=== PATIENT | female | born 1955 | race Two or more races ===

== ENCOUNTER 2019-10-26 12:29 | Inpatient (IN) | payer MEDICAID ==
[2019-10-26] VITALS (33 sets, daily range): BP systolic 71–156; BP diastolic 37–90
[~2019-10-26] VITALS: Ht 154.9 cm; Wt 62.8 kg
--- NOTE | 2019-10-26 12:29 | NUR ---
ED Nurse Note: PT BROUGHT IN BY RA 29 FROM HOME FOR DIZZINESS WITH NAUSEA AND VOMITTING X 4 DAYS. PT CURRENT BP IS 72/34 . PT IS ALERT X4. PT STATES SHE HAS HX OF HTN AND STOMACHE CA AND IS CURRENTLY TAKING LISINOPRIL, UNKNOWN DOSE. 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 BLOOD SAMPLE SENT DOWN TO LAB
[2019-10-26 13:15] LABS: INR 1.3 (0.9-1.1)
[2019-10-26] MEDS ORDERED: Piperacillin/Tazobactam 3.375 GM in NS 110 ML IVPB ONE (13:15)
--- NOTE | 2019-10-26 13:17 | Emergency Room Report ---
History of Present Illness General Chief Complaint: Dizziness Source: Patient Present Illness HPI 64-year-old female history of hypertension, history of chemotherapy for stomach cancer takes chemotherapy in the morning presents with fever x1 day, chills generalized weakness and hypotension measured less than systolic blood pressure of 90, no known aggravating relieving factor severity is moderate, constant patient presents for evaluation Allergies: Coded Allergies: No Known Allergies (Unverified , 10/26/19) Patient History Past Medical History: see triage record Last Menstrual Period: NA Reviewed Nursing Documentation: PMH: Agreed; PSxH: Agreed Nursing Documentation-PMH Past Medical History: No History, Except For Hx Hypertension: Yes Review of Systems All Other Systems: negative except mentioned in HPI Physical Exam Vital Signs Date Time Temp Pulse Resp B/P (MAP) Pulse Ox O2 Delivery O2 Flow Rate FiO2 10/26/19 12:22 98.8 86 18 72/35 (47) 98 Room Air Sp02 EP Interpretation: reviewed, normal General Appearance: well appearing, no apparent distress, alert Head: normocephalic, atraumatic Eyes: bilateral eye PERRL, bilateral eye EOMI ENT: uvula midline, dry mucus membranes Neck: supple, thyroid normal, supple/symm/no masses Respiratory: lungs clear, no respiratory distress, no retraction, no accessory muscle use Cardiovascular #1: normal peripheral pulses, regular rate, rhythm, no edema, no gallop, no murmur Gastrointestinal: non tender, soft, no guarding, no rebound Musculoskeletal: normal inspection Neurologic: alert, oriented x3 Psychiatric: mood/affect normal Skin: no rash, warm/dry Procedures Critical Care Time Critical Care Time Given the critical condition in which the patient arrived, the patient was immediately assessed by myself and the nurse, and cardiac monitoring initiated due to the potential for rapid decompensation of the patient's clinical condition. During the course of the patient's stay, I spent a considerable amount of time at the bedside performing serial re-evaluations of the patient's hemodynamic and clinical status because of the recognized potential threat to life or limb in this condition. I then had a chance to review not only all of the available current laboratory and radiographic studies obtained today, but I also reviewed old records available to me at the time. 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 Sequential vital signs were obtained. Critical Care time of 60 minutes was performed exclusive of billable procedures. Central Line Central Line : Consent: Written Central Line Lumen: triple Maximal Sterile Barrier Tech: yes cap, yes mask, yes sterile gown, yes sterile gloves, yes large sterile sheet, yes hand hygiene, yes chlorhexidine prep Central Line Postion: femoral (R) Anesthesia: Lidocaine cc's of anesthesia: 10 Complications: none Central Line Post Position: sutured, good blood return Attempts: One Patient Tolerated: Well Complications: None Medical Decision Making Diagnostic Impression: Primary Impression: Hypotension Qualified Codes: I95.9 - Hypotension, unspecified Additional Impressions: Sepsis Qualified Codes: A41.9 - Sepsis, unspecified organism; R65.21 - Severe sepsis with septic shock; N17.9 - Acute kidney failure, unspecified Symptomatic anemia ER Course 64-year-old female history of chemotherapy presents with hypotension, tachycardia concern for sepsis, anemia, Patient found to be anemic, will transfuse blood, consent was signed Additionally patient was resuscitated with 3 L of NS however she remained hypotensive and refractory A central line was emergently placed with her consent right femoral Norepinephrine titrated with map goal of 65 Patient was upgraded to the ICU given her hypotension patient admitted to Dr. Melendez Laboratory Tests Test 10/26/19 12:25 10/26/19 15:00 10/26/19 15:20 White Blood Count 7.7 K/UL (4.8-10.8) Red Blood Count 1.66 M/UL (4.20-5.40) L Hemoglobin 5.7 G/DL (12.0-16.0) *L Hematocrit 15.5 % (37.0-47.0) L Mean Corpuscular Volume 93 FL (80-99) Mean Corpuscular Hemoglobin 34.6 PG (27.0-31.0) H Mean Corpuscular Hemoglobin Concent 37.2 G/DL (32.0-36.0) H Red Cell Distribution Width 15.7 % (11.6-14.8) H Platelet Count 101 K/UL (150-450) L Mean Platelet Volume 6.0 FL (6.5-10.1) L Neutrophils (%) (Auto) % (45.0-75.0) Lymphocytes (%) (Auto) % (20.0-45.0) Monocytes (%) (Auto) % (1.0-10.0) Eosinophils (%) (Auto) % (0.0-3.0) Basophils (%) (Auto) % (0.0-2.0) Differential Total Cells Counted 100 Neutrophils % (Manual) 91 % (45-75) H Lymphocytes % (Manual) 5 % (20-45) L Monocytes % (Manual) 4 % (1-10) Eosinophils % (Manual) 0 % (0-3) Basophils % (Manual) 0 % (0-2) Band Neutrophils 0 % (0-8) Platelet Estimate Decreased L Platelet Morphology Normal Hypochromasia 4+ Anisocytosis 1+ Spherocytes 3+ Prothrombin Time 13.9 SEC (9.30-11.50) H Prothrombin Time INR 1.3 (0.9-1.1) H Activated Partial Thromboplast Time 44 SEC (23-33) H Sodium Level 131 MMOL/L (136-145) L Potassium Level 3.7 MMOL/L (3.5-5.1) Chloride Level 99 MMOL/L (98-107) Carbon Dioxide Level 22 MMOL/L (21-32) Anion Gap 11 mmol/L (5-15) Blood Urea Nitrogen 31 mg/dL (7-18) H Creatinine 2.5 MG/DL (0.55-1.30) H Estimate Glomerular Filtration Rate 19.3 mL/min (>60) Glucose Level 177 MG/DL (74-106) H Lactic Acid Level 2.80 mmol/L (0.4-2.0) H 2.20 mmol/L (0.66-2.22) Calcium Level 7.5 MG/DL (8.5-10.1) L Phosphorus Level 2.9 MG/DL (2.5-4.9) Magnesium Level 1.8 MG/DL (1.8-2.4) Total Bilirubin 0.6 MG/DL (0.2-1.0) Aspartate Amino Transferase (AST) 25 U/L (15-37) Alanine Aminotransferase (ALT) 21 U/L (12-78) Alkaline Phosphatase 76 U/L (46-116) Total Creatine Kinase 253 U/L (26-308) Troponin I 0.000 ng/mL (0.000-0.056) Pro-B-Type Natriuretic Peptide 2449 pg/mL (0-125) H Total Protein 6.4 G/DL (6.4-8.2) Albumin 2.5 G/DL (3.4-5.0) L Globulin 3.9 g/dL Lipase 164 U/L (73-393) Urine Color Pale yellow Urine Appearance Slightly cloudy Urine pH 7 (4.5-8.0) Urine Specific [place] 1.005 (1.005-1.035) Urine Protein 2+ (NEGATIVE) H Urine Glucose (UA) Negative (NEGATIVE) Urine Ketones Negative (NEGATIVE) Urine Blood 5+ (NEGATIVE) H Urine Nitrite Negative (NEGATIVE) Urine Bilirubin Negative (NEGATIVE) Urine Urobilinogen Normal MG/DL (0.0-1.0) Urine Leukocyte Esterase 3+ (NEGATIVE) H Urine RBC 2-4 /HPF (0 - 2) H Urine WBC Tntc /HPF (0 - 2) H Urine Squamous Epithelial Cells Few /LPF (NONE/OCC) Urine Bacteria Many /HPF (NONE) H EKG Diagnostic Results EKG Time: 11:16 EP Interpretation: NSR, rate 66, QTc 436, no acute ST elevations, normal axis Rhythm Strip Diag. Results Rhythm Strip Time: 13:17 EP Interpretation: yes Rate: 82 Rhythm: NSR, no PVC's, no ectopy Chest X-Ray Diagnostic Results Chest X-Ray Diagnostic Results : Chest X-Ray Ordered: Yes # of Views/Limited/Complete: 1 View Indication: Other - cough EP Interpretation: Yes Interpretation: no consolidation, no effusion, no pneumothorax, no acute cardiopulmonary disease Impression: No acute disease Electronically Signed by: Spike Yin MD Last Vital Signs Date Time Temp Pulse Resp B/P (MAP) Pulse Ox O2 Delivery O2 Flow Rate FiO2 10/26/19 12:48 81 18 Room Air 10/26/19 12:29 98.8 78/40 98 Disposition: ADMITTED INPATIENT Condition: Critical Evaluation Current Stage of Sepsis: Septic Shock Possible Source: Unknown Focused Exam Allergies: Coded Allergies: No Known Allergies (Unverified , 10/26/19) Date Exam Occurred: Oct 26, 2019 Time Exam Occurred: 15:13 Laboratory Studies Laboratory Tests Test 10/26/19 12:25 10/26/19 15:00 10/26/19 15:20 White Blood Count 7.7 K/UL (4.8-10.8) Red Blood Count 1.66 M/UL (4.20-5.40) L Hemoglobin 5.7 G/DL (12.0-16.0) *L Hematocrit 15.5 % (37.0-47.0) L Mean Corpuscular Volume 93 FL (80-99) Mean Corpuscular Hemoglobin 34.6 PG (27.0-31.0) H Mean Corpuscular Hemoglobin Concent 37.2 G/DL (32.0-36.0) H Red Cell Distribution Width 15.7 % (11.6-14.8) H Platelet Count 101 K/UL (150-450) L Mean Platelet Volume 6.0 FL (6.5-10.1) L Neutrophils (%) (Auto) % (45.0-75.0) Lymphocytes (%) (Auto) % (20.0-45.0) Monocytes (%) (Auto) % (1.0-10.0) Eosinophils (%) (Auto) % (0.0-3.0) Basophils (%) (Auto) % (0.0-2.0) Differential Total Cells Counted 100 Neutrophils % (Manual) 91 % (45-75) H Lymphocytes % (Manual) 5 % (20-45) L Monocytes % (Manual) 4 % (1-10) Eosinophils % (Manual) 0 % (0-3) Basophils % (Manual) 0 % (0-2) Band Neutrophils 0 % (0-8) Platelet Estimate Decreased L Platelet Morphology Normal Hypochromasia 4+ Anisocytosis 1+ Spherocytes 3+ Prothrombin Time 13.9 SEC (9.30-11.50) H Prothromb Time International Ratio 1.3 (0.9-1.1) H Activated Partial Thromboplast Time 44 SEC (23-33) H Sodium Level 131 MMOL/L (136-145) L Potassium Level 3.7 MMOL/L (3.5-5.1) Chloride Level 99 MMOL/L (98-107) Carbon Dioxide Level 22 MMOL/L (21-32) Anion Gap 11 mmol/L (5-15) Blood Urea Nitrogen 31 mg/dL (7-18) H Creatinine 2.5 MG/DL (0.55-1.30) H Estimat Glomerular Filtration Rate 19.3 mL/min (>60) Glucose Level 177 MG/DL (74-106) H Lactic Acid Level 2.80 mmol/L (0.4-2.0) H 2.20 mmol/L (0.66-2.22) Calcium Level 7.5 MG/DL (8.5-10.1) L Phosphorus Level 2.9 MG/DL (2.5-4.9) Magnesium Level 1.8 MG/DL (1.8-2.4) Total Bilirubin 0.6 MG/DL (0.2-1.0) Aspartate Amino Transf (AST/SGOT) 25 U/L (15-37) Alanine Aminotransferase (ALT/SGPT) 21 U/L (12-78) Alkaline Phosphatase 76 U/L (46-116) Total Creatine Kinase 253 U/L (26-308) Troponin I 0.000 ng/mL (0.000-0.056) Pro-B-Type Natriuretic Peptide 2449 pg/mL (0-125) H Total Protein 6.4 G/DL (6.4-8.2) Albumin 2.5 G/DL (3.4-5.0) L Globulin 3.9 g/dL Lipase 164 U/L (73-393) Urine Color Pale yellow Urine Appearance Slightly cloudy Urine pH 7 (4.5-8.0) Urine Specific [place] 1.005 (1.005-1.035) Urine Protein 2+ (NEGATIVE) H Urine Glucose (UA) Negative (NEGATIVE) Urine Ketones Negative (NEGATIVE) Urine Blood 5+ (NEGATIVE) H Urine Nitrite Negative (NEGATIVE) Urine Bilirubin Negative (NEGATIVE) Urine Urobilinogen Normal MG/DL (0.0-1.0) Urine Leukocyte Esterase 3+ (NEGATIVE) H Urine RBC 2-4 /HPF (0 - 2) H Urine WBC Tntc /HPF (0 - 2) H Urine Squamous Epithelial Cells Few /LPF (NONE/OCC) Urine Bacteria Many /HPF (NONE) H Vital Signs Last 24 Hour Vital Signs Date Time Temp Pulse Resp B/P (MAP) Pulse Ox O2 Delivery O2 Flow Rate FiO2 10/26/19 15:37 129/50 10/26/19 15:37 98.5 96 19 129/50 100 Room Air 10/26/19 15:32 83/42 10/26/19 15:27 98.5 97 22 85/74 99 Room Air 10/26/19 15:27 85/74 10/26/19 15:22 98.8 92 20 79/43 97 Room Air 10/26/19 15:22 79/43 10/26/19 13:23 98.8 86 18 71/41 97 Room Air 10/26/19 12:48 81 18 Room Air 10/26/19 12:29 98.8 81 18 78/40 98 Room Air 10/26/19 12:22 98.8 86 18 72/35 (47) 98 Room Air Respiratory Exam: Clear Cardiovascular Exam: S1, S2, Tachycardia Capillary Refill: Greater Than 2 Seconds Peripheral Pulse: Strong Pulse Location: Femoral Skin Exam: Pallor Spike Yin MD Oct 26, 2019 13:17
--- NOTE | 2019-10-26 13:22 | NUR ---
ED Nurse Note: BP 71/41 AFTER 1ST BAG OF NS. DR MALDONADO WAS NOTIFIED.
[2019-10-26 13:23] LABS: HEMATOCRIT 15.5 % (37.0-47.0); MEAN CORPUSCULAR VOLUME 93 FL (80-99); PLATELET COUNT 101 K/UL (150-450); RED BLOOD COUNT 1.66 M/UL (4.20-5.40); RED CELL DISTRIBUTION WIDTH 15.7 % (11.6-14.8); WHITE BLOOD COUNT 7.7 K/UL (4.8-10.8)
[2019-10-26 13:25] LABS: HEMOGLOBIN 5.7 G/DL (12.0-16.0)
[2019-10-26 13:27] LABS: ANION GAP 11 mmol/L (5-15); BLOOD UREA NITROGEN 31 mg/dL (7-18); CALCIUM 7.5 MG/DL (8.5-10.1); CARBON DIOXIDE 22 MMOL/L (21-32); CHLORIDE 99 MMOL/L (98-107); CREATININE 2.5 MG/DL (0.55-1.30); POTASSIUM 3.7 MMOL/L (3.5-5.1); SODIUM 131 MMOL/L (136-145)
[2019-10-26 13:31] LABS: ALANINE AMINOTRANSFERASE 21 U/L (12-78); ALKALINE PHOSPHATASE 76 U/L (46-116); ASPARTATE AMINO TRANSFERASE 25 U/L (15-37); BILIRUBIN,TOTAL 0.6 MG/DL (0.2-1.0); CREATINE KINASE 253 U/L (26-308); PHOSPHORUS 2.9 MG/DL (2.5-4.9)
[2019-10-26 13:53] LABS: ALBUMIN 2.5 G/DL (3.4-5.0)
[2019-10-26] MEDS ORDERED: Lidocaine 1% Plain 30 ml INJ ONE ×2 (14:20→14:30)
--- NOTE | 2019-10-26 14:50 | NUR ---
ED Nurse Note: DR MALDONADO AT THE BEDSIDE FOR CENTRAL LINE PLACEMENT ON RIGHT FEMORAL. CONSENT SIGNED BY PT AND SECURED.
--- NOTE | 2019-10-26 15:06 | Diagnostic Imaging Report ---
Indication: Chest pain Technique: One view of the chest Comparison: none Findings: Lungs and pleural spaces are clear. The heart size is upper limits of normal. Impression: Negative
--- NOTE | 2019-10-26 15:22 | NUR ---
ED Nurse Note: Started levophed drip at 2mcg/min on right femoral central line.
[2019-10-26 15:30] LABS: APPEARANCE,URINE SLIGHTLY CLOUDY; BILIRUBIN, URINE NEGATIVE (NEGATIVE); COLOR,URINE PALE YELLOW; GLUCOSE, URINE (UA) NEGATIVE (NEGATIVE); KETONES,URINE NEGATIVE (NEGATIVE); LEUKOCYTE ESTERASE ,URINE 3+ (NEGATIVE); NITRITE,URINE NEGATIVE (NEGATIVE); PH,URINE 7 (4.5-8.0); PROTEIN,URINE 2+ (NEGATIVE); UROBILINOGEN,URINE NORMAL MG/DL (0.0-1.0)
[2019-10-26] MEDS ORDERED: Vancomycin 1 GM in NS 275 ML IVPB ONE (15:45)
--- NOTE | 2019-10-26 16:08 | NUR ---
ED Nurse Note: PT WENT TO CT WITH RN AND MYRANDA. ON PORTABLE CEMENT [place] [address]. BP AT 129/50.
--- NOTE | 2019-10-26 16:27 | Pulmonolgy Critical Care Note ---
Critical Care - Asmt/Plan Assessment/Plan: Pulmonary Critical Care Consultation HPI Patient is a 64-year-old female with past medical history of Stomach cancer, hypertension, history of recent chemotherapy ,admitted with with fever/chills for one day, weakness, noted to have severe anemia, hypotension, evidence of urinary tract infection, clear CXR, normal O2 sats on RA, no acute changes on EKG CT Abdomen pending Allergies: No Known Allergies Past Medical History: Stomach cancer, hypertension All Other Systems: negative except mentioned in HPI Physical Exam Vital Signs Noted Date Time Temp Pulse Resp B/P (MAP) Pulse Ox O2 Delivery O2 Flow Rate FiO2 10/26/19 12:22 98.8 86 18 72/35 (47) 98 Room Air General Appearance: well appearing, no apparent distress, alert, pale Head: normocephalic, atraumatic Eyes: bilateral eye PERRL, bilateral eye EOMI ENT: uvula midline, dry mucus membranes Neck: supple, thyroid normal, supple/symm/no masses Respiratory: lungs clear, no respiratory distress, no retraction, no accessory muscle use Cardiovascular: normal peripheral pulses, regular rate, rhythm, HS1, HS2 normal , no gallop, no murmur Gastrointestinal: non tender, soft, no guarding, no rebound Musculoskeletal: normal inspection Neurologic: alert, oriented x3, no focal signs, no seizures Psychiatric: mood/affect normal Skin: no rash, warm/dry, no edema EKG: NSR, rate 66, QTc 436, no acute ST elevations, normal axis CXR: No acute changes UA: S/o infection CBC: Severe anemia Impression: Stomach Cancer s/p recent Chemotherapy Urosepsis Severe Anemia Thrombocytopenia H/o Hypertension Dehydration Hyponatremia Azotemia Elevated BNP Hyperglycemia Plan: - IV Antibiotics - IVF - Pressors PRN - Transfuse PRN - IV Protonix - R/o DVT, SCD's - Monitor labs - Cortisol level - 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 Medications - O2 PRN - Echocardiogram - ISS Critical Care - Objective Last 24 Hour Vital Signs Date Time Temp Pulse Resp B/P (MAP) Pulse Ox O2 Delivery O2 Flow Rate FiO2 10/26/19 15:37 129/50 10/26/19 15:37 98.5 96 19 129/50 100 Room Air 10/26/19 15:32 83/42 10/26/19 15:27 98.5 97 22 85/74 99 Room Air 10/26/19 15:27 85/74 10/26/19 15:22 98.8 92 20 79/43 97 Room Air 10/26/19 15:22 79/43 10/26/19 13:23 98.8 86 18 71/41 97 Room Air 10/26/19 12:48 81 18 Room Air 10/26/19 12:29 98.8 81 18 78/40 98 Room Air 10/26/19 12:22 98.8 86 18 72/35 (47) 98 Room Air Critical Care - Subjective ROS Limited/Unobtainable: No Condition: critical EKG Rhythm: Sinus Rhythm Ajit Land MD Oct 26, 2019 16:26
--- NOTE | 2019-10-26 16:28 | NUR ---
ED Nurse Note: DR MALDONADO IS OKAY TO START THE 1ST BAG OF BLOOD TRANSFUSION IN ICU. BP AT 104/51.
--- NOTE | 2019-10-26 16:45 | Consultation ---
Consult Note Consult Note asked to eval at the request of Dr Batres Seen in ER Room 4 discussed with RN 64-year-old female history of hypertension, history of chemotherapy for stomach cancer takes chemotherapy in the morning presents with fever x1 day, chills generalized weakness and hypotension measured less than systolic blood pressure of 90, no known aggravating relieving factor severity is moderate, constant patient presents for evaluation No Known Allergies (Unverified , 10/26/19) Past Medical History: No History, Except For Hx Hypertension: Yes Assessment/Plan Renal failure Hypotension Sepsis Symptomatic anemia hydrate Anemia whalen antibiotics avoid nephrotoxics urine studies JOSEPH kidney 2D echo Alverto Bird MD Oct 26, 2019 16:45
--- NOTE | 2019-10-26 17:05 | Diagnostic Imaging Report ---
Indication: Abdominal pain, fever, chills, generalized weakness and hypotension Technique: Spiral acquisitions obtained through the abdomen and pelvis. No oral contrast utilized, per emergency room physician request No IV contrast utilized, per referring physician request.. Multiplanar reconstructions were generated. Total dose length product 1091 mGycm. CTDIvol(s) 20 mGy. Dose reduction achieved using automated exposure control Comparison: None Findings: Lack of enteric contrast limits assessment of the GI tract. There is colonic diverticulosis. No evidence of diverticulitis. The appendix is not definitely demonstrated, but no findings to suggest acute appendicitis are evident. No small bowel distention. No free or loculated intraperitoneal gas or fluid is evident. There is a small sliding-type hiatal hernia. The stomach and duodenum are otherwise unremarkable. There is evidence of prior midline abdominal surgery. The lack of IV contrast limits assessment of the solid organs. The gallbladder contains probable tiny layering gallstones. The liver is grossly unremarkable. No biliary ductal dilatation. The pancreas, spleen, adrenals, kidneys, ureters, bladder are all unremarkable. No renal or ureteral calculi, hydronephrosis, or hydroureter. No pelvic mass or adenopathy. The uterus is absent. There is a right groin central venous catheter, tip projected at the level of the common iliac vein. There is some infiltration of the fat in the right groin region, likely related to the recent placement. Included lung bases demonstrate trace pleural fluid on the right. There are posterior dependent pulmonary atelectatic changes. There is generalized mild interstitial septal thickening bilaterally as well as bronchial wall thickening. There is some atelectasis and possibly patchy consolidation at the left lung base. The bones demonstrate very mild degenerative spondylosis changes. Impression: Limited exam, due to lack of IV and enteric contrast No definite acute abdominal or pelvic abnormality Colonic diverticulosis. No evidence of diverticulitis Probable cholelithiasis Right groin central venous catheter in place. Trace right pleural effusion Posterior dependent pulmonary atelectatic changes. Mild interstitial septal thickening bilaterally is nonspecific, could be chronic or could represent acute interstitial edema. Left basilar pulmonary patchy consolidation Other findings as noted, including degenerative spondylosis, prior hysterectomy, midline surgical scar The CT scanner at [facility] is accredited by the [employer] and the scans are performed using protocols designed to limit radiation exposure to as low as reasonably achievable to attain images of sufficient resolution adequate for diagnostic evaluation.
--- NOTE | 2019-10-26 17:36 | NUR ---
ED Nurse Note: RECTAL TEMP OF 103.[address] MONTEZ WAS NOTIFIED.
[2019-10-26 17:45] LABS: FERRITIN 1012 NG/ML (8-388)
--- NOTE | 2019-10-26 17:45 | NUR ---
ED Nurse Note: REPORT GIVEN TO GRICELDA BEASLEY OF ICU.
--- NOTE | 2019-10-26 17:55 | NUR ---
ED Nurse Note: PT TRANSFERRED TO ICU WITH ALL HER BELONGINGS. STABLE ADN LEVOPHED DRIP ONGOING AT 6MCG/MIN,AND VANCOMYCIN. ENDORSED TO GRICELDA BEASLEY.
[2019-10-26 17:59] LABS: % IRON SATURATION 34 % (15-50); IRON 45 ug/dL (50-175); TOTAL IRON BINDING CAPACITY 132 ug/dL (250-450)
[2019-10-26] MEDS ORDERED: HYDROcodone/Acetamin 5/325 tab ORAL PRN (18:00)
[2019-10-26] MEDS ORDERED: Hydromorphone 0.5mg/0.5ml inj IVP PRN (18:00)
[2019-10-26] MEDS ORDERED: DiphenhydrAMINE 50mg/ml Inj IVP PRN (18:00)
--- NOTE | 2019-10-26 18:00 | NUR ---
NURSE NOTES: Late entry: PT and report received from Anabella Townsend ED RN; PT A/O x 4; belgian speaker, responsive to question; no respiratory distress noted, received on RA; saturating at 95%; ST on potline monitor of 130s; PT brought from ED with R-fem TLC all lumens patent flushes well; received infusing Levophed at 4mcg/min; R-AC 20g intact flushes well; no wounds noted during transfer of PT; NPO status except meds, will continue to monitor PT.
--- NOTE | 2019-10-26 18:01 | NUR ---
NURSE NOTES: Late entry: MD Shanda called with orders for PT; read back all orders to confirmed if all orders given over the phone are correct, confirmed read back, will place orders on behalf of .
[2019-10-26] MEDS ORDERED: D5 1/2NS 1,000 ML IV SCH (18:30)
--- NOTE | 2019-10-26 18:45 | NUR ---
NURSE NOTES: Late entry: Blood was verified at bedside with Krissy Ma, when bedside temperature was taken orally PT temperature was 103.1 orally; reported by ED RN that tylenol 650mg was given once. Informed WILLIS Fuentes, placed all tubings and blood into bag, WILLIS Fuentes took it back to [facility]. Blood bag was only punctured, never started/infused to PT.
--- NOTE | 2019-10-26 19:34 | NUR ---
HAND-OFF: Late entry: PT and report given to RAMOS Donahue.
--- NOTE | 2019-10-26 19:35 | NUR ---
NURSE NOTES: Received patient from RAMOS Barakat. Will continue plan of care.
--- NOTE | 2019-10-26 20:00 | NUR ---
NURSE NOTES: Patient is awake, alert and oriented x4; Haitian speaking. Temperature 100.7F orally at the moment. Tylenol already given and cooling measures in place. Will transfuse blood when temperature decreases. Received order from Dr. Shanda GARCIA to insert santana. Safety measures in place; bed low, locked and alarm is on.
--- NOTE | 2019-10-26 20:20 | NUR ---
NURSE NOTES: With translation from Maltese speaking RN; patient states that she received pneumococcal vaccine in 2019. She also states that she is free of stomach cancer following 2 stomach surgeries early 2019. Other than hypertension, she states no other history.
--- NOTE | 2019-10-26 20:30 | NUR ---
NURSE NOTES: Avendaño inserted and draining well. Dr. Land came and assessed patient and new orders are given. Linen change provided. Temperature down to 99.3F orally. Will keep monitoring.
--- NOTE | 2019-10-26 20:46 | NUR ---
NURSE NOTES: Confirmed with Dr. Land the orders are as followed: Bolus 500ml NS one time then continue fluids of NS @ 75ml/hr and D5NS @ 50ml/hr and to stop fluids when transfusing blood. Orders are updated.
[2019-10-26] MEDS ORDERED: D5NS 1,000 ML IV SCH (21:00)
[2019-10-26] MEDS: NovoLOG Insulin Flexpen SUBQ SCH (21:27)
[2019-10-26] MEDS: Pantoprazole Inj IVP SCH (21:27)
--- NOTE | 2019-10-26 22:00 | NUR ---
NURSE NOTES: Vital signs stable; BP:115-56, HR:83, O2:96%, RESP:13 TEMP:98.7F orally and no current reaction to blood transfusing. Patient is sleeping comfortably. Will continue to monitor.
--- NOTE | 2019-10-26 23:15 | Consultation ---
DATE OF CONSULTATION: 10/26/2019 GASTROENTEROLOGY CONSULTATION CONSULTING PHYSICIAN: Kristine Alexander M.D. CHIEF COMPLAINT: I was asked to see this patient by Dr. Alea Melendez for evaluation of anemia. HISTORY OF PRESENT ILLNESS: The patient is a pleasant 64-year-old woman who was admitted to the hospital due to urinary tract infection and sepsis. The patient states that for the past week or so, she has had bouts of dysuria. Here in the emergency room, she received some IV fluids and subsequently was found to have some rigors. She was also found to have severe anemia and she is being transfused. Of note, she was found to have a gastric cancer about a year ago and has undergone 2 surgeries at [facility] in January and March of last year. She was told that the cancer is in remission and could not be seen on an endoscopy, which was only done 15 days ago at [facility]. She had some nausea and vomiting this morning, which was yellow, but otherwise she had no nausea or vomiting. Her stools are generally black, but she has been on long-term iron supplementation. She was hypotensive this morning at home, but now her blood pressure is being improved with IV fluids. She is on p.o. chemotherapy. PAST MEDICAL HISTORY: History of hypertension, history of gastric cancer. The patient's last colonoscopy was about 6 months ago and last endoscopy was about 15 days ago. FAMILY HISTORY: Noncontributory. SOCIAL HISTORY: The patient does not smoke or drink alcohol. REVIEW OF SYSTEMS: Otherwise negative. PHYSICAL EXAMINATION: GENERAL: A pleasant woman seen in the emergency room with shaking and chills. HEENT: Normocephalic and atraumatic. NECK: Supple. CHEST: Clear to auscultation. CARDIOVASCULAR: Revealed a tachycardic heart rate. ABDOMEN: Soft, nontender. EXTREMITIES: Revealed no edema. LABORATORY DATA: The patient's urine showed cfg-insvlxek-lm-count white cells. Her chem-panel showed a creatinine of 2.5. Her white count was 7.7, but hemoglobin was 5.7 and platelet count of 101. Her coags showed INR 1.3. ASSESSMENT: This patient has gastric malignancy, which has been treated with surgery and chemotherapy at an outside facility. The patient reportedly has a clinical remission, but the cause of her anemia is unknown. I will check the patient's stool to rule out gastrointestinal bleeding. However, endoscopy was done only 15 days ago, which should be obtained if possible for review. Blood transfusion is clearly indicated at this time. I would also place the patient on a proton pump inhibitor twice daily. If necessary, another endoscopy can be done to evaluate the patient's upper GI tract. RECOMMENDATIONS: Per above discussion and per orders written in the chart. Thank you for asking me to participate in the care of this patient. Kristine Alexander M.D. DR: JACKSON JOB#: [id number] CC:
[2019-10-27] VITALS (62 sets, daily range): BP systolic 59–157; BP diastolic 38–80
--- NOTE | 2019-10-27 | NUR ---
NURSE NOTES: Patient FLACC score of 6, motioned that she is in pain to her back. BP:157/73 [place] given. Will continue to monitor.
--- NOTE | 2019-10-27 00:20 | NUR ---
NURSE NOTES: Patient is resting comfortably. FLACC score 0. Current BP:132/70
--- NOTE | 2019-10-27 01:16 | History and Physical Report ---
DATE OF ADMISSION: 10/26/2019 HISTORY OF PRESENT ILLNESS: I saw the patient in the emergency room. The patient is being admitted to the ICU. The patient is having chills and rigors. The patient has stomach cancer/uterine and ovarian cancer. Her last chemotherapy was two years ago. The patient is also taking pills for chemoprophylaxis. The patient states they removed the ovary and uterus and part of her stomach because of her cancer years ago. The patient was admitted for hypotension, septic shock, severe anemia, sepsis, acute renal failure, and malnutrition. The patient feels very weak and complains of dysuria as well. She does have some cough as nonproductive for the past couple of days. Denies rectal bleeding. PAST MEDICAL HISTORY: History of GI cancer, history of anemia, and history of ovarian and uterine cancer, both metastasized apparently. PAST SURGICAL HISTORY: Removal of ovary and uterus and hysterectomy as well as part of the GI tract and possibly stomach because of the metastatic cancer. ALLERGIES: No known allergies. MEDICATIONS: Cannot tell me the name of the medications. FAMILY HISTORY: Noncontributory. SOCIAL HISTORY: The patient denies history of smoking, alcohol, or illicit drugs. REVIEW OF SYSTEMS: HEENT: Denies headaches. RESPIRATORY: She does have cough, nonproductive for the past couple of days. CARDIOVASCULAR: Denies chest pain or palpitations. GASTROINTESTINAL: Denies nausea, vomiting, or diarrhea. EXTREMITIES: Denies pain. CENTRAL NERVOUS SYSTEM: Denies change in speech pattern. Does have severe rigors. No headaches. PHYSICAL EXAMINATION: VITAL SIGNS: Temperature 98.8, pulse is 92, and blood pressure 79/43. HEENT: PERRLA. NECK: Supple. No lymphadenopathy. CHEST: Clear to auscultation. CARDIOVASCULAR: Regular rate and rhythm. No murmurs or extra sounds. GASTROINTESTINAL: Soft, nontender, and nondistended. No organomegaly. EXTREMITIES: No edema. Moves all four extremities. Sensory intact to light touch. Reflexes equal on both sides. LABORATORY DATA: Blood cultures were drawn. WBC of 7.7, hemoglobin 5.7, and platelets 101. Sodium 131, potassium 3.7, BUN of 31, creatinine 2.5, and glucose of 177. ASSESSMENT AND PLAN: Severe anemia, UTI, and septic shock. The patient is on pressors. Need IV fluids and transfusion. She also has a history of GI cancer as well. I have consulted Dr. Land, Dr. Bird, Dr. Evelio Hill, Dr. Alexander, Dr. David Venegas, and Dr. Nunez for the above-mentioned diagnoses, abnormalities, and symptoms. The patient is very ill and is going to ICU. Alea Melendez M.D. DR: LORA JOB#: [id number] CC:
--- NOTE | 2019-10-27 02:00 | NUR ---
NURSE NOTES: 2 units PRBC transfused and patient tolerated well. Remains afebrile. Patient is resting comfortably. Will continue to monitor.
[2019-10-27] MEDS: Piperacillin/Tazobactam 3.375 GM in NS 110 ML IVPB SCH ×2 (02:50→14:54)
--- NOTE | 2019-10-27 04:00 | NUR ---
NURSE NOTES: Patient is sleeping comfortably, does not want to be bothered. Levophed continues to run, currently at 10mcg/kg/hr. BP:108/59, HR:60, O2:97%, RESP:14, shows no signs of pain or distress. Will continue to monitor.
[2019-10-27 05:57] LABS: HEMATOCRIT 25.5 % (37.0-47.0); HEMOGLOBIN 9.4 G/DL (12.0-16.0); MEAN CORPUSCULAR VOLUME 90 FL (80-99); PLATELET COUNT 89 K/UL (150-450); RED BLOOD COUNT 2.84 M/UL (4.20-5.40); WHITE BLOOD COUNT 8.9 K/UL (4.8-10.8)
--- NOTE | 2019-10-27 06:00 | NUR ---
NURSE NOTES: Patient is comfortable. Vital signs are stable. Current BP:117/58 HR:65. Levophed now running at 8mcg/kg/hr. Will continue to monitor.
[2019-10-27] MEDS: NovoLOG Insulin Flexpen SUBQ SCH ×4 (06:35→20:33)
[2019-10-27 06:40] LABS: ALANINE AMINOTRANSFERASE 17 U/L (12-78); ALBUMIN 2.3 G/DL (3.4-5.0); ALBUMIN/GLOBULIN RATIO 0.6 (1.0-2.7); ALKALINE PHOSPHATASE 84 U/L (46-116); ANION GAP 14 mmol/L (5-15); ASPARTATE AMINO TRANSFERASE 29 U/L (15-37); BILIRUBIN,TOTAL 0.6 MG/DL (0.2-1.0); BLOOD UREA NITROGEN 24 mg/dL (7-18); CALCIUM 7.8 MG/DL (8.5-10.1); CARBON DIOXIDE 18 MMOL/L (21-32); CHLORIDE 107 MMOL/L (98-107); CREATININE 1.7 MG/DL (0.55-1.30); POTASSIUM 3.1 MMOL/L (3.5-5.1); SODIUM 139 MMOL/L (136-145)
[2019-10-27 07:00] LABS: CREATINE KINASE 221 U/L (26-308); GAMMA GLUTAMYL TRANSPEPTIDASE 33 U/L (5-85); PHOSPHORUS 3.3 MG/DL (2.5-4.9)
--- NOTE | 2019-10-27 07:15 | NUR ---
HAND-OFF: Report given to RAMOS Barakat.
--- NOTE | 2019-10-27 07:16 | NUR ---
NURSE NOTES: PT and report received from RAMOS Donahue; PT A/O x 4; remains cooperative; listens to commands; gambian speaking; remains on RA saturating at 97%; monitoring specialist shows SR 70, during morning rounds PT observed going SB to mid 50; remains on levophed infusing 6mcg/min; NS @ 75cc/hr; D5NS @ 50cc/hr all infusing via R-fem TLC all ports flushes, patent, intact. PT also has R-AC 18g flushes well, patent intact. PT has santana, intact draining at lowest position. Oral temp 98.1. Will continue to monitor PT, follow through with plan of care for PT.
--- NOTE | 2019-10-27 08:10 | NUR ---
NURSE NOTES: Late entry: MD Theo made rounds, updates given, MD order CBC for 1600; will place orders on behalf of MD.
[2019-10-27] MEDS: Pantoprazole Inj IVP SCH ×2 (09:25→20:33)
--- NOTE | 2019-10-27 09:35 | Diagnostic Imaging Report ---
Indication: Acute renal failure, increased renal function tests Technique: Grayscale and duplex images of the kidneys, retroperitoneum, and bladder were obtained. Comparison: none. Reference made to CT scan of the abdomen and pelvis 10/26/2019 Findings: Right kidney measures 11 cm in length. Left kidney measures 10.4 cm in length. Both kidneys demonstrate normal echogenicity. No hydronephrosis. No focal abnormality. Normal inferior vena cava. Bladder is distended, volume 439 mL. Technologist reports patient had no urge to void at the time of the exam. Impression: . Negative for hydronephrosis Somewhat distended bladder.
--- NOTE | 2019-10-27 09:50 | NUR ---
NURSE NOTES: Late entry: MD Catherine made rounds, updates given, ordered clear liquid diet for PT. Will place order on behalf of .
--- NOTE | 2019-10-27 10:41 | NUR ---
COMPLIANCE CLERK CONSULT Pt was admitted to ICU on 10/26/2019. SW met w/ pt and completed psychosocial assessment. [place] [facility] #[id number] assisted w/ interpretation. Pt presents as A&O 4x. Pt resides w/ roommates at [address] [place] [address]. Pt is , has 3 adult children living in [facility], unemployed and receives no income/social welfare. Pt has one nephew living in but pt was unable to recall the contact information. There is no AD/POLST in the chart. Pt declined to receive AD information. Emergency contact provided: Marely Dietzvala (friend) [phone]. SW reviewed SUB/TOB use hx w/ pt. Pt denies tobacco/ETOH/substance abuse. PT also denies hx of mental illness and SI/HI. Pt did not share any concern/needs at this time. BARB will F/U as needed. Signed: 10/27/19 at 1047 by СВЕТЛАНА DAY <Co-Signature Required>
--- NOTE | 2019-10-27 11:07 | NUR ---
NURSE NOTES: PT BP 128/63; decreased levo from 6mcg/min to 5mcg/min. WILLIS Fuentes made aware. Will continue to monitor PT.
--- NOTE | 2019-10-27 11:15 | NUR ---
NURSE NOTES: V-duplex negative; MD Shanda ordered previous night, SCD will be placed on PT and ordered also.
--- NOTE | 2019-10-27 11:35 | NUR ---
LUMBER DRIVER NOTE ADD: Per pt, she was ambulatory w/o DME prior to admission. Pt is independent w/ ADLs including cooking, bathing, etc. Pt does not receive IHSS. Signed: 10/27/19 at 1136 by СВЕТЛАНА DAY <Co-Signature Required>
--- NOTE | 2019-10-27 11:38 | Nephrology Progress Note ---
Assessment/Plan Problem List: (1) Renal failure (ARF), acute on chronic (2) Hypotension (3) Sepsis (4) Symptomatic anemia Assessment Renal failure resolving Hypotension resolving Sepsis ? UTI Symptomatic anemia Plan hydrate Anemia whalen- Transfused antibiotics avoid nephrotoxics urine studies JOSEPH kidney No [place] 2D echo Noted Subjective ROS Limited/Unobtainable: No Constitutional: Reports: malaise Objective Objective Last 24 Hour Vital Signs Date Time Temp Pulse Resp B/P (MAP) Pulse Ox O2 Delivery O2 Flow Rate FiO2 10/27/19 11:00 79 20 128/63 (84) 98 10/27/19 11:00 121/66 10/27/19 10:30 76 18 124/64 (84) 98 10/27/19 10:00 65 18 103/58 (73) 96 10/27/19 10:00 103/58 10/27/19 09:30 74 20 87/47 (60) 98 10/27/19 09:00 77 21 112/57 (75) 99 10/27/19 09:00 101/56 10/27/19 08:32 96/55 10/27/19 08:30 72 19 96/55 (69) 97 10/27/19 08:00 98.1 68 20 109/60 (76) 96 10/27/19 08:00 96/55 10/27/19 08:00 Room Air 10/27/19 08:00 67 10/27/19 07:21 60 19 147/60 (89) 96 10/27/19 07:15 79 20 86/51 (63) 98 10/27/19 07:00 69 17 125/56 (79) 95 10/27/19 06:45 69 18 129/63 (85) 97 10/27/19 06:30 68 13 118/63 (81) 97 10/27/19 06:15 65 15 117/58 (77) 97 10/27/19 06:00 117/58 10/27/19 06:00 60 13 124/62 (82) 96 10/27/19 05:45 59 14 109/61 (77) 96 10/27/19 05:30 59 13 106/58 (74) 97 10/27/19 05:15 59 14 95/80 (85) 97 10/27/19 05:00 114/59 10/27/19 05:00 57 14 114/59 (77) 97 10/27/19 04:45 58 14 108/59 (75) 97 10/27/19 04:30 63 15 133/65 (87) 97 10/27/19 04:15 63 15 136/65 (88) 98 10/27/19 04:00 Room Air 10/27/19 04:00 97.0 62 14 136/65 (88) 96 10/27/19 03:50 62 10/27/19 03:45 62 19 132/66 (88) 98 10/27/19 03:30 62 18 129/66 (87) 98 10/27/19 03:15 58 18 126/65 (85) 98 10/27/19 03:00 61 16 126/65 (85) 98 10/27/19 03:00 126/65 10/27/19 02:45 65 16 128/64 (85) 97 10/27/19 02:30 60 17 116/61 (79) 98 10/27/19 02:15 71 17 112/62 (79) 98 10/27/19 02:05 65 14 97/62 (74) 96 10/27/19 02:05 118/66 10/27/19 02:00 70 13 59/38 (45) 97 10/27/19 01:45 64 13 118/66 (83) 97 10/27/19 01:30 65 13 121/63 (82) 97 10/27/19 01:15 66 13 111/63 (79) 97 10/27/19 01:00 144/63 10/27/19 01:00 69 13 144/70 (94) 97 10/27/19 00:45 69 13 137/67 (90) 97 10/27/19 00:30 70 18 132/73 (92) 98 10/27/19 00:15 71 18 132/70 (90) 98 10/27/19 00:00 Room Air 10/27/19 00:00 157/73 10/27/19 00:00 97.5 73 15 157/73 (101) 98 10/26/19 23:45 77 19 103/59 (74) 98 10/26/19 23:44 78 10/26/19 23:30 74 17 150/74 (99) 98 10/26/19 23:15 80 17 137/72 (93) 98 10/26/19 23:00 76 17 136/67 (90) 97 10/26/19 22:45 76 12 129/62 (84) 96 10/26/19 22:30 79 14 126/61 (82) 96 10/26/19 22:15 79 15 120/60 (80) 96 10/26/19 22:00 84 14 115/56 (75) 96 10/26/19 21:45 91 17 103/57 (72) 95 10/26/19 21:31 112/57 10/26/19 21:30 98.7 95 17 112/55 (74) 94 10/26/19 21:15 98 19 114/55 (74) 94 10/26/19 21:00 104 26 108/50 (69) 97 10/26/19 20:45 98 24 113/56 (75) 96 10/26/19 20:30 100 24 108/55 (72) 97 10/26/19 20:30 Room Air 10/26/19 20:15 103 25 118/57 (77) 95 10/26/19 20:00 99.3 102 27 116/52 (73) 96 10/26/19 20:00 Room Air 10/26/19 19:43 98 10/26/19 19:40 98 25 108/51 (70) 94 10/26/19 19:35 100 25 106/51 (69) 95 10/26/19 19:30 78/43 10/26/19 19:30 100.7 97 24 92/52 (65) 95 10/26/19 19:25 104 23 77/37 (50) 94 10/26/19 19:20 107 23 85/43 (57) 95 10/26/19 19:15 107 25 82/41 (55) 93 10/26/19 19:10 115 23 92/47 (62) 95 10/26/19 19:07 116 21 87/46 (60) 94 10/26/19 19:04 110 24 78/43 (55) 93 10/26/19 19:00 114 26 94/45 (61) 93 10/26/19 19:00 136 10/26/19 19:00 Room Air 10/26/19 18:30 88/43 10/26/19 17:55 103.2 135 21 156/90 99 Room Air 10/26/19 17:36 103.2 135 21 156/90 99 Room Air 10/26/19 16:29 98.5 108 21 104/51 100 Room Air 10/26/19 15:42 106/55 10/26/19 15:37 129/50 10/26/19 15:37 98.5 96 19 129/50 100 Room Air 10/26/19 15:32 83/42 10/26/19 15:27 98.5 97 22 85/74 99 Room Air 10/26/19 15:27 85/74 10/26/19 15:22 98.8 92 20 79/43 97 Room Air 10/26/19 15:22 79/43 10/26/19 13:23 98.8 86 18 71/41 97 Room Air 10/26/19 12:48 81 18 Room Air 10/26/19 12:29 98.8 81 18 78/40 98 Room Air 10/26/19 12:22 98.8 86 18 72/35 (47) 98 Room Air Intake and Output 10/26/19 10/27/19 19:00 07:00 Intake Total 3110 ml 1444.795 ml Output Total 2000 ml Balance 3110 ml -555.205 ml IV Total 3110 ml 1444.795 ml Output Urine Total 2000 ml # Voids 1 Laboratory Tests 10/26/19 12:25: White Blood Count 7.7, Red Blood Count 1.66L, Hemoglobin 5.7*L, Hematocrit 15.5L , Mean Corpuscular Volume 93, Mean Corpuscular Hemoglobin 34.6H, Mean Corpuscular Hemoglobin Concent 37.2H, Red Cell Distribution Width 15.7H, Platelet Count 101L, Mean Platelet Volume 6.0L, Neutrophils (%) (Auto) , Lymphocytes (%) (Auto) , Monocytes (%) (Auto) , Eosinophils (%) (Auto) , Basophils (%) (Auto) , Differential Total Cells Counted 100, Neutrophils % ( Manual) 91H, Lymphocytes % (Manual) 5L, Monocytes % (Manual) 4, Eosinophils % ( Manual) 0, Basophils % (Manual) 0, Band Neutrophils 0, Platelet Estimate DecreasedL, Platelet Morphology Normal, Hypochromasia 4+, Anisocytosis 1+, Spherocytes 3+, Prothrombin Time 13.9H, Prothromb Time International Ratio 1.3H , Activated Partial Thromboplast Time 44H, Sodium Level 131L, Potassium Level 3.7, Chloride Level 99, Carbon Dioxide Level 22, Anion Gap 11, Blood Urea Nitrogen 31H, Creatinine 2.5H, Estimat Glomerular Filtration Rate 19.3, Glucose Level 177H, Lactic Acid Level 2.80H, Calcium Level 7.5L, Phosphorus Level 2.9, Magnesium Level 1.8, Iron Level 45L, Total Iron Binding Capacity 132L, Percent Iron Saturation 34, Unsaturated Iron Binding 87L, Ferritin 1012H, Total Bilirubin 0.6, Aspartate Amino Transf (AST/SGOT) 25, Alanine Aminotransferase ( ALT/SGPT) 21, Alkaline Phosphatase 76, Total Creatine Kinase 253, Troponin I 0.000, Pro-B-Type Natriuretic Peptide 2449H, Total Protein 6.4, Albumin 2.5L, Globulin 3.9, Lipase 164, Vitamin B12 Level 1096H, Folate 17.1 10/26/19 15:00: Lactic Acid Level 2.20 10/26/19 15:20: Urine Color Pale yellow, Urine Appearance Slightly cloudy, Urine pH 7, Urine Specific [place] 1.005, Urine Protein 2+H, Urine Glucose (UA) Negative, Urine Ketones Negative, Urine Blood 5+H, Urine Nitrite Negative, Urine Bilirubin Negative, Urine Urobilinogen Normal, Urine Leukocyte Esterase 3+H, Urine RBC 2- 4H, Urine WBC TntcH, Urine Squamous Epithelial Cells Few, Urine Bacteria ManyH, Urine Random Sodium < 20L, Urine Opiates Screen Negative, Urine Barbiturates Screen Negative, Phencyclidine (PCP) Screen Negative, Urine Amphetamines Screen Negative, Urine Benzodiazepines Screen Negative, Urine Cocaine Screen Negative, Urine Marijuana (THC) Screen Negative 10/27/19 00:15: Lactic Acid Level 1.60 10/27/19 03:20: White Blood Count 8.9, Red Blood Count 2.84L, Hemoglobin 9.4#L, Hematocrit 25.5# L, Mean Corpuscular Volume 90, Mean Corpuscular Hemoglobin 33.0H, Mean Corpuscular Hemoglobin Concent 36.7H, Red Cell Distribution Width 15.0H, Platelet Count 89L, Mean Platelet Volume 6.5, Neutrophils (%) (Auto) , Lymphocytes (%) (Auto) , Monocytes (%) (Auto) , Eosinophils (%) (Auto) , Basophils (%) (Auto) , Differential Total Cells Counted 100, Neutrophils % ( Manual) 81H, Lymphocytes % (Manual) 9L, Monocytes % (Manual) 2, Eosinophils % ( Manual) 0, Basophils % (Manual) 0, Band Neutrophils 8, Platelet Estimate DecreasedL, Platelet Morphology Normal, Anisocytosis 1+, Sodium Level 139, Potassium Level 3.1L, Chloride Level 107, Carbon Dioxide Level 18L, Anion Gap 14 , Blood Urea Nitrogen 24H, Creatinine 1.7H, Estimat Glomerular Filtration Rate 30.2, Glucose Level 205H, Hemoglobin A1c 6.2H, Osmolality 292L, Calcium Level 7.8L, Phosphorus Level 3.3, Magnesium Level 1.8, Total Bilirubin 0.6, Gamma Glutamyl Transpeptidase 33, Aspartate Amino Transf (AST/SGOT) 29, Alanine Aminotransferase (ALT/SGPT) 17, Alkaline Phosphatase 84, Total Creatine Kinase 221, C-Reactive Protein, Quantitative 28.0H, Pro-B-Type Natriuretic Peptide 5179H, Total Protein 6.2L, Albumin 2.3L, Globulin 3.9, Albumin/Globulin Ratio 0.6L, Thyroid Stimulating Hormone (TSH) 1.696, Cortisol AM Sample [Pending], Random Vancomycin Level 9.1 Height (Feet): 5 Height (Inches): 1.00 Weight (Pounds): 132 General Appearance: no apparent distress Respiratory/Chest: lungs clear Abdomen: soft Objective no change Alverto Bird MD Oct 27, 2019 11:38
--- NOTE | 2019-10-27 12:01 | Diagnostic Imaging Report ---
Indication: Leg pain and edema Technique: Grayscale and duplex images of the bilateral lower extremity veins Comparison: none Findings: Bilaterally, grayscale and duplex images demonstrate no evidence of intraluminal thrombus. Normal phasic Doppler waveforms, demonstrating normal augmentation response and no evidence of valvular insufficiency. Patent tibial and greater saphenous veins. Normal compressibility Impression: Negative for evidence of lower extremity deep venous thrombosis bilaterally
[2019-10-27] MEDS ORDERED: Vancomycin 1.5gm/NS Premix q24h IVPB SCH (13:00)
--- NOTE | 2019-10-27 13:05 | NUR ---
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
--- NOTE | 2019-10-27 13:23 | NUR ---
NURSE NOTES: PT VS stable, titrated Levophed from 3mcg/min to 1mcg/min. Will continue to monitor PT.
[2019-10-27 16:32] LABS: HEMATOCRIT 23.2 % (37.0-47.0); HEMOGLOBIN 8.5 G/DL (12.0-16.0); MEAN CORPUSCULAR VOLUME 89 FL (80-99); PLATELET COUNT 68 K/UL (150-450); RED BLOOD COUNT 2.59 M/UL (4.20-5.40); RED CELL DISTRIBUTION WIDTH 15.2 % (11.6-14.8); WHITE BLOOD COUNT 5.9 K/UL (4.8-10.8)
--- NOTE | 2019-10-27 16:39 | Consultation ---
History of Present Illness General Chief Complaint: Dizziness Present Illness Allergies: Coded Allergies: No Known Allergies (Unverified , 10/26/19) Patient History Healthcare decision maker N Resuscitation status Full Code Advanced Directive on File Physical Exam Last 24 Hour Vital Signs Date Time Temp Pulse Resp B/P (MAP) Pulse Ox O2 Delivery O2 Flow Rate FiO2 10/27/19 15:00 105/53 10/27/19 15:00 90 25 105/53 (70) 96 10/27/19 14:30 85 21 108/56 (73) 95 10/27/19 14:00 92 26 109/61 (77) 96 10/27/19 14:00 109/61 10/27/19 13:30 98 24 128/71 (90) 97 10/27/19 13:00 124/69 10/27/19 13:00 98 22 124/69 (87) 96 10/27/19 12:30 68 21 114/70 (85) 99 10/27/19 12:00 105 10/27/19 12:00 118/76 10/27/19 12:00 99.1 82 20 118/76 (90) 99 10/27/19 12:00 Room Air 10/27/19 11:30 80 20 118/66 (83) 98 10/27/19 11:00 79 20 128/63 (84) 98 10/27/19 11:00 121/66 10/27/19 10:30 76 18 124/64 (84) 98 10/27/19 10:00 65 18 103/58 (73) 96 10/27/19 10:00 103/58 10/27/19 09:30 74 20 87/47 (60) 98 10/27/19 09:00 77 21 112/57 (75) 99 10/27/19 09:00 101/56 10/27/19 08:32 96/55 10/27/19 08:30 72 19 96/55 (69) 97 10/27/19 08:00 98.1 68 20 109/60 (76) 96 10/27/19 08:00 96/55 10/27/19 08:00 Room Air 10/27/19 08:00 67 10/27/19 07:21 60 19 147/60 (89) 96 10/27/19 07:15 79 20 86/51 (63) 98 10/27/19 07:00 69 17 125/56 (79) 95 10/27/19 06:45 69 18 129/63 (85) 97 10/27/19 06:30 68 13 118/63 (81) 97 10/27/19 06:15 65 15 117/58 (77) 97 10/27/19 06:00 117/58 10/27/19 06:00 60 13 124/62 (82) 96 10/27/19 05:45 59 14 109/61 (77) 96 10/27/19 05:30 59 13 106/58 (74) 97 10/27/19 05:15 59 14 95/80 (85) 97 10/27/19 05:00 114/59 10/27/19 05:00 57 14 114/59 (77) 97 10/27/19 04:45 58 14 108/59 (75) 97 10/27/19 04:30 63 15 133/65 (87) 97 10/27/19 04:15 63 15 136/65 (88) 98 10/27/19 04:00 Room Air 10/27/19 04:00 97.0 62 14 136/65 (88) 96 10/27/19 03:50 62 10/27/19 03:45 62 19 132/66 (88) 98 10/27/19 03:30 62 18 129/66 (87) 98 10/27/19 03:15 58 18 126/65 (85) 98 10/27/19 03:00 61 16 126/65 (85) 98 10/27/19 03:00 126/65 10/27/19 02:45 65 16 128/64 (85) 97 10/27/19 02:30 60 17 116/61 (79) 98 10/27/19 02:15 71 17 112/62 (79) 98 10/27/19 02:05 65 14 97/62 (74) 96 10/27/19 02:05 118/66 10/27/19 02:00 70 13 59/38 (45) 97 10/27/19 01:45 64 13 118/66 (83) 97 10/27/19 01:30 65 13 121/63 (82) 97 10/27/19 01:15 66 13 111/63 (79) 97 10/27/19 01:00 144/63 10/27/19 01:00 69 13 144/70 (94) 97 10/27/19 00:45 69 13 137/67 (90) 97 10/27/19 00:30 70 18 132/73 (92) 98 10/27/19 00:15 71 18 132/70 (90) 98 10/27/19 00:00 Room Air 10/27/19 00:00 157/73 10/27/19 00:00 97.5 73 15 157/73 (101) 98 10/26/19 23:45 77 19 103/59 (74) 98 10/26/19 23:44 78 10/26/19 23:30 74 17 150/74 (99) 98 10/26/19 23:15 80 17 137/72 (93) 98 10/26/19 23:00 76 17 136/67 (90) 97 10/26/19 22:45 76 12 129/62 (84) 96 10/26/19 22:30 79 14 126/61 (82) 96 10/26/19 22:15 79 15 120/60 (80) 96 10/26/19 22:00 84 14 115/56 (75) 96 10/26/19 21:45 91 17 103/57 (72) 95 10/26/19 21:31 112/57 10/26/19 21:30 98.7 95 17 112/55 (74) 94 10/26/19 21:15 98 19 114/55 (74) 94 10/26/19 21:00 104 26 108/50 (69) 97 10/26/19 20:45 98 24 113/56 (75) 96 10/26/19 20:30 100 24 108/55 (72) 97 10/26/19 20:30 Room Air 10/26/19 20:15 103 25 118/57 (77) 95 10/26/19 20:00 99.3 102 27 116/52 (73) 96 10/26/19 20:00 Room Air 10/26/19 19:43 98 10/26/19 19:40 98 25 108/51 (70) 94 10/26/19 19:35 100 25 106/51 (69) 95 10/26/19 19:30 78/43 10/26/19 19:30 100.7 97 24 92/52 (65) 95 10/26/19 19:25 104 23 77/37 (50) 94 10/26/19 19:20 107 23 85/43 (57) 95 10/26/19 19:15 107 25 82/41 (55) 93 10/26/19 19:10 115 23 92/47 (62) 95 10/26/19 19:07 116 21 87/46 (60) 94 10/26/19 19:04 110 24 78/43 (55) 93 10/26/19 19:00 114 26 94/45 (61) 93 10/26/19 19:00 136 10/26/19 19:00 Room Air 10/26/19 18:30 88/43 10/26/19 17:55 103.2 135 21 156/90 99 Room Air 10/26/19 17:36 103.2 135 21 156/90 99 Room Air Intake and Output 10/26/19 10/27/19 19:00 07:00 Intake Total 3110 ml 1444.795 ml Output Total 2000 ml Balance 3110 ml -555.205 ml IV Total 3110 ml 1444.795 ml Output Urine Total 2000 ml # Voids 1 Laboratory Tests Test 10/27/19 00:15 10/27/19 03:20 10/27/19 15:40 Lactic Acid Level 1.60 mmol/L (0.4-2.0) White Blood Count 8.9 K/UL (4.8-10.8) Pending Red Blood Count 2.84 M/UL (4.20-5.40) L Pending Hemoglobin 9.4 G/DL (12.0-16.0) #L Pending Hematocrit 25.5 % (37.0-47.0) #L Pending Mean Corpuscular Volume 90 FL (80-99) Pending Mean Corpuscular Hemoglobin 33.0 PG (27.0-31.0) H Pending Mean Corpuscular Hemoglobin Concent 36.7 G/DL (32.0-36.0) H Pending Red Cell Distribution Width 15.0 % (11.6-14.8) H Pending Platelet Count 89 K/UL (150-450) L Pending Mean Platelet Volume 6.5 FL (6.5-10.1) Pending Neutrophils (%) (Auto) % (45.0-75.0) Pending Lymphocytes (%) (Auto) % (20.0-45.0) Pending Monocytes (%) (Auto) % (1.0-10.0) Pending Eosinophils (%) (Auto) % (0.0-3.0) Pending Basophils (%) (Auto) % (0.0-2.0) Pending Differential Total Cells Counted 100 Neutrophils % (Manual) 81 % (45-75) H Lymphocytes % (Manual) 9 % (20-45) L Monocytes % (Manual) 2 % (1-10) Eosinophils % (Manual) 0 % (0-3) Basophils % (Manual) 0 % (0-2) Band Neutrophils 8 % (0-8) Platelet Estimate Decreased L Platelet Morphology Normal Anisocytosis 1+ Sodium Level 139 MMOL/L (136-145) Potassium Level 3.1 MMOL/L (3.5-5.1) L Chloride Level 107 MMOL/L (98-107) Carbon Dioxide Level 18 MMOL/L (21-32) L Anion Gap 14 mmol/L (5-15) Blood Urea Nitrogen 24 mg/dL (7-18) H Creatinine 1.7 MG/DL (0.55-1.30) H Estimat Glomerular Filtration Rate 30.2 mL/min (>60) Glucose Level 205 MG/DL (74-106) H Hemoglobin A1c 6.2 % (4.3-6.0) H Osmolality 292 mOsm/kg (297-317) L Calcium Level 7.8 MG/DL (8.5-10.1) L Phosphorus Level 3.3 MG/DL (2.5-4.9) Magnesium Level 1.8 MG/DL (1.8-2.4) Total Bilirubin 0.6 MG/DL (0.2-1.0) Gamma Glutamyl Transpeptidase 33 U/L (5-85) Aspartate Amino Transf (AST/SGOT) 29 U/L (15-37) Alanine Aminotransferase (ALT/SGPT) 17 U/L (12-78) Alkaline Phosphatase 84 U/L (46-116) Total Creatine Kinase 221 U/L (26-308) C-Reactive Protein, Quantitative 28.0 mg/dL (0.00-0.90) H Pro-B-Type Natriuretic Peptide 5179 pg/mL (0-125) H Total Protein 6.2 G/DL (6.4-8.2) L Albumin 2.3 G/DL (3.4-5.0) L Globulin 3.9 g/dL Albumin/Globulin Ratio 0.6 (1.0-2.7) L Thyroid Stimulating Hormone (TSH) 1.696 uiU/mL (0.358-3.740) Cortisol AM Sample 13.3 UG/DL Random Vancomycin Level 9.1 ug/mL Height (Feet): 5 Height (Inches): 1.00 Weight (Pounds): 132 Medications Current Medications Medications (Trade) Dose Ordered Sig/Poonam Route PRN Reason Start Time Stop Time Status Last Admin Dose Admin Acetaminophen (Tylenol) 650 mg Q6H PRN ORAL Mild Pain/Temp > 100.5 10/26/19 19:15 11/25/19 19:14 Acetaminophen/ Hydrocodone Bitart ([place] 5/325) 1 tab Q6H PRN ORAL Moderate Pain (Pain Scale 4-6) 10/26/19 18:00 11/02/19 17:59 10/26/19 23:54 Chlorhexidine Gluconate (Carrol-Hex 2%) 1 applic DAILY@2000 TOPIC 10/27/19 20:00 11/26/19 19:59 Dextrose (Dextrose 50%) 25 ml Q30M PRN IV Hypoglycemia 10/26/19 18:00 11/25/19 17:59 Dextrose (Dextrose 50%) 50 ml Q30M PRN IV Hypoglycemia 10/26/19 18:00 11/25/19 17:59 Diphenhydramine HCl (Benadryl) 25 mg Q6H PRN IVP Itching 10/26/19 18:00 11/25/19 17:59 Hydromorphone HCl (Dilaudid) 0.5 mg Q3H PRN IVP Severe Pain (Pain Scale 7-10) 10/26/19 18:00 11/02/19 17:59 Insulin Aspart (NovoLOG) BEFORE MEALS AND HS SUBQ 10/26/19 21:00 11/25/19 20:59 10/27/19 06:35 Norepinephrine Bitartrate 4 mg/ Dextrose 250 ml @ 0 mls/hr Q24H IV 10/26/19 18:30 11/25/19 18:29 10/27/19 08:32 Ondansetron HCl (Zofran) 4 mg Q6H PRN IVP Nausea & Vomiting 10/26/19 18:00 11/25/19 17:59 Pantoprazole (Protonix) 40 mg EVERY 12 HOURS IVP 10/26/19 21:00 11/25/19 20:59 10/27/19 09:25 Piperacillin Sod/ Tazobactam Sod 3.375 gm/Sodium Chloride 110 ml @ 27.5 mls/hr Q12HR@0300,1500 IVPB 10/27/19 03:00 11/03/19 02:59 10/27/19 14:54 Sodium Chloride 1,000 ml @ 75 mls/hr [id number] IV 10/26/19 17:00 11/25/19 16:59 10/26/19 19:21 Assessment/Plan Assessment/Plan: Hematology Consultation REQ MD: Alea Batres RFC: Stomach Ca and Anemia acute DOS: 10/27/2019 HPI 64-year-old female history of hypertension, history of chemotherapy for stomach cancer takes chemotherapy (lymparza) in the morning presents with fever x1 day, chills generalized weakness and hypotension measured less than systolic blood pressure of 90, no known aggravating relieving factor severity is moderate, constant patient presents for evaluation Is in the ICU, on pressors and abx, have held chemo, seen by renal, is usually treated at [facility] [place] by Dr. Alicea for her cancer. Allergies: Coded Allergies: No Known Allergies (Unverified , 10/26/19) Patient History Past Medical History: see triage record Last Menstrual Period: NA Reviewed Nursing Documentation: PMH: Agreed; PSxH: Agreed Nursing Documentation-PMH Past Medical History: No History, Except For Hx Hypertension: Yes Review of Systems All Other Systems: negative except mentioned in HPI Physical Exam: Vitals: reviewed General Appearance: NAD HEENT: normocephalic, atraumatic Neck: non-tender, normal alignment Respiratory/Chest: normal breath sounds bilaterally Cardiovascular/Chest: normal peripheral pulses, normal rate Abdomen: normal bowel sounds, soft, nontender Extremities: normal range of motion Labs: noted Imaging: reviewed Assessment and Recs: # Stomach cancer with a history of ovarian resection in 2019 recently --> sees [facility] --> hold off lynparza at this time that is fda approved for BRCA-mutated tumors --> may be a cause of anemia as well --> recover from anemia 1st # Anemia due to myelosuppression from chemo --> Anemia workup has been ordered, rule out gi bleed --> No evidence of hemolysis is noted, peripheral smear has been reviewed. --> Hgb goal >7. Transfuse prn. --> Epogen or iron at this time is not particularly indicated --> Medications have been reviewed --> low threshold for gi evaluation in case has occult + --> hgb trend 5.7-->9.4 # Thrombocytopenia - potential causes multifactorial, in this case due to sepsis , s/p ABX and PRESSORS --> Hep panel and HIV ordered --> US abd to evaluate for cirrhosis and hsm ordered --> Peripheral smear ordered to evaluate for blasts /schistocytes --> abx and other meds have been reviewed --> ok for ppx if plt >50k w/ either heparin or lovenox --> Transfuse if Plt < 20k and fever, or if Plt < 10k without fever --> plt trend 101-->84 # Septic shock with Hypotension --> pressors and abx --> as per id # Critically ill in the icu Appreciate consultation and dw David Barrios MD Oct 27, 2019 16:39
--- NOTE | 2019-10-27 17:26 | NUR ---
NURSE NOTES: PT provided dinner clear liquid diet, no S/S of respiratory distress difficulty swallowing. PT placed on cooling measures with ice packs; will continue to monitor PT.
--- NOTE | 2019-10-27 19:04 | General Progress Note ---
Assessment/Plan Assessment/Plan: Assessment - gastric CA, s/p resection - Anemia Recommendations - po diet - monitor labs - check OB - Heme/Onc f/u Subjective Allergies: Coded Allergies: No Known Allergies (Unverified , 10/26/19) Subjective Feels better no vomiting hungry Objective Last 24 Hour Vital Signs Date Time Temp Pulse Resp B/P (MAP) Pulse Ox O2 Delivery O2 Flow Rate FiO2 10/27/19 18:35 99.1 10/27/19 18:00 121/69 10/27/19 18:00 90 24 121/69 (86) 97 10/27/19 17:00 117/62 10/27/19 17:00 88 23 91/53 (66) 96 10/27/19 16:30 86 22 102/55 (71) 96 10/27/19 16:00 90 10/27/19 16:00 100.0 91 23 100/55 (70) 97 10/27/19 16:00 97/53 10/27/19 16:00 Room Air 10/27/19 15:30 83 21 92/57 (69) 95 10/27/19 15:00 105/53 10/27/19 15:00 90 25 105/53 (70) 96 10/27/19 14:30 85 21 108/56 (73) 95 10/27/19 14:00 92 26 109/61 (77) 96 10/27/19 14:00 109/61 10/27/19 13:30 98 24 128/71 (90) 97 10/27/19 13:00 124/69 10/27/19 13:00 98 22 124/69 (87) 96 10/27/19 12:30 68 21 114/70 (85) 99 10/27/19 12:00 105 10/27/19 12:00 118/76 10/27/19 12:00 99.1 82 20 118/76 (90) 99 10/27/19 12:00 Room Air 10/27/19 11:30 80 20 118/66 (83) 98 10/27/19 11:00 79 20 128/63 (84) 98 10/27/19 11:00 121/66 10/27/19 10:30 76 18 124/64 (84) 98 10/27/19 10:00 65 18 103/58 (73) 96 10/27/19 10:00 103/58 10/27/19 09:30 74 20 87/47 (60) 98 10/27/19 09:00 77 21 112/57 (75) 99 10/27/19 09:00 101/56 10/27/19 08:32 96/55 10/27/19 08:30 72 19 96/55 (69) 97 10/27/19 08:00 98.1 68 20 109/60 (76) 96 10/27/19 08:00 96/55 10/27/19 08:00 Room Air 10/27/19 08:00 67 10/27/19 07:21 60 19 147/60 (89) 96 10/27/19 07:15 79 20 86/51 (63) 98 10/27/19 07:00 69 17 125/56 (79) 95 10/27/19 06:45 69 18 129/63 (85) 97 10/27/19 06:30 68 13 118/63 (81) 97 10/27/19 06:15 65 15 117/58 (77) 97 10/27/19 06:00 117/58 10/27/19 06:00 60 13 124/62 (82) 96 10/27/19 05:45 59 14 109/61 (77) 96 10/27/19 05:30 59 13 106/58 (74) 97 10/27/19 05:15 59 14 95/80 (85) 97 10/27/19 05:00 114/59 10/27/19 05:00 57 14 114/59 (77) 97 10/27/19 04:45 58 14 108/59 (75) 97 10/27/19 04:30 63 15 133/65 (87) 97 10/27/19 04:15 63 15 136/65 (88) 98 10/27/19 04:00 Room Air 10/27/19 04:00 97.0 62 14 136/65 (88) 96 10/27/19 03:50 62 10/27/19 03:45 62 19 132/66 (88) 98 10/27/19 03:30 62 18 129/66 (87) 98 10/27/19 03:15 58 18 126/65 (85) 98 10/27/19 03:00 61 16 126/65 (85) 98 10/27/19 03:00 126/65 10/27/19 02:45 65 16 128/64 (85) 97 10/27/19 02:30 60 17 116/61 (79) 98 10/27/19 02:15 71 17 112/62 (79) 98 10/27/19 02:05 65 14 97/62 (74) 96 10/27/19 02:05 118/66 10/27/19 02:00 70 13 59/38 (45) 97 10/27/19 01:45 64 13 118/66 (83) 97 10/27/19 01:30 65 13 121/63 (82) 97 10/27/19 01:15 66 13 111/63 (79) 97 10/27/19 01:00 144/63 10/27/19 01:00 69 13 144/70 (94) 97 10/27/19 00:45 69 13 137/67 (90) 97 10/27/19 00:30 70 18 132/73 (92) 98 10/27/19 00:15 71 18 132/70 (90) 98 10/27/19 00:00 Room Air 10/27/19 00:00 157/73 10/27/19 00:00 97.5 73 15 157/73 (101) 98 10/26/19 23:45 77 19 103/59 (74) 98 10/26/19 23:44 78 10/26/19 23:30 74 17 150/74 (99) 98 10/26/19 23:15 80 17 137/72 (93) 98 10/26/19 23:00 76 17 136/67 (90) 97 10/26/19 22:45 76 12 129/62 (84) 96 10/26/19 22:30 79 14 126/61 (82) 96 10/26/19 22:15 79 15 120/60 (80) 96 10/26/19 22:00 84 14 115/56 (75) 96 10/26/19 21:45 91 17 103/57 (72) 95 10/26/19 21:31 112/57 10/26/19 21:30 98.7 95 17 112/55 (74) 94 10/26/19 21:15 98 19 114/55 (74) 94 10/26/19 21:00 104 26 108/50 (69) 97 10/26/19 20:45 98 24 113/56 (75) 96 10/26/19 20:30 100 24 108/55 (72) 97 10/26/19 20:30 Room Air 10/26/19 20:15 103 25 118/57 (77) 95 10/26/19 20:00 99.3 102 27 116/52 (73) 96 10/26/19 20:00 Room Air 10/26/19 19:43 98 10/26/19 19:40 98 25 108/51 (70) 94 10/26/19 19:35 100 25 106/51 (69) 95 10/26/19 19:30 78/43 10/26/19 19:30 100.7 97 24 92/52 (65) 95 10/26/19 19:25 104 23 77/37 (50) 94 10/26/19 19:20 107 23 85/43 (57) 95 10/26/19 19:15 107 25 82/41 (55) 93 10/26/19 19:10 115 23 92/47 (62) 95 10/26/19 19:07 116 21 87/46 (60) 94 10/26/19 19:04 110 24 78/43 (55) 93 Intake and Output 10/26/19 10/27/19 19:00 07:00 Intake Total 3110 ml 1444.795 ml Output Total 2000 ml Balance 3110 ml -555.205 ml IV Total 3110 ml 1444.795 ml Output Urine Total 2000 ml # Voids 1 Laboratory Tests 10/27/19 00:15: Lactic Acid Level 1.60 10/27/19 03:20: White Blood Count 8.9, Red Blood Count 2.84L, Hemoglobin 9.4#L, Hematocrit 25.5# L, Mean Corpuscular Volume 90, Mean Corpuscular Hemoglobin 33.0H, Mean Corpuscular Hemoglobin Concent 36.7H, Red Cell Distribution Width 15.0H, Platelet Count 89L, Mean Platelet Volume 6.5, Neutrophils (%) (Auto) , Lymphocytes (%) (Auto) , Monocytes (%) (Auto) , Eosinophils (%) (Auto) , Basophils (%) (Auto) , Differential Total Cells Counted 100, Neutrophils % ( Manual) 81H, Lymphocytes % (Manual) 9L, Monocytes % (Manual) 2, Eosinophils % ( Manual) 0, Basophils % (Manual) 0, Band Neutrophils 8, Platelet Estimate DecreasedL, Platelet Morphology Normal, Anisocytosis 1+, Sodium Level 139, Potassium Level 3.1L, Chloride Level 107, Carbon Dioxide Level 18L, Anion Gap 14 , Blood Urea Nitrogen 24H, Creatinine 1.7H, Estimat Glomerular Filtration Rate 30.2, Glucose Level 205H, Hemoglobin A1c 6.2H, Osmolality 292L, Calcium Level 7.8L, Phosphorus Level 3.3, Magnesium Level 1.8, Total Bilirubin 0.6, Gamma Glutamyl Transpeptidase 33, Aspartate Amino Transf (AST/SGOT) 29, Alanine Aminotransferase (ALT/SGPT) 17, Alkaline Phosphatase 84, Total Creatine Kinase 221, C-Reactive Protein, Quantitative 28.0H, Pro-B-Type Natriuretic Peptide 5179H, Total Protein 6.2L, Albumin 2.3L, Globulin 3.9, Albumin/Globulin Ratio 0.6L, Thyroid Stimulating Hormone (TSH) 1.696, Cortisol AM Sample 13.3, Random Vancomycin Level 9.1, HIV (1&2) Antibody Rapid Negative 10/27/19 15:40: White Blood Count 5.9, Red Blood Count 2.59L, Hemoglobin 8.5L, Hematocrit 23.2L , Mean Corpuscular Volume 89, Mean Corpuscular Hemoglobin 32.9H, Mean Corpuscular Hemoglobin Concent 36.8H, Red Cell Distribution Width 15.2H, Platelet Count 68L, Mean Platelet Volume 6.0L, Neutrophils (%) (Auto) , Lymphocytes (%) (Auto) , Monocytes (%) (Auto) , Eosinophils (%) (Auto) , Basophils (%) (Auto) , Neutrophils % (Manual) [Pending], Lymphocytes % (Manual) [Pending], Platelet Estimate [Pending], Platelet Morphology [Pending] 10/27/19 18:30: Prothrombin Time [Pending], Prothromb Time International Ratio [Pending], Hepatitis A IgM Antibody [Pending], Hepatitis B Surface Antigen [Pending], Hepatitis B Core IgM Antibody [Pending], Hepatitis C Antibody [Pending] Height (Feet): 5 Height (Inches): 1.00 Weight (Pounds): 132 Objective WDWN NCAT supple CTA RR abd soft nt ND no edema Khorrami,Payman MD Oct 27, 2019 19:04
--- NOTE | 2019-10-27 19:18 | NUR ---
HAND-OFF: Report and PT given to RAMOS Donahue.
--- NOTE | 2019-10-27 19:19 | NUR ---
NURSE NOTES: Received patient from RAMOS Barakat. Will continue plan of care.
--- NOTE | 2019-10-27 20:00 | NUR ---
NURSE NOTES: Patient is awake, alert and oriented x4 watching TV; Romansh speaking. On room air O2 saturating at 98%. Cooling measures (fan, ice packs) in place for elevated temp earlier. Currently 99.3F orally. Continues to run Levophed; now at 1mcg/kg/hr with BP:99/81. NS also running @ 75ml/hr- both via right femoral TLC. Avendaño intact and draining well. Safety measures in place; bed low, locked and alarm is on. Will continue to monitor.
[2019-10-27] MEDS: Dyna-Hex 2% Top Sol 2oz TOPIC SCH (20:33)
--- NOTE | 2019-10-27 21:03 | Pulmonolgy Critical Care Note ---
Critical Care - Asmt/Plan Assessment/Plan: Pulmonary Critical Care Progress Note HPI Patient is a 64-year-old female with past medical history of Stomach cancer, Ovarian Cancer, Hypertension, history of recent chemotherapy ,admitted with with fever/chills for one day, weakness, noted to have severe anemia, hypotension, evidence of urinary tract infection, clear CXR, normal O2 sats on RA, no acute changes on EKG LE Dupplex negative for DVT CT Abdomen no hydronephrosis Allergies: No Known Allergies Past Medical History: Stomach cancer, hypertension All Other Systems: negative except mentioned in HPI Physical Exam Vital Signs Noted General Appearance: well appearing, no apparent distress, alert, pale Head: normocephalic, atraumatic Eyes: bilateral eye PERRL, bilateral eye EOMI ENT: uvula midline, dry mucus membranes Neck: supple, thyroid normal, supple/symm/no masses Respiratory: lungs clear, no respiratory distress, no retraction, no accessory muscle use Cardiovascular: normal peripheral pulses, regular rate, rhythm, HS1, HS2 normal , no gallop, no murmur Gastrointestinal: non tender, soft, no guarding, no rebound Musculoskeletal: normal inspection Neurologic: alert, oriented x3, no focal signs, no seizures Psychiatric: mood/affect normal Skin: no rash, warm/dry, no edema EKG: NSR, rate 66, QTc 436, no acute ST elevations, normal axis CXR: No acute changes LE Dupplex negative UA: S/o infection CBC: Severe anemia Impression: Stomach Cancer/Ovarian Cancer s/p recent Chemotherapy Urosepsis Severe Anemia s/p Transfusion Thrombocytopenia Hypokalemia H/o Hypertension Dehydration Hyponatremia Azotemia Elevated BNP Hyperglycemia Plan: - IV Antibiotics per ID - IVF - Pressors PRN - Transfuse PRN - IV Protonix - R/o DVT, SCD's - Monitor labs - Cortisol level - [facility] Medications - O2 PRN - Echocardiogram - ISS Critical Care - Objective Last 24 Hour Vital Signs Date Time Temp Pulse Resp B/P (MAP) Pulse Ox O2 Delivery O2 Flow Rate FiO2 10/27/19 20:00 Room Air 10/27/19 19:00 103/57 10/27/19 18:35 99.1 10/27/19 18:00 121/69 10/27/19 18:00 90 24 121/69 (86) 97 10/27/19 17:00 117/62 10/27/19 17:00 88 23 91/53 (66) 96 10/27/19 16:30 86 22 102/55 (71) 96 10/27/19 16:00 90 10/27/19 16:00 100.0 91 23 100/55 (70) 97 10/27/19 16:00 97/53 10/27/19 16:00 Room Air 10/27/19 15:30 83 21 92/57 (69) 95 10/27/19 15:00 105/53 10/27/19 15:00 90 25 105/53 (70) 96 10/27/19 14:30 85 21 108/56 (73) 95 10/27/19 14:00 92 26 109/61 (77) 96 10/27/19 14:00 109/61 10/27/19 13:30 98 24 128/71 (90) 97 10/27/19 13:00 124/69 10/27/19 13:00 98 22 124/69 (87) 96 10/27/19 12:30 68 21 114/70 (85) 99 10/27/19 12:00 105 10/27/19 12:00 118/76 10/27/19 12:00 99.1 82 20 118/76 (90) 99 10/27/19 12:00 Room Air 10/27/19 11:30 80 20 118/66 (83) 98 10/27/19 11:00 79 20 128/63 (84) 98 10/27/19 11:00 121/66 10/27/19 10:30 76 18 124/64 (84) 98 10/27/19 10:00 65 18 103/58 (73) 96 10/27/19 10:00 103/58 10/27/19 09:30 74 20 87/47 (60) 98 10/27/19 09:00 77 21 112/57 (75) 99 10/27/19 09:00 101/56 10/27/19 08:32 96/55 10/27/19 08:30 72 19 96/55 (69) 97 10/27/19 08:00 98.1 68 20 109/60 (76) 96 10/27/19 08:00 96/55 10/27/19 08:00 Room Air 10/27/19 08:00 67 10/27/19 07:21 60 19 147/60 (89) 96 10/27/19 07:15 79 20 86/51 (63) 98 10/27/19 07:00 69 17 125/56 (79) 95 10/27/19 06:45 69 18 129/63 (85) 97 10/27/19 06:30 68 13 118/63 (81) 97 10/27/19 06:15 65 15 117/58 (77) 97 10/27/19 06:00 117/58 10/27/19 06:00 60 13 124/62 (82) 96 10/27/19 05:45 59 14 109/61 (77) 96 10/27/19 05:30 59 13 106/58 (74) 97 10/27/19 05:15 59 14 95/80 (85) 97 10/27/19 05:00 114/59 10/27/19 05:00 57 14 114/59 (77) 97 10/27/19 04:45 58 14 108/59 (75) 97 10/27/19 04:30 63 15 133/65 (87) 97 10/27/19 04:15 63 15 136/65 (88) 98 10/27/19 04:00 Room Air 10/27/19 04:00 97.0 62 14 136/65 (88) 96 10/27/19 03:50 62 10/27/19 03:45 62 19 132/66 (88) 98 10/27/19 03:30 62 18 129/66 (87) 98 10/27/19 03:15 58 18 126/65 (85) 98 10/27/19 03:00 61 16 126/65 (85) 98 10/27/19 03:00 126/65 10/27/19 02:45 65 16 128/64 (85) 97 10/27/19 02:30 60 17 116/61 (79) 98 10/27/19 02:15 71 17 112/62 (79) 98 10/27/19 02:05 65 14 97/62 (74) 96 10/27/19 02:05 118/66 10/27/19 02:00 70 13 59/38 (45) 97 10/27/19 01:45 64 13 118/66 (83) 97 10/27/19 01:30 65 13 121/63 (82) 97 10/27/19 01:15 66 13 111/63 (79) 97 10/27/19 01:00 144/63 10/27/19 01:00 69 13 144/70 (94) 97 10/27/19 00:45 69 13 137/67 (90) 97 10/27/19 00:30 70 18 132/73 (92) 98 10/27/19 00:15 71 18 132/70 (90) 98 10/27/19 00:00 Room Air 10/27/19 00:00 157/73 10/27/19 00:00 97.5 73 15 157/73 (101) 98 10/26/19 23:45 77 19 103/59 (74) 98 10/26/19 23:44 78 10/26/19 23:30 74 17 150/74 (99) 98 10/26/19 23:15 80 17 137/72 (93) 98 10/26/19 23:00 76 17 136/67 (90) 97 10/26/19 22:45 76 12 129/62 (84) 96 10/26/19 22:30 79 14 126/61 (82) 96 10/26/19 22:15 79 15 120/60 (80) 96 10/26/19 22:00 84 14 115/56 (75) 96 10/26/19 21:45 91 17 103/57 (72) 95 10/26/19 21:31 112/57 10/26/19 21:30 98.7 95 17 112/55 (74) 94 10/26/19 21:15 98 19 114/55 (74) 94 Micro: Microbiology Date/Time Source Procedure Growth Status 10/26/19 12:25 Blood Blood Culture - Preliminary Resulted 10/26/19 12:25 Blood Blood Culture - Preliminary Resulted 10/26/19 15:20 Urine,Clean Catch Urine Culture - Preliminary Gram Negative Bacillus 1 Resulted 10/26/19 16:02 Rectum Received Accucheck: 94 Critical Care - Subjective ROS Limited/Unobtainable: No I&O: Intake and Output 10/26/19 10/27/19 19:00 07:00 Intake Total 3110 ml 1444.795 ml Output Total 2000 ml Balance 3110 ml -555.205 ml IV Total 3110 ml 1444.795 ml Output Urine Total 2000 ml # Voids 1 Ajit Land MD Oct 27, 2019 21:03
--- NOTE | 2019-10-27 21:24 | General Progress Note ---
Assessment/Plan Problem List: (1) Symptomatic anemia ICD Codes: D64.9 - Anemia, unspecified SNOMED: 806338960 (2) Sepsis ICD Codes: A41.9 - Sepsis, unspecified organism SNOMED: 89728450 Qualifiers: Qualified Codes: A41.9 - Sepsis, unspecified organism; R65.21 - Severe sepsis with septic shock; N17.9 - Acute kidney failure, unspecified (3) Hypotension ICD Codes: I95.9 - Hypotension, unspecified SNOMED: 12667204 Qualifiers: Qualified Codes: I95.9 - Hypotension, unspecified (4) Renal failure (ARF), acute on chronic ICD Codes: N17.9 - Acute kidney failure, unspecified; N18.9 - Chronic kidney disease, unspecified SNOMED: 345555010 Status: progressing Status Narrative no chills decrease on pressor sepsis r/o uti anemia improved Subjective ROS Limited/Unobtainable: Yes Allergies: Coded Allergies: No Known Allergies (Unverified , 10/26/19) Objective Last 24 Hour Vital Signs Date Time Temp Pulse Resp B/P (MAP) Pulse Ox O2 Delivery O2 Flow Rate FiO2 10/27/19 21:00 74 24 102/55 (71) 97 10/27/19 20:30 75 20 92/48 (63) 97 10/27/19 20:00 80 22 92/50 (64) 98 10/27/19 20:00 Room Air 10/27/19 19:30 85 27 94/53 (67) 96 10/27/19 19:00 103/57 10/27/19 19:00 87 26 103/57 (72) 98 10/27/19 18:35 99.1 10/27/19 18:00 121/69 10/27/19 18:00 90 24 121/69 (86) 97 10/27/19 17:00 117/62 10/27/19 17:00 88 23 91/53 (66) 96 10/27/19 16:30 86 22 102/55 (71) 96 10/27/19 16:00 90 10/27/19 16:00 100.0 91 23 100/55 (70) 97 10/27/19 16:00 97/53 10/27/19 16:00 Room Air 10/27/19 15:30 83 21 92/57 (69) 95 10/27/19 15:00 105/53 10/27/19 15:00 90 25 105/53 (70) 96 10/27/19 14:30 85 21 108/56 (73) 95 10/27/19 14:00 92 26 109/61 (77) 96 10/27/19 14:00 109/61 10/27/19 13:30 98 24 128/71 (90) 97 10/27/19 13:00 124/69 10/27/19 13:00 98 22 124/69 (87) 96 10/27/19 12:30 68 21 114/70 (85) 99 10/27/19 12:00 105 10/27/19 12:00 118/76 10/27/19 12:00 99.1 82 20 118/76 (90) 99 10/27/19 12:00 Room Air 10/27/19 11:30 80 20 118/66 (83) 98 10/27/19 11:00 79 20 128/63 (84) 98 10/27/19 11:00 121/66 10/27/19 10:30 76 18 124/64 (84) 98 10/27/19 10:00 65 18 103/58 (73) 96 10/27/19 10:00 103/58 10/27/19 09:30 74 20 87/47 (60) 98 10/27/19 09:00 77 21 112/57 (75) 99 10/27/19 09:00 101/56 10/27/19 08:32 96/55 10/27/19 08:30 72 19 96/55 (69) 97 10/27/19 08:00 98.1 68 20 109/60 (76) 96 10/27/19 08:00 96/55 10/27/19 08:00 Room Air 10/27/19 08:00 67 10/27/19 07:21 60 19 147/60 (89) 96 10/27/19 07:15 79 20 86/51 (63) 98 10/27/19 07:00 69 17 125/56 (79) 95 10/27/19 06:45 69 18 129/63 (85) 97 10/27/19 06:30 68 13 118/63 (81) 97 10/27/19 06:15 65 15 117/58 (77) 97 10/27/19 06:00 117/58 10/27/19 06:00 60 13 124/62 (82) 96 10/27/19 05:45 59 14 109/61 (77) 96 10/27/19 05:30 59 13 106/58 (74) 97 10/27/19 05:15 59 14 95/80 (85) 97 10/27/19 05:00 114/59 10/27/19 05:00 57 14 114/59 (77) 97 10/27/19 04:45 58 14 108/59 (75) 97 10/27/19 04:30 63 15 133/65 (87) 97 10/27/19 04:15 63 15 136/65 (88) 98 10/27/19 04:00 Room Air 10/27/19 04:00 97.0 62 14 136/65 (88) 96 10/27/19 03:50 62 10/27/19 03:45 62 19 132/66 (88) 98 10/27/19 03:30 62 18 129/66 (87) 98 10/27/19 03:15 58 18 126/65 (85) 98 10/27/19 03:00 61 16 126/65 (85) 98 10/27/19 03:00 126/65 10/27/19 02:45 65 16 128/64 (85) 97 10/27/19 02:30 60 17 116/61 (79) 98 10/27/19 02:15 71 17 112/62 (79) 98 10/27/19 02:05 65 14 97/62 (74) 96 10/27/19 02:05 118/66 10/27/19 02:00 70 13 59/38 (45) 97 10/27/19 01:45 64 13 118/66 (83) 97 10/27/19 01:30 65 13 121/63 (82) 97 10/27/19 01:15 66 13 111/63 (79) 97 10/27/19 01:00 144/63 10/27/19 01:00 69 13 144/70 (94) 97 10/27/19 00:45 69 13 137/67 (90) 97 10/27/19 00:30 70 18 132/73 (92) 98 10/27/19 00:15 71 18 132/70 (90) 98 10/27/19 00:00 Room Air 10/27/19 00:00 157/73 10/27/19 00:00 97.5 73 15 157/73 (101) 98 10/26/19 23:45 77 19 103/59 (74) 98 10/26/19 23:44 78 10/26/19 23:30 74 17 150/74 (99) 98 10/26/19 23:15 80 17 137/72 (93) 98 10/26/19 23:00 76 17 136/67 (90) 97 10/26/19 22:45 76 12 129/62 (84) 96 10/26/19 22:30 79 14 126/61 (82) 96 10/26/19 22:15 79 15 120/60 (80) 96 10/26/19 22:00 84 14 115/56 (75) 96 10/26/19 21:45 91 17 103/57 (72) 95 10/26/19 21:31 112/57 10/26/19 21:30 98.7 95 17 112/55 (74) 94 Intake and Output 10/26/19 10/27/19 19:00 07:00 Intake Total 3110 ml 1444.795 ml Output Total 2000 ml Balance 3110 ml -555.205 ml IV Total 3110 ml 1444.795 ml Output Urine Total 2000 ml # Voids 1 Laboratory Tests 10/27/19 00:15: Lactic Acid Level 1.60 10/27/19 03:20: White Blood Count 8.9, Red Blood Count 2.84L, Hemoglobin 9.4#L, Hematocrit 25.5# L, Mean Corpuscular Volume 90, Mean Corpuscular Hemoglobin 33.0H, Mean Corpuscular Hemoglobin Concent 36.7H, Red Cell Distribution Width 15.0H, Platelet Count 89L, Mean Platelet Volume 6.5, Neutrophils (%) (Auto) , Lymphocytes (%) (Auto) , Monocytes (%) (Auto) , Eosinophils (%) (Auto) , Basophils (%) (Auto) , Differential Total Cells Counted 100, Neutrophils % ( Manual) 81H, Lymphocytes % (Manual) 9L, Monocytes % (Manual) 2, Eosinophils % ( Manual) 0, Basophils % (Manual) 0, Band Neutrophils 8, Platelet Estimate DecreasedL, Platelet Morphology Normal, Anisocytosis 1+, Sodium Level 139, Potassium Level 3.1L, Chloride Level 107, Carbon Dioxide Level 18L, Anion Gap 14 , Blood Urea Nitrogen 24H, Creatinine 1.7H, Estimat Glomerular Filtration Rate 30.2, Glucose Level 205H, Hemoglobin A1c 6.2H, Osmolality 292L, Calcium Level 7.8L, Phosphorus Level 3.3, Magnesium Level 1.8, Total Bilirubin 0.6, Gamma Glutamyl Transpeptidase 33, Aspartate Amino Transf (AST/SGOT) 29, Alanine Aminotransferase (ALT/SGPT) 17, Alkaline Phosphatase 84, Total Creatine Kinase 221, C-Reactive Protein, Quantitative 28.0H, Pro-B-Type Natriuretic Peptide 5179H, Total Protein 6.2L, Albumin 2.3L, Globulin 3.9, Albumin/Globulin Ratio 0.6L, Thyroid Stimulating Hormone (TSH) 1.696, Cortisol AM Sample 13.3, Random Vancomycin Level 9.1, HIV (1&2) Antibody Rapid Negative 10/27/19 15:40: White Blood Count 5.9, Red Blood Count 2.59L, Hemoglobin 8.5L, Hematocrit 23.2L , Mean Corpuscular Volume 89, Mean Corpuscular Hemoglobin 32.9H, Mean Corpuscular Hemoglobin Concent 36.8H, Red Cell Distribution Width 15.2H, Platelet Count 68L, Mean Platelet Volume 6.0L, Neutrophils (%) (Auto) , Lymphocytes (%) (Auto) , Monocytes (%) (Auto) , Eosinophils (%) (Auto) 0.0, Basophils (%) (Auto) 0.0, Differential Total Cells Counted 100, Neutrophils % ( Manual) 82H, Lymphocytes % (Manual) 8L, Monocytes % (Manual) 3, Eosinophils % ( Manual) 0, Basophils % (Manual) 0, Band Neutrophils 7, Platelet Estimate DecreasedL, Platelet Morphology Normal 10/27/19 18:30: Prothrombin Time 10.9, Prothromb Time International Ratio 1.0, Hepatitis A IgM Antibody [Pending], Hepatitis B Surface Antigen [Pending], Hepatitis B Core IgM Antibody [Pending], Hepatitis C Antibody [Pending] Height (Feet): 5 Height (Inches): 1.00 Weight (Pounds): 132 Neck: supple Cardiovascular: normal rate Respiratory/Chest: lungs clear Alea Melendez MD Oct 27, 2019 21:24
--- NOTE | 2019-10-27 22:00 | NUR ---
NURSE NOTES: Patient is awake and watching TV. Dr. Land came to see and assess patient. No new orders at the moment. Patient shows no signs of pain or distress. Levophed continues to run at 1mcg/kg/hr. Current BP:103/54 MAP:65.
[2019-10-28] VITALS (40 sets, daily range): BP systolic 102–136; BP diastolic 46–67
--- NOTE | 2019-10-28 | NUR ---
NURSE NOTES: Patient is awake and watching TV. She motioned that she is okay and comfortable. Current BP:112/61 on levophed at 1mcg/kg/hr. All needs are met. Good urine output through santana; about 180ml/hr. Will continue to monitor.
--- NOTE | 2019-10-28 02:00 | NUR ---
NURSE NOTES: Patient just wanted to sleep for the rest of the night, was able to change right femoral TLC dressing before she sleeps. All needs are met. Levophed still running at 1mcg/kg/hr. Current BP:125/58. Will continue to monitor.
[2019-10-28] MEDS: Piperacillin/Tazobactam 3.375 GM in NS 110 ML IVPB SCH ×2 (02:42→15:56)
--- NOTE | 2019-10-28 04:00 | NUR ---
NURSE NOTES: Patient is sleeping comfortably. All needs are met. Vital signs stable. Will continue to monitor.
[2019-10-28 05:44] LABS: HEMATOCRIT 21.8 % (37.0-47.0); HEMOGLOBIN 8.2 G/DL (12.0-16.0); MEAN CORPUSCULAR VOLUME 89 FL (80-99); PLATELET COUNT 62 K/UL (150-450); RED BLOOD COUNT 2.44 M/UL (4.20-5.40); RED CELL DISTRIBUTION WIDTH 15.2 % (11.6-14.8); WHITE BLOOD COUNT 4.4 K/UL (4.8-10.8)
--- NOTE | 2019-10-28 06:00 | NUR ---
NURSE NOTES: Dr. Venegas came and assessed the patient. No new orders at the moment. Patient is sleeping comfortably. All needs are met. Safety measures in place. Will continue to monitor.
[2019-10-28 06:01] LABS: ALANINE AMINOTRANSFERASE 18 U/L (12-78); ALBUMIN 1.8 G/DL (3.4-5.0); ALBUMIN/GLOBULIN RATIO 0.5 (1.0-2.7); ALKALINE PHOSPHATASE 86 U/L (46-116); ANION GAP 13 mmol/L (5-15); ASPARTATE AMINO TRANSFERASE 23 U/L (15-37); BILIRUBIN,TOTAL 0.6 MG/DL (0.2-1.0); BLOOD UREA NITROGEN 12 mg/dL (7-18); CALCIUM 7.6 MG/DL (8.5-10.1); CARBON DIOXIDE 18 MMOL/L (21-32); CHLORIDE 109 MMOL/L (98-107); PHOSPHORUS 2.1 MG/DL (2.5-4.9); POTASSIUM 3.3 MMOL/L (3.5-5.1); SODIUM 140 MMOL/L (136-145)
[2019-10-28] MEDS ORDERED: Tubing IV Secondary IV ONE (06:22)
[2019-10-28] MEDS ORDERED: Tubing IV Blood Pump IV ONE ×2 (06:22)
[2019-10-28] MEDS ORDERED: NS 275ml ONE ×2 (06:22)
[2019-10-28] MEDS ORDERED: D5NS 1000ml IV ONE (06:22)
[2019-10-28] MEDS ORDERED: NS 500ML ONE (06:22)
[2019-10-28] MEDS ORDERED: D5 1/2NS 1000ml IV ONE (06:22)
[2019-10-28] MEDS: NovoLOG Insulin Flexpen SUBQ SCH ×4 (06:30→21:00)
--- NOTE | 2019-10-28 07:15 | NUR ---
HAND-OFF: Report given to Radha Myles RN.
--- NOTE | 2019-10-28 07:16 | NUR ---
NURSE NOTES: Report received from RAMOS Donahue. Pt is awake and oriented x4. Mainly Romanian speaking. Sinus rhythm on cardiac nurse practitioner. On RA. Avendaño in place draining to gravity. Old surgical scar noted on abdomen. Right femoral TLC and right AC G18 patent and asymptomatic. Pt is on Levo at 1 mcg/min and NS at 75cc/hr. Bed in lowest position. Side rails up x3. Call light within reach. Will resume plan of care.
[2019-10-28] MEDS: Pantoprazole Inj IVP SCH (08:22)
--- NOTE | 2019-10-28 08:30 | Consultation ---
DATE OF CONSULTATION: 10/27/2019 INFECTIOUS DISEASE CONSULTATION CONSULTING PHYSICIAN: Evelio Hill M.D. PRIMARY ATTENDING PHYSICIAN: Alea Melendez M.D. REASON FOR CONSULTATION: Gram-negative sepsis, UTI. HISTORY OF PRESENT ILLNESS: This is a 64-year-old female, admitted yesterday from home complaining of fever, chills, and weakness. The patient has a history of stomach cancer and history of chemotherapy in the past. In the hospital, she had fever up to 103.2, had decrease in blood pressure, systolic blood pressure less. She was found to have acute renal failure, transferred to ICU, started on antibiotics. PAST MEDICAL HISTORY: Stomach cancer, has history of abdominal surgeries in January and March of 2019, history of chemotherapy according to the notes. The last endoscopy 15 days ago was negative. She has history of anemia in the past. ALLERGIES: No known drug allergies. MEDICATIONS: Getting vancomycin one dose, Zosyn, insulin, and norepinephrine. SOCIAL HISTORY: Lives at home. Single, originally from [facility]. Denies alcohol, drug abuse, or smoking. REVIEW OF SYSTEMS: Fever and chills, had nausea, vomiting. No coughing. No significant problem passing urine. PHYSICAL EXAMINATION: VITAL SIGNS: Temperature 99.1, pulse 82, and blood pressure 118/76. GENERAL APPEARANCE: Well developed, awake, and alert, in no distress. HEAD AND NECK: [place] conjunctivae. HEART: Normal rate. LUNGS: Clear. ABDOMEN: Soft, nontender. EXTREMITIES: No edema. LINES: Right femoral line. LABORATORY AND DIAGNOSTIC DATA: The patient had hemoglobin of 5.7 at the time of admission, but after blood transfusion increased to 9.4. WBC 8.9, hematocrit 25.5, and platelets 89,000. Sodium 139, potassium 3.1, chloride 107, bicarb 18, BUN 24, and creatinine 1.7. Lactic acid is normal at 1.6. Urine toxicology was negative. UA also showed wbc's too numerous to count, bacteria many, leukocyte esterase 2+. Blood culture, gram-negative rods. Urine culture, gram-negative rods. Chest x-ray showed negative. CT scan of the abdomen and pelvis showed probable cholelithiasis, diverticulosis without diverticulitis. Renal ultrasound shows no hydronephrosis. Venous duplex showed no DVT. IMPRESSION: Gram-negative sepsis, likely secondary to UTI. She has severe anemia, has history of stomach cancer. According to patient is in remission. Acute renal failure. She has cholelithiasis and diverticulosis without diverticulitis. RECOMMENDATION: Continue with Zosyn. We will give a dose of Levaquin. We will follow up the cultures. At the end of my exam, I thank Dr. Melendez for involving me in the care of this patient. Evelio Hill M.D. DR: CIERRA JOB#: [id number] CC: LUISANA
--- NOTE | 2019-10-28 08:34 | Infectious Diseases Prog Note ---
Assessment/Plan Assessment/Plan A; Gram negative sepsis E. coli UTI severe anemia Stomach cancer Acute renal failure, improving P; Continue Zosyn Will f/u cultures Subjective ROS Limited/Unobtainable: No Constitutional: Reports: no symptoms, other - doing better Respiratory: Reports: no symptoms Cardiovascular: Reports: no symptoms, other - on Levophed 1 microgram /Kg/ min Gastrointestinal/Abdominal: Reports: no symptoms Genitourinary: Reports: no symptoms Allergies: Coded Allergies: No Known Allergies (Unverified , 10/26/19) Objective Vital Signs Last 24 Hour Vital Signs Date Time Temp Pulse Resp B/P (MAP) Pulse Ox O2 Delivery O2 Flow Rate FiO2 10/28/19 08:00 98.8 76 13 119/62 (81) 97 10/28/19 07:00 79 23 122/57 (78) 98 10/28/19 06:00 80 14 108/48 (68) 97 10/28/19 05:30 66 18 120/58 (78) 97 10/28/19 05:00 76 24 115/61 (79) 98 10/28/19 04:30 78 22 114/54 (74) 97 10/28/19 04:00 99.1 75 26 104/58 (73) 97 10/28/19 04:00 Room Air 10/28/19 03:30 80 10/28/19 03:30 83 25 122/56 (78) 97 10/28/19 03:00 73 18 124/57 (79) 97 10/28/19 02:30 79 23 122/52 (75) 97 10/28/19 02:00 78 20 125/58 (80) 97 10/28/19 01:30 75 20 119/60 (79) 97 10/28/19 01:00 74 19 115/60 (78) 98 10/28/19 01:00 115/60 10/28/19 00:30 69 20 116/55 (75) 99 10/28/19 00:00 Room Air 10/28/19 00:00 98.5 67 21 115/60 (78) 99 10/27/19 23:41 69 10/27/19 23:30 79 20 91/64 (73) 99 10/27/19 23:00 67 21 94/69 (77) 98 10/27/19 23:00 67 21 94/69 (77) 98 10/27/19 22:30 72 19 105/58 (74) 99 10/27/19 22:00 68 20 103/54 (70) 97 10/27/19 21:30 70 24 92/53 (66) 97 10/27/19 21:00 100/53 10/27/19 21:00 74 24 102/55 (71) 97 10/27/19 20:30 75 20 92/48 (63) 97 10/27/19 20:00 99.3 80 22 92/50 (64) 98 10/27/19 20:00 Room Air 10/27/19 19:36 84 10/27/19 19:30 85 27 94/53 (67) 96 10/27/19 19:00 103/57 10/27/19 19:00 87 26 103/57 (72) 98 10/27/19 18:35 99.1 10/27/19 18:00 121/69 10/27/19 18:00 90 24 121/69 (86) 97 10/27/19 17:00 117/62 10/27/19 17:00 88 23 91/53 (66) 96 10/27/19 16:30 86 22 102/55 (71) 96 10/27/19 16:00 90 10/27/19 16:00 100.0 91 23 100/55 (70) 97 10/27/19 16:00 97/53 10/27/19 16:00 Room Air 10/27/19 15:30 83 21 92/57 (69) 95 10/27/19 15:00 105/53 10/27/19 15:00 90 25 105/53 (70) 96 10/27/19 14:30 85 21 108/56 (73) 95 10/27/19 14:00 92 26 109/61 (77) 96 10/27/19 14:00 109/61 10/27/19 13:30 98 24 128/71 (90) 97 10/27/19 13:00 124/69 10/27/19 13:00 98 22 124/69 (87) 96 10/27/19 12:30 68 21 114/70 (85) 99 10/27/19 12:00 105 10/27/19 12:00 118/76 1/29/20 12:00 99.1 82 20 118/76 (90) 99 10/27/19 12:00 Room Air 10/27/19 11:30 80 20 118/66 (83) 98 10/27/19 11:00 79 20 128/63 (84) 98 10/27/19 11:00 121/66 10/27/19 10:30 76 18 124/64 (84) 98 10/27/19 10:00 65 18 103/58 (73) 96 10/27/19 10:00 103/58 10/27/19 09:30 74 20 87/47 (60) 98 10/27/19 09:00 77 21 112/57 (75) 99 10/27/19 09:00 101/56 10/27/19 08:32 96/55 Height (Feet): 5 Height (Inches): 1.00 Weight (Pounds): 132 General Appearance: no acute distress HEENT: mucous membranes moist Respiratory/Chest: lungs clear Cardiovascular: normal rate, other - R femoral line Abdomen: soft, non tender Extremities: no edema Neurologic/Psychiatric: alert, oriented x 3, responsive Microbiology Date/Time Source Procedure Growth Status 10/26/19 12:25 Blood Blood Culture - Preliminary Gram Negative Brody Resulted 10/26/19 12:25 Blood Blood Culture - Preliminary Gram Negative Brody Resulted 10/26/19 16:02 Nasal Nares MRSA Culture - Final NO METHICILLIN RESISTANT STAPH AUREUS... Complete 10/26/19 15:20 Urine,Clean Catch Urine Culture - Final Escherichia Coli Complete 10/26/19 16:02 Rectum - Final NO CARBAPENEM-RESISTANT ENTEROBACTERI... Complete 10/26/19 16:02 Rectum VRE Culture - Final NO VANCOMYCIN RESISTANT ENTEROCOCCUS ... Complete Laboratory Tests Test 10/27/19 15:40 10/27/19 18:30 10/28/19 03:15 White Blood Count 5.9 K/UL (4.8-10.8) 4.4 K/UL (4.8-10.8) L Red Blood Count 2.59 M/UL (4.20-5.40) L 2.44 M/UL (4.20-5.40) L Hemoglobin 8.5 G/DL (12.0-16.0) L 8.2 G/DL (12.0-16.0) L Hematocrit 23.2 % (37.0-47.0) L 21.8 % (37.0-47.0) L Mean Corpuscular Volume 89 FL (80-99) 89 FL (80-99) Mean Corpuscular Hemoglobin 32.9 PG (27.0-31.0) H 33.4 PG (27.0-31.0) H Mean Corpuscular Hemoglobin Concent 36.8 G/DL (32.0-36.0) H 37.4 G/DL (32.0-36.0) H Red Cell Distribution Width 15.2 % (11.6-14.8) H 15.2 % (11.6-14.8) H Platelet Count 68 K/UL (150-450) L 62 K/UL (150-450) L Mean Platelet Volume 6.0 FL (6.5-10.1) L 6.6 FL (6.5-10.1) Neutrophils (%) (Auto) % (45.0-75.0) % (45.0-75.0) Lymphocytes (%) (Auto) % (20.0-45.0) % (20.0-45.0) Monocytes (%) (Auto) % (1.0-10.0) % (1.0-10.0) Eosinophils (%) (Auto) 0.0 % (0.0-3.0) % (0.0-3.0) Basophils (%) (Auto) 0.0 % (0.0-2.0) % (0.0-2.0) Differential Total Cells Counted 100 100 Neutrophils % (Manual) 82 % (45-75) H 86 % (45-75) H Lymphocytes % (Manual) 8 % (20-45) L 12 % (20-45) L Monocytes % (Manual) 3 % (1-10) 2 % (1-10) Eosinophils % (Manual) 0 % (0-3) 0 % (0-3) Basophils % (Manual) 0 % (0-2) 0 % (0-2) Band Neutrophils 7 % (0-8) 0 % (0-8) Platelet Estimate Decreased L Decreased L Platelet Morphology Normal Normal Prothrombin Time 10.9 SEC (9.30-11.50) Prothromb Time International Ratio 1.0 (0.9-1.1) Hepatitis A IgM Antibody Pending Hepatitis B Surface Antigen Pending Hepatitis B Core IgM Antibody Pending Hepatitis C Antibody Pending Hypochromasia 2+ Anisocytosis 1+ Spherocytes 2+ Sodium Level 140 MMOL/L (136-145) Potassium Level 3.3 MMOL/L (3.5-5.1) L Chloride Level 109 MMOL/L (98-107) H Carbon Dioxide Level 18 MMOL/L (21-32) L Anion Gap 13 mmol/L (5-15) Blood Urea Nitrogen 12 mg/dL (7-18) Creatinine 1.0 MG/DL (0.55-1.30) Estimat Glomerular Filtration Rate 55.7 mL/min (>60) Glucose Level 89 MG/DL (74-106) # Calcium Level 7.6 MG/DL (8.5-10.1) L Phosphorus Level 2.1 MG/DL (2.5-4.9) L Magnesium Level 1.5 MG/DL (1.8-2.4) L Total Bilirubin 0.6 MG/DL (0.2-1.0) Aspartate Amino Transf (AST/SGOT) 23 U/L (15-37) Alanine Aminotransferase (ALT/SGPT) 18 U/L (12-78) Alkaline Phosphatase 86 U/L (46-116) C-Reactive Protein, Quantitative Pending Pro-B-Type Natriuretic Peptide 4274 pg/mL (0-125) H Total Protein 5.5 G/DL (6.4-8.2) L Albumin 1.8 G/DL (3.4-5.0) L Globulin 3.7 g/dL Albumin/Globulin Ratio 0.5 (1.0-2.7) L Current Medications Medications (Trade) Dose Ordered Sig/Poonam Route PRN Reason Start Time Stop Time Status Last Admin Dose Admin Acetaminophen (Tylenol) 650 mg Q6H PRN ORAL Mild Pain/Temp > 100.5 10/26/19 19:15 11/25/19 19:14 10/27/19 18:01 Acetaminophen/ Hydrocodone Bitart (Lamont 5/325) 1 tab Q6H PRN ORAL Moderate Pain (Pain Scale 4-6) 10/26/19 18:00 11/02/19 17:59 10/26/19 23:54 Chlorhexidine Gluconate (Carrol-Hex 2%) 1 applic DAILY@2000 TOPIC 10/27/19 20:00 11/26/19 19:59 10/27/19 20:33 Dextrose (Dextrose 50%) 25 ml Q30M PRN IV Hypoglycemia 10/26/19 18:00 11/25/19 17:59 Dextrose (Dextrose 50%) 50 ml Q30M PRN IV Hypoglycemia 10/26/19 18:00 11/25/19 17:59 Diphenhydramine HCl (Benadryl) 25 mg Q6H PRN IVP Itching 10/26/19 18:00 11/25/19 17:59 Hydromorphone HCl (Dilaudid) 0.5 mg Q3H PRN IVP Severe Pain (Pain Scale 7-10) 10/26/19 18:00 11/02/19 17:59 Insulin Aspart (NovoLOG) BEFORE MEALS AND HS SUBQ 10/26/19 21:00 11/25/19 20:59 10/27/19 06:35 Magnesium Sulfate 100 ml @ 100 mls/hr Q1H IVPB 10/28/19 08:15 10/28/19 12:14 10/28/19 08:22 Norepinephrine Bitartrate 4 mg/ Dextrose 250 ml @ 0 mls/hr Q24H IV 10/26/19 18:30 11/25/19 18:29 10/27/19 08:32 Ondansetron HCl (Zofran) 4 mg Q6H PRN IVP Nausea & Vomiting 10/26/19 18:00 11/25/19 17:59 Pantoprazole (Protonix) 40 mg EVERY 12 HOURS IVP 10/26/19 21:00 11/25/19 20:59 10/28/19 08:22 Piperacillin Sod/ Tazobactam Sod 3.375 gm/Sodium Chloride 110 ml @ 27.5 mls/hr Q12HR@0300,1500 IVPB 10/27/19 03:00 11/03/19 02:59 10/28/19 02:42 Potassium Phosphate 20 mm/ Sodium Chloride 281.6667 ml @ 46.944 m... ONCE IV 10/28/19 09:00 10/28/19 15:00 Sodium Chloride 1,000 ml @ 75 mls/hr [id number] IV 10/26/19 17:00 11/25/19 16:59 10/28/19 05:50 Evelio Hill MD Oct 28, 2019 08:34
[2019-10-28] MEDS ORDERED: Potassium Phosphate 20 MM in NS 275 ML IV SCH (09:00)
--- NOTE | 2019-10-28 09:14 | Nephrology Progress Note ---
Assessment/Plan Problem List: (1) Renal failure (ARF), acute on chronic Assessment: resolved (2) Hypotension (3) Sepsis (4) Symptomatic anemia Assessment Renal failure resolving Hypotension resolving Sepsis ? UTI Symptomatic anemia Plan Anemia whalen- Transfused antibiotics avoid nephrotoxics urine studies JOSEPH kidney No Lamont 2D echo Noted Subjective ROS Limited/Unobtainable: No Constitutional: Reports: malaise Objective Objective Last 24 Hour Vital Signs Date Time Temp Pulse Resp B/P (MAP) Pulse Ox O2 Delivery O2 Flow Rate FiO2 10/28/19 08:00 98.8 76 13 119/62 (81) 97 10/28/19 07:00 79 23 122/57 (78) 98 10/28/19 06:00 80 14 108/48 (68) 97 10/28/19 05:30 66 18 120/58 (78) 97 10/28/19 05:00 76 24 115/61 (79) 98 10/28/19 04:30 78 22 114/54 (74) 97 10/28/19 04:00 99.1 75 26 104/58 (73) 97 10/28/19 04:00 Room Air 10/28/19 03:30 80 10/28/19 03:30 83 25 122/56 (78) 97 10/28/19 03:00 73 18 124/57 (79) 97 10/28/19 02:30 79 23 122/52 (75) 97 10/28/19 02:00 78 20 125/58 (80) 97 10/28/19 01:30 75 20 119/60 (79) 97 10/28/19 01:00 74 19 115/60 (78) 98 10/28/19 01:00 115/60 10/28/19 00:30 69 20 116/55 (75) 99 10/28/19 00:00 Room Air 10/28/19 00:00 98.5 67 21 115/60 (78) 99 10/27/19 23:41 69 10/27/19 23:30 79 20 91/64 (73) 99 10/27/19 23:00 67 21 94/69 (77) 98 10/27/19 23:00 67 21 94/69 (77) 98 10/27/19 22:30 72 19 105/58 (74) 99 10/27/19 22:00 68 20 103/54 (70) 97 10/27/19 21:30 70 24 92/53 (66) 97 10/27/19 21:00 100/53 10/27/19 21:00 74 24 102/55 (71) 97 10/27/19 20:30 75 20 92/48 (63) 97 10/27/19 20:00 99.3 80 22 92/50 (64) 98 10/27/19 20:00 Room Air 10/27/19 19:36 84 10/27/19 19:30 85 27 94/53 (67) 96 10/27/19 19:00 103/57 10/27/19 19:00 87 26 103/57 (72) 98 10/27/19 18:35 99.1 10/27/19 18:00 121/69 10/27/19 18:00 90 24 121/69 (86) 97 10/27/19 17:00 117/62 10/27/19 17:00 88 23 91/53 (66) 96 10/27/19 16:30 86 22 102/55 (71) 96 10/27/19 16:00 90 10/27/19 16:00 100.0 91 23 100/55 (70) 97 10/27/19 16:00 97/53 10/27/19 16:00 Room Air 10/27/19 15:30 83 21 92/57 (69) 95 10/27/19 15:00 105/53 10/27/19 15:00 90 25 105/53 (70) 96 10/27/19 14:30 85 21 108/56 (73) 95 10/27/19 14:00 92 26 109/61 (77) 96 10/27/19 14:00 109/61 10/27/19 13:30 98 24 128/71 (90) 97 10/27/19 13:00 124/69 10/27/19 13:00 98 22 124/69 (87) 96 10/27/19 12:30 68 21 114/70 (85) 99 10/27/19 12:00 105 10/27/19 12:00 118/76 10/27/19 12:00 99.1 82 20 118/76 (90) 99 10/27/19 12:00 Room Air 10/27/19 11:30 80 20 118/66 (83) 98 10/27/19 11:00 79 20 128/63 (84) 98 10/27/19 11:00 121/66 10/27/19 10:30 76 18 124/64 (84) 98 10/27/19 10:00 65 18 103/58 (73) 96 10/27/19 10:00 103/58 10/27/19 09:30 74 20 87/47 (60) 98 Intake and Output 10/27/19 10/28/19 19:00 07:00 Intake Total 1390.416 ml 1030.00 ml Output Total 1480 ml 1810 ml Balance -89.584 ml -780.00 ml Intake Oral 200 ml 150 ml IV Total 1190.416 ml 880.00 ml Output Urine Total 1480 ml 1810 ml Laboratory Tests 10/27/19 15:40: White Blood Count 5.9, Red Blood Count 2.59L, Hemoglobin 8.5L, Hematocrit 23.2L , Mean Corpuscular Volume 89, Mean Corpuscular Hemoglobin 32.9H, Mean Corpuscular Hemoglobin Concent 36.8H, Red Cell Distribution Width 15.2H, Platelet Count 68L, Mean Platelet Volume 6.0L, Neutrophils (%) (Auto) , Lymphocytes (%) (Auto) , Monocytes (%) (Auto) , Eosinophils (%) (Auto) 0.0, Basophils (%) (Auto) 0.0, Differential Total Cells Counted 100, Neutrophils % ( Manual) 82H, Lymphocytes % (Manual) 8L, Monocytes % (Manual) 3, Eosinophils % ( Manual) 0, Basophils % (Manual) 0, Band Neutrophils 7, Platelet Estimate DecreasedL, Platelet Morphology Normal 10/27/19 18:30: Prothrombin Time 10.9, Prothromb Time International Ratio 1.0, Hepatitis A IgM Antibody [Pending], Hepatitis B Surface Antigen [Pending], Hepatitis B Core IgM Antibody [Pending], Hepatitis C Antibody [Pending] 10/28/19 03:15: White Blood Count 4.4L, Red Blood Count 2.44L, Hemoglobin 8.2L, Hematocrit 21.8L , Mean Corpuscular Volume 89, Mean Corpuscular Hemoglobin 33.4H, Mean Corpuscular Hemoglobin Concent 37.4H, Red Cell Distribution Width 15.2H, Platelet Count 62L, Mean Platelet Volume 6.6, Neutrophils (%) (Auto) , Lymphocytes (%) (Auto) , Monocytes (%) (Auto) , Eosinophils (%) (Auto) , Basophils (%) (Auto) , Differential Total Cells Counted 100, Neutrophils % ( Manual) 86H, Lymphocytes % (Manual) 12L, Monocytes % (Manual) 2, Eosinophils % ( Manual) 0, Basophils % (Manual) 0, Band Neutrophils 0, Platelet Estimate DecreasedL, Platelet Morphology Normal, Hypochromasia 2+, Anisocytosis 1+, Spherocytes 2+, Sodium Level 140, Potassium Level 3.3L, Chloride Level 109H, Carbon Dioxide Level 18L, Anion Gap 13, Blood Urea Nitrogen 12, Creatinine 1.0, Estimat Glomerular Filtration Rate 55.7, Glucose Level 89#, Calcium Level 7.6L, Phosphorus Level 2.1L, Magnesium Level 1.5L, Total Bilirubin 0.6, Aspartate Amino Transf (AST/SGOT) 23, Alanine Aminotransferase (ALT/SGPT) 18, Alkaline Phosphatase 86, C-Reactive Protein, Quantitative 27.8H, Pro-B-Type Natriuretic Peptide 4274H, Total Protein 5.5L, Albumin 1.8L, Globulin 3.7, Albumin/Globulin Ratio 0.5L Height (Feet): 5 Height (Inches): 1.00 Weight (Pounds): 132 Cardiovascular: normal rate Respiratory/Chest: decreased breath sounds Abdomen: soft Objective no change Alverto Bird MD Oct 28, 2019 09:14
--- NOTE | 2019-10-28 09:28 | Pulmonolgy Critical Care Note ---
Critical Care - Asmt/Plan Assessment/Plan: Pulmonary Critical Care Progress Note HPI Patient is a 64-year-old female with past medical history of Stomach cancer, Ovarian Cancer, Hypertension, history of recent chemotherapy ,admitted with with fever/chills for one day, weakness, noted to have severe anemia, hypotension, evidence of urinary tract infection, clear CXR, normal O2 sats on RA, no acute changes on EKG GNR on BC match Urine Ecoli URINE CULTURE Final Organism 1 ESCHERICHIA COLI COLONY COUNT: >100,000 CFU/ML ESC COLI M.I.C. RX --------- --- AMPICILLIN >=32 R CEFAZOLIN <=4 S CEFTRIAXONE <=1 S CIPROFLOXACIN <=0.25 S ERTAPENEM <=0.5 S GENTAMICIN 8 I LEVOFLOXACIN 1 S IMIPENEM <=0.25 S NITROFURANTOIN <=16 S TRIMETHOPRIM/SULFA >=320 R AMIKACIN <=2 S PIPERACILLIN/TAZOBACTAM 8 S LE Dupplex negative for DVT CT Abdomen no hydronephrosis Allergies: No Known Allergies Past Medical History: Stomach cancer, hypertension All Other Systems: negative except mentioned in HPI Physical Exam Vital Signs Noted General Appearance: well appearing, no apparent distress, alert, pale Head: normocephalic, atraumatic Eyes: bilateral eye PERRL, bilateral eye EOMI ENT: uvula midline, dry mucus membranes Neck: supple, thyroid normal, supple/symm/no masses Respiratory: lungs clear, no respiratory distress, no retraction, no accessory muscle use Cardiovascular: normal peripheral pulses, regular rate, rhythm, HS1, HS2 normal , no gallop, no murmur Gastrointestinal: non tender, soft, no guarding, no rebound Musculoskeletal: normal inspection Neurologic: alert, oriented x3, no focal signs, no seizures Psychiatric: mood/affect normal Skin: no rash, warm/dry, no edema EKG: NSR, rate 66, QTc 436, no acute ST elevations, normal axis CXR: No acute changes LE Dupplex negative UA: S/o infection CBC: Severe anemia Impression: Stomach Cancer/Ovarian Cancer s/p recent Chemotherapy Urosepsis, Ecoli on BC Severe Anemia s/p Transfusion Thrombocytopenia Hypokalemia H/o Hypertension Dehydration Hyponatremia Azotemia Elevated BNP Hyperglycemia Plan: - IV Antibiotics per ID - IVF - Pressors PRN - Transfuse PRN - Cortisol only 13 - if cannot wean Pressors may need stress steroids - IV Protonix - R/o DVT, SCD's - Monitor labs - Cortisol level - 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 RX --------- --- AMPICILLIN >=32 R CEFAZOLIN <=4 S CEFTRIAXONE <=1 S CIPROFLOXACIN <=0.25 S ERTAPENEM <=0.5 S GENTAMICIN 8 I LEVOFLOXACIN 1 S IMIPENEM <=0.25 S NITROFURANTOIN <=16 S TRIMETHOPRIM/SULFA >=320 R AMIKACIN <=2 S PIPERACILLIN/TAZOBACTAM 8 S Critical Care - Objective Last 24 Hour Vital Signs Date Time Temp Pulse Resp B/P (MAP) Pulse Ox O2 Delivery O2 Flow Rate FiO2 10/28/19 09:00 75 18 123/65 (84) 97 10/28/19 08:30 77 17 117/60 (79) 98 10/28/19 08:00 98.8 76 13 119/62 (81) 97 10/28/19 07:30 71 20 119/60 (79) 98 10/28/19 07:00 79 23 122/57 (78) 98 10/28/19 06:00 80 14 108/48 (68) 97 10/28/19 05:30 66 18 120/58 (78) 97 10/28/19 05:00 76 24 115/61 (79) 98 10/28/19 04:30 78 22 114/54 (74) 97 10/28/19 04:00 99.1 75 26 104/58 (73) 97 10/28/19 04:00 Room Air 10/28/19 03:30 80 10/28/19 03:30 83 25 122/56 (78) 97 10/28/19 03:00 73 18 124/57 (79) 97 10/28/19 02:30 79 23 122/52 (75) 97 10/28/19 02:00 78 20 125/58 (80) 97 10/28/19 01:30 75 20 119/60 (79) 97 10/28/19 01:00 74 19 115/60 (78) 98 10/28/19 01:00 115/60 10/28/19 00:30 69 20 116/55 (75) 99 10/28/19 00:00 Room Air 10/28/19 00:00 98.5 67 21 115/60 (78) 99 10/27/19 23:41 69 10/27/19 23:30 79 20 91/64 (73) 99 10/27/19 23:00 67 21 94/69 (77) 98 10/27/19 23:00 67 21 94/69 (77) 98 10/27/19 22:30 72 19 105/58 (74) 99 10/27/19 22:00 68 20 103/54 (70) 97 10/27/19 21:30 70 24 92/53 (66) 97 10/27/19 21:00 100/53 10/27/19 21:00 74 24 102/55 (71) 97 10/27/19 20:30 75 20 92/48 (63) 97 10/27/19 20:00 99.3 80 22 92/50 (64) 98 10/27/19 20:00 Room Air 10/27/19 19:36 84 10/27/19 19:30 85 27 94/53 (67) 96 10/27/19 19:00 103/57 10/27/19 19:00 87 26 103/57 (72) 98 10/27/19 18:35 99.1 10/27/19 18:00 121/69 10/27/19 18:00 90 24 121/69 (86) 97 10/27/19 17:00 117/62 10/27/19 17:00 88 23 91/53 (66) 96 10/27/19 16:30 86 22 102/55 (71) 96 10/27/19 16:00 90 10/27/19 16:00 100.0 91 23 100/55 (70) 97 10/27/19 16:00 97/53 10/27/19 16:00 Room Air 10/27/19 15:30 83 21 92/57 (69) 95 10/27/19 15:00 105/53 10/27/19 15:00 90 25 105/53 (70) 96 10/27/19 14:30 85 21 108/56 (73) 95 10/27/19 14:00 92 26 109/61 (77) 96 10/27/19 14:00 109/61 10/27/19 13:30 98 24 128/71 (90) 97 10/27/19 13:00 124/69 10/27/19 13:00 98 22 124/69 (87) 96 10/27/19 12:30 68 21 114/70 (85) 99 10/27/19 12:00 105 10/27/19 12:00 118/76 10/27/19 12:00 99.1 82 20 118/76 (90) 99 10/27/19 12:00 Room Air 10/27/19 11:30 80 20 118/66 (83) 98 10/27/19 11:00 79 20 128/63 (84) 98 10/27/19 11:00 121/66 10/27/19 10:30 76 18 124/64 (84) 98 10/27/19 10:00 65 18 103/58 (73) 96 10/27/19 10:00 103/58 10/27/19 09:30 74 20 87/47 (60) 98 Micro: Microbiology Date/Time Source Procedure Growth Status 10/26/19 12:25 Blood Blood Culture - Preliminary Gram Negative Brody Resulted 10/26/19 12:25 Blood Blood Culture - Preliminary Gram Negative Brody Resulted 10/26/19 16:02 Nasal Nares MRSA Culture - Final NO METHICILLIN RESISTANT STAPH AUREUS... Complete 10/26/19 15:20 Urine,Clean Catch Urine Culture - Final Escherichia Coli Complete 10/26/19 16:02 Rectum - Final NO CARBAPENEM-RESISTANT ENTEROBACTERI... Complete 10/26/19 16:02 Rectum VRE Culture - Final NO VANCOMYCIN RESISTANT ENTEROCOCCUS ... Complete Accucheck: 80 Critical Care - Subjective ROS Limited/Unobtainable: No Condition: improving I&O: Intake and Output 10/27/19 10/28/19 18:59 06:59 Intake Total 1541.666 ml 955.00 ml Output Total 1400 ml 1860 ml Balance 141.666 ml -905.00 ml Intake Oral 200 ml 150 ml IV Total 1341.666 ml 805.00 ml Output Urine Total 1400 ml 1860 ml Ajit Land MD Oct 28, 2019 09:28
--- NOTE | 2019-10-28 10:00 | NUR ---
NURSE NOTES: Levophed held since BP is 110/58. Pt denies any discomfort or distress. Will closely monitor.
--- NOTE | 2019-10-28 10:47 | NUR ---
[employer] SI: HYPOTENSION,WEAKNESS T. 98.8 HR 76 RR 13 B/P 119/62 RA 98% K 3.3 WBC 4.4 BNP 4274 VENOUS DOPPLER NEGATIVE FOR DVT IS: IVF NS @ 100ML/HR MAGNESIUM IV LEVOPHED GTT ZOSYN IV K-PHOS IV PROTONIX IV ICU STATUS
--- NOTE | 2019-10-28 13:00 | NUR ---
NURSE NOTES: Dr Land here to see the patient. Updated him with pt's current condition. No new orders. Pt is having lunch in bed.
--- NOTE | 2019-10-28 15:00 | NUR ---
NURSE NOTES: Afebrile. Pt is watching cell phone in bed. No acute distress noted. Pt turns herself.
--- NOTE | 2019-10-28 15:38 | Hematology/Onc Progress Note ---
Assessment/Plan Assessment/Plan Assessment and Recs: # Stomach cancer with a history of ovarian resection in 2019 recently --> sees Dr. 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 --> Hgb goal >7. Transfuse prn. --> Epogen or iron at this time is not particularly indicated --> Medications have been reviewed --> low threshold for gi evaluation in case has occult + --> hgb trend 5.7-->9.4-->8.2 # Thrombocytopenia - potential causes multifactorial, in this case due to sepsis , s/p ABX and PRESSORS --> Hep panel pending and HIV negative --> US abd to evaluate for cirrhosis and hsm ordered --> Peripheral smear ordered to evaluate for blasts /schistocytes --> abx and other meds have been reviewed --> ok for ppx if plt >50k w/ either heparin or lovenox --> Transfuse if Plt < 20k and fever, or if Plt < 10k without fever --> plt trend 101-->84-->62 # Septic shock with Hypotension --> pressors and abx --> as per id # Critically ill in the icu Appreciate consultation and kevin Rn Subjective Allergies: Coded Allergies: No Known Allergies (Unverified , 10/26/19) Subjective 10/28: icu, awake, no acute events, levo drip, h/h stable Objective Objective Current Medications Medications (Trade) Dose Ordered Sig/Poonam Route PRN Reason Start Time Stop Time Status Last Admin Dose Admin Acetaminophen (Tylenol) 650 mg Q6H PRN ORAL Mild Pain/Temp > 100.5 10/26/19 19:15 11/25/19 19:14 10/27/19 18:01 Acetaminophen/ Hydrocodone Bitart ([place] 5/325) 1 tab Q6H PRN ORAL Moderate Pain (Pain Scale 4-6) 10/26/19 18:00 11/02/19 17:59 10/26/19 23:54 Chlorhexidine Gluconate (Carrol-Hex 2%) 1 applic DAILY@2000 TOPIC 10/27/19 20:00 11/26/19 19:59 10/27/19 20:33 Dextrose (Dextrose 50%) 25 ml Q30M PRN IV Hypoglycemia 10/26/19 18:00 11/25/19 17:59 Dextrose (Dextrose 50%) 50 ml Q30M PRN IV Hypoglycemia 10/26/19 18:00 11/25/19 17:59 Diphenhydramine HCl (Benadryl) 25 mg Q6H PRN IVP Itching 10/26/19 18:00 11/25/19 17:59 Hydromorphone HCl (Dilaudid) 0.5 mg Q3H PRN IVP Severe Pain (Pain Scale 7-10) 10/26/19 18:00 11/02/19 17:59 Insulin Aspart (NovoLOG) BEFORE MEALS AND HS SUBQ 10/26/19 21:00 11/25/19 20:59 10/28/19 11:32 Norepinephrine Bitartrate 4 mg/ Dextrose 250 ml @ 0 mls/hr Q24H IV 10/26/19 18:30 11/25/19 18:29 10/27/19 08:32 Ondansetron HCl (Zofran) 4 mg Q6H PRN IVP Nausea & Vomiting 10/26/19 18:00 11/25/19 17:59 Pantoprazole (Protonix) 40 mg EVERY 12 HOURS ORAL 10/28/19 21:00 11/27/19 20:59 Piperacillin Sod/ Tazobactam Sod 3.375 gm/Sodium Chloride 110 ml @ 27.5 mls/hr Q12HR@0300,1500 IVPB 10/27/19 03:00 11/03/19 02:59 10/28/19 02:42 Sodium Chloride 1,000 ml @ 50 mls/hr Q20H IV 10/28/19 09:06 11/27/19 09:05 10/28/19 09:19 Last 24 Hour Vital Signs Date Time Temp Pulse Resp B/P (MAP) Pulse Ox O2 Delivery O2 Flow Rate FiO2 10/28/19 14:00 89 21 116/62 (80) 99 10/28/19 13:00 95 23 136/67 (90) 97 10/28/19 12:00 70 10/28/19 12:00 98.8 71 18 112/65 (81) 97 10/28/19 12:00 Room Air 10/28/19 11:00 70 17 102/60 (74) 97 10/28/19 11:00 79 20 108/60 (76) 98 10/28/19 10:45 73 18 114/58 (76) 97 10/28/19 10:30 77 25 114/58 (76) 97 10/28/19 10:15 82 26 111/59 (76) 97 10/28/19 10:00 83 20 110/58 (75) 97 10/28/19 09:45 82 24 115/57 (76) 97 10/28/19 09:30 82 18 127/65 (85) 98 10/28/19 09:15 75 25 120/64 (82) 98 10/28/19 09:00 75 18 123/65 (84) 97 10/28/19 08:30 77 17 117/60 (79) 98 10/28/19 08:00 98.8 76 13 119/62 (81) 97 10/28/19 08:00 78 10/28/19 08:00 Room Air 10/28/19 07:30 71 20 119/60 (79) 98 10/28/19 07:00 79 23 122/57 (78) 98 10/28/19 06:00 80 14 108/48 (68) 97 10/28/19 05:30 66 18 120/58 (78) 97 10/28/19 05:00 76 24 115/61 (79) 98 10/28/19 04:30 78 22 114/54 (74) 97 10/28/19 04:00 99.1 75 26 104/58 (73) 97 10/28/19 04:00 Room Air 10/28/19 03:30 80 10/28/19 03:30 83 25 122/56 (78) 97 10/28/19 03:00 73 18 124/57 (79) 97 10/28/19 02:30 79 23 122/52 (75) 97 10/28/19 02:00 78 20 125/58 (80) 97 10/28/19 01:30 75 20 119/60 (79) 97 10/28/19 01:00 74 19 115/60 (78) 98 10/28/19 01:00 115/60 10/28/19 00:30 69 20 116/55 (75) 99 10/28/19 00:00 Room Air 10/28/19 00:00 98.5 67 21 115/60 (78) 99 10/27/19 23:41 69 10/27/19 23:30 79 20 91/64 (73) 99 10/27/19 23:00 67 21 94/69 (77) 98 10/27/19 23:00 67 21 94/69 (77) 98 10/27/19 22:30 72 19 105/58 (74) 99 10/27/19 22:00 68 20 103/54 (70) 97 10/27/19 21:30 70 24 92/53 (66) 97 10/27/19 21:00 100/53 10/27/19 21:00 74 24 102/55 (71) 97 10/27/19 20:30 75 20 92/48 (63) 97 10/27/19 20:00 99.3 80 22 92/50 (64) 98 10/27/19 20:00 Room Air 10/27/19 19:36 84 10/27/19 19:30 85 27 94/53 (67) 96 10/27/19 19:00 103/57 10/27/19 19:00 87 26 103/57 (72) 98 10/27/19 18:35 99.1 10/27/19 18:00 121/69 10/27/19 18:00 90 24 121/69 (86) 97 10/27/19 17:00 117/62 10/27/19 17:00 88 23 91/53 (66) 96 10/27/19 16:30 86 22 102/55 (71) 96 10/27/19 16:00 90 10/27/19 16:00 100.0 91 23 100/55 (70) 97 10/27/19 16:00 97/53 10/27/19 16:00 Room Air 10/27/19 15:30 83 21 92/57 (69) 95 10/27/19 15:00 105/53 10/27/19 15:00 90 25 105/53 (70) 96 10/27/19 14:30 85 21 108/56 (73) 95 10/27/19 14:00 92 26 109/61 (77) 96 10/27/19 14:00 109/61 10/27/19 13:30 98 24 128/71 (90) 97 10/27/19 13:00 124/69 10/27/19 13:00 98 22 124/69 (87) 96 10/27/19 12:30 68 21 114/70 (85) 99 10/27/19 12:00 105 10/27/19 12:00 118/76 10/27/19 12:00 99.1 82 20 118/76 (90) 99 10/27/19 12:00 Room Air 10/27/19 11:30 80 20 118/66 (83) 98 10/27/19 11:00 79 20 128/63 (84) 98 10/27/19 11:00 121/66 10/27/19 10:30 76 18 124/64 (84) 98 10/27/19 10:00 65 18 103/58 (73) 96 10/27/19 10:00 103/58 10/27/19 09:30 74 20 87/47 (60) 98 10/27/19 09:00 77 21 112/57 (75) 99 10/27/19 09:00 101/56 10/27/19 08:32 96/55 10/27/19 08:30 72 19 96/55 (69) 97 10/27/19 08:00 98.1 68 20 109/60 (76) 96 10/27/19 08:00 96/55 10/27/19 08:00 Room Air 10/27/19 08:00 67 10/27/19 07:21 60 19 147/60 (89) 96 10/27/19 07:15 79 20 86/51 (63) 98 10/27/19 07:00 69 17 125/56 (79) 95 10/27/19 06:45 69 18 129/63 (85) 97 10/27/19 06:30 68 13 118/63 (81) 97 10/27/19 06:15 65 15 117/58 (77) 97 10/27/19 06:00 117/58 10/27/19 06:00 60 13 124/62 (82) 96 10/27/19 05:45 59 14 109/61 (77) 96 10/27/19 05:30 59 13 106/58 (74) 97 10/27/19 05:15 59 14 95/80 (85) 97 10/27/19 05:00 114/59 10/27/19 05:00 57 14 114/59 (77) 97 10/27/19 04:45 58 14 108/59 (75) 97 10/27/19 04:30 63 15 133/65 (87) 97 10/27/19 04:15 63 15 136/65 (88) 98 10/27/19 04:00 Room Air 10/27/19 04:00 97.0 62 14 136/65 (88) 96 10/27/19 03:50 62 10/27/19 03:45 62 19 132/66 (88) 98 10/27/19 03:30 62 18 129/66 (87) 98 10/27/19 03:15 58 18 126/65 (85) 98 10/27/19 03:00 61 16 126/65 (85) 98 10/27/19 03:00 126/65 10/27/19 02:45 65 16 128/64 (85) 97 10/27/19 02:30 60 17 116/61 (79) 98 10/27/19 02:15 71 17 112/62 (79) 98 10/27/19 02:05 65 14 97/62 (74) 96 10/27/19 02:05 118/66 10/27/19 02:00 70 13 59/38 (45) 97 10/27/19 01:45 64 13 118/66 (83) 97 10/27/19 01:30 65 13 121/63 (82) 97 10/27/19 01:15 66 13 111/63 (79) 97 10/27/19 01:00 144/63 10/27/19 01:00 69 13 144/70 (94) 97 10/27/19 00:45 69 13 137/67 (90) 97 10/27/19 00:30 70 18 132/73 (92) 98 10/27/19 00:15 71 18 132/70 (90) 98 10/27/19 00:00 Room Air 10/27/19 00:00 157/73 10/27/19 00:00 97.5 73 15 157/73 (101) 98 10/26/19 23:45 77 19 103/59 (74) 98 10/26/19 23:44 78 10/26/19 23:30 74 17 150/74 (99) 98 10/26/19 23:15 80 17 137/72 (93) 98 10/26/19 23:00 76 17 136/67 (90) 97 10/26/19 22:45 76 12 129/62 (84) 96 10/26/19 22:30 79 14 126/61 (82) 96 10/26/19 22:15 79 15 120/60 (80) 96 10/26/19 22:00 84 14 115/56 (75) 96 10/26/19 21:45 91 17 103/57 (72) 95 10/26/19 21:31 112/57 10/26/19 21:30 98.7 95 17 112/55 (74) 94 10/26/19 21:15 98 19 114/55 (74) 94 10/26/19 21:00 104 26 108/50 (69) 97 10/26/19 20:45 98 24 113/56 (75) 96 10/26/19 20:30 100 24 108/55 (72) 97 10/26/19 20:30 Room Air 10/26/19 20:15 103 25 118/57 (77) 95 10/26/19 20:00 99.3 102 27 116/52 (73) 96 10/26/19 20:00 Room Air 10/26/19 19:43 98 10/26/19 19:40 98 25 108/51 (70) 94 10/26/19 19:35 100 25 106/51 (69) 95 10/26/19 19:30 78/43 10/26/19 19:30 100.7 97 24 92/52 (65) 95 10/26/19 19:25 104 23 77/37 (50) 94 10/26/19 19:20 107 23 85/43 (57) 95 10/26/19 19:15 107 25 82/41 (55) 93 10/26/19 19:10 115 23 92/47 (62) 95 10/26/19 19:07 116 21 87/46 (60) 94 10/26/19 19:04 110 24 78/43 (55) 93 10/26/19 19:00 114 26 94/45 (61) 93 10/26/19 19:00 136 10/26/19 19:00 Room Air 10/26/19 18:30 88/43 10/26/19 17:55 103.2 135 21 156/90 99 Room Air 10/26/19 17:36 103.2 135 21 156/90 99 Room Air 10/26/19 16:29 98.5 108 21 104/51 100 Room Air 10/26/19 15:42 106/55 10/26/19 15:37 129/50 10/26/19 15:37 98.5 96 19 129/50 100 Room Air Intake and Output 10/27/19 10/28/19 19:00 07:00 Intake Total 1390.416 ml 1030.00 ml Output Total 1480 ml 1810 ml Balance -89.584 ml -780.00 ml Intake Oral 200 ml 150 ml IV Total 1190.416 ml 880.00 ml Output Urine Total 1480 ml 1810 ml Labs Test 10/26/19 12:25 10/26/19 15:00 10/26/19 15:20 10/27/19 00:15 White Blood Count 7.7 K/UL (4.8-10.8) Red Blood Count 1.66 M/UL (4.20-5.40) Hemoglobin 5.7 G/DL (12.0-16.0) Hematocrit 15.5 % (37.0-47.0) Mean Corpuscular Volume 93 FL (80-99) Mean Corpuscular Hemoglobin 34.6 PG (27.0-31.0) Mean Corpuscular Hemoglobin Concent 37.2 G/DL (32.0-36.0) Red Cell Distribution Width 15.7 % (11.6-14.8) Platelet Count 101 K/UL (150-450) Mean Platelet Volume 6.0 FL (6.5-10.1) Neutrophils (%) (Auto) % (45.0-75.0) Lymphocytes (%) (Auto) % (20.0-45.0) Monocytes (%) (Auto) % (1.0-10.0) Eosinophils (%) (Auto) % (0.0-3.0) Basophils (%) (Auto) % (0.0-2.0) Differential Total Cells Counted 100 Neutrophils % (Manual) 91 % (45-75) Lymphocytes % (Manual) 5 % (20-45) Monocytes % (Manual) 4 % (1-10) Eosinophils % (Manual) 0 % (0-3) Basophils % (Manual) 0 % (0-2) Band Neutrophils 0 % (0-8) Platelet Estimate Decreased Platelet Morphology Normal Hypochromasia 4+ Anisocytosis 1+ Spherocytes 3+ Prothrombin Time 13.9 SEC (9.30-11.50) Prothromb Time International Ratio 1.3 (0.9-1.1) Activated Partial Thromboplast Time 44 SEC (23-33) Sodium Level 131 MMOL/L (136-145) Potassium Level 3.7 MMOL/L (3.5-5.1) Chloride Level 99 MMOL/L (98-107) Carbon Dioxide Level 22 MMOL/L (21-32) Anion Gap 11 mmol/L (5-15) Blood Urea Nitrogen 31 mg/dL (7-18) Creatinine 2.5 MG/DL (0.55-1.30) Estimat Glomerular Filtration Rate 19.3 mL/min (>60) Glucose Level 177 MG/DL (74-106) Lactic Acid Level 2.80 mmol/L (0.4-2.0) 2.20 mmol/L (0.66-2.22) 1.60 mmol/L (0.4-2.0) Calcium Level 7.5 MG/DL (8.5-10.1) Phosphorus Level 2.9 MG/DL (2.5-4.9) Magnesium Level 1.8 MG/DL (1.8-2.4) Iron Level 45 ug/dL (50-175) Total Iron Binding Capacity 132 ug/dL (250-450) Percent Iron Saturation 34 % (15-50) Unsaturated Iron Binding 87 ug/dL (112-346) Ferritin 1012 NG/ML (8-388) Total Bilirubin 0.6 MG/DL (0.2-1.0) Aspartate Amino Transf (AST/SGOT) 25 U/L (15-37) Alanine Aminotransferase (ALT/SGPT) 21 U/L (12-78) Alkaline Phosphatase 76 U/L (46-116) Total Creatine Kinase 253 U/L (26-308) Troponin I 0.000 ng/mL (0.000-0.056) Pro-B-Type Natriuretic Peptide 2449 pg/mL (0-125) Total Protein 6.4 G/DL (6.4-8.2) Albumin 2.5 G/DL (3.4-5.0) Globulin 3.9 g/dL Lipase 164 U/L (73-393) Vitamin B12 Level 1096 PG/ML (193-986) Folate 17.1 NG/ML (8.6-58.9) Urine Color Pale yellow Urine Appearance Slightly cloudy Urine pH 7 (4.5-8.0) Urine Specific [place] 1.005 (1.005-1.035) Urine Protein 2+ (NEGATIVE) Urine Glucose (UA) Negative (NEGATIVE) Urine Ketones Negative (NEGATIVE) Urine Blood 5+ (NEGATIVE) Urine Nitrite Negative (NEGATIVE) Urine Bilirubin Negative (NEGATIVE) Urine Urobilinogen Normal MG/DL (0.0-1.0) Urine Leukocyte Esterase 3+ (NEGATIVE) Urine RBC 2-4 /HPF (0 - 2) Urine WBC Tntc /HPF (0 - 2) Urine Squamous Epithelial Cells Few /LPF (NONE/OCC) Urine Bacteria Many /HPF (NONE) Urine Random Sodium < 20 mmol/L (20-110) Urine Opiates Screen Negative (NEGATIVE) Urine Barbiturates Screen Negative (NEGATIVE) Phencyclidine (PCP) Screen Negative (NEGATIVE) Urine Amphetamines Screen Negative (NEGATIVE) Urine Benzodiazepines Screen Negative (NEGATIVE) Urine Cocaine Screen Negative (NEGATIVE) Urine Marijuana (THC) Screen Negative (NEGATIVE) Test 10/27/19 03:20 10/27/19 15:40 10/27/19 18:30 10/28/19 03:15 White Blood Count 8.9 K/UL (4.8-10.8) 5.9 K/UL (4.8-10.8) 4.4 K/UL (4.8-10.8) Red Blood Count 2.84 M/UL (4.20-5.40) 2.59 M/UL (4.20-5.40) 2.44 M/UL (4.20-5.40) Hemoglobin 9.4 G/DL (12.0-16.0) 8.5 G/DL (12.0-16.0) 8.2 G/DL (12.0-16.0) Hematocrit 25.5 % (37.0-47.0) 23.2 % (37.0-47.0) 21.8 % (37.0-47.0) Mean Corpuscular Volume 90 FL (80-99) 89 FL (80-99) 89 FL (80-99) Mean Corpuscular Hemoglobin 33.0 PG (27.0-31.0) 32.9 PG (27.0-31.0) 33.4 PG (27.0-31.0) Mean Corpuscular Hemoglobin Concent 36.7 G/DL (32.0-36.0) 36.8 G/DL (32.0-36.0) 37.4 G/DL (32.0-36.0) Red Cell Distribution Width 15.0 % (11.6-14.8) 15.2 % (11.6-14.8) 15.2 % (11.6-14.8) Platelet Count 89 K/UL (150-450) 68 K/UL (150-450) 62 K/UL (150-450) Mean Platelet Volume 6.5 FL (6.5-10.1) 6.0 FL (6.5-10.1) 6.6 FL (6.5-10.1) Neutrophils (%) (Auto) % (45.0-75.0) % (45.0-75.0) % (45.0-75.0) Lymphocytes (%) (Auto) % (20.0-45.0) % (20.0-45.0) % (20.0-45.0) Monocytes (%) (Auto) % (1.0-10.0) % (1.0-10.0) % (1.0-10.0) Eosinophils (%) (Auto) % (0.0-3.0) 0.0 % (0.0-3.0) % (0.0-3.0) Basophils (%) (Auto) % (0.0-2.0) 0.0 % (0.0-2.0) % (0.0-2.0) Differential Total Cells Counted 100 100 100 Neutrophils % (Manual) 81 % (45-75) 82 % (45-75) 86 % (45-75) Lymphocytes % (Manual) 9 % (20-45) 8 % (20-45) 12 % (20-45) Monocytes % (Manual) 2 % (1-10) 3 % (1-10) 2 % (1-10) Eosinophils % (Manual) 0 % (0-3) 0 % (0-3) 0 % (0-3) Basophils % (Manual) 0 % (0-2) 0 % (0-2) 0 % (0-2) Band Neutrophils 8 % (0-8) 7 % (0-8) 0 % (0-8) Platelet Estimate Decreased Decreased Decreased Platelet Morphology Normal Normal Normal Anisocytosis 1+ 1+ Sodium Level 139 MMOL/L (136-145) 140 MMOL/L (136-145) Potassium Level 3.1 MMOL/L (3.5-5.1) 3.3 MMOL/L (3.5-5.1) Chloride Level 107 MMOL/L (98-107) 109 MMOL/L (98-107) Carbon Dioxide Level 18 MMOL/L (21-32) 18 MMOL/L (21-32) Anion Gap 14 mmol/L (5-15) 13 mmol/L (5-15) Blood Urea Nitrogen 24 mg/dL (7-18) 12 mg/dL (7-18) Creatinine 1.7 MG/DL (0.55-1.30) 1.0 MG/DL (0.55-1.30) Estimat Glomerular Filtration Rate 30.2 mL/min (>60) 55.7 mL/min (>60) Glucose Level 205 MG/DL (74-106) 89 MG/DL (74-106) Hemoglobin A1c 6.2 % (4.3-6.0) Osmolality 292 mOsm/kg (297-317) Calcium Level 7.8 MG/DL (8.5-10.1) 7.6 MG/DL (8.5-10.1) Phosphorus Level 3.3 MG/DL (2.5-4.9) 2.1 MG/DL (2.5-4.9) Magnesium Level 1.8 MG/DL (1.8-2.4) 1.5 MG/DL (1.8-2.4) Total Bilirubin 0.6 MG/DL (0.2-1.0) 0.6 MG/DL (0.2-1.0) Gamma Glutamyl Transpeptidase 33 U/L (5-85) Aspartate Amino Transf (AST/SGOT) 29 U/L (15-37) 23 U/L (15-37) Alanine Aminotransferase (ALT/SGPT) 17 U/L (12-78) 18 U/L (12-78) Alkaline Phosphatase 84 U/L (46-116) 86 U/L (46-116) Total Creatine Kinase 221 U/L (26-308) C-Reactive Protein, Quantitative 28.0 mg/dL (0.00-0.90) 27.8 mg/dL (0.00-0.90) Pro-B-Type Natriuretic Peptide 5179 pg/mL (0-125) 4274 pg/mL (0-125) Total Protein 6.2 G/DL (6.4-8.2) 5.5 G/DL (6.4-8.2) Albumin 2.3 G/DL (3.4-5.0) 1.8 G/DL (3.4-5.0) Globulin 3.9 g/dL 3.7 g/dL Albumin/Globulin Ratio 0.6 (1.0-2.7) 0.5 (1.0-2.7) Thyroid Stimulating Hormone (TSH) 1.696 uiU/mL (0.358-3.740) Cortisol AM Sample 13.3 UG/DL Random Vancomycin Level 9.1 ug/mL HIV (1&2) Antibody Rapid Negative (NEGATIVE) Prothrombin Time 10.9 SEC (9.30-11.50) Prothromb Time International Ratio 1.0 (0.9-1.1) Hypochromasia 2+ Spherocytes 2+ Test 10/28/19 05:00 Urine Eosinophils None seen (NONE SEEN) Height (Feet): 5 Height (Inches): 1.00 Weight (Pounds): 132 Objective Physical Exam: Vitals: reviewed General Appearance: NAD HEENT: normocephalic, atraumatic Neck: non-tender, normal alignment Respiratory/Chest: normal breath sounds bilaterally Cardiovascular/Chest: normal peripheral pulses, normal rate Abdomen: normal bowel sounds, soft, nontender Extremities: normal range of motion David Venegas MD Oct 28, 2019 15:38
--- NOTE | 2019-10-28 16:54 | Cardiac Electrophysiology PN ---
Subjective Subjective [id number] Objective Last 24 Hour Vital Signs Date Time Temp Pulse Resp B/P (MAP) Pulse Ox O2 Delivery O2 Flow Rate FiO2 10/28/19 16:00 Room Air 10/28/19 16:00 98.8 88 20 102/50 (67) 97 10/28/19 15:00 89 25 102/46 (64) 97 10/28/19 14:00 89 21 116/62 (80) 99 10/28/19 13:00 95 23 136/67 (90) 97 10/28/19 12:00 70 10/28/19 12:00 98.8 71 18 112/65 (81) 97 10/28/19 12:00 Room Air 10/28/19 11:00 70 17 102/60 (74) 97 10/28/19 11:00 79 20 108/60 (76) 98 10/28/19 10:45 73 18 114/58 (76) 97 10/28/19 10:30 77 25 114/58 (76) 97 10/28/19 10:15 82 26 111/59 (76) 97 10/28/19 10:00 83 20 110/58 (75) 97 10/28/19 09:45 82 24 115/57 (76) 97 10/28/19 09:30 82 18 127/65 (85) 98 10/28/19 09:15 75 25 120/64 (82) 98 10/28/19 09:00 75 18 123/65 (84) 97 10/28/19 08:30 77 17 117/60 (79) 98 10/28/19 08:00 98.8 76 13 119/62 (81) 97 10/28/19 08:00 78 10/28/19 08:00 Room Air 10/28/19 07:30 71 20 119/60 (79) 98 10/28/19 07:00 79 23 122/57 (78) 98 10/28/19 06:00 80 14 108/48 (68) 97 10/28/19 05:30 66 18 120/58 (78) 97 10/28/19 05:00 76 24 115/61 (79) 98 10/28/19 04:30 78 22 114/54 (74) 97 10/28/19 04:00 99.1 75 26 104/58 (73) 97 10/28/19 04:00 Room Air 10/28/19 03:30 80 10/28/19 03:30 83 25 122/56 (78) 97 10/28/19 03:00 73 18 124/57 (79) 97 10/28/19 02:30 79 23 122/52 (75) 97 10/28/19 02:00 78 20 125/58 (80) 97 10/28/19 01:30 75 20 119/60 (79) 97 10/28/19 01:00 74 19 115/60 (78) 98 10/28/19 01:00 115/60 10/28/19 00:30 69 20 116/55 (75) 99 10/28/19 00:00 Room Air 10/28/19 00:00 98.5 67 21 115/60 (78) 99 10/27/19 23:41 69 10/27/19 23:30 79 20 91/64 (73) 99 10/27/19 23:00 67 21 94/69 (77) 98 10/27/19 23:00 67 21 94/69 (77) 98 10/27/19 22:30 72 19 105/58 (74) 99 10/27/19 22:00 68 20 103/54 (70) 97 10/27/19 21:30 70 24 92/53 (66) 97 10/27/19 21:00 100/53 10/27/19 21:00 74 24 102/55 (71) 97 10/27/19 20:30 75 20 92/48 (63) 97 10/27/19 20:00 99.3 80 22 92/50 (64) 98 10/27/19 20:00 Room Air 10/27/19 19:36 84 10/27/19 19:30 85 27 94/53 (67) 96 10/27/19 19:00 103/57 10/27/19 19:00 87 26 103/57 (72) 98 10/27/19 18:35 99.1 10/27/19 18:00 121/69 10/27/19 18:00 90 24 121/69 (86) 97 10/27/19 17:00 117/62 10/27/19 17:00 88 23 91/53 (66) 96 Intake and Output 10/27/19 10/28/19 19:00 07:00 Intake Total 1390.416 ml 1030.00 ml Output Total 1480 ml 1810 ml Balance -89.584 ml -780.00 ml Intake Oral 200 ml 150 ml IV Total 1190.416 ml 880.00 ml Output Urine Total 1480 ml 1810 ml Laboratory Tests Test 10/27/19 18:30 10/28/19 03:15 10/28/19 05:00 Prothrombin Time 10.9 SEC (9.30-11.50) Prothromb Time International Ratio 1.0 (0.9-1.1) Hepatitis A IgM Antibody Pending Hepatitis B Surface Antigen Pending Hepatitis B Core IgM Antibody Pending Hepatitis C Antibody Pending White Blood Count 4.4 K/UL (4.8-10.8) L Red Blood Count 2.44 M/UL (4.20-5.40) L Hemoglobin 8.2 G/DL (12.0-16.0) L Hematocrit 21.8 % (37.0-47.0) L Mean Corpuscular Volume 89 FL (80-99) Mean Corpuscular Hemoglobin 33.4 PG (27.0-31.0) H Mean Corpuscular Hemoglobin Concent 37.4 G/DL (32.0-36.0) H Red Cell Distribution Width 15.2 % (11.6-14.8) H Platelet Count 62 K/UL (150-450) L Mean Platelet Volume 6.6 FL (6.5-10.1) Neutrophils (%) (Auto) % (45.0-75.0) Lymphocytes (%) (Auto) % (20.0-45.0) Monocytes (%) (Auto) % (1.0-10.0) Eosinophils (%) (Auto) % (0.0-3.0) Basophils (%) (Auto) % (0.0-2.0) Differential Total Cells Counted 100 Neutrophils % (Manual) 86 % (45-75) H Lymphocytes % (Manual) 12 % (20-45) L Monocytes % (Manual) 2 % (1-10) Eosinophils % (Manual) 0 % (0-3) Basophils % (Manual) 0 % (0-2) Band Neutrophils 0 % (0-8) Platelet Estimate Decreased L Platelet Morphology Normal Hypochromasia 2+ Anisocytosis 1+ Spherocytes 2+ Sodium Level 140 MMOL/L (136-145) Potassium Level 3.3 MMOL/L (3.5-5.1) L Chloride Level 109 MMOL/L (98-107) H Carbon Dioxide Level 18 MMOL/L (21-32) L Anion Gap 13 mmol/L (5-15) Blood Urea Nitrogen 12 mg/dL (7-18) Creatinine 1.0 MG/DL (0.55-1.30) Estimat Glomerular Filtration Rate 55.7 mL/min (>60) Glucose Level 89 MG/DL (74-106) # Calcium Level 7.6 MG/DL (8.5-10.1) L Phosphorus Level 2.1 MG/DL (2.5-4.9) L Magnesium Level 1.5 MG/DL (1.8-2.4) L Total Bilirubin 0.6 MG/DL (0.2-1.0) Aspartate Amino Transf (AST/SGOT) 23 U/L (15-37) Alanine Aminotransferase (ALT/SGPT) 18 U/L (12-78) Alkaline Phosphatase 86 U/L (46-116) C-Reactive Protein, Quantitative 27.8 mg/dL (0.00-0.90) H Pro-B-Type Natriuretic Peptide 4274 pg/mL (0-125) H Total Protein 5.5 G/DL (6.4-8.2) L Albumin 1.8 G/DL (3.4-5.0) L Globulin 3.7 g/dL Albumin/Globulin Ratio 0.5 (1.0-2.7) L Urine Eosinophils None seen (NONE SEEN) Microbiology Date/Time Source Procedure Growth Status 10/26/19 12:25 Blood Blood Culture - Preliminary Gram Negative Brody Resulted 10/26/19 12:25 Blood Blood Culture - Preliminary Gram Negative Brody Resulted 10/26/19 16:02 Nasal Nares MRSA Culture - Final NO METHICILLIN RESISTANT STAPH AUREUS... Complete 10/26/19 15:20 Urine,Clean Catch Urine Culture - Final Escherichia Coli Complete 10/26/19 16:02 Rectum - Final NO CARBAPENEM-RESISTANT ENTEROBACTERI... Complete 10/26/19 16:02 Rectum VRE Culture - Final NO VANCOMYCIN RESISTANT ENTEROCOCCUS ... Complete Benigno Rivera MD Oct 28, 2019 16:54
--- NOTE | 2019-10-28 17:00 | NUR ---
NURSE NOTES: Dr Rivera here to see the patient. Updated him with pt's current condition. No new orders.
[2019-10-28] MEDS ORDERED: Isovue-300 100ml vial INJ PRN (18:30)
--- NOTE | 2019-10-28 19:19 | General Progress Note ---
Assessment/Plan Status: progressing Assessment/Plan: Assessment - gastric CA, s/p resection - Anemia Recommendations - po diet - monitor labs - check OB - Heme/Onc f/u Subjective Allergies: Coded Allergies: No Known Allergies (Unverified , 10/26/19) Subjective Feels better no vomiting hungry Objective Last 24 Hour Vital Signs Date Time Temp Pulse Resp B/P (MAP) Pulse Ox O2 Delivery O2 Flow Rate FiO2 10/28/19 18:00 86 27 116/62 (80) 96 10/28/19 17:00 93 18 109/51 (70) 98 10/28/19 16:00 Room Air 10/28/19 16:00 90 10/28/19 16:00 98.8 88 20 102/50 (67) 97 10/28/19 15:00 89 25 102/46 (64) 97 10/28/19 14:00 89 21 116/62 (80) 99 10/28/19 13:00 95 23 136/67 (90) 97 10/28/19 12:00 70 10/28/19 12:00 98.8 71 18 112/65 (81) 97 10/28/19 12:00 Room Air 10/28/19 11:00 70 17 102/60 (74) 97 10/28/19 11:00 79 20 108/60 (76) 98 10/28/19 10:45 73 18 114/58 (76) 97 10/28/19 10:30 77 25 114/58 (76) 97 10/28/19 10:15 82 26 111/59 (76) 97 10/28/19 10:00 111/59 10/28/19 10:00 83 20 110/58 (75) 97 10/28/19 09:45 82 24 115/57 (76) 97 10/28/19 09:30 82 18 127/65 (85) 98 10/28/19 09:15 75 25 120/64 (82) 98 10/28/19 09:00 120/64 10/28/19 09:00 75 18 123/65 (84) 97 10/28/19 08:30 77 17 117/60 (79) 98 10/28/19 08:00 98.8 76 13 119/62 (81) 97 10/28/19 08:00 78 10/28/19 08:00 117/57 10/28/19 08:00 Room Air 10/28/19 07:30 71 20 119/60 (79) 98 10/28/19 07:00 79 23 122/57 (78) 98 10/28/19 06:00 80 14 108/48 (68) 97 10/28/19 05:30 66 18 120/58 (78) 97 10/28/19 05:00 76 24 115/61 (79) 98 10/28/19 04:30 78 22 114/54 (74) 97 10/28/19 04:00 99.1 75 26 104/58 (73) 97 10/28/19 04:00 Room Air 10/28/19 03:30 80 10/28/19 03:30 83 25 122/56 (78) 97 10/28/19 03:00 73 18 124/57 (79) 97 10/28/19 02:30 79 23 122/52 (75) 97 10/28/19 02:00 78 20 125/58 (80) 97 10/28/19 01:30 75 20 119/60 (79) 97 10/28/19 01:00 74 19 115/60 (78) 98 10/28/19 01:00 115/60 10/28/19 00:30 69 20 116/55 (75) 99 10/28/19 00:00 Room Air 10/28/19 00:00 98.5 67 21 115/60 (78) 99 10/27/19 23:41 69 10/27/19 23:30 79 20 91/64 (73) 99 10/27/19 23:00 67 21 94/69 (77) 98 10/27/19 23:00 67 21 94/69 (77) 98 10/27/19 22:30 72 19 105/58 (74) 99 10/27/19 22:00 68 20 103/54 (70) 97 10/27/19 21:30 70 24 92/53 (66) 97 10/27/19 21:00 100/53 10/27/19 21:00 74 24 102/55 (71) 97 10/27/19 20:30 75 20 92/48 (63) 97 10/27/19 20:00 99.3 80 22 92/50 (64) 98 10/27/19 20:00 Room Air 10/27/19 19:36 84 10/27/19 19:30 85 27 94/53 (67) 96 Intake and Output 10/27/19 10/28/19 19:00 07:00 Intake Total 1390.416 ml 1030.00 ml Output Total 1480 ml 1810 ml Balance -89.584 ml -780.00 ml Intake Oral 200 ml 150 ml IV Total 1190.416 ml 880.00 ml Output Urine Total 1480 ml 1810 ml Laboratory Tests 10/28/19 03:15: White Blood Count 4.4L, Red Blood Count 2.44L, Hemoglobin 8.2L, Hematocrit 21.8L , Mean Corpuscular Volume 89, Mean Corpuscular Hemoglobin 33.4H, Mean Corpuscular Hemoglobin Concent 37.4H, Red Cell Distribution Width 15.2H, Platelet Count 62L, Mean Platelet Volume 6.6, Neutrophils (%) (Auto) , Lymphocytes (%) (Auto) , Monocytes (%) (Auto) , Eosinophils (%) (Auto) , Basophils (%) (Auto) , Differential Total Cells Counted 100, Neutrophils % ( Manual) 86H, Lymphocytes % (Manual) 12L, Monocytes % (Manual) 2, Eosinophils % ( Manual) 0, Basophils % (Manual) 0, Band Neutrophils 0, Platelet Estimate DecreasedL, Platelet Morphology Normal, Hypochromasia 2+, Anisocytosis 1+, Spherocytes 2+, Sodium Level 140, Potassium Level 3.3L, Chloride Level 109H, Carbon Dioxide Level 18L, Anion Gap 13, Blood Urea Nitrogen 12, Creatinine 1.0, Estimat Glomerular Filtration Rate 55.7, Glucose Level 89#, Calcium Level 7.6L, Phosphorus Level 2.1L, Magnesium Level 1.5L, Total Bilirubin 0.6, Aspartate Amino Transf (AST/SGOT) 23, Alanine Aminotransferase (ALT/SGPT) 18, Alkaline Phosphatase 86, C-Reactive Protein, Quantitative 27.8H, Pro-B-Type Natriuretic Peptide 4274H, Total Protein 5.5L, Albumin 1.8L, Globulin 3.7, Albumin/Globulin Ratio 0.5L 10/28/19 05:00: Urine Eosinophils None seen Height (Feet): 5 Height (Inches): 1.00 Weight (Pounds): 132 Objective WDWN NCAT supple CTA RR abd soft nt ND no edema Khorrami,Payman MD Oct 28, 2019 19:19
--- NOTE | 2019-10-28 19:30 | NUR ---
NURSE NOTES: received pt awake and alert AOx4 speaks [place] most of the time. SR on the monitor, Bp Stable. afebrile. NS at 50ml/hr infusing per Rt femoral site. site with drsg dry and intact. santana to gravity with yellowish urine lg in amt. Will continue to monitor.
--- NOTE | 2019-10-28 19:30 | NUR ---
HAND-OFF: Report given to RAMOS Velez.
[2019-10-28] MEDS: Dyna-Hex 2% Top Sol 2oz TOPIC SCH (20:11)
--- NOTE | 2019-10-28 20:23 | NUR ---
NURSE NOTES: Called Dr gallardo with pts History of fall at home , has sydnie(able pain at the back of her head scale of 4 (interpreted by RN Oh pepe) VSS. No neuro deficit- awaiting Dr Gallardo call back.
--- NOTE | 2019-10-28 21:43 | General Progress Note ---
Assessment/Plan Problem List: (1) Symptomatic anemia ICD Codes: D64.9 - Anemia, unspecified SNOMED: 280508234 (2) Sepsis ICD Codes: A41.9 - Sepsis, unspecified organism SNOMED: 54616334 Qualifiers: Qualified Codes: A41.9 - Sepsis, unspecified organism; R65.21 - Severe sepsis with septic shock; N17.9 - Acute kidney failure, unspecified (3) Hypotension ICD Codes: I95.9 - Hypotension, unspecified SNOMED: 72627373 Qualifiers: Qualified Codes: I95.9 - Hypotension, unspecified (4) Renal failure (ARF), acute on chronic ICD Codes: N17.9 - Acute kidney failure, unspecified; N18.9 - Chronic kidney disease, unspecified SNOMED: 770646848 Status: progressing Assessment/Plan: sepsis is imrpovng fluids bp improving anemia no bleeding bp improving Subjective ROS Limited/Unobtainable: Yes Allergies: Coded Allergies: No Known Allergies (Unverified , 10/26/19) Objective Last 24 Hour Vital Signs Date Time Temp Pulse Resp B/P (MAP) Pulse Ox O2 Delivery O2 Flow Rate FiO2 10/28/19 20:00 Room Air 10/28/19 20:00 98.9 89 21 116/58 (77) 97 10/28/19 19:00 89 26 119/49 (72) 97 10/28/19 18:00 86 27 116/62 (80) 96 10/28/19 17:00 93 18 109/51 (70) 98 10/28/19 16:00 Room Air 10/28/19 16:00 90 10/28/19 16:00 98.8 88 20 102/50 (67) 97 10/28/19 15:00 89 25 102/46 (64) 97 10/28/19 14:00 89 21 116/62 (80) 99 10/28/19 13:00 95 23 136/67 (90) 97 10/28/19 12:00 70 10/28/19 12:00 98.8 71 18 112/65 (81) 97 10/28/19 12:00 Room Air 10/28/19 11:00 70 17 102/60 (74) 97 10/28/19 11:00 79 20 108/60 (76) 98 10/28/19 10:45 73 18 114/58 (76) 97 10/28/19 10:30 77 25 114/58 (76) 97 10/28/19 10:15 82 26 111/59 (76) 97 10/28/19 10:00 111/59 10/28/19 10:00 83 20 110/58 (75) 97 10/28/19 09:45 82 24 115/57 (76) 97 10/28/19 09:30 82 18 127/65 (85) 98 10/28/19 09:15 75 25 120/64 (82) 98 10/28/19 09:00 120/64 10/28/19 09:00 75 18 123/65 (84) 97 10/28/19 08:30 77 17 117/60 (79) 98 10/28/19 08:00 98.8 76 13 119/62 (81) 97 10/28/19 08:00 78 10/28/19 08:00 117/57 10/28/19 08:00 Room Air 10/28/19 07:30 71 20 119/60 (79) 98 10/28/19 07:00 79 23 122/57 (78) 98 10/28/19 06:00 80 14 108/48 (68) 97 10/28/19 05:30 66 18 120/58 (78) 97 10/28/19 05:00 76 24 115/61 (79) 98 10/28/19 04:30 78 22 114/54 (74) 97 10/28/19 04:00 99.1 75 26 104/58 (73) 97 10/28/19 04:00 Room Air 10/28/19 03:30 80 10/28/19 03:30 83 25 122/56 (78) 97 10/28/19 03:00 73 18 124/57 (79) 97 10/28/19 02:30 79 23 122/52 (75) 97 10/28/19 02:00 78 20 125/58 (80) 97 10/28/19 01:30 75 20 119/60 (79) 97 10/28/19 01:00 74 19 115/60 (78) 98 10/28/19 01:00 115/60 10/28/19 00:30 69 20 116/55 (75) 99 10/28/19 00:00 Room Air 10/28/19 00:00 98.5 67 21 115/60 (78) 99 10/27/19 23:41 69 10/27/19 23:30 79 20 91/64 (73) 99 10/27/19 23:00 67 21 94/69 (77) 98 10/27/19 23:00 67 21 94/69 (77) 98 10/27/19 22:30 72 19 105/58 (74) 99 10/27/19 22:00 68 20 103/54 (70) 97 Intake and Output 10/27/19 10/28/19 19:00 07:00 Intake Total 1390.416 ml 1030.00 ml Output Total 1480 ml 1810 ml Balance -89.584 ml -780.00 ml Intake Oral 200 ml 150 ml IV Total 1190.416 ml 880.00 ml Output Urine Total 1480 ml 1810 ml Laboratory Tests 10/28/19 03:15: White Blood Count 4.4L, Red Blood Count 2.44L, Hemoglobin 8.2L, Hematocrit 21.8L , Mean Corpuscular Volume 89, Mean Corpuscular Hemoglobin 33.4H, Mean Corpuscular Hemoglobin Concent 37.4H, Red Cell Distribution Width 15.2H, Platelet Count 62L, Mean Platelet Volume 6.6, Neutrophils (%) (Auto) , Lymphocytes (%) (Auto) , Monocytes (%) (Auto) , Eosinophils (%) (Auto) , Basophils (%) (Auto) , Differential Total Cells Counted 100, Neutrophils % ( Manual) 86H, Lymphocytes % (Manual) 12L, Monocytes % (Manual) 2, Eosinophils % ( Manual) 0, Basophils % (Manual) 0, Band Neutrophils 0, Platelet Estimate DecreasedL, Platelet Morphology Normal, Hypochromasia 2+, Anisocytosis 1+, Spherocytes 2+, Sodium Level 140, Potassium Level 3.3L, Chloride Level 109H, Carbon Dioxide Level 18L, Anion Gap 13, Blood Urea Nitrogen 12, Creatinine 1.0, Estimat Glomerular Filtration Rate 55.7, Glucose Level 89#, Calcium Level 7.6L, Phosphorus Level 2.1L, Magnesium Level 1.5L, Total Bilirubin 0.6, Aspartate Amino Transf (AST/SGOT) 23, Alanine Aminotransferase (ALT/SGPT) 18, Alkaline Phosphatase 86, C-Reactive Protein, Quantitative 27.8H, Pro-B-Type Natriuretic Peptide 4274H, Total Protein 5.5L, Albumin 1.8L, Globulin 3.7, Albumin/Globulin Ratio 0.5L 10/28/19 05:00: Urine Eosinophils None seen Height (Feet): 5 Height (Inches): 1.00 Weight (Pounds): 132 Cardiovascular: normal rate Respiratory/Chest: lungs clear Abdomen: soft Alea Melendez MD Oct 28, 2019 21:43
--- NOTE | 2019-10-28 23:00 | NUR ---
NURSE NOTES: Sleeping well at this time, No c/o pain. Bp stab;e. Will continue to monitor.
[2019-10-29] VITALS (24 sets, daily range): BP systolic 113–156; BP diastolic 56–75
--- NOTE | 2019-10-29 00:45 | Consultation ---
DATE OF CONSULTATION: 10/28/2019 CARDIOLOGY CONSULTATION CONSULTING PHYSICIAN: Benigno Rivera M.D. REFERRING PHYSICIAN: Alea Melendez M.D. REASON FOR CONSULTATION: Hypotension. HISTORY OF PRESENT ILLNESS: The patient is a 64-year-old lady with history of hypertension as well as history of ovarian and uterine cancer, status post hysterectomy . The patient was admitted to the ICU for her fever and chills. The patient was hypotensive and started on Levophed drip. REVIEW OF SYSTEMS: Review of systems was negative other than what is mentioned in the history of present illness. PAST MEDICAL HISTORY: As mentioned above. FAMILY HISTORY: Noncontributory. SOCIAL HISTORY: He lives at home. Does smoke or drink alcohol. PHYSICAL EXAMINATION: VITAL SIGNS: Show blood pressure of 102/50, pulse is 80, respirations 20, and he is afebrile. HEAD AND NECK: Showed no JVD. LUNGS: Clear. CARDIOVASCULAR: Shows regular S1 and S2 with no gallop or murmur. ABDOMEN: Soft. EXTREMITIES: No pitting edema. LABORATORY AND DIAGNOSTIC STUDIES: Labs show white count of 4.5 and hemoglobin of 8.2. Initial hemoglobin was 5.7, hematocrit 21.8, and platelet count was 62,000. Sodium 140, potassium 3.3, BUN of 12, creatinine 1.1, and glucose of 89. BNP is 4274. Urine toxicology was negative. ASSESSMENT AND PLAN: 1. Hypotension due to septic shock. The patient is already on Levophed as well as broad-spectrum IV antibiotic. Her echocardiogram showed ejection fraction of 60% to 65%. No evidence of pericardial effusion. 2. Stomach cancer and history of ovarian resection in 2019. He is usually followed up at [facility]. 3. Pancytopenia. 4. Renal failure. Further evaluation by Dr. Bird. Thank you very much for allowing me to participate in the care of this patient. Please do not hesitate to contact me for any questions regarding my evaluation. Sincerely, Benigno Rivera M.D. DR: MORENITA JOB#: [id number] CC:
--- NOTE | 2019-10-29 01:00 | NUR ---
NURSE NOTES: Neuro unchanged , AO x4. SR on the monitor.
--- NOTE | 2019-10-29 03:00 | NUR ---
NURSE NOTES: Complete bed bath with bed changed done,
[2019-10-29] MEDS: Piperacillin/Tazobactam 3.375 GM in NS 110 ML IVPB SCH (03:09)
--- NOTE | 2019-10-29 05:00 | NUR ---
NURSE NOTES: sent to lab urine for eosinophil.
[2019-10-29] MEDS: NovoLOG Insulin Flexpen SUBQ SCH ×4 (06:28→21:00)
--- NOTE | 2019-10-29 06:29 | Hematology/Onc Progress Note ---
Assessment/Plan Assessment/Plan Assessment and Recs: # Stomach cancer with a history of ovarian resection in 2019 recently --> sees Dr. 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 --> Hgb goal >7. Transfuse prn. --> Epogen or iron at this time is not particularly indicated --> Medications have been reviewed --> low threshold for gi evaluation in case has occult + --> hgb trend 5.7-->9.4-->8.2 # Thrombocytopenia - potential causes multifactorial, in this case due to sepsis , s/p ABX and PRESSORS --> Hep panel pending and HIV negative --> US abd to evaluate for cirrhosis and hsm ordered --> Peripheral smear ordered to evaluate for blasts /schistocytes --> abx and other meds have been reviewed --> ok for ppx if plt >50k w/ either heparin or lovenox --> Transfuse if Plt < 20k and fever, or if Plt < 10k without fever --> plt trend 101-->84-->62 # Septic shock with Hypotension --> pressors and abx --> as per id # Critically ill in the icu Appreciate consultation and kevin Rn Subjective Constitutional: Denies: no symptoms, chills, fever, malaise, weakness, other HEENT: Denies: no symptoms, eye pain, blurred vision, tearing, double vision, ear pain, ear discharge, nose pain, nose congestion, throat pain, throat swelling, mouth pain, mouth swelling, other Cardiovascular: Denies: no symptoms, chest pain, edema, irregular heart rate, lightheadedness, palpitations, syncope, other Respiratory: Denies: no symptoms, cough, shortness of breath, SOB with excertion, SOB at rest, sputum, wheezing, other Gastrointestinal/Abdominal: Denies: no symptoms, abdomen distended, abdominal pain, black stools, tarry stools, blood in stool, constipated, diarrhea, difficulty swallowing, nausea, poor appetite, poor fluid intake, rectal bleeding , vomiting, other Genitourinary: Denies: no symptoms, burning, discharge, frequency, flank pain, hematuria, incontinence, pain, urgency, other Neurologic/Psychiatric: Denies: no symptoms, anxiety, depressed, emotional problems, headache, numbness, paresthesia, pre-existing deficit, seizure, tingling, tremors, weakness, other Endocrine: Denies: no symptoms, excessive sweating, flushing, intolerance to cold, intolerance to heat, increased hunger, increased thirst, increased urine, unexplained weight gain, unexplained weight loss, other Allergies: Coded Allergies: No Known Allergies (Unverified , 10/26/19) Subjective 10/28: icu, awake, no acute events, levo drip, h/h stable 10/29: no major changes, dw rn, labs noted, no bleeding Objective Objective Current Medications Medications (Trade) Dose Ordered Sig/Poonam Route PRN Reason Start Time Stop Time Status Last Admin Dose Admin Acetaminophen (Tylenol) 650 mg Q6H PRN ORAL Mild Pain/Temp > 100.5 10/26/19 19:15 11/25/19 19:14 10/27/19 18:01 Acetaminophen/ Hydrocodone Bitart ([facility] 5/325) 1 tab Q6H PRN ORAL Moderate Pain (Pain Scale 4-6) 10/26/19 18:00 11/02/19 17:59 10/26/19 23:54 Chlorhexidine Gluconate (Carrol-Hex 2%) 1 applic DAILY@2000 TOPIC 10/27/19 20:00 11/26/19 19:59 10/28/19 20:11 Dextrose (Dextrose 50%) 25 ml Q30M PRN IV Hypoglycemia 10/26/19 18:00 11/25/19 17:59 Dextrose (Dextrose 50%) 50 ml Q30M PRN IV Hypoglycemia 10/26/19 18:00 11/25/19 17:59 Diphenhydramine HCl (Benadryl) 25 mg Q6H PRN IVP Itching 10/26/19 18:00 11/25/19 17:59 Hydromorphone HCl (Dilaudid) 0.5 mg Q3H PRN IVP Severe Pain (Pain Scale 7-10) 10/26/19 18:00 11/02/19 17:59 Insulin Aspart (NovoLOG) BEFORE MEALS AND HS SUBQ 10/26/19 21:00 11/25/19 20:59 10/28/19 11:32 Iopamidol (Isovue-300 100ml) 100 ml NOW PRN INJ Radiology Procedure 10/28/19 18:30 10/30/19 18:29 Norepinephrine Bitartrate 4 mg/ Dextrose 250 ml @ 0 mls/hr Q24H IV 10/26/19 18:30 11/25/19 18:29 10/27/19 08:32 Ondansetron HCl (Zofran) 4 mg Q6H PRN IVP Nausea & Vomiting 10/26/19 18:00 11/25/19 17:59 Pantoprazole (Protonix) 40 mg EVERY 12 HOURS ORAL 10/28/19 21:00 11/27/19 20:59 10/28/19 21:00 Piperacillin Sod/ Tazobactam Sod 3.375 gm/Sodium Chloride 110 ml @ 27.5 mls/hr Q12HR@0300,1500 IVPB 10/27/19 03:00 11/03/19 02:59 10/29/19 03:09 Sodium Chloride 1,000 ml @ 50 mls/hr Q20H IV 10/28/19 09:06 11/27/19 09:05 10/28/19 23:25 Last 24 Hour Vital Signs Date Time Temp Pulse Resp B/P (MAP) Pulse Ox O2 Delivery O2 Flow Rate FiO2 10/29/19 06:00 75 23 118/61 (80) 96 10/29/19 05:00 77 20 125/60 (81) 97 10/29/19 04:00 Room Air 10/29/19 04:00 98.0 86 17 120/60 (80) 96 10/29/19 04:00 81 10/29/19 03:00 70 18 123/64 (83) 97 10/29/19 02:00 70 19 119/59 (79) 98 10/29/19 01:00 74 19 113/59 (77) 96 10/29/19 00:00 88 10/29/19 00:00 98.2 73 19 124/62 (82) 97 10/29/19 00:00 Room Air 10/28/19 23:00 84 23 111/63 (79) 98 10/28/19 22:00 83 25 112/62 (79) 97 10/28/19 21:30 86 26 114/62 (79) 97 10/28/19 21:15 92 20 121/61 (81) 97 10/28/19 21:00 89 21 116/58 (77) 97 10/28/19 21:00 86 10 114/61 (78) 97 10/28/19 20:00 Room Air 10/28/19 20:00 98.9 89 21 116/58 (77) 97 10/28/19 20:00 92 10/28/19 19:00 89 26 119/49 (72) 97 10/28/19 18:00 86 27 116/62 (80) 96 10/28/19 17:00 93 18 109/51 (70) 98 10/28/19 16:00 Room Air 10/28/19 16:00 90 10/28/19 16:00 98.8 88 20 102/50 (67) 97 10/28/19 15:00 89 25 102/46 (64) 97 10/28/19 14:00 89 21 116/62 (80) 99 10/28/19 13:00 95 23 136/67 (90) 97 10/28/19 12:00 70 10/28/19 12:00 98.8 71 18 112/65 (81) 97 10/28/19 12:00 Room Air 10/28/19 11:00 70 17 102/60 (74) 97 10/28/19 11:00 79 20 108/60 (76) 98 10/28/19 10:45 73 18 114/58 (76) 97 10/28/19 10:30 77 25 114/58 (76) 97 10/28/19 10:15 82 26 111/59 (76) 97 10/28/19 10:00 111/59 10/28/19 10:00 83 20 110/58 (75) 97 10/28/19 09:45 82 24 115/57 (76) 97 10/28/19 09:30 82 18 127/65 (85) 98 10/28/19 09:15 75 25 120/64 (82) 98 10/28/19 09:00 120/64 10/28/19 09:00 75 18 123/65 (84) 97 10/28/19 08:30 77 17 117/60 (79) 98 10/28/19 08:00 98.8 76 13 119/62 (81) 97 10/28/19 08:00 78 10/28/19 08:00 117/57 10/28/19 08:00 Room Air 10/28/19 07:30 71 20 119/60 (79) 98 10/28/19 07:00 79 23 122/57 (78) 98 10/28/19 06:00 80 14 108/48 (68) 97 10/28/19 05:30 66 18 120/58 (78) 97 10/28/19 05:00 76 24 115/61 (79) 98 10/28/19 04:30 78 22 114/54 (74) 97 10/28/19 04:00 99.1 75 26 104/58 (73) 97 10/28/19 04:00 Room Air 10/28/19 03:30 80 10/28/19 03:30 83 25 122/56 (78) 97 10/28/19 03:00 73 18 124/57 (79) 97 10/28/19 02:30 79 23 122/52 (75) 97 10/28/19 02:00 78 20 125/58 (80) 97 10/28/19 01:30 75 20 119/60 (79) 97 10/28/19 01:00 74 19 115/60 (78) 98 10/28/19 01:00 115/60 10/28/19 00:30 69 20 116/55 (75) 99 10/28/19 00:00 Room Air 10/28/19 00:00 98.5 67 21 115/60 (78) 99 10/27/19 23:41 69 10/27/19 23:30 79 20 91/64 (73) 99 10/27/19 23:00 67 21 94/69 (77) 98 10/27/19 23:00 67 21 94/69 (77) 98 10/27/19 22:30 72 19 105/58 (74) 99 10/27/19 22:00 68 20 103/54 (70) 97 10/27/19 21:30 70 24 92/53 (66) 97 10/27/19 21:00 100/53 10/27/19 21:00 74 24 102/55 (71) 97 10/27/19 20:30 75 20 92/48 (63) 97 10/27/19 20:00 99.3 80 22 92/50 (64) 98 10/27/19 20:00 Room Air 10/27/19 19:36 84 10/27/19 19:30 85 27 94/53 (67) 96 10/27/19 19:00 103/57 10/27/19 19:00 87 26 103/57 (72) 98 10/27/19 18:35 99.1 10/27/19 18:00 121/69 10/27/19 18:00 90 24 121/69 (86) 97 10/27/19 17:00 117/62 10/27/19 17:00 88 23 91/53 (66) 96 10/27/19 16:30 86 22 102/55 (71) 96 10/27/19 16:00 90 10/27/19 16:00 100.0 91 23 100/55 (70) 97 10/27/19 16:00 97/53 10/27/19 16:00 Room Air 10/27/19 15:30 83 21 92/57 (69) 95 10/27/19 15:00 105/53 10/27/19 15:00 90 25 105/53 (70) 96 10/27/19 14:30 85 21 108/56 (73) 95 10/27/19 14:00 92 26 109/61 (77) 96 10/27/19 14:00 109/61 10/27/19 13:30 98 24 128/71 (90) 97 10/27/19 13:00 124/69 10/27/19 13:00 98 22 124/69 (87) 96 10/27/19 12:30 68 21 114/70 (85) 99 10/27/19 12:00 105 10/27/19 12:00 118/76 10/27/19 12:00 99.1 82 20 118/76 (90) 99 10/27/19 12:00 Room Air 10/27/19 11:30 80 20 118/66 (83) 98 10/27/19 11:00 79 20 128/63 (84) 98 10/27/19 11:00 121/66 10/27/19 10:30 76 18 124/64 (84) 98 10/27/19 10:00 65 18 103/58 (73) 96 10/27/19 10:00 103/58 10/27/19 09:30 74 20 87/47 (60) 98 10/27/19 09:00 77 21 112/57 (75) 99 10/27/19 09:00 101/56 10/27/19 08:32 96/55 10/27/19 08:30 72 19 96/55 (69) 97 10/27/19 08:00 98.1 68 20 109/60 (76) 96 10/27/19 08:00 96/55 10/27/19 08:00 Room Air 10/27/19 08:00 67 10/27/19 07:21 60 19 147/60 (89) 96 10/27/19 07:15 79 20 86/51 (63) 98 10/27/19 07:00 69 17 125/56 (79) 95 10/27/19 06:45 69 18 129/63 (85) 97 10/27/19 06:30 68 13 118/63 (81) 97 Intake and Output 10/28/19 10/29/19 19:00 07:00 Intake Total 1408.794 ml 580 ml Output Total 1367 ml 630 ml Balance 41.794 ml -50 ml Intake Oral 30 ml IV Total 1408.794 ml 550 ml Output Urine Total 1367 ml 630 ml Labs Test 10/26/19 12:25 10/26/19 15:00 10/26/19 15:20 10/27/19 00:15 White Blood Count 7.7 K/UL (4.8-10.8) Red Blood Count 1.66 M/UL (4.20-5.40) Hemoglobin 5.7 G/DL (12.0-16.0) Hematocrit 15.5 % (37.0-47.0) Mean Corpuscular Volume 93 FL (80-99) Mean Corpuscular Hemoglobin 34.6 PG (27.0-31.0) Mean Corpuscular Hemoglobin Concent 37.2 G/DL (32.0-36.0) Red Cell Distribution Width 15.7 % (11.6-14.8) Platelet Count 101 K/UL (150-450) Mean Platelet Volume 6.0 FL (6.5-10.1) Neutrophils (%) (Auto) % (45.0-75.0) Lymphocytes (%) (Auto) % (20.0-45.0) Monocytes (%) (Auto) % (1.0-10.0) Eosinophils (%) (Auto) % (0.0-3.0) Basophils (%) (Auto) % (0.0-2.0) Differential Total Cells Counted 100 Neutrophils % (Manual) 91 % (45-75) Lymphocytes % (Manual) 5 % (20-45) Monocytes % (Manual) 4 % (1-10) Eosinophils % (Manual) 0 % (0-3) Basophils % (Manual) 0 % (0-2) Band Neutrophils 0 % (0-8) Platelet Estimate Decreased Platelet Morphology Normal Hypochromasia 4+ Anisocytosis 1+ Spherocytes 3+ Prothrombin Time 13.9 SEC (9.30-11.50) Prothromb Time International Ratio 1.3 (0.9-1.1) Activated Partial Thromboplast Time 44 SEC (23-33) Sodium Level 131 MMOL/L (136-145) Potassium Level 3.7 MMOL/L (3.5-5.1) Chloride Level 99 MMOL/L (98-107) Carbon Dioxide Level 22 MMOL/L (21-32) Anion Gap 11 mmol/L (5-15) Blood Urea Nitrogen 31 mg/dL (7-18) Creatinine 2.5 MG/DL (0.55-1.30) Estimat Glomerular Filtration Rate 19.3 mL/min (>60) Glucose Level 177 MG/DL (74-106) Lactic Acid Level 2.80 mmol/L (0.4-2.0) 2.20 mmol/L (0.66-2.22) 1.60 mmol/L (0.4-2.0) Calcium Level 7.5 MG/DL (8.5-10.1) Phosphorus Level 2.9 MG/DL (2.5-4.9) Magnesium Level 1.8 MG/DL (1.8-2.4) Iron Level 45 ug/dL (50-175) Total Iron Binding Capacity 132 ug/dL (250-450) Percent Iron Saturation 34 % (15-50) Unsaturated Iron Binding 87 ug/dL (112-346) Ferritin 1012 NG/ML (8-388) Total Bilirubin 0.6 MG/DL (0.2-1.0) Aspartate Amino Transf (AST/SGOT) 25 U/L (15-37) Alanine Aminotransferase (ALT/SGPT) 21 U/L (12-78) Alkaline Phosphatase 76 U/L (46-116) Total Creatine Kinase 253 U/L (26-308) Troponin I 0.000 ng/mL (0.000-0.056) Pro-B-Type Natriuretic Peptide 2449 pg/mL (0-125) Total Protein 6.4 G/DL (6.4-8.2) Albumin 2.5 G/DL (3.4-5.0) Globulin 3.9 g/dL Lipase 164 U/L (73-393) Vitamin B12 Level 1096 PG/ML (193-986) Folate 17.1 NG/ML (8.6-58.9) Urine Color Pale yellow Urine Appearance Slightly cloudy Urine pH 7 (4.5-8.0) Urine Specific [place] 1.005 (1.005-1.035) Urine Protein 2+ (NEGATIVE) Urine Glucose (UA) Negative (NEGATIVE) Urine Ketones Negative (NEGATIVE) Urine Blood 5+ (NEGATIVE) Urine Nitrite Negative (NEGATIVE) Urine Bilirubin Negative (NEGATIVE) Urine Urobilinogen Normal MG/DL (0.0-1.0) Urine Leukocyte Esterase 3+ (NEGATIVE) Urine RBC 2-4 /HPF (0 - 2) Urine WBC Tntc /HPF (0 - 2) Urine Squamous Epithelial Cells Few /LPF (NONE/OCC) Urine Bacteria Many /HPF (NONE) Urine Random Sodium < 20 mmol/L (20-110) Urine Opiates Screen Negative (NEGATIVE) Urine Barbiturates Screen Negative (NEGATIVE) Phencyclidine (PCP) Screen Negative (NEGATIVE) Urine Amphetamines Screen Negative (NEGATIVE) Urine Benzodiazepines Screen Negative (NEGATIVE) Urine Cocaine Screen Negative (NEGATIVE) Urine Marijuana (THC) Screen Negative (NEGATIVE) Test 10/27/19 03:20 10/27/19 15:40 10/27/19 18:30 10/28/19 03:15 White Blood Count 8.9 K/UL (4.8-10.8) 5.9 K/UL (4.8-10.8) 4.4 K/UL (4.8-10.8) Red Blood Count 2.84 M/UL (4.20-5.40) 2.59 M/UL (4.20-5.40) 2.44 M/UL (4.20-5.40) Hemoglobin 9.4 G/DL (12.0-16.0) 8.5 G/DL (12.0-16.0) 8.2 G/DL (12.0-16.0) Hematocrit 25.5 % (37.0-47.0) 23.2 % (37.0-47.0) 21.8 % (37.0-47.0) Mean Corpuscular Volume 90 FL (80-99) 89 FL (80-99) 89 FL (80-99) Mean Corpuscular Hemoglobin 33.0 PG (27.0-31.0) 32.9 PG (27.0-31.0) 33.4 PG (27.0-31.0) Mean Corpuscular Hemoglobin Concent 36.7 G/DL (32.0-36.0) 36.8 G/DL (32.0-36.0) 37.4 G/DL (32.0-36.0) Red Cell Distribution Width 15.0 % (11.6-14.8) 15.2 % (11.6-14.8) 15.2 % (11.6-14.8) Platelet Count 89 K/UL (150-450) 68 K/UL (150-450) 62 K/UL (150-450) Mean Platelet Volume 6.5 FL (6.5-10.1) 6.0 FL (6.5-10.1) 6.6 FL (6.5-10.1) Neutrophils (%) (Auto) % (45.0-75.0) % (45.0-75.0) % (45.0-75.0) Lymphocytes (%) (Auto) % (20.0-45.0) % (20.0-45.0) % (20.0-45.0) Monocytes (%) (Auto) % (1.0-10.0) % (1.0-10.0) % (1.0-10.0) Eosinophils (%) (Auto) % (0.0-3.0) 0.0 % (0.0-3.0) % (0.0-3.0) Basophils (%) (Auto) % (0.0-2.0) 0.0 % (0.0-2.0) % (0.0-2.0) Differential Total Cells Counted 100 100 100 Neutrophils % (Manual) 81 % (45-75) 82 % (45-75) 86 % (45-75) Lymphocytes % (Manual) 9 % (20-45) 8 % (20-45) 12 % (20-45) Monocytes % (Manual) 2 % (1-10) 3 % (1-10) 2 % (1-10) Eosinophils % (Manual) 0 % (0-3) 0 % (0-3) 0 % (0-3) Basophils % (Manual) 0 % (0-2) 0 % (0-2) 0 % (0-2) Band Neutrophils 8 % (0-8) 7 % (0-8) 0 % (0-8) Platelet Estimate Decreased Decreased Decreased Platelet Morphology Normal Normal Normal Anisocytosis 1+ 1+ Sodium Level 139 MMOL/L (136-145) 140 MMOL/L (136-145) Potassium Level 3.1 MMOL/L (3.5-5.1) 3.3 MMOL/L (3.5-5.1) Chloride Level 107 MMOL/L (98-107) 109 MMOL/L (98-107) Carbon Dioxide Level 18 MMOL/L (21-32) 18 MMOL/L (21-32) Anion Gap 14 mmol/L (5-15) 13 mmol/L (5-15) Blood Urea Nitrogen 24 mg/dL (7-18) 12 mg/dL (7-18) Creatinine 1.7 MG/DL (0.55-1.30) 1.0 MG/DL (0.55-1.30) Estimat Glomerular Filtration Rate 30.2 mL/min (>60) 55.7 mL/min (>60) Glucose Level 205 MG/DL (74-106) 89 MG/DL (74-106) Hemoglobin A1c 6.2 % (4.3-6.0) Osmolality 292 mOsm/kg (297-317) Calcium Level 7.8 MG/DL (8.5-10.1) 7.6 MG/DL (8.5-10.1) Phosphorus Level 3.3 MG/DL (2.5-4.9) 2.1 MG/DL (2.5-4.9) Magnesium Level 1.8 MG/DL (1.8-2.4) 1.5 MG/DL (1.8-2.4) Total Bilirubin 0.6 MG/DL (0.2-1.0) 0.6 MG/DL (0.2-1.0) Gamma Glutamyl Transpeptidase 33 U/L (5-85) Aspartate Amino Transf (AST/SGOT) 29 U/L (15-37) 23 U/L (15-37) Alanine Aminotransferase (ALT/SGPT) 17 U/L (12-78) 18 U/L (12-78) Alkaline Phosphatase 84 U/L (46-116) 86 U/L (46-116) Total Creatine Kinase 221 U/L (26-308) C-Reactive Protein, Quantitative 28.0 mg/dL (0.00-0.90) 27.8 mg/dL (0.00-0.90) Pro-B-Type Natriuretic Peptide 5179 pg/mL (0-125) 4274 pg/mL (0-125) Total Protein 6.2 G/DL (6.4-8.2) 5.5 G/DL (6.4-8.2) Albumin 2.3 G/DL (3.4-5.0) 1.8 G/DL (3.4-5.0) Globulin 3.9 g/dL 3.7 g/dL Albumin/Globulin Ratio 0.6 (1.0-2.7) 0.5 (1.0-2.7) Thyroid Stimulating Hormone (TSH) 1.696 uiU/mL (0.358-3.740) Cortisol AM Sample 13.3 UG/DL Random Vancomycin Level 9.1 ug/mL HIV (1&2) Antibody Rapid Negative (NEGATIVE) Prothrombin Time 10.9 SEC (9.30-11.50) Prothromb Time International Ratio 1.0 (0.9-1.1) Hepatitis A IgM Antibody Negative (Negative) Hepatitis B Surface Antigen Negative (Negative) Hepatitis B Core IgM Antibody Negative (Negative) Hepatitis C Antibody <0.1 s/co ratio Hypochromasia 2+ Spherocytes 2+ Test 10/28/19 05:00 10/29/19 06:00 Urine Eosinophils None seen (NONE SEEN) None seen (NONE SEEN) Height (Feet): 5 Height (Inches): 1.00 Weight (Pounds): 128 Objective Physical Exam: Vitals: reviewed General Appearance: NAD HEENT: normocephalic, atraumatic Neck: non-tender, normal alignment Respiratory/Chest: normal breath sounds bilaterally Cardiovascular/Chest: normal peripheral pulses, normal rate Abdomen: normal bowel sounds, soft, nontender Extremities: normal range of motion David Venegas MD Oct 29, 2019 06:29
--- NOTE | 2019-10-29 06:35 | NUR ---
NURSE NOTES: Accucheck 94mg/dl no coverage.
--- NOTE | 2019-10-29 07:38 | NUR ---
HAND-OFF: Report given to Jamia BEASLEY.
--- NOTE | 2019-10-29 07:39 | NUR ---
NURSE NOTES: Report received from RAMOS Velez. Pt awake and alert AOx4, mostly Beninese speaking but able to make needs known. SR on gambling monitor. O2Sat 99% on Room Air. Pt has a Right Femoral TLC, dressing clean dry and intact, running NS @ 50ml/hr. Avnedaño catheter intact and patent, draining to gravity with yellow urine. Bed locked and in lowest position, with call light within reach. Will continue to monitor.
--- NOTE | 2019-10-29 09:15 | NUR ---
NURSE NOTES: Pt is able to call for the bed pillai. Pt had a large green/brown soft BM. Pt cleaned and repositioned.
--- NOTE | 2019-10-29 10:04 | Pulmonolgy Critical Care Note ---
Critical Care - Asmt/Plan Assessment/Plan: Pulmonary Critical Care Progress Note HPI Patient is a 64-year-old female with past medical history of Stomach cancer, Ovarian Cancer, Hypertension, history of recent chemotherapy ,admitted with with fever/chills for one day, weakness, noted to have severe anemia, hypotension, evidence of urinary tract infection, clear CXR, normal O2 sats on RA, no acute changes on EKG GNR on BC match Urine Ecoli Feels improved, off pressors URINE CULTURE Final Organism 1 ESCHERICHIA COLI COLONY COUNT: >100,000 CFU/ML ESC COLI M.I.C. RX --------- --- AMPICILLIN >=32 R CEFAZOLIN <=4 S CEFTRIAXONE <=1 S CIPROFLOXACIN <=0.25 S ERTAPENEM <=0.5 S GENTAMICIN 8 I LEVOFLOXACIN 1 S IMIPENEM <=0.25 S NITROFURANTOIN <=16 S TRIMETHOPRIM/SULFA >=320 R AMIKACIN <=2 S PIPERACILLIN/TAZOBACTAM 8 S LE Barbaraplex negative for DVT CT Abdomen no hydronephrosis Allergies: No Known Allergies Past Medical History: Stomach cancer, hypertension All Other Systems: negative except mentioned in HPI Physical Exam Vital Signs Noted General Appearance: well appearing, no apparent distress, alert, pale Head: normocephalic, atraumatic Eyes: bilateral eye PERRL, bilateral eye EOMI ENT: uvula midline, dry mucus membranes Neck: supple, thyroid normal, supple/symm/no masses Respiratory: lungs clear, no respiratory distress, no retraction, no accessory muscle use Cardiovascular: normal peripheral pulses, regular rate, rhythm, HS1, HS2 normal , no gallop, no murmur Gastrointestinal: non tender, soft, no guarding, no rebound Musculoskeletal: normal inspection Neurologic: alert, oriented x3, no focal signs, no seizures Psychiatric: mood/affect normal Skin: no rash, warm/dry, no edema EKG: NSR, rate 66, QTc 436, no acute ST elevations, normal axis CXR: No acute changes LE Dupplex negative UA: S/o infection CBC: Severe anemia Impression: Stomach Cancer/Ovarian Cancer s/p recent Chemotherapy Urosepsis, Ecoli on BC Severe Anemia s/p Transfusion Thrombocytopenia Hypokalemia H/o Hypertension Dehydration Hyponatremia Azotemia Elevated BNP Hyperglycemia Plan: - IV Antibiotics per ID - IVF - Pressors PRN - Transfuse PRN - IV Protonix - R/o DVT, SCD's - Monitor labs - [employer] 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 RX --------- --- AMPICILLIN >=32 R CEFAZOLIN <=4 S CEFTRIAXONE <=1 S CIPROFLOXACIN <=0.25 S ERTAPENEM <=0.5 S GENTAMICIN 8 I LEVOFLOXACIN 1 S IMIPENEM <=0.25 S NITROFURANTOIN <=16 S TRIMETHOPRIM/SULFA >=320 R AMIKACIN <=2 S PIPERACILLIN/TAZOBACTAM 8 S Critical Care - Objective Last 24 Hour Vital Signs Date Time Temp Pulse Resp B/P (MAP) Pulse Ox O2 Delivery O2 Flow Rate FiO2 10/29/19 10:00 74 21 140/63 (88) 99 10/29/19 09:00 80 19 142/70 (94) 98 10/29/19 08:00 99.0 73 24 125/62 (83) 98 10/29/19 07:00 71 22 126/64 (84) 97 10/29/19 06:00 75 23 118/61 (80) 96 10/29/19 05:00 77 20 125/60 (81) 97 10/29/19 04:00 Room Air 10/29/19 04:00 98.0 86 17 120/60 (80) 96 10/29/19 04:00 81 10/29/19 03:00 70 18 123/64 (83) 97 10/29/19 02:00 70 19 119/59 (79) 98 10/29/19 01:00 74 19 113/59 (77) 96 10/29/19 00:00 88 10/29/19 00:00 98.2 73 19 124/62 (82) 97 10/29/19 00:00 Room Air 10/28/19 23:00 84 23 111/63 (79) 98 10/28/19 22:00 83 25 112/62 (79) 97 10/28/19 21:30 86 26 114/62 (79) 97 10/28/19 21:15 92 20 121/61 (81) 97 10/28/19 21:00 89 21 116/58 (77) 97 10/28/19 21:00 86 10 114/61 (78) 97 10/28/19 20:00 Room Air 10/28/19 20:00 98.9 89 21 116/58 (77) 97 10/28/19 20:00 92 10/28/19 19:00 89 26 119/49 (72) 97 10/28/19 18:00 86 27 116/62 (80) 96 10/28/19 17:00 93 18 109/51 (70) 98 10/28/19 16:00 Room Air 10/28/19 16:00 90 10/28/19 16:00 98.8 88 20 102/50 (67) 97 10/28/19 15:00 89 25 102/46 (64) 97 10/28/19 14:00 89 21 116/62 (80) 99 10/28/19 13:00 95 23 136/67 (90) 97 10/28/19 12:00 70 10/28/19 12:00 98.8 71 18 112/65 (81) 97 10/28/19 12:00 Room Air 10/28/19 11:00 70 17 102/60 (74) 97 10/28/19 11:00 79 20 108/60 (76) 98 10/28/19 10:45 73 18 114/58 (76) 97 10/28/19 10:30 77 25 114/58 (76) 97 10/28/19 10:15 82 26 111/59 (76) 97 Micro: Microbiology Date/Time Source Procedure Growth Status 10/26/19 12:25 Blood Blood Culture - Final Escherichia Coli Complete 10/26/19 12:25 Blood Blood Culture - Final Escherichia Coli Complete 10/26/19 16:02 Nasal Nares MRSA Culture - Final NO METHICILLIN RESISTANT STAPH AUREUS... Complete 10/26/19 15:20 Urine,Clean Catch Urine Culture - Final Escherichia Coli Complete 10/26/19 16:02 Rectum - Final NO CARBAPENEM-RESISTANT ENTEROBACTERI... Complete 10/26/19 16:02 Rectum VRE Culture - Final NO VANCOMYCIN RESISTANT ENTEROCOCCUS ... Complete Accucheck: 94 Critical Care - Subjective ROS Limited/Unobtainable: No Condition: improving EKG Rhythm: Sinus Rhythm I&O: Intake and Output 10/28/19 10/29/19 19:00 07:00 Intake Total 1408.794 ml 580 ml Output Total 1367 ml 670 ml Balance 41.794 ml -90 ml Intake Oral 30 ml IV Total 1408.794 ml 550 ml Output Urine Total 1367 ml 670 ml Ajit Land MD Oct 29, 2019 10:04
--- NOTE | 2019-10-29 10:15 | Infectious Diseases Prog Note ---
Assessment/Plan Assessment/Plan A; E. coli sepsis E. coli UTI severe anemia Stomach cancer Acute renal failure, improving P; Change Zosyn to Rocephin Will f/u cultures Subjective ROS Limited/Unobtainable: No Constitutional: Reports: no symptoms Respiratory: Reports: dry cough Cardiovascular: Reports: no symptoms Gastrointestinal/Abdominal: Reports: no symptoms Genitourinary: Reports: no symptoms Allergies: Coded Allergies: No Known Allergies (Unverified , 10/26/19) Objective Vital Signs Last 24 Hour Vital Signs Date Time Temp Pulse Resp B/P (MAP) Pulse Ox O2 Delivery O2 Flow Rate FiO2 10/29/19 10:00 74 21 140/63 (88) 99 10/29/19 09:00 80 19 142/70 (94) 98 10/29/19 08:00 99.0 73 24 125/62 (83) 98 10/29/19 08:00 Room Air 10/29/19 07:00 71 22 126/64 (84) 97 10/29/19 06:00 75 23 118/61 (80) 96 10/29/19 05:00 77 20 125/60 (81) 97 10/29/19 04:00 Room Air 10/29/19 04:00 98.0 86 17 120/60 (80) 96 10/29/19 04:00 81 10/29/19 03:00 70 18 123/64 (83) 97 10/29/19 02:00 70 19 119/59 (79) 98 10/29/19 01:00 74 19 113/59 (77) 96 10/29/19 00:00 88 10/29/19 00:00 98.2 73 19 124/62 (82) 97 10/29/19 00:00 Room Air 10/28/19 23:00 84 23 111/63 (79) 98 10/28/19 22:00 83 25 112/62 (79) 97 10/28/19 21:30 86 26 114/62 (79) 97 10/28/19 21:15 92 20 121/61 (81) 97 10/28/19 21:00 89 21 116/58 (77) 97 10/28/19 21:00 86 10 114/61 (78) 97 10/28/19 20:00 Room Air 10/28/19 20:00 98.9 89 21 116/58 (77) 97 10/28/19 20:00 92 10/28/19 19:00 89 26 119/49 (72) 97 10/28/19 18:00 86 27 116/62 (80) 96 10/28/19 17:00 93 18 109/51 (70) 98 10/28/19 16:00 Room Air 10/28/19 16:00 90 10/28/19 16:00 98.8 88 20 102/50 (67) 97 10/28/19 15:00 89 25 102/46 (64) 97 10/28/19 14:00 89 21 116/62 (80) 99 10/28/19 13:00 95 23 136/67 (90) 97 10/28/19 12:00 70 10/28/19 12:00 98.8 71 18 112/65 (81) 97 10/28/19 12:00 Room Air 10/28/19 11:00 70 17 102/60 (74) 97 10/28/19 11:00 79 20 108/60 (76) 98 10/28/19 10:45 73 18 114/58 (76) 97 10/28/19 10:30 77 25 114/58 (76) 97 10/28/19 10:15 82 26 111/59 (76) 97 Height (Feet): 5 Height (Inches): 1.00 Weight (Pounds): 128 General Appearance: no acute distress HEENT: mucous membranes moist Respiratory/Chest: lungs clear Cardiovascular: normal rate Abdomen: soft, non tender Extremities: other - left hand edema Neurologic/Psychiatric: alert, oriented x 3, responsive Microbiology Date/Time Source Procedure Growth Status 10/26/19 12:25 Blood Blood Culture - Final Escherichia Coli Complete 10/26/19 12:25 Blood Blood Culture - Final Escherichia Coli Complete 10/26/19 16:02 Nasal Nares MRSA Culture - Final NO METHICILLIN RESISTANT STAPH AUREUS... Complete 10/26/19 15:20 Urine,Clean Catch Urine Culture - Final Escherichia Coli Complete 10/26/19 16:02 Rectum - Final NO CARBAPENEM-RESISTANT ENTEROBACTERI... Complete 10/26/19 16:02 Rectum VRE Culture - Final NO VANCOMYCIN RESISTANT ENTEROCOCCUS ... Complete Laboratory Tests Test 10/29/19 06:00 Urine Eosinophils None seen (NONE SEEN) Current Medications Medications (Trade) Dose Ordered Sig/Poonam Route PRN Reason Start Time Stop Time Status Last Admin Dose Admin Acetaminophen (Tylenol) 650 mg Q6H PRN ORAL Mild Pain/Temp > 100.5 10/26/19 19:15 11/25/19 19:14 10/27/19 18:01 Acetaminophen/ Hydrocodone Bitart ([place] 5/325) 1 tab Q6H PRN ORAL Moderate Pain (Pain Scale 4-6) 10/26/19 18:00 11/02/19 17:59 10/26/19 23:54 Chlorhexidine Gluconate (Carrol-Hex 2%) 1 applic DAILY@2000 TOPIC 10/27/19 20:00 11/26/19 19:59 10/28/19 20:11 Dextrose (Dextrose 50%) 25 ml Q30M PRN IV Hypoglycemia 10/26/19 18:00 11/25/19 17:59 Dextrose (Dextrose 50%) 50 ml Q30M PRN IV Hypoglycemia 10/26/19 18:00 11/25/19 17:59 Diphenhydramine HCl (Benadryl) 25 mg Q6H PRN IVP Itching 10/26/19 18:00 11/25/19 17:59 Hydromorphone HCl (Dilaudid) 0.5 mg Q3H PRN IVP Severe Pain (Pain Scale 7-10) 10/26/19 18:00 11/02/19 17:59 Insulin Aspart (NovoLOG) BEFORE MEALS AND HS SUBQ 10/26/19 21:00 11/25/19 20:59 10/28/19 11:32 Iopamidol (Isovue-300 100ml) 100 ml NOW PRN INJ Radiology Procedure 10/28/19 18:30 10/30/19 18:29 Norepinephrine Bitartrate 4 mg/ Dextrose 250 ml @ 0 mls/hr Q24H IV 10/26/19 18:30 11/25/19 18:29 10/27/19 08:32 Ondansetron HCl (Zofran) 4 mg Q6H PRN IVP Nausea & Vomiting 10/26/19 18:00 11/25/19 17:59 Pantoprazole (Protonix) 40 mg EVERY 12 HOURS ORAL 10/28/19 21:00 11/27/19 20:59 10/29/19 09:58 Piperacillin Sod/ Tazobactam Sod 3.375 gm/Sodium Chloride 110 ml @ 27.5 mls/hr Q12HR@0300,1500 IVPB 10/27/19 03:00 11/03/19 02:59 10/29/19 03:09 Sodium Chloride 1,000 ml @ 50 mls/hr Q20H IV 10/28/19 09:06 11/27/19 09:05 10/28/19 23:25 Evelio Hill MD Oct 29, 2019 10:15
--- NOTE | 2019-10-29 11:17 | Cardiac Electrophysiology PN ---
Assessment/Plan Assessment/Plan 1. S/P septic shock. Levophed DCed on broad-spectrum IV antibiotic. Her echocardiogram showed ejection fraction of 60% to 65%. No evidence of pericardial effusion. 2. Stomach cancer and history of ovarian resection in 2019. He is usually followed up at [facility]. 3. Pancytopenia. 4. Renal failure. Further evaluation by Dr. Bird. ALISON RN OK to transfer to [facility] Subjective Subjective Alert in NAD. In ICU Objective Last 24 Hour Vital Signs Date Time Temp Pulse Resp B/P (MAP) Pulse Ox O2 Delivery O2 Flow Rate FiO2 10/29/19 11:00 83 19 156/74 (101) 98 10/29/19 10:00 74 21 140/63 (88) 99 10/29/19 09:00 80 19 142/70 (94) 98 10/29/19 08:00 99.0 73 24 125/62 (83) 98 10/29/19 08:00 Room Air 10/29/19 07:58 76 10/29/19 07:00 71 22 126/64 (84) 97 10/29/19 06:00 75 23 118/61 (80) 96 10/29/19 05:00 77 20 125/60 (81) 97 10/29/19 04:00 Room Air 10/29/19 04:00 98.0 86 17 120/60 (80) 96 10/29/19 04:00 81 10/29/19 03:00 70 18 123/64 (83) 97 10/29/19 02:00 70 19 119/59 (79) 98 10/29/19 01:00 74 19 113/59 (77) 96 10/29/19 00:00 88 10/29/19 00:00 98.2 73 19 124/62 (82) 97 10/29/19 00:00 Room Air 10/28/19 23:00 84 23 111/63 (79) 98 10/28/19 22:00 83 25 112/62 (79) 97 10/28/19 21:30 86 26 114/62 (79) 97 10/28/19 21:15 92 20 121/61 (81) 97 10/28/19 21:00 89 21 116/58 (77) 97 10/28/19 21:00 86 10 114/61 (78) 97 10/28/19 20:00 Room Air 10/28/19 20:00 98.9 89 21 116/58 (77) 97 10/28/19 20:00 92 10/28/19 19:00 89 26 119/49 (72) 97 10/28/19 18:00 86 27 116/62 (80) 96 10/28/19 17:00 93 18 109/51 (70) 98 10/28/19 16:00 Room Air 10/28/19 16:00 90 10/28/19 16:00 98.8 88 20 102/50 (67) 97 10/28/19 15:00 89 25 102/46 (64) 97 10/28/19 14:00 89 21 116/62 (80) 99 10/28/19 13:00 95 23 136/67 (90) 97 10/28/19 12:00 70 10/28/19 12:00 98.8 71 18 112/65 (81) 97 10/28/19 12:00 Room Air Intake and Output 10/28/19 10/29/19 19:00 07:00 Intake Total 1408.794 ml 630 ml Output Total 1367 ml 670 ml Balance 41.794 ml -40 ml Intake Oral 30 ml IV Total 1408.794 ml 600 ml Output Urine Total 1367 ml 670 ml Laboratory Tests Test 10/29/19 06:00 Urine Eosinophils None seen (NONE SEEN) Microbiology Date/Time Source Procedure Growth Status 10/26/19 12:25 Blood Blood Culture - Final Escherichia Coli Complete 10/26/19 12:25 Blood Blood Culture - Final Escherichia Coli Complete 10/26/19 16:02 Nasal Nares MRSA Culture - Final NO METHICILLIN RESISTANT STAPH AUREUS... Complete 10/26/19 15:20 Urine,Clean Catch Urine Culture - Final Escherichia Coli Complete 10/26/19 16:02 Rectum - Final NO CARBAPENEM-RESISTANT ENTEROBACTERI... Complete 10/26/19 16:02 Rectum VRE Culture - Final NO VANCOMYCIN RESISTANT ENTEROCOCCUS ... Complete Objective HEAD AND NECK: No JVD. LUNGS: Clear. CARDIOVASCULAR: Regular S1 and S2 with no gallop or murmur. ABDOMEN: Soft. EXTREMITIES: No pitting edema. Benigno Rivera MD Oct 29, 2019 11:17
--- NOTE | 2019-10-29 11:40 | NUR ---
NURSE NOTES: Dr. Rivera at bedside assessing pt. Updated him on pt's current condition. Pt sitting up in bed, listening to music from her cell phone. F/S 84. Pt given lunch, tolerating well. No distress noted.
--- NOTE | 2019-10-29 12:42 | Nephrology Progress Note ---
Assessment/Plan Problem List: (1) Renal failure (ARF), acute on chronic Assessment: resolved (2) Hypotension (3) Sepsis (4) Symptomatic anemia Assessment Renal failure resolving Hypotension resolving Sepsis ? UTI Symptomatic anemia Plan Anemia whalen- Transfused antibiotics avoid nephrotoxics urine studies JOSEPH kidney No [place] 2D echo Noted Subjective ROS Limited/Unobtainable: No Constitutional: Reports: malaise Objective Objective Last 24 Hour Vital Signs Date Time Temp Pulse Resp B/P (MAP) Pulse Ox O2 Delivery O2 Flow Rate FiO2 10/29/19 12:00 90 10/29/19 12:00 Room Air 10/29/19 12:00 98.9 88 24 146/75 (98) 98 10/29/19 11:00 83 19 156/74 (101) 98 10/29/19 10:00 74 21 140/63 (88) 99 10/29/19 09:00 80 19 142/70 (94) 98 10/29/19 08:00 99.0 73 24 125/62 (83) 98 10/29/19 08:00 Room Air 10/29/19 07:58 76 10/29/19 07:00 71 22 126/64 (84) 97 10/29/19 06:00 75 23 118/61 (80) 96 10/29/19 05:00 77 20 125/60 (81) 97 10/29/19 04:00 Room Air 10/29/19 04:00 98.0 86 17 120/60 (80) 96 10/29/19 04:00 81 10/29/19 03:00 70 18 123/64 (83) 97 10/29/19 02:00 70 19 119/59 (79) 98 10/29/19 01:00 74 19 113/59 (77) 96 10/29/19 00:00 88 10/29/19 00:00 98.2 73 19 124/62 (82) 97 10/29/19 00:00 Room Air 10/28/19 23:00 84 23 111/63 (79) 98 10/28/19 22:00 83 25 112/62 (79) 97 10/28/19 21:30 86 26 114/62 (79) 97 10/28/19 21:15 92 20 121/61 (81) 97 10/28/19 21:00 89 21 116/58 (77) 97 10/28/19 21:00 86 10 114/61 (78) 97 10/28/19 20:00 Room Air 10/28/19 20:00 98.9 89 21 116/58 (77) 97 10/28/19 20:00 92 10/28/19 19:00 89 26 119/49 (72) 97 10/28/19 18:00 86 27 116/62 (80) 96 10/28/19 17:00 93 18 109/51 (70) 98 10/28/19 16:00 Room Air 10/28/19 16:00 90 10/28/19 16:00 98.8 88 20 102/50 (67) 97 10/28/19 15:00 89 25 102/46 (64) 97 10/28/19 14:00 89 21 116/62 (80) 99 10/28/19 13:00 95 23 136/67 (90) 97 Intake and Output 10/28/19 10/29/19 19:00 07:00 Intake Total 1408.794 ml 630 ml Output Total 1367 ml 670 ml Balance 41.794 ml -40 ml Intake Oral 30 ml IV Total 1408.794 ml 600 ml Output Urine Total 1367 ml 670 ml Current Medications Medications (Trade) Dose Ordered Sig/Poonam Route PRN Reason Start Time Stop Time Status Last Admin Dose Admin Acetaminophen (Tylenol) 650 mg Q6H PRN ORAL Mild Pain/Temp > 100.5 10/26/19 19:15 11/25/19 19:14 10/27/19 18:01 Acetaminophen/ Hydrocodone Bitart ([place] 5/325) 1 tab Q6H PRN ORAL Moderate Pain (Pain Scale 4-6) 10/26/19 18:00 11/02/19 17:59 10/26/19 23:54 Ceftriaxone Sodium 1 gm/ Dextrose 55 ml @ 110 mls/hr Q24H IVPB 10/29/19 16:00 11/05/19 15:59 Chlorhexidine Gluconate (Carrol-Hex 2%) 1 applic DAILY@2000 TOPIC 10/27/19 20:00 11/26/19 19:59 10/28/19 20:11 Dextrose (Dextrose 50%) 25 ml Q30M PRN IV Hypoglycemia 10/26/19 18:00 11/25/19 17:59 Dextrose (Dextrose 50%) 50 ml Q30M PRN IV Hypoglycemia 10/26/19 18:00 11/25/19 17:59 Diphenhydramine HCl (Benadryl) 25 mg Q6H PRN IVP Itching 10/26/19 18:00 11/25/19 17:59 Hydromorphone HCl (Dilaudid) 0.5 mg Q3H PRN IVP Severe Pain (Pain Scale 7-10) 10/26/19 18:00 11/02/19 17:59 Insulin Aspart (NovoLOG) BEFORE MEALS AND HS SUBQ 10/26/19 21:00 11/25/19 20:59 10/28/19 11:32 Iopamidol (Isovue-300 100ml) 100 ml NOW PRN INJ Radiology Procedure 10/28/19 18:30 10/30/19 18:29 Norepinephrine Bitartrate 4 mg/ Dextrose 250 ml @ 0 mls/hr Q24H IV 10/26/19 18:30 11/25/19 18:29 10/27/19 08:32 Ondansetron HCl (Zofran) 4 mg Q6H PRN IVP Nausea & Vomiting 10/26/19 18:00 11/25/19 17:59 Pantoprazole (Protonix) 40 mg EVERY 12 HOURS ORAL 10/28/19 21:00 11/27/19 20:59 10/29/19 09:58 Sodium Chloride 1,000 ml @ 50 mls/hr Q20H IV 10/28/19 09:06 11/27/19 09:05 10/28/19 23:25 Laboratory Tests 10/29/19 06:00: Urine Eosinophils None seen Height (Feet): 5 Height (Inches): 1.00 Weight (Pounds): 128 General Appearance: no apparent distress Cardiovascular: normal rate Abdomen: soft Objective no change Alverto Bird MD Oct 29, 2019 12:42
--- NOTE | 2019-10-29 14:00 | NUR ---
NURSE NOTES: Pt went off the unit and returned from CT scan of the head w/o contrast. Pt tolerated well. Will continue to monitor.
--- NOTE | 2019-10-29 14:16 | NUR ---
CASE MANAGEMENT: REVIEW 10/29/2019 SI:HYPOTENSION.WEAKNESS 98.9 AX 90 24 146/75 98% RA IS:ROCEPHIN IV Q24H SS INSULIN PROTONIX PO Q12H NS @50MLS/HR DILAUDID IV Q3H PRN NORCO Q6H PRN CT HEAD NO CONTRAST STOOL OB PLAN: TRANSFER TO [facility] ~~~~ ICU STATUS
--- NOTE | 2019-10-29 15:21 | Diagnostic Imaging Report ---
Indication: Headache Technique: Contiguous 5 mm thick transaxial imaging of the head obtained in a Siemens Sensation [address] scanner. Soft tissue and bone windows generated. Automatic Exposure Control was utilized. Total Dose length Product (DLP): [address] Dose Index Volume (CTDIvol): 60 mGy Comparison: none Findings: The size and configuration of the cortical sulci, basal cisterns, and ventricles are within normal limits for age. There is no mass effect, midline shift, or edema identified. There is no evidence of acute hemorrhage or abnormal intra-axial or extra-axial fluid collections. The bones and soft tissues are unremarkable. Mucosal thickening noted within the ethmoid sinus. Impression: No mass effect, edema or acute bleed. The CT scanner at [facility] is accredited by the [employer] and the scans are performed using dose optimization techniques as appropriate to a performed exam including Automatic Exposure control.
--- NOTE | 2019-10-29 15:44 | General Progress Note ---
Assessment/Plan Status: progressing Assessment/Plan: Assessment - gastric CA, s/p resection - Anemia Recommendations - po diet - monitor labs - check OB - Heme/Onc f/u Subjective Allergies: Coded Allergies: No Known Allergies (Unverified , 10/26/19) Subjective Feels better no vomiting tolerating PO Objective Last 24 Hour Vital Signs Date Time Temp Pulse Resp B/P (MAP) Pulse Ox O2 Delivery O2 Flow Rate FiO2 10/29/19 15:00 81 28 137/61 (86) 98 10/29/19 14:00 75 22 136/66 (89) 98 10/29/19 13:00 80 27 127/56 (79) 97 10/29/19 12:00 90 10/29/19 12:00 Room Air 10/29/19 12:00 98.9 88 24 146/75 (98) 98 10/29/19 11:00 83 19 156/74 (101) 98 10/29/19 10:00 74 21 140/63 (88) 99 10/29/19 09:00 80 19 142/70 (94) 98 10/29/19 08:00 99.0 73 24 125/62 (83) 98 10/29/19 08:00 Room Air 10/29/19 07:58 76 10/29/19 07:00 71 22 126/64 (84) 97 10/29/19 06:00 75 23 118/61 (80) 96 10/29/19 05:00 77 20 125/60 (81) 97 10/29/19 04:00 Room Air 10/29/19 04:00 98.0 86 17 120/60 (80) 96 10/29/19 04:00 81 10/29/19 03:00 70 18 123/64 (83) 97 10/29/19 02:00 70 19 119/59 (79) 98 10/29/19 01:00 74 19 113/59 (77) 96 10/29/19 00:00 88 10/29/19 00:00 98.2 73 19 124/62 (82) 97 10/29/19 00:00 Room Air 10/28/19 23:00 84 23 111/63 (79) 98 10/28/19 22:00 83 25 112/62 (79) 97 10/28/19 21:30 86 26 114/62 (79) 97 10/28/19 21:15 92 20 121/61 (81) 97 10/28/19 21:00 89 21 116/58 (77) 97 10/28/19 21:00 86 10 114/61 (78) 97 10/28/19 20:00 Room Air 10/28/19 20:00 98.9 89 21 116/58 (77) 97 10/28/19 20:00 92 10/28/19 19:00 89 26 119/49 (72) 97 10/28/19 18:00 86 27 116/62 (80) 96 10/28/19 17:00 93 18 109/51 (70) 98 10/28/19 16:00 Room Air 10/28/19 16:00 90 10/28/19 16:00 98.8 88 20 102/50 (67) 97 Intake and Output 10/28/19 10/29/19 18:59 06:59 Intake Total 1437.544 ml 630 ml Output Total 1477 ml 650 ml Balance -39.456 ml -20 ml Intake Oral 30 ml IV Total 1437.544 ml 600 ml Output Urine Total 1477 ml 650 ml Laboratory Tests 10/29/19 06:00: Urine Eosinophils None seen 10/29/19 12:00: Stool Occult Blood [Pending] Height (Feet): 5 Height (Inches): 1.00 Weight (Pounds): 128 Objective WDWN NCAT supple CTA RR abd soft nt ND no edema Kristine Alexander MD Oct 29, 2019 15:44
[2019-10-29] MEDS ORDERED: cefTRIAXone 1 GM in D5W 55 ML IVPB SCH (16:00)
--- NOTE | 2019-10-29 16:30 | NUR ---
NURSE NOTES: Pt is observed sitting in bed, watching TV, No distress noted and no concerns/complaints voiced. Pt cleaned and repositioned. Left message for Dr. Rivera to ask if Rt femoral TLC can be removed prior to transfer, as there is no indication for it; however, still awaiting call back. Will continue to monitor.
--- NOTE | 2019-10-29 19:15 | NUR ---
HAND-OFF: Right femoral TLC removed, as per Dr. Land. No bleeding noted. Pressure dressing applied. Pt tolerated it well, with no issues/concerns voiced/noted.
--- NOTE | 2019-10-29 19:27 | NUR ---
HAND-OFF: Report given to RAMOS Fair.
--- NOTE | 2019-10-29 20:00 | NUR ---
NURSE NOTES: received report from dinora no pt awake and alert x2 bolivian speaking follows command reposition no acute distress no c/o pain
--- NOTE | 2019-10-29 21:54 | General Progress Note ---
Assessment/Plan Problem List: (1) Symptomatic anemia ICD Codes: D64.9 - Anemia, unspecified SNOMED: 425343286 (2) Sepsis ICD Codes: A41.9 - Sepsis, unspecified organism SNOMED: 73295729 Qualifiers: Qualified Codes: A41.9 - Sepsis, unspecified organism; R65.21 - Severe sepsis with septic shock; N17.9 - Acute kidney failure, unspecified (3) Hypotension ICD Codes: I95.9 - Hypotension, unspecified SNOMED: 74772808 Qualifiers: Qualified Codes: I95.9 - Hypotension, unspecified (4) Renal failure (ARF), acute on chronic ICD Codes: N17.9 - Acute kidney failure, unspecified; N18.9 - Chronic kidney disease, unspecified SNOMED: 821872840 Status: progressing Assessment/Plan: sepsis is imrpovng hypotension resolved off pressor reviewed chart and labs fluids bp improving anemia no bleeding bp improving Subjective ROS Limited/Unobtainable: Yes Allergies: Coded Allergies: No Known Allergies (Unverified , 10/26/19) Objective Last 24 Hour Vital Signs Date Time Temp Pulse Resp B/P (MAP) Pulse Ox O2 Delivery O2 Flow Rate FiO2 10/29/19 19:00 90 30 138/68 (91) 97 10/29/19 18:30 146/66 10/29/19 18:00 94 22 146/66 (92) 98 10/29/19 17:00 82 24 141/62 (88) 97 10/29/19 16:00 100.0 76 26 134/62 (86) 97 10/29/19 16:00 76 10/29/19 16:00 Room Air 10/29/19 15:00 81 28 137/61 (86) 98 10/29/19 14:00 75 22 136/66 (89) 98 10/29/19 13:00 80 27 127/56 (79) 97 10/29/19 12:00 90 10/29/19 12:00 Room Air 10/29/19 12:00 98.9 88 24 146/75 (98) 98 10/29/19 11:00 83 19 156/74 (101) 98 10/29/19 10:00 74 21 140/63 (88) 99 10/29/19 09:00 80 19 142/70 (94) 98 10/29/19 08:00 99.0 73 24 125/62 (83) 98 10/29/19 08:00 Room Air 10/29/19 07:58 76 10/29/19 07:00 71 22 126/64 (84) 97 10/29/19 06:00 75 23 118/61 (80) 96 10/29/19 05:00 77 20 125/60 (81) 97 10/29/19 04:00 Room Air 10/29/19 04:00 98.0 86 17 120/60 (80) 96 10/29/19 04:00 81 10/29/19 03:00 70 18 123/64 (83) 97 10/29/19 02:00 70 19 119/59 (79) 98 10/29/19 01:00 74 19 113/59 (77) 96 10/29/19 00:00 88 10/29/19 00:00 98.2 73 19 124/62 (82) 97 10/29/19 00:00 Room Air 10/28/19 23:00 84 23 111/63 (79) 98 10/28/19 22:00 83 25 112/62 (79) 97 Intake and Output 10/28/19 10/29/19 19:00 07:00 Intake Total 1408.794 ml 630 ml Output Total 1367 ml 670 ml Balance 41.794 ml -40 ml Intake Oral 30 ml IV Total 1408.794 ml 600 ml Output Urine Total 1367 ml 670 ml Laboratory Tests 10/29/19 06:00: Urine Eosinophils None seen 10/29/19 12:00: Stool Occult Blood [Pending] Height (Feet): 5 Height (Inches): 1.00 Weight (Pounds): 128 Cardiovascular: normal rate Respiratory/Chest: lungs clear Abdomen: soft Alea Melendez MD Oct 29, 2019 21:54
--- NOTE | 2019-10-29 22:00 | NUR ---
NURSE NOTES:no acute distress note
[2019-10-30] VITALS (11 sets, daily range): BP systolic 111–142; BP diastolic 48–74
--- NOTE | 2019-10-30 | NUR ---
NURSE NOTES: asleep no acute distress noted
--- NOTE | 2019-10-30 02:00 | NUR ---
NURSE NOTES: asleep reposition no acute distress noted
--- NOTE | 2019-10-30 03:20 | NUR ---
NURSE NOTES: Received endorsement from Manjula for continuity of care. Patient asleep at this time. No signs of pain or discomfort. Sinus rhythm on the monitor. On room air. No shortness of breath. Righ AC 18, receiving NS 50ml/hr. Avendaño catheter in place. Diuresing well. Head of bed elevated. Call light within visible reach. Bed alarm on, locked and in low position
--- NOTE | 2019-10-30 03:20 | NUR ---
HAND-OFF: Report given to []mateo no using sbar.
--- NOTE | 2019-10-30 05:00 | NUR ---
NURSE NOTES: Patient asleep. Arousable per voice.
[2019-10-30 06:06] LABS: HEMATOCRIT 21.8 % (37.0-47.0); HEMOGLOBIN 7.8 G/DL (12.0-16.0); MEAN CORPUSCULAR VOLUME 90 FL (80-99); PLATELET COUNT 43 K/UL (150-450); RED BLOOD COUNT 2.42 M/UL (4.20-5.40); RED CELL DISTRIBUTION WIDTH 14.9 % (11.6-14.8); WHITE BLOOD COUNT 2.2 K/UL (4.8-10.8)
[2019-10-30 06:29] LABS: ALANINE AMINOTRANSFERASE 21 U/L (12-78); ALBUMIN 1.8 G/DL (3.4-5.0); ALBUMIN/GLOBULIN RATIO 0.5 (1.0-2.7); ALKALINE PHOSPHATASE 117 U/L (46-116); ANION GAP 7 mmol/L (5-15); ASPARTATE AMINO TRANSFERASE 25 U/L (15-37); BILIRUBIN,TOTAL 0.5 MG/DL (0.2-1.0); BLOOD UREA NITROGEN 8 mg/dL (7-18); CALCIUM 7.6 MG/DL (8.5-10.1); CARBON DIOXIDE 25 MMOL/L (21-32); CHLORIDE 110 MMOL/L (98-107); CREATININE 0.8 MG/DL (0.55-1.30); POTASSIUM 3.5 MMOL/L (3.5-5.1); SODIUM 142 MMOL/L (136-145)
[2019-10-30] MEDS: NovoLOG Insulin Flexpen SUBQ SCH ×4 (06:30→21:00)
--- NOTE | 2019-10-30 06:50 | NUR ---
TRANSFER TO FLOOR: Inventory done with charge nurse and patient. Patient transferred to 234, per hospital bed. Report given to Krissy Bradshaw RN informed patient has missed her oral chemotherapy meds (Limparza) since she's been admitted and wishes to go home. Belongings and medications given to the RN.
--- NOTE | 2019-10-30 07:00 | NUR ---
NURSE NOTES: Received patient from RAMOS Damon. Patient denies pain or acute distress at this time. Patient alert to name, time, place, and purpose. Patient showing sinus rhythm on the telemetry monitor. Patient on room air with no sign of acute distress. Patient has santana for acute urine retention. Patient expressed desire to have it removed. Will follow up with Dr. Bird to get order for removal when he rounds on the patient. Patient has right AC 18 gauge peripheral IV that is patent, leaking slightly, and running normal saline at 50mL/hr at this time. Will readjust and redress IV to keep it patent. Patient skin intact at this time. Patient bed in low position with bed alarm on and call light in reach at this time. Patient given oral care supplies at this time. Will continue to monitor.
[2019-10-30] MEDS ORDERED: HYDROcodone/Acetamin 5/325 tab ORAL PRN (07:30)
[2019-10-30] MEDS ORDERED: DiphenhydrAMINE 50mg/ml Inj IVP PRN (07:30)
[2019-10-30] MEDS ORDERED: Hydromorphone 0.5mg/0.5ml inj IVP PRN (07:30)
--- NOTE | 2019-10-30 09:54 | Pulmonolgy Critical Care Note ---
Critical Care - Asmt/Plan Assessment/Plan: Pulmonary Critical Care Progress Note HPI Patient is a 64-year-old female with past medical history of Stomach cancer, Ovarian Cancer, Hypertension, history of recent chemotherapy ,admitted with with fever/chills for one day, weakness, noted to have severe anemia, hypotension, evidence of urinary tract infection, clear CXR, normal O2 sats on RA, no acute changes on EKG GNR on BC match Urine Ecoli Feels improved, off pressors, now on floor URINE CULTURE Final Organism 1 ESCHERICHIA COLI COLONY COUNT: >100,000 CFU/ML ESC COLI M.I.C. RX --------- --- AMPICILLIN >=32 R CEFAZOLIN <=4 S CEFTRIAXONE <=1 S CIPROFLOXACIN <=0.25 S ERTAPENEM <=0.5 S GENTAMICIN 8 I LEVOFLOXACIN 1 S IMIPENEM <=0.25 S NITROFURANTOIN <=16 S TRIMETHOPRIM/SULFA >=320 R AMIKACIN <=2 S PIPERACILLIN/TAZOBACTAM 8 S LE Dupplex negative for DVT CT Abdomen no hydronephrosis Allergies: No Known Allergies Past Medical History: Stomach cancer, hypertension All Other Systems: negative except mentioned in HPI Physical Exam Vital Signs Noted General Appearance: well appearing, no apparent distress, alert, pale Head: normocephalic, atraumatic Eyes: bilateral eye PERRL, bilateral eye EOMI ENT: uvula midline, dry mucus membranes Neck: supple, thyroid normal, supple/symm/no masses Respiratory: lungs clear, no respiratory distress, no retraction, no accessory muscle use Cardiovascular: normal peripheral pulses, regular rate, rhythm, HS1, HS2 normal , no gallop, no murmur Gastrointestinal: non tender, soft, no guarding, no rebound Musculoskeletal: normal inspection Neurologic: alert, oriented x3, no focal signs, no seizures Psychiatric: mood/affect normal Skin: no rash, warm/dry, no edema EKG: NSR, rate 66, QTc 436, no acute ST elevations, normal axis CXR: No acute changes LE Dupplex negative UA: S/o infection CBC: Severe anemia Impression: Stomach Cancer/Ovarian Cancer s/p recent Chemotherapy Urosepsis, Ecoli on BC Severe Anemia s/p Transfusion Thrombocytopenia Hypokalemia H/o Hypertension Dehydration Hyponatremia Azotemia Elevated BNP Hyperglycemia Plan: - IV Antibiotics per ID - IVF - Pressors PRN - Transfuse PRN - IV Protonix - R/o DVT, SCD's - Monitor labs - 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 RX --------- --- AMPICILLIN >=32 R CEFAZOLIN <=4 S CEFTRIAXONE <=1 S CIPROFLOXACIN <=0.25 S ERTAPENEM <=0.5 S GENTAMICIN 8 I LEVOFLOXACIN 1 S IMIPENEM <=0.25 S NITROFURANTOIN <=16 S TRIMETHOPRIM/SULFA >=320 R AMIKACIN <=2 S PIPERACILLIN/TAZOBACTAM 8 S Critical Care - Objective Last 24 Hour Vital Signs Date Time Temp Pulse Resp B/P (MAP) Pulse Ox O2 Delivery O2 Flow Rate FiO2 10/30/19 08:07 Room Air 10/30/19 08:00 87 10/30/19 08:00 98.1 75 20 134/71 (92) 99 10/30/19 06:00 77 24 127/61 (83) 95 10/30/19 05:00 81 26 121/74 (90) 95 10/30/19 04:00 76 10/30/19 04:00 98.7 78 20 111/52 (71) 96 10/30/19 04:00 Room Air 10/30/19 03:00 79 20 117/50 (72) 96 10/30/19 02:00 78 19 118/48 (71) 96 10/30/19 01:00 80 23 120/48 (72) 96 10/30/19 00:00 Room Air 10/30/19 00:00 99.0 78 21 122/53 (76) 94 10/29/19 23:00 86 23 140/60 (86) 100 10/29/19 22:00 82 29 143/61 (88) 98 10/29/19 21:00 86 25 134/64 (87) 98 10/29/19 20:00 Room Air 10/29/19 20:00 84 10/29/19 20:00 99.8 92 27 142/67 (92) 98 10/29/19 19:00 90 30 138/68 (91) 97 10/29/19 18:30 146/66 10/29/19 18:00 94 22 146/66 (92) 98 10/29/19 17:00 82 24 141/62 (88) 97 10/29/19 16:00 100.0 76 26 134/62 (86) 97 10/29/19 16:00 76 10/29/19 16:00 Room Air 10/29/19 15:00 81 28 137/61 (86) 98 10/29/19 14:00 75 22 136/66 (89) 98 10/29/19 13:00 80 27 127/56 (79) 97 10/29/19 12:00 90 10/29/19 12:00 Room Air 10/29/19 12:00 98.9 88 24 146/75 (98) 98 10/29/19 11:00 83 19 156/74 (101) 98 10/29/19 10:00 74 21 140/63 (88) 99 Micro: Microbiology Date/Time Source Procedure Growth Status 10/27/19 19:00 Nasal Not Otherwise Specified - Final Complete 10/27/19 19:00 Nasal Not Otherwise Specified - Final Complete Accucheck: 84 Critical Care - Subjective ROS Limited/Unobtainable: No Condition: improving I&O: Intake and Output 10/29/19 10/30/19 19:00 07:00 Intake Total 955 ml 650 ml Output Total 1540 ml 1540 ml Balance -585 ml -890 ml Intake Oral 300 ml 100 ml IV Total 655 ml 550 ml Output Urine Total 1540 ml 1540 ml # Bowel Movements 4 Ajit Land MD Oct 30, 2019 09:54
--- NOTE | 2019-10-30 10:00 | NUR ---
NURSE NOTES: Vital signs stable. No sign of acute distress. Will continue to monitor. Patient reminded to move around in bed.
--- NOTE | 2019-10-30 12:00 | NUR ---
NURSE NOTES: Patient denies pain or distress at this time. Patient remains alert to name, time, place, and purpose. Patient showing sinus rhythm on the jeeper operator. Patient remains on room air with no sign of acute distress. Patient has santana for acute urine retention. Patient continues to request santana removal. Will ask MD. Right AC 18 gauge peripheral IV patent, dressing changed and intact, and running normal saline at 50mL/hr at this time. Patient bed in low position with bed alarm on and call light in reach at this time. Will continue to monitor.
--- NOTE | 2019-10-30 12:41 | Cardiac Electrophysiology PN ---
Assessment/Plan Assessment/Plan 1. S/P septic shock. Levophed DCed on broad-spectrum IV antibiotic. Her echocardiogram showed ejection fraction of 60% to 65%. No evidence of pericardial effusion. 2. Stomach cancer and history of ovarian resection in 2019. He is usually followed up at [facility]. 3. Pancytopenia. 4. Renal failure. Further evaluation by Dr. Bird. ALISON RN Subjective Subjective Alert in NAD. Transferred out of ICU. IN SR. Just finished her lunch Objective Last 24 Hour Vital Signs Date Time Temp Pulse Resp B/P (MAP) Pulse Ox O2 Delivery O2 Flow Rate FiO2 10/30/19 08:07 Room Air 10/30/19 08:00 87 10/30/19 08:00 98.1 75 20 134/71 (92) 99 10/30/19 06:00 77 24 127/61 (83) 95 10/30/19 05:00 81 26 121/74 (90) 95 10/30/19 04:00 76 10/30/19 04:00 98.7 78 20 111/52 (71) 96 10/30/19 04:00 Room Air 10/30/19 03:00 79 20 117/50 (72) 96 10/30/19 02:00 78 19 118/48 (71) 96 10/30/19 01:00 80 23 120/48 (72) 96 10/30/19 00:00 Room Air 10/30/19 00:00 99.0 78 21 122/53 (76) 94 10/29/19 23:00 86 23 140/60 (86) 100 10/29/19 22:00 82 29 143/61 (88) 98 10/29/19 21:00 86 25 134/64 (87) 98 10/29/19 20:00 Room Air 10/29/19 20:00 84 10/29/19 20:00 99.8 92 27 142/67 (92) 98 10/29/19 19:00 90 30 138/68 (91) 97 10/29/19 18:30 146/66 10/29/19 18:00 94 22 146/66 (92) 98 10/29/19 17:00 82 24 141/62 (88) 97 10/29/19 16:00 100.0 76 26 134/62 (86) 97 10/29/19 16:00 76 10/29/19 16:00 Room Air 10/29/19 15:00 81 28 137/61 (86) 98 10/29/19 14:00 75 22 136/66 (89) 98 10/29/19 13:00 80 27 127/56 (79) 97 Intake and Output 10/29/19 10/30/19 19:00 07:00 Intake Total 955 ml 650 ml Output Total 1540 ml 1540 ml Balance -585 ml -890 ml Intake Oral 300 ml 100 ml IV Total 655 ml 550 ml Output Urine Total 1540 ml 1540 ml # Bowel Movements 4 Laboratory Tests Test 10/30/19 04:30 White Blood Count 2.2 K/UL (4.8-10.8) L Red Blood Count 2.42 M/UL (4.20-5.40) L Hemoglobin 7.8 G/DL (12.0-16.0) L Hematocrit 21.8 % (37.0-47.0) L Mean Corpuscular Volume 90 FL (80-99) Mean Corpuscular Hemoglobin 32.3 PG (27.0-31.0) H Mean Corpuscular Hemoglobin Concent 35.9 G/DL (32.0-36.0) Red Cell Distribution Width 14.9 % (11.6-14.8) H Platelet Count 43 K/UL (150-450) L Mean Platelet Volume 6.2 FL (6.5-10.1) L Neutrophils (%) (Auto) % (45.0-75.0) Lymphocytes (%) (Auto) % (20.0-45.0) Monocytes (%) (Auto) % (1.0-10.0) Eosinophils (%) (Auto) % (0.0-3.0) Basophils (%) (Auto) % (0.0-2.0) Differential Total Cells Counted 100 Neutrophils % (Manual) 57 % (45-75) Lymphocytes % (Manual) 37 % (20-45) Monocytes % (Manual) 5 % (1-10) Eosinophils % (Manual) 1 % (0-3) Basophils % (Manual) 0 % (0-2) Band Neutrophils 0 % (0-8) Platelet Estimate Decreased L Platelet Morphology Normal Hypochromasia 3+ Anisocytosis 1+ Sodium Level 142 MMOL/L (136-145) Potassium Level 3.5 MMOL/L (3.5-5.1) Chloride Level 110 MMOL/L (98-107) H Carbon Dioxide Level 25 MMOL/L (21-32) Anion Gap 7 mmol/L (5-15) Blood Urea Nitrogen 8 mg/dL (7-18) Creatinine 0.8 MG/DL (0.55-1.30) Estimat Glomerular Filtration Rate > 60 mL/min (>60) Glucose Level 88 MG/DL (74-106) Calcium Level 7.6 MG/DL (8.5-10.1) L Phosphorus Level 3.0 MG/DL (2.5-4.9) Magnesium Level 1.4 MG/DL (1.8-2.4) L Total Bilirubin 0.5 MG/DL (0.2-1.0) Aspartate Amino Transf (AST/SGOT) 25 U/L (15-37) Alanine Aminotransferase (ALT/SGPT) 21 U/L (12-78) Alkaline Phosphatase 117 U/L (46-116) H C-Reactive Protein, Quantitative 9.9 mg/dL (0.00-0.90) H Pro-B-Type Natriuretic Peptide 5420 pg/mL (0-125) H Total Protein 5.6 G/DL (6.4-8.2) L Albumin 1.8 G/DL (3.4-5.0) L Globulin 3.8 g/dL Albumin/Globulin Ratio 0.5 (1.0-2.7) L Microbiology Date/Time Source Procedure Growth Status 10/27/19 19:00 Nasal Not Otherwise Specified - Final Complete 10/27/19 19:00 Nasal Not Otherwise Specified - Final Complete Objective HEAD AND NECK: No JVD. LUNGS: Clear. CARDIOVASCULAR: Regular S1 and S2 with no gallop or murmur. ABDOMEN: Soft. EXTREMITIES: No pitting edema. Benigno Rivera MD Oct 30, 2019 12:41
--- NOTE | 2019-10-30 12:42 | Nephrology Progress Note ---
Assessment/Plan Problem List: (1) Renal failure (ARF), acute on chronic Assessment: resolved (2) Hypotension (3) Sepsis (4) Symptomatic anemia Assessment Renal failure resolving Hypotension resolving Sepsis ? UTI Symptomatic anemia Plan IV Mag Anemia whalen- Transfused antibiotics avoid nephrotoxics urine studies JOSEPH kidney No [place] 2D echo Noted Subjective ROS Limited/Unobtainable: No Constitutional: Reports: malaise Objective Objective Last 24 Hour Vital Signs Date Time Temp Pulse Resp B/P (MAP) Pulse Ox O2 Delivery O2 Flow Rate FiO2 10/30/19 08:07 Room Air 10/30/19 08:00 87 10/30/19 08:00 98.1 75 20 134/71 (92) 99 10/30/19 06:00 77 24 127/61 (83) 95 10/30/19 05:00 81 26 121/74 (90) 95 10/30/19 04:00 76 10/30/19 04:00 98.7 78 20 111/52 (71) 96 10/30/19 04:00 Room Air 10/30/19 03:00 79 20 117/50 (72) 96 10/30/19 02:00 78 19 118/48 (71) 96 10/30/19 01:00 80 23 120/48 (72) 96 10/30/19 00:00 Room Air 10/30/19 00:00 99.0 78 21 122/53 (76) 94 10/29/19 23:00 86 23 140/60 (86) 100 10/29/19 22:00 82 29 143/61 (88) 98 10/29/19 21:00 86 25 134/64 (87) 98 10/29/19 20:00 Room Air 10/29/19 20:00 84 10/29/19 20:00 99.8 92 27 142/67 (92) 98 10/29/19 19:00 90 30 138/68 (91) 97 10/29/19 18:30 146/66 10/29/19 18:00 94 22 146/66 (92) 98 10/29/19 17:00 82 24 141/62 (88) 97 10/29/19 16:00 100.0 76 26 134/62 (86) 97 10/29/19 16:00 76 10/29/19 16:00 Room Air 1/31/20 15:00 81 28 137/61 (86) 98 10/29/19 14:00 75 22 136/66 (89) 98 10/29/19 13:00 80 27 127/56 (79) 97 Intake and Output 10/29/19 10/30/19 19:00 07:00 Intake Total 955 ml 650 ml Output Total 1540 ml 1540 ml Balance -585 ml -890 ml Intake Oral 300 ml 100 ml IV Total 655 ml 550 ml Output Urine Total 1540 ml 1540 ml # Bowel Movements 4 Laboratory Tests 10/30/19 04:30: White Blood Count 2.2L, Red Blood Count 2.42L, Hemoglobin 7.8L, Hematocrit 21.8L , Mean Corpuscular Volume 90, Mean Corpuscular Hemoglobin 32.3H, Mean Corpuscular Hemoglobin Concent 35.9, Red Cell Distribution Width 14.9H, Platelet Count 43L, Mean Platelet Volume 6.2L, Neutrophils (%) (Auto) , Lymphocytes (%) (Auto) , Monocytes (%) (Auto) , Eosinophils (%) (Auto) , Basophils (%) (Auto) , Differential Total Cells Counted 100, Neutrophils % ( Manual) 57, Lymphocytes % (Manual) 37, Monocytes % (Manual) 5, Eosinophils % ( Manual) 1, Basophils % (Manual) 0, Band Neutrophils 0, Platelet Estimate DecreasedL, Platelet Morphology Normal, Hypochromasia 3+, Anisocytosis 1+, Sodium Level 142, Potassium Level 3.5, Chloride Level 110H, Carbon Dioxide Level 25, Anion Gap 7, Blood Urea Nitrogen 8, Creatinine 0.8, Estimat Glomerular Filtration Rate > 60, Glucose Level 88, Calcium Level 7.6L, Phosphorus Level 3.0, Magnesium Level 1.4L, Total Bilirubin 0.5, Aspartate Amino Transf (AST/SGOT) 25, Alanine Aminotransferase (ALT/SGPT) 21, Alkaline Phosphatase 117H, C-Reactive Protein, Quantitative 9.9H, Pro-B-Type Natriuretic Peptide 5420H, Total Protein 5.6L, Albumin 1.8L, Globulin 3.8, Albumin/Globulin Ratio 0.5L Height (Feet): 5 Height (Inches): 1.00 Weight (Pounds): 134 General Appearance: no apparent distress Cardiovascular: normal rate Abdomen: soft Objective no change Alverto Bird MD Oct 30, 2019 12:42
[2019-10-30] MEDS ORDERED: NS 275ml ONE (14:22)
[2019-10-30] MEDS ORDERED: Tubing IV Secondary IV ONE (14:22)
[2019-10-30] MEDS ORDERED: cefTRIAXone 1 GM in D5W 55 ML IVPB SCH (16:00)
--- NOTE | 2019-10-30 16:00 | NUR ---
NURSE NOTES: Patient denies pain or distress at this time. Patient remains alert to name, time, place, and purpose. Patient showing sinus rhythm on the equipment monitor phototypesetting. Patient remains on room air with no sign of acute distress. Patient has santana for acute urine retention. Patient continues to request santana removal. Will ask MD. Right AC 18 gauge peripheral IV patent, asymptomatic, and running normal saline at 50mL/hr at this time. Patient bed in low position with bed alarm on and call light in reach at this time. Magnesium is 1.4 this morning. 4g IVPB given per MD order. Will continue to monitor.
--- NOTE | 2019-10-30 16:53 | General Progress Note ---
Assessment/Plan Status: progressing Assessment/Plan: Assessment - gastric CA, s/p resection - Anemia - OB (-) stools - pancytopenia Recommendations - po diet - monitor labs - check OB - neg - Heme/Onc f/u - transfuse PRN Subjective Allergies: Coded Allergies: No Known Allergies (Unverified , 10/26/19) Subjective Feels better no vomiting tolerating PO Objective Last 24 Hour Vital Signs Date Time Temp Pulse Resp B/P (MAP) Pulse Ox O2 Delivery O2 Flow Rate FiO2 10/30/19 16:00 Room Air 10/30/19 12:00 99.1 70 19 121/62 (81) 99 10/30/19 12:00 Room Air 10/30/19 12:00 63 10/30/19 08:07 Room Air 10/30/19 08:00 87 10/30/19 08:00 98.1 75 20 134/71 (92) 99 10/30/19 06:00 77 24 127/61 (83) 95 10/30/19 05:00 81 26 121/74 (90) 95 10/30/19 04:00 76 10/30/19 04:00 98.7 78 20 111/52 (71) 96 10/30/19 04:00 Room Air 10/30/19 03:00 79 20 117/50 (72) 96 10/30/19 02:00 78 19 118/48 (71) 96 10/30/19 01:00 80 23 120/48 (72) 96 10/30/19 00:00 Room Air 10/30/19 00:00 99.0 78 21 122/53 (76) 94 10/29/19 23:00 86 23 140/60 (86) 100 10/29/19 22:00 82 29 143/61 (88) 98 10/29/19 21:00 86 25 134/64 (87) 98 10/29/19 20:00 Room Air 10/29/19 20:00 84 10/29/19 20:00 99.8 92 27 142/67 (92) 98 10/29/19 19:00 90 30 138/68 (91) 97 10/29/19 18:30 146/66 10/29/19 18:00 94 22 146/66 (92) 98 10/29/19 17:00 82 24 141/62 (88) 97 Intake and Output 10/29/19 10/30/19 19:00 07:00 Intake Total 955 ml 650 ml Output Total 1540 ml 1540 ml Balance -585 ml -890 ml Intake Oral 300 ml 100 ml IV Total 655 ml 550 ml Output Urine Total 1540 ml 1540 ml # Bowel Movements 4 Laboratory Tests 10/30/19 04:30: White Blood Count 2.2L, Red Blood Count 2.42L, Hemoglobin 7.8L, Hematocrit 21.8L , Mean Corpuscular Volume 90, Mean Corpuscular Hemoglobin 32.3H, Mean Corpuscular Hemoglobin Concent 35.9, Red Cell Distribution Width 14.9H, Platelet Count 43L, Mean Platelet Volume 6.2L, Neutrophils (%) (Auto) , Lymphocytes (%) (Auto) , Monocytes (%) (Auto) , Eosinophils (%) (Auto) , Basophils (%) (Auto) , Differential Total Cells Counted 100, Neutrophils % ( Manual) 57, Lymphocytes % (Manual) 37, Monocytes % (Manual) 5, Eosinophils % ( Manual) 1, Basophils % (Manual) 0, Band Neutrophils 0, Platelet Estimate DecreasedL, Platelet Morphology Normal, Hypochromasia 3+, Anisocytosis 1+, Sodium Level 142, Potassium Level 3.5, Chloride Level 110H, Carbon Dioxide Level 25, Anion Gap 7, Blood Urea Nitrogen 8, Creatinine 0.8, Estimat Glomerular Filtration Rate > 60, Glucose Level 88, Calcium Level 7.6L, Phosphorus Level 3.0, Magnesium Level 1.4L, Total Bilirubin 0.5, Aspartate Amino Transf (AST/SGOT) 25, Alanine Aminotransferase (ALT/SGPT) 21, Alkaline Phosphatase 117H, C-Reactive Protein, Quantitative 9.9H, Pro-B-Type Natriuretic Peptide 5420H, Total Protein 5.6L, Albumin 1.8L, Globulin 3.8, Albumin/Globulin Ratio 0.5L Height (Feet): 5 Height (Inches): 1.00 Weight (Pounds): 134 Objective WDWN NCAT supple CTA RR abd soft nt ND no edema Kristine Alexander MD Oct 30, 2019 16:53
--- NOTE | 2019-10-30 18:34 | NUR ---
NURSE NOTES: Received telephone order from Dr Bird to discontinue santana catheter. Order read back, verified, and placed. Santnaa removed at this time. Will monitor patient for urine retention/bladder distention.
--- NOTE | 2019-10-30 19:36 | NUR ---
HAND-OFF: Report given to RAMOS Johnson. Vital signs stable. Endorsed to follow up.
--- NOTE | 2019-10-30 19:40 | NUR ---
NURSE NOTES: Received report from RAMOS HARTMAN using SBAR.Patient is awake , oriented to person, time, place and purpose.on RA with no acute distress. vs stable. Afebrile. SR on steamer operator. Denies any pain or discomfort at this time.IV to RAC 18G intact and NS running at 50cc/hr.patient bed in low position with bed alarm on and call light in reach. skin intact.will continue plan of care.
--- NOTE | 2019-10-30 22:30 | General Progress Note ---
Assessment/Plan Problem List: (1) Symptomatic anemia ICD Codes: D64.9 - Anemia, unspecified SNOMED: 704253196 (2) Sepsis ICD Codes: A41.9 - Sepsis, unspecified organism SNOMED: 55215899 Qualifiers: Qualified Codes: A41.9 - Sepsis, unspecified organism; R65.21 - Severe sepsis with septic shock; N17.9 - Acute kidney failure, unspecified (3) Hypotension ICD Codes: I95.9 - Hypotension, unspecified SNOMED: 67185094 Qualifiers: Qualified Codes: I95.9 - Hypotension, unspecified (4) Renal failure (ARF), acute on chronic ICD Codes: N17.9 - Acute kidney failure, unspecified; N18.9 - Chronic kidney disease, unspecified SNOMED: 699101894 Status: progressing Assessment/Plan: sepsis is imrpovng pna immunecompromised hypotension resolved off pressor Subjective ROS Limited/Unobtainable: Yes Allergies: Coded Allergies: No Known Allergies (Unverified , 10/26/19) Objective Last 24 Hour Vital Signs Date Time Temp Pulse Resp B/P (MAP) Pulse Ox O2 Delivery O2 Flow Rate FiO2 10/30/19 20:00 99.7 82 20 140/73 (95) 96 10/30/19 20:00 Room Air 10/30/19 17:21 81 10/30/19 16:00 99.1 81 20 142/61 (88) 99 10/30/19 16:00 Room Air 10/30/19 12:00 99.1 70 19 121/62 (81) 99 10/30/19 12:00 Room Air 10/30/19 12:00 63 10/30/19 08:07 Room Air 10/30/19 08:00 87 10/30/19 08:00 98.1 75 20 134/71 (92) 99 10/30/19 06:00 77 24 127/61 (83) 95 10/30/19 05:00 81 26 121/74 (90) 95 10/30/19 04:00 76 10/30/19 04:00 98.7 78 20 111/52 (71) 96 10/30/19 04:00 Room Air 10/30/19 03:00 79 20 117/50 (72) 96 10/30/19 02:00 78 19 118/48 (71) 96 10/30/19 01:00 80 23 120/48 (72) 96 10/30/19 00:00 Room Air 10/30/19 00:00 99.0 78 21 122/53 (76) 94 10/29/19 23:00 86 23 140/60 (86) 100 Intake and Output 10/29/19 10/30/19 19:00 07:00 Intake Total 955 ml 700 ml Output Total 1540 ml 1540 ml Balance -585 ml -840 ml Intake Oral 300 ml 100 ml IV Total 655 ml 600 ml Output Urine Total 1540 ml 1540 ml # Bowel Movements 4 Laboratory Tests 10/30/19 04:30: White Blood Count 2.2L, Red Blood Count 2.42L, Hemoglobin 7.8L, Hematocrit 21.8L , Mean Corpuscular Volume 90, Mean Corpuscular Hemoglobin 32.3H, Mean Corpuscular Hemoglobin Concent 35.9, Red Cell Distribution Width 14.9H, Platelet Count 43L, Mean Platelet Volume 6.2L, Neutrophils (%) (Auto) , Lymphocytes (%) (Auto) , Monocytes (%) (Auto) , Eosinophils (%) (Auto) , Basophils (%) (Auto) , Differential Total Cells Counted 100, Neutrophils % ( Manual) 57, Lymphocytes % (Manual) 37, Monocytes % (Manual) 5, Eosinophils % ( Manual) 1, Basophils % (Manual) 0, Band Neutrophils 0, Platelet Estimate DecreasedL, Platelet Morphology Normal, Hypochromasia 3+, Anisocytosis 1+, Sodium Level 142, Potassium Level 3.5, Chloride Level 110H, Carbon Dioxide Level 25, Anion Gap 7, Blood Urea Nitrogen 8, Creatinine 0.8, Estimat Glomerular Filtration Rate > 60, Glucose Level 88, Calcium Level 7.6L, Phosphorus Level 3.0, Magnesium Level 1.4L, Total Bilirubin 0.5, Aspartate Amino Transf (AST/SGOT) 25, Alanine Aminotransferase (ALT/SGPT) 21, Alkaline Phosphatase 117H, C-Reactive Protein, Quantitative 9.9H, Pro-B-Type Natriuretic Peptide 5420H, Total Protein 5.6L, Albumin 1.8L, Globulin 3.8, Albumin/Globulin Ratio 0.5L Height (Feet): 5 Height (Inches): 1.00 Weight (Pounds): 134 Neck: supple Cardiovascular: normal rate Respiratory/Chest: lungs clear Abdomen: soft Alea Melendez MD Oct 30, 2019 22:30
[2019-10-31] VITALS: BP 132/65
--- NOTE | 2019-10-31 | NUR ---
NURSE NOTES: Patient is sleeping with no acute distress noted. no s/s of pain at this time. vss. Afebrile. SR on the monitor. keep patient comfortable.
--- NOTE | 2019-10-31 02:00 | NUR ---
NURSE NOTES: Patient transferred from [facility], stable condition, received report from Elizabeth BEASLEY, AOx4, denies pain at this time, IV site on right AC, g 18, asymptomatic, intact, patient ambulatory , steady gait, bed low&locked, call light within reach , will continue to monitor and reassess
--- NOTE | 2019-10-31 02:00 | NUR ---
TRANSFER TO FLOOR: Patient transferred to 2E Room 220-1. Report given to RAMOS SHARMA. Checked Belongings and medications given to RAMOS SHARMA. No acute distress upon transfer. Family and or S/O informed of transfer.
[2019-10-31] MEDS ORDERED: DiphenhydrAMINE 50mg/ml Inj IVP PRN (02:30)
[2019-10-31] MEDS ORDERED: HYDROcodone/Acetamin 5/325 tab ORAL PRN (02:30)
[2019-10-31] MEDS ORDERED: Hydromorphone 0.5mg/0.5ml inj IVP PRN (02:30)
[2019-10-31 04:00] VITALS: BP 128/69
[2019-10-31] MEDS: NovoLOG Insulin Flexpen SUBQ SCH ×4 (06:30→21:00)
--- NOTE | 2019-10-31 07:46 | NUR ---
HAND-OFF: Report given to RAMOS Sterling, patient in stable condition, plan of care endorsed.
--- NOTE | 2019-10-31 07:53 | NUR ---
NURSE NOTES: Patient received from Jessika Gandara RN. Patient stable AOx4 with no complaints at this time, no s/sx of distress. RR even and unlabored on RA. Ambulated to BSC with steady gait. Bed low and locked, side rails upx2, call light within reach. Will continue to monitor.
[2019-10-31 08:00] VITALS: BP 144/78
[2019-10-31 08:46] LABS: HEMATOCRIT 22.1 % (37.0-47.0); HEMOGLOBIN 8.1 G/DL (12.0-16.0); MEAN CORPUSCULAR VOLUME 90 FL (80-99); PLATELET COUNT 38 K/UL (150-450); RED BLOOD COUNT 2.46 M/UL (4.20-5.40); RED CELL DISTRIBUTION WIDTH 14.8 % (11.6-14.8); WHITE BLOOD COUNT 2.3 K/UL (4.8-10.8)
[2019-10-31 09:05] LABS: ALANINE AMINOTRANSFERASE 37 U/L (12-78); ALBUMIN 2.1 G/DL (3.4-5.0); ALBUMIN/GLOBULIN RATIO 0.5 (1.0-2.7); ALKALINE PHOSPHATASE 136 U/L (46-116); ANION GAP 8 mmol/L (5-15); ASPARTATE AMINO TRANSFERASE 28 U/L (15-37); BILIRUBIN,TOTAL 0.3 MG/DL (0.2-1.0); BLOOD UREA NITROGEN 9 mg/dL (7-18); CALCIUM 7.8 MG/DL (8.5-10.1); CARBON DIOXIDE 27 MMOL/L (21-32); CHLORIDE 108 MMOL/L (98-107); POTASSIUM 3.1 MMOL/L (3.5-5.1); SODIUM 143 MMOL/L (136-145)
--- NOTE | 2019-10-31 10:01 | Pulmonolgy Critical Care Note ---
Critical Care - Asmt/Plan Assessment/Plan: Pulmonary Progress Note HPI Patient is a 64-year-old female with past medical history of Stomach cancer, Ovarian Cancer, Hypertension, history of recent chemotherapy ,admitted with with fever/chills for one day, weakness, noted to have severe anemia, hypotension, evidence of urinary tract infection, clear CXR, normal O2 sats on RA, no acute changes on EKG GNR on BC match Urine Ecoli Feels improved, off pressors, now on floor - Tele LE Dupplex negative for DVT CT Abdomen no hydronephrosis Allergies: No Known Allergies Past Medical History: Stomach cancer, hypertension All Other Systems: negative except mentioned in HPI Physical Exam Vital Signs Noted General Appearance: well appearing, no apparent distress, alert, pale Head: normocephalic, atraumatic Eyes: bilateral eye PERRL, bilateral eye EOMI ENT: uvula midline, dry mucus membranes Neck: supple, thyroid normal, supple/symm/no masses Respiratory: lungs clear, no respiratory distress, no retraction, no accessory muscle use Cardiovascular: normal peripheral pulses, regular rate, rhythm, HS1, HS2 normal , no gallop, no murmur Gastrointestinal: non tender, soft, no guarding, no rebound Musculoskeletal: normal inspection Neurologic: alert, oriented x3, no focal signs, no seizures Psychiatric: mood/affect normal Skin: no rash, warm/dry, no edema EKG: NSR, rate 66, QTc 436, no acute ST elevations, normal axis CXR: No acute changes LE Dupplex negative UA: S/o infection CBC: Severe anemia Impression: Stomach Cancer/Ovarian Cancer s/p recent Chemotherapy Urosepsis, Ecoli on BC Severe Anemia s/p Transfusion Thrombocytopenia Hypokalemia H/o Hypertension Dehydration Hyponatremia Azotemia Elevated BNP Hyperglycemia Plan: - IV Antibiotics per ID - IVF - Pressors PRN - Transfuse PRN - IV Protonix - R/o DVT, SCD's - Monitor labs - ORDER DISPATCHER 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 RX --------- --- AMPICILLIN >=32 R CEFAZOLIN <=4 S CEFTRIAXONE <=1 S CIPROFLOXACIN <=0.25 S ERTAPENEM <=0.5 S GENTAMICIN 8 I LEVOFLOXACIN 1 S IMIPENEM <=0.25 S NITROFURANTOIN <=16 S TRIMETHOPRIM/SULFA >=320 R AMIKACIN <=2 S PIPERACILLIN/TAZOBACTAM 8 S Critical Care - Objective Last 24 Hour Vital Signs Date Time Temp Pulse Resp B/P (MAP) Pulse Ox O2 Delivery O2 Flow Rate FiO2 10/31/19 04:00 87 10/31/19 04:00 99.1 77 20 128/69 (88) 98 10/31/19 00:00 86 10/31/19 00:00 Room Air 10/31/19 00:00 100.0 82 20 132/65 (87) 98 10/30/19 20:00 86 10/30/19 20:00 99.7 82 20 140/73 (95) 96 10/30/19 20:00 Room Air 10/30/19 17:21 81 10/30/19 16:00 99.1 81 20 142/61 (88) 99 10/30/19 16:00 Room Air 10/30/19 12:00 99.1 70 19 121/62 (81) 99 10/30/19 12:00 Room Air 10/30/19 12:00 63 Accucheck: 96 Critical Care - Subjective ROS Limited/Unobtainable: No Condition: improving EKG Rhythm: Sinus Rhythm I&O: Intake and Output 10/30/19 10/31/19 19:00 07:00 Intake Total 1005 ml 250 ml Output Total 1300 ml 700 ml Balance -295 ml -450 ml IV Total 1005 ml 250 ml Output Urine Total 1300 ml 700 ml # Voids 2 # Bowel Movements 2 Ajit Land MD Oct 31, 2019 10:01
[2019-10-31] MEDS ORDERED: NS 275ml ONE (10:03)
[2019-10-31 10:18] LABS: PHOSPHORUS 2.8 MG/DL (2.5-4.9)
--- NOTE | 2019-10-31 11:55 | Nephrology Progress Note ---
Assessment/Plan Problem List: (1) Renal failure (ARF), acute on chronic Assessment: resolved (2) Hypotension (3) Sepsis (4) Symptomatic anemia Assessment Renal failure resolving Hypotension resolving Sepsis ? UTI Symptomatic anemia Plan PO Mag and KCl Anemia whalen- Transfused antibiotics avoid nephrotoxics urine studies JOSEPH kidney No Willard 2D echo Noted Subjective ROS Limited/Unobtainable: No Constitutional: Reports: malaise Objective Objective Last 24 Hour Vital Signs Date Time Temp Pulse Resp B/P (MAP) Pulse Ox O2 Delivery O2 Flow Rate FiO2 10/31/19 09:00 Room Air 10/31/19 08:00 98.0 83 18 144/78 (100) 98 10/31/19 08:00 85 10/31/19 04:00 87 10/31/19 04:00 99.1 77 20 128/69 (88) 98 10/31/19 00:00 86 10/31/19 00:00 Room Air 10/31/19 00:00 100.0 82 20 132/65 (87) 98 10/30/19 20:00 86 10/30/19 20:00 99.7 82 20 140/73 (95) 96 10/30/19 20:00 Room Air 10/30/19 17:21 81 10/30/19 16:00 99.1 81 20 142/61 (88) 99 10/30/19 16:00 Room Air 10/30/19 12:00 99.1 70 19 121/62 (81) 99 10/30/19 12:00 Room Air 10/30/19 12:00 63 Intake and Output 10/30/19 10/31/19 19:00 07:00 Intake Total 1005 ml 250 ml Output Total 1300 ml 700 ml Balance -295 ml -450 ml IV Total 1005 ml 250 ml Output Urine Total 1300 ml 700 ml # Voids 2 # Bowel Movements 2 Current Medications Medications (Trade) Dose Ordered Sig/Poonam Route PRN Reason Start Time Stop Time Status Last Admin Dose Admin Acetaminophen (Tylenol) 650 mg Q6H PRN ORAL Mild Pain/Temp > 100.5 10/31/19 02:30 11/25/19 02:29 Acetaminophen/ Hydrocodone Bitart ([place] 5/325) 1 tab Q6H PRN ORAL Moderate Pain (Pain Scale 4-6) 10/31/19 02:30 11/02/19 02:29 Ceftriaxone Sodium 1 gm/ Dextrose 55 ml @ 110 mls/hr Q24H IVPB 10/31/19 16:00 11/05/19 15:59 Dextrose (Dextrose 50%) 25 ml Q30M PRN IV Hypoglycemia 10/31/19 02:30 11/25/19 17:59 Dextrose (Dextrose 50%) 50 ml Q30M PRN IV Hypoglycemia 10/31/19 02:30 11/25/19 17:59 Diphenhydramine HCl (Benadryl) 25 mg Q6H PRN IVP Itching 10/31/19 02:30 11/25/19 02:29 Hydromorphone HCl (Dilaudid) 0.5 mg Q3H PRN IVP Severe Pain (Pain Scale 7-10) 10/31/19 02:30 11/02/19 02:29 Insulin Aspart (NovoLOG) BEFORE MEALS AND HS SUBQ 10/31/19 06:30 11/25/19 20:59 Ondansetron HCl (Zofran) 4 mg Q6H PRN IVP Nausea & Vomiting 10/31/19 02:30 11/25/19 02:29 Pantoprazole (Protonix) 40 mg EVERY 12 HOURS ORAL 10/31/19 09:00 11/27/19 20:59 10/31/19 08:10 Potassium Chloride (K-Dur) 20 meq TWICE A DAY ORAL 10/31/19 10:00 11/01/19 09:59 10/31/19 10:12 Laboratory Tests 10/31/19 08:25: White Blood Count 2.3L, Red Blood Count 2.46L, Hemoglobin 8.1L, Hematocrit 22.1L , Mean Corpuscular Volume 90, Mean Corpuscular Hemoglobin 33.1H, Mean Corpuscular Hemoglobin Concent 36.8H, Red Cell Distribution Width 14.8, Platelet Count 38L, Mean Platelet Volume 8.6, Neutrophils (%) (Auto) , Lymphocytes (%) (Auto) , Monocytes (%) (Auto) , Eosinophils (%) (Auto) , Basophils (%) (Auto) , Differential Total Cells Counted 100, Neutrophils % ( Manual) 55, Lymphocytes % (Manual) 36, Monocytes % (Manual) 6, Eosinophils % ( Manual) 3, Basophils % (Manual) 0, Band Neutrophils 0, Platelet Estimate DecreasedL, Platelet Morphology Normal, Anisocytosis 1+, Sodium Level 143, Potassium Level 3.1L, Chloride Level 108H, Carbon Dioxide Level 27, Anion Gap 8 , Blood Urea Nitrogen 9, Creatinine 1.0, Estimat Glomerular Filtration Rate 55.7 , Glucose Level 122H, Calcium Level 7.8L, Phosphorus Level 2.8, Magnesium Level 1.6L, Total Bilirubin 0.3, Aspartate Amino Transf (AST/SGOT) 28, Alanine Aminotransferase (ALT/SGPT) 37, Alkaline Phosphatase 136H, Total Protein 6.2L, Albumin 2.1L, Globulin 4.1, Albumin/Globulin Ratio 0.5L Height (Feet): 5 Height (Inches): 1.00 Weight (Pounds): 134 General Appearance: no apparent distress Objective no change Alverto Bird MD Oct 31, 2019 11:55
[2019-10-31 12:00] VITALS: BP 133/82
[2019-10-31] MEDS: Magnesium Oxide 400mg tab ORAL SCH ×2 (13:11→17:28)
--- NOTE | 2019-10-31 14:02 | Infectious Diseases Prog Note ---
Assessment/Plan Assessment/Plan A; E. coli sepsis E. coli UTI Pancytopenia Stomach cancer Acute renal failure, resolved P; Continue Rocephin Subjective ROS Limited/Unobtainable: No Constitutional: Reports: fever, other - low grade Respiratory: Reports: dry cough Cardiovascular: Reports: no symptoms Gastrointestinal/Abdominal: Reports: no symptoms Genitourinary: Reports: no symptoms Allergies: Coded Allergies: No Known Allergies (Unverified , 10/26/19) Objective Vital Signs Last 24 Hour Vital Signs Date Time Temp Pulse Resp B/P (MAP) Pulse Ox O2 Delivery O2 Flow Rate FiO2 10/31/19 12:00 71 10/31/19 12:00 97.9 77 18 133/82 (99) 97 10/31/19 09:00 Room Air 10/31/19 08:00 98.0 83 18 144/78 (100) 98 10/31/19 08:00 85 10/31/19 04:00 87 10/31/19 04:00 99.1 77 20 128/69 (88) 98 10/31/19 00:00 86 10/31/19 00:00 Room Air 10/31/19 00:00 100.0 82 20 132/65 (87) 98 10/30/19 20:00 86 10/30/19 20:00 99.7 82 20 140/73 (95) 96 10/30/19 20:00 Room Air 10/30/19 17:21 81 10/30/19 16:00 99.1 81 20 142/61 (88) 99 10/30/19 16:00 Room Air Height (Feet): 5 Height (Inches): 1.00 Weight (Pounds): 134 General Appearance: no acute distress HEENT: mucous membranes moist Respiratory/Chest: lungs clear Cardiovascular: normal rate Abdomen: soft, non tender Extremities: no edema Neurologic/Psychiatric: alert, oriented x 3, responsive Laboratory Tests Test 10/31/19 08:25 White Blood Count 2.3 K/UL (4.8-10.8) L Red Blood Count 2.46 M/UL (4.20-5.40) L Hemoglobin 8.1 G/DL (12.0-16.0) L Hematocrit 22.1 % (37.0-47.0) L Mean Corpuscular Volume 90 FL (80-99) Mean Corpuscular Hemoglobin 33.1 PG (27.0-31.0) H Mean Corpuscular Hemoglobin Concent 36.8 G/DL (32.0-36.0) H Red Cell Distribution Width 14.8 % (11.6-14.8) Platelet Count 38 K/UL (150-450) L Mean Platelet Volume 8.6 FL (6.5-10.1) Neutrophils (%) (Auto) % (45.0-75.0) Lymphocytes (%) (Auto) % (20.0-45.0) Monocytes (%) (Auto) % (1.0-10.0) Eosinophils (%) (Auto) % (0.0-3.0) Basophils (%) (Auto) % (0.0-2.0) Differential Total Cells Counted 100 Neutrophils % (Manual) 55 % (45-75) Lymphocytes % (Manual) 36 % (20-45) Monocytes % (Manual) 6 % (1-10) Eosinophils % (Manual) 3 % (0-3) Basophils % (Manual) 0 % (0-2) Band Neutrophils 0 % (0-8) Platelet Estimate Decreased L Platelet Morphology Normal Anisocytosis 1+ Sodium Level 143 MMOL/L (136-145) Potassium Level 3.1 MMOL/L (3.5-5.1) L Chloride Level 108 MMOL/L (98-107) H Carbon Dioxide Level 27 MMOL/L (21-32) Anion Gap 8 mmol/L (5-15) Blood Urea Nitrogen 9 mg/dL (7-18) Creatinine 1.0 MG/DL (0.55-1.30) Estimat Glomerular Filtration Rate 55.7 mL/min (>60) Glucose Level 122 MG/DL (74-106) H Calcium Level 7.8 MG/DL (8.5-10.1) L Phosphorus Level 2.8 MG/DL (2.5-4.9) Magnesium Level 1.6 MG/DL (1.8-2.4) L Total Bilirubin 0.3 MG/DL (0.2-1.0) Aspartate Amino Transf (AST/SGOT) 28 U/L (15-37) Alanine Aminotransferase (ALT/SGPT) 37 U/L (12-78) Alkaline Phosphatase 136 U/L (46-116) H Total Protein 6.2 G/DL (6.4-8.2) L Albumin 2.1 G/DL (3.4-5.0) L Globulin 4.1 g/dL Albumin/Globulin Ratio 0.5 (1.0-2.7) L Current Medications Medications (Trade) Dose Ordered Sig/Poonam Route PRN Reason Start Time Stop Time Status Last Admin Dose Admin Acetaminophen (Tylenol) 650 mg Q6H PRN ORAL Mild Pain/Temp > 100.5 10/31/19 02:30 11/25/19 02:29 Acetaminophen/ Hydrocodone Bitart ([place] 5/325) 1 tab Q6H PRN ORAL Moderate Pain (Pain Scale 4-6) 10/31/19 02:30 11/02/19 02:29 Ceftriaxone Sodium 1 gm/ Dextrose 55 ml @ 110 mls/hr Q24H IVPB 10/31/19 16:00 11/05/19 15:59 Dextrose (Dextrose 50%) 25 ml Q30M PRN IV Hypoglycemia 10/31/19 02:30 11/25/19 17:59 Dextrose (Dextrose 50%) 50 ml Q30M PRN IV Hypoglycemia 10/31/19 02:30 11/25/19 17:59 Diphenhydramine HCl (Benadryl) 25 mg Q6H PRN IVP Itching 10/31/19 02:30 11/25/19 02:29 Hydromorphone HCl (Dilaudid) 0.5 mg Q3H PRN IVP Severe Pain (Pain Scale 7-10) 10/31/19 02:30 11/02/19 02:29 Insulin Aspart (NovoLOG) BEFORE MEALS AND HS SUBQ 10/31/19 06:30 11/25/19 20:59 Magnesium Oxide (Mag-Ox 400mg) 400 mg THREE TIMES A DAY ORAL 10/31/19 13:00 11/30/19 12:59 10/31/19 13:11 Ondansetron HCl (Zofran) 4 mg Q6H PRN IVP Nausea & Vomiting 10/31/19 02:30 11/25/19 02:29 Pantoprazole (Protonix) 40 mg EVERY 12 HOURS ORAL 10/31/19 09:00 11/27/19 20:59 10/31/19 08:10 Potassium Chloride (K-Dur) 40 meq TWICE A DAY ORAL 10/31/19 18:00 11/30/19 17:59 Evelio Hill MD Oct 31, 2019 14:02
--- NOTE | 2019-10-31 15:37 | General Progress Note ---
Assessment/Plan Status: progressing Assessment/Plan: Assessment - gastric CA, s/p resection - Anemia - OB (-) stools - pancytopenia Recommendations - po diet - monitor labs - check OB - neg - Heme/Onc f/u - transfuse PRN Subjective Allergies: Coded Allergies: No Known Allergies (Unverified , 10/26/19) Subjective Feels better no vomiting tolerating PO Objective Last 24 Hour Vital Signs Date Time Temp Pulse Resp B/P (MAP) Pulse Ox O2 Delivery O2 Flow Rate FiO2 10/31/19 12:00 71 10/31/19 12:00 97.9 77 18 133/82 (99) 97 10/31/19 09:00 Room Air 10/31/19 08:00 98.0 83 18 144/78 (100) 98 10/31/19 08:00 85 10/31/19 04:00 87 10/31/19 04:00 99.1 77 20 128/69 (88) 98 10/31/19 00:00 86 10/31/19 00:00 Room Air 10/31/19 00:00 100.0 82 20 132/65 (87) 98 10/30/19 20:00 86 10/30/19 20:00 99.7 82 20 140/73 (95) 96 10/30/19 20:00 Room Air 10/30/19 17:21 81 10/30/19 16:00 99.1 81 20 142/61 (88) 99 10/30/19 16:00 Room Air Intake and Output 10/30/19 10/31/19 19:00 07:00 Intake Total 1005 ml 250 ml Output Total 1300 ml 700 ml Balance -295 ml -450 ml IV Total 1005 ml 250 ml Output Urine Total 1300 ml 700 ml # Voids 2 # Bowel Movements 2 Laboratory Tests 10/31/19 08:25: White Blood Count 2.3L, Red Blood Count 2.46L, Hemoglobin 8.1L, Hematocrit 22.1L , Mean Corpuscular Volume 90, Mean Corpuscular Hemoglobin 33.1H, Mean Corpuscular Hemoglobin Concent 36.8H, Red Cell Distribution Width 14.8, Platelet Count 38L, Mean Platelet Volume 8.6, Neutrophils (%) (Auto) , Lymphocytes (%) (Auto) , Monocytes (%) (Auto) , Eosinophils (%) (Auto) , Basophils (%) (Auto) , Differential Total Cells Counted 100, Neutrophils % ( Manual) 55, Lymphocytes % (Manual) 36, Monocytes % (Manual) 6, Eosinophils % ( Manual) 3, Basophils % (Manual) 0, Band Neutrophils 0, Platelet Estimate DecreasedL, Platelet Morphology Normal, Anisocytosis 1+, Sodium Level 143, Potassium Level 3.1L, Chloride Level 108H, Carbon Dioxide Level 27, Anion Gap 8 , Blood Urea Nitrogen 9, Creatinine 1.0, Estimat Glomerular Filtration Rate 55.7 , Glucose Level 122H, Calcium Level 7.8L, Phosphorus Level 2.8, Magnesium Level 1.6L, Total Bilirubin 0.3, Aspartate Amino Transf (AST/SGOT) 28, Alanine Aminotransferase (ALT/SGPT) 37, Alkaline Phosphatase 136H, Total Protein 6.2L, Albumin 2.1L, Globulin 4.1, Albumin/Globulin Ratio 0.5L Height (Feet): 5 Height (Inches): 1.00 Weight (Pounds): 134 Objective WDWN NCAT supple CTA RR abd soft nt ND no edema Kristine Alexander MD Oct 31, 2019 15:37
[2019-10-31 16:00] VITALS: BP 136/71
[2019-10-31] MEDS: cefTRIAXone 1 GM in D5W 55 ML IVPB SCH (16:30)
--- NOTE | 2019-10-31 19:42 | NUR ---
HAND-OFF: Report given to Jessika Gandara RN. Patient stable. Endorsed plan of care.
--- NOTE | 2019-10-31 19:42 | NUR ---
NURSE NOTES: received patient from Hallie in stable condition, AOx4, denies pain at this time, IV site on right FA, g 22, asymptomatic, intact, patient ambulatory , steady gait, bed low&locked, call light within reach , will continue to monitor and reassess
[2019-10-31 20:00] VITALS: BP 135/72
--- NOTE | 2019-10-31 20:13 | Hematology/Onc Progress Note ---
Assessment/Plan Assessment/Plan Assessment and Recs: # Stomach cancer with a history of ovarian resection in 2019 recently --> sees Dr. Alicea at [facility] --> hold off lynparza at this time that is fda approved for BRCA-mutated tumors --> may be a cause of anemia as well --> recover from anemia 1st # Anemia due to myelosuppression from chemo --> Anemia workup has been ordered, rule out gi bleed --> No evidence of hemolysis is noted, peripheral smear has been reviewed. --> Hgb goal >7. Transfuse prn. --> Epogen or iron at this time is not particularly indicated --> Medications have been reviewed --> low threshold for gi evaluation in case has occult + --> hgb trend 5.7-->9.4-->8.2-->8.1 # Thrombocytopenia - potential causes multifactorial, in this case due to sepsis , s/p ABX and PRESSORS --> Hep panel and HIVboth negative --> US abd to evaluate for cirrhosis and hsm ordered --> Peripheral smear ordered to evaluate for blasts /schistocytes --> abx and other meds have been reviewed --> ok for ppx if plt >50k w/ either heparin or lovenox --> Transfuse if Plt < 20k and fever, or if Plt < 10k without fever --> plt trend 101-->84-->62-->38 # Septic shock with Hypotension --> pressors and abx --> as per id # Critically ill in the icu --> out of icu on 10/31 Appreciate consultation and kevin Fields Subjective Allergies: Coded Allergies: No Known Allergies (Unverified , 10/26/19) Subjective 10/28: icu, awake, no acute events, levo drip, h/h stable 10/29: no major changes, kevin rn, labs noted, no bleeding 10/31:awake and alert, transferred from [facility],, hep/hiv negative, ceftriaxone Objective Objective Current Medications Medications (Trade) Dose Ordered Sig/Poonam Route PRN Reason Start Time Stop Time Status Last Admin Dose Admin Acetaminophen (Tylenol) 650 mg Q6H PRN ORAL Mild Pain/Temp > 100.5 10/31/19 02:30 11/25/19 02:29 Acetaminophen/ Hydrocodone Bitart ([place] 5/325) 1 tab Q6H PRN ORAL Moderate Pain (Pain Scale 4-6) 10/31/19 02:30 11/02/19 02:29 Ceftriaxone Sodium 1 gm/ Dextrose 55 ml @ 110 mls/hr Q24H IVPB 10/31/19 16:00 11/05/19 15:59 10/31/19 16:30 Dextrose (Dextrose 50%) 25 ml Q30M PRN IV Hypoglycemia 10/31/19 02:30 11/25/19 17:59 Dextrose (Dextrose 50%) 50 ml Q30M PRN IV Hypoglycemia 10/31/19 02:30 11/25/19 17:59 Diphenhydramine HCl (Benadryl) 25 mg Q6H PRN IVP Itching 10/31/19 02:30 11/25/19 02:29 Hydromorphone HCl (Dilaudid) 0.5 mg Q3H PRN IVP Severe Pain (Pain Scale 7-10) 10/31/19 02:30 11/02/19 02:29 Insulin Aspart (NovoLOG) BEFORE MEALS AND HS SUBQ 10/31/19 06:30 11/25/19 20:59 Magnesium Oxide (Mag-Ox 400mg) 400 mg THREE TIMES A DAY ORAL 10/31/19 13:00 11/30/19 12:59 10/31/19 17:28 Ondansetron HCl (Zofran) 4 mg Q6H PRN IVP Nausea & Vomiting 10/31/19 02:30 11/25/19 02:29 Pantoprazole (Protonix) 40 mg EVERY 12 HOURS ORAL 10/31/19 09:00 11/27/19 20:59 10/31/19 08:10 Potassium Chloride (K-Dur) 40 meq TWICE A DAY ORAL 10/31/19 18:00 11/30/19 17:59 10/31/19 17:28 Last 24 Hour Vital Signs Date Time Temp Pulse Resp B/P (MAP) Pulse Ox O2 Delivery O2 Flow Rate FiO2 10/31/19 16:00 95 10/31/19 16:00 98.4 75 18 136/71 (92) 97 10/31/19 12:00 71 10/31/19 12:00 97.9 77 18 133/82 (99) 97 10/31/19 09:00 Room Air 2/2/20 08:00 98.0 83 18 144/78 (100) 98 10/31/19 08:00 85 10/31/19 04:00 87 10/31/19 04:00 99.1 77 20 128/69 (88) 98 10/31/19 00:00 86 10/31/19 00:00 Room Air 10/31/19 00:00 100.0 82 20 132/65 (87) 98 10/30/19 20:00 86 10/30/19 20:00 99.7 82 20 140/73 (95) 96 10/30/19 20:00 Room Air 10/30/19 17:21 81 10/30/19 16:00 99.1 81 20 142/61 (88) 99 10/30/19 16:00 Room Air 10/30/19 12:00 99.1 70 19 121/62 (81) 99 10/30/19 12:00 Room Air 10/30/19 12:00 63 10/30/19 08:07 Room Air 10/30/19 08:00 87 10/30/19 08:00 98.1 75 20 134/71 (92) 99 10/30/19 06:00 77 24 127/61 (83) 95 10/30/19 05:00 81 26 121/74 (90) 95 10/30/19 04:00 76 10/30/19 04:00 98.7 78 20 111/52 (71) 96 10/30/19 04:00 Room Air 10/30/19 03:00 79 20 117/50 (72) 96 10/30/19 02:00 78 19 118/48 (71) 96 10/30/19 01:00 80 23 120/48 (72) 96 10/30/19 00:00 Room Air 10/30/19 00:00 99.0 78 21 122/53 (76) 94 10/29/19 23:00 86 23 140/60 (86) 100 10/29/19 22:00 82 29 143/61 (88) 98 10/29/19 21:00 86 25 134/64 (87) 98 Intake and Output 10/30/19 10/31/19 18:59 06:59 Intake Total 1005 ml 300 ml Output Total 1430 ml 700 ml Balance -425 ml -400 ml IV Total 1005 ml 300 ml Output Urine Total 1430 ml 700 ml # Voids 2 # Bowel Movements 2 Labs Test 10/29/19 06:00 10/29/19 12:00 10/30/19 04:30 10/31/19 08:25 Urine Eosinophils None seen (NONE SEEN) Stool Occult Blood Negative (NEGATIVE) White Blood Count 2.2 K/UL (4.8-10.8) 2.3 K/UL (4.8-10.8) Red Blood Count 2.42 M/UL (4.20-5.40) 2.46 M/UL (4.20-5.40) Hemoglobin 7.8 G/DL (12.0-16.0) 8.1 G/DL (12.0-16.0) Hematocrit 21.8 % (37.0-47.0) 22.1 % (37.0-47.0) Mean Corpuscular Volume 90 FL (80-99) 90 FL (80-99) Mean Corpuscular Hemoglobin 32.3 PG (27.0-31.0) 33.1 PG (27.0-31.0) Mean Corpuscular Hemoglobin Concent 35.9 G/DL (32.0-36.0) 36.8 G/DL (32.0-36.0) Red Cell Distribution Width 14.9 % (11.6-14.8) 14.8 % (11.6-14.8) Platelet Count 43 K/UL (150-450) 38 K/UL (150-450) Mean Platelet Volume 6.2 FL (6.5-10.1) 8.6 FL (6.5-10.1) Neutrophils (%) (Auto) % (45.0-75.0) % (45.0-75.0) Lymphocytes (%) (Auto) % (20.0-45.0) % (20.0-45.0) Monocytes (%) (Auto) % (1.0-10.0) % (1.0-10.0) Eosinophils (%) (Auto) % (0.0-3.0) % (0.0-3.0) Basophils (%) (Auto) % (0.0-2.0) % (0.0-2.0) Differential Total Cells Counted 100 100 Neutrophils % (Manual) 57 % (45-75) 55 % (45-75) Lymphocytes % (Manual) 37 % (20-45) 36 % (20-45) Monocytes % (Manual) 5 % (1-10) 6 % (1-10) Eosinophils % (Manual) 1 % (0-3) 3 % (0-3) Basophils % (Manual) 0 % (0-2) 0 % (0-2) Band Neutrophils 0 % (0-8) 0 % (0-8) Platelet Estimate Decreased Decreased Platelet Morphology Normal Normal Hypochromasia 3+ Anisocytosis 1+ 1+ Sodium Level 142 MMOL/L (136-145) 143 MMOL/L (136-145) Potassium Level 3.5 MMOL/L (3.5-5.1) 3.1 MMOL/L (3.5-5.1) Chloride Level 110 MMOL/L (98-107) 108 MMOL/L (98-107) Carbon Dioxide Level 25 MMOL/L (21-32) 27 MMOL/L (21-32) Anion Gap 7 mmol/L (5-15) 8 mmol/L (5-15) Blood Urea Nitrogen 8 mg/dL (7-18) 9 mg/dL (7-18) Creatinine 0.8 MG/DL (0.55-1.30) 1.0 MG/DL (0.55-1.30) Estimat Glomerular Filtration Rate > 60 mL/min (>60) 55.7 mL/min (>60) Glucose Level 88 MG/DL (74-106) 122 MG/DL (74-106) Calcium Level 7.6 MG/DL (8.5-10.1) 7.8 MG/DL (8.5-10.1) Phosphorus Level 3.0 MG/DL (2.5-4.9) 2.8 MG/DL (2.5-4.9) Magnesium Level 1.4 MG/DL (1.8-2.4) 1.6 MG/DL (1.8-2.4) Total Bilirubin 0.5 MG/DL (0.2-1.0) 0.3 MG/DL (0.2-1.0) Aspartate Amino Transf (AST/SGOT) 25 U/L (15-37) 28 U/L (15-37) Alanine Aminotransferase (ALT/SGPT) 21 U/L (12-78) 37 U/L (12-78) Alkaline Phosphatase 117 U/L (46-116) 136 U/L (46-116) C-Reactive Protein, Quantitative 9.9 mg/dL (0.00-0.90) Pro-B-Type Natriuretic Peptide 5420 pg/mL (0-125) Total Protein 5.6 G/DL (6.4-8.2) 6.2 G/DL (6.4-8.2) Albumin 1.8 G/DL (3.4-5.0) 2.1 G/DL (3.4-5.0) Globulin 3.8 g/dL 4.1 g/dL Albumin/Globulin Ratio 0.5 (1.0-2.7) 0.5 (1.0-2.7) Height (Feet): 5 Height (Inches): 1.00 Weight (Pounds): 134 Objective Physical Exam: Vitals: reviewed General Appearance: NAD HEENT: normocephalic, atraumatic Neck: non-tender, normal alignment Respiratory/Chest: normal breath sounds bilaterally Cardiovascular/Chest: normal peripheral pulses, normal rate Abdomen: normal bowel sounds, soft, nontender Extremities: normal range of motion David Venegas MD Oct 31, 2019 20:13
--- NOTE | 2019-10-31 21:36 | General Progress Note ---
Assessment/Plan Problem List: (1) Symptomatic anemia ICD Codes: D64.9 - Anemia, unspecified SNOMED: 053774611 (2) Sepsis ICD Codes: A41.9 - Sepsis, unspecified organism SNOMED: 95244594 Qualifiers: Qualified Codes: A41.9 - Sepsis, unspecified organism; R65.21 - Severe sepsis with septic shock; N17.9 - Acute kidney failure, unspecified (3) Hypotension ICD Codes: I95.9 - Hypotension, unspecified SNOMED: 83709293 Qualifiers: Qualified Codes: I95.9 - Hypotension, unspecified (4) Renal failure (ARF), acute on chronic ICD Codes: N17.9 - Acute kidney failure, unspecified; N18.9 - Chronic kidney disease, unspecified SNOMED: 835684767 Status: progressing Assessment/Plan: sepsis is imrpovng pna immunecompromised low k.replacement per renal pancytopenia afebrile Subjective ROS Limited/Unobtainable: Yes Allergies: Coded Allergies: No Known Allergies (Unverified , 10/26/19) Objective Last 24 Hour Vital Signs Date Time Temp Pulse Resp B/P (MAP) Pulse Ox O2 Delivery O2 Flow Rate FiO2 10/31/19 16:00 95 10/31/19 16:00 98.4 75 18 136/71 (92) 97 10/31/19 12:00 71 10/31/19 12:00 97.9 77 18 133/82 (99) 97 10/31/19 09:00 Room Air 10/31/19 08:00 98.0 83 18 144/78 (100) 98 10/31/19 08:00 85 10/31/19 04:00 87 10/31/19 04:00 99.1 77 20 128/69 (88) 98 10/31/19 00:00 86 10/31/19 00:00 Room Air 10/31/19 00:00 100.0 82 20 132/65 (87) 98 Intake and Output 10/30/19 10/31/19 18:59 06:59 Intake Total 1005 ml 300 ml Output Total 1430 ml 700 ml Balance -425 ml -400 ml IV Total 1005 ml 300 ml Output Urine Total 1430 ml 700 ml # Voids 2 # Bowel Movements 2 Laboratory Tests 10/31/19 08:25: White Blood Count 2.3L, Red Blood Count 2.46L, Hemoglobin 8.1L, Hematocrit 22.1L , Mean Corpuscular Volume 90, Mean Corpuscular Hemoglobin 33.1H, Mean Corpuscular Hemoglobin Concent 36.8H, Red Cell Distribution Width 14.8, Platelet Count 38L, Mean Platelet Volume 8.6, Neutrophils (%) (Auto) , Lymphocytes (%) (Auto) , Monocytes (%) (Auto) , Eosinophils (%) (Auto) , Basophils (%) (Auto) , Differential Total Cells Counted 100, Neutrophils % ( Manual) 55, Lymphocytes % (Manual) 36, Monocytes % (Manual) 6, Eosinophils % ( Manual) 3, Basophils % (Manual) 0, Band Neutrophils 0, Platelet Estimate DecreasedL, Platelet Morphology Normal, Anisocytosis 1+, Sodium Level 143, Potassium Level 3.1L, Chloride Level 108H, Carbon Dioxide Level 27, Anion Gap 8 , Blood Urea Nitrogen 9, Creatinine 1.0, Estimat Glomerular Filtration Rate 55.7 , Glucose Level 122H, Calcium Level 7.8L, Phosphorus Level 2.8, Magnesium Level 1.6L, Total Bilirubin 0.3, Aspartate Amino Transf (AST/SGOT) 28, Alanine Aminotransferase (ALT/SGPT) 37, Alkaline Phosphatase 136H, Total Protein 6.2L, Albumin 2.1L, Globulin 4.1, Albumin/Globulin Ratio 0.5L Height (Feet): 5 Height (Inches): 1.00 Weight (Pounds): 134 Cardiovascular: normal rate Respiratory/Chest: lungs clear Abdomen: soft Alea Melendez MD Oct 31, 2019 21:36
[2019-11-01] VITALS: BP 137/69
[2019-11-01 04:00] VITALS: BP 139/61
[2019-11-01] MEDS: NovoLOG Insulin Flexpen SUBQ SCH ×4 (06:30→21:00)
--- NOTE | 2019-11-01 07:51 | NUR ---
HAND-OFF: Report given to RAMOS Stern, patient in stable condition, plan of care endorsed.
[2019-11-01 08:00] VITALS: BP 127/73
--- NOTE | 2019-11-01 08:00 | NUR ---
NURSE NOTES: Received patient from Donnie oRsen. Patient is awake and alert sitting up in bed. No complain of pain or discomfort at this time. Fall precautiosn inn place. call rojas within patients reach will follow.
--- NOTE | 2019-11-01 08:23 | Cardiac Electrophysiology PN ---
Assessment/Plan Assessment/Plan 1. S/P septic shock. Off Levophed on broad-spectrum IV antibiotic. Her echocardiogram showed ejection fraction of 60% to 65%. No evidence of pericardial effusion. 2. Stomach cancer and history of ovarian resection in 2019. He is usually followed up at [facility]. 3. Pancytopenia. 4. Renal failure. Further evaluation by Dr. Bird. ALISON RN DC planning today Subjective Subjective Alert in NAD. In SR. DC plan today Objective Last 24 Hour Vital Signs Date Time Temp Pulse Resp B/P (MAP) Pulse Ox O2 Delivery O2 Flow Rate FiO2 11/01/19 04:00 74 11/01/19 04:00 99.1 79 18 139/61 (87) 96 11/01/19 00:00 99.0 80 18 137/69 (91) 96 11/01/19 00:00 78 10/31/19 21:00 Room Air 10/31/19 20:00 86 10/31/19 20:00 99.0 82 18 135/72 (93) 96 10/31/19 16:00 95 10/31/19 16:00 98.4 75 18 136/71 (92) 97 10/31/19 12:00 71 10/31/19 12:00 97.9 77 18 133/82 (99) 97 10/31/19 09:00 Room Air Intake and Output 10/31/19 11/01/19 19:00 07:00 Intake Total 980 ml Balance 980 ml Intake Oral 980 ml # Voids 4 # Bowel Movements 1 1 Laboratory Tests Test 10/31/19 08:25 White Blood Count 2.3 K/UL (4.8-10.8) L Red Blood Count 2.46 M/UL (4.20-5.40) L Hemoglobin 8.1 G/DL (12.0-16.0) L Hematocrit 22.1 % (37.0-47.0) L Mean Corpuscular Volume 90 FL (80-99) Mean Corpuscular Hemoglobin 33.1 PG (27.0-31.0) H Mean Corpuscular Hemoglobin Concent 36.8 G/DL (32.0-36.0) H Red Cell Distribution Width 14.8 % (11.6-14.8) Platelet Count 38 K/UL (150-450) L Mean Platelet Volume 8.6 FL (6.5-10.1) Neutrophils (%) (Auto) % (45.0-75.0) Lymphocytes (%) (Auto) % (20.0-45.0) Monocytes (%) (Auto) % (1.0-10.0) Eosinophils (%) (Auto) % (0.0-3.0) Basophils (%) (Auto) % (0.0-2.0) Differential Total Cells Counted 100 Neutrophils % (Manual) 55 % (45-75) Lymphocytes % (Manual) 36 % (20-45) Monocytes % (Manual) 6 % (1-10) Eosinophils % (Manual) 3 % (0-3) Basophils % (Manual) 0 % (0-2) Band Neutrophils 0 % (0-8) Platelet Estimate Decreased L Platelet Morphology Normal Anisocytosis 1+ Sodium Level 143 MMOL/L (136-145) Potassium Level 3.1 MMOL/L (3.5-5.1) L Chloride Level 108 MMOL/L (98-107) H Carbon Dioxide Level 27 MMOL/L (21-32) Anion Gap 8 mmol/L (5-15) Blood Urea Nitrogen 9 mg/dL (7-18) Creatinine 1.0 MG/DL (0.55-1.30) Estimat Glomerular Filtration Rate 55.7 mL/min (>60) Glucose Level 122 MG/DL (74-106) H Calcium Level 7.8 MG/DL (8.5-10.1) L Phosphorus Level 2.8 MG/DL (2.5-4.9) Magnesium Level 1.6 MG/DL (1.8-2.4) L Total Bilirubin 0.3 MG/DL (0.2-1.0) Aspartate Amino Transf (AST/SGOT) 28 U/L (15-37) Alanine Aminotransferase (ALT/SGPT) 37 U/L (12-78) Alkaline Phosphatase 136 U/L (46-116) H Total Protein 6.2 G/DL (6.4-8.2) L Albumin 2.1 G/DL (3.4-5.0) L Globulin 4.1 g/dL Albumin/Globulin Ratio 0.5 (1.0-2.7) L Objective HEAD AND NECK: No JVD. LUNGS: Clear. CARDIOVASCULAR: Regular S1 and S2 with no gallop or murmur. ABDOMEN: Soft. EXTREMITIES: No pitting edema. Benigno Rivera MD Nov 01, 2019 08:23
--- NOTE | 2019-11-01 08:52 | Hematology/Onc Progress Note ---
Assessment/Plan Assessment/Plan Assessment and Recs: # Stomach cancer with a history of ovarian resection in 2019 recently --> sees Dr. Alicea at [facility] --> hold off lynparza at this time that is fda approved for BRCA-mutated tumors (has been off since Friday) --> may be a cause of anemia as well --> recover from anemia 1st before restarting chemo # Anemia due to myelosuppression from chemo --> Anemia workup has been ordered, rule out gi bleed --> No evidence of hemolysis is noted, peripheral smear has been reviewed. --> Hgb goal >7. Transfuse prn. --> Epogen or iron at this time is not particularly indicated --> Medications have been reviewed --> low threshold for gi evaluation in case has occult + --> hgb trend 5.7-->9.4-->8.2-->8.1 # Thrombocytopenia - potential causes multifactorial, in this case due to sepsis , s/p ABX and PRESSORS --> Hep panel and HIVboth negative --> US abd to evaluate for cirrhosis and hsm ordered --> Peripheral smear ordered to evaluate for blasts /schistocytes --> abx and other meds have been reviewed --> ok for ppx if plt >50k w/ either heparin or lovenox --> Transfuse if Plt < 20k and fever, or if Plt < 10k without fever --> plt trend 101-->84-->62-->38 # Septic shock with Hypotension --> pressors and abx --> as per id # Critically ill in the icu --> out of icu on 10/31 Appreciate consultation and kevin Rn Subjective Constitutional: Denies: no symptoms, chills, fever, malaise, weakness, other HEENT: Denies: no symptoms, eye pain, blurred vision, tearing, double vision, ear pain, ear discharge, nose pain, nose congestion, throat pain, throat swelling, mouth pain, mouth swelling, other Cardiovascular: Denies: no symptoms, chest pain, edema, irregular heart rate, lightheadedness, palpitations, syncope, other Respiratory: Denies: no symptoms, cough, shortness of breath, SOB with excertion, SOB at rest, sputum, wheezing, other Gastrointestinal/Abdominal: Denies: no symptoms, abdomen distended, abdominal pain, black stools, tarry stools, blood in stool, constipated, diarrhea, difficulty swallowing, nausea, poor appetite, poor fluid intake, rectal bleeding , vomiting, other Genitourinary: Denies: no symptoms, burning, discharge, frequency, flank pain, hematuria, incontinence, pain, urgency, other Neurologic/Psychiatric: Denies: no symptoms, anxiety, depressed, emotional problems, headache, numbness, paresthesia, pre-existing deficit, seizure, tingling, tremors, weakness, other Endocrine: Denies: no symptoms, excessive sweating, flushing, intolerance to cold, intolerance to heat, increased hunger, increased thirst, increased urine, unexplained weight gain, unexplained weight loss, other Allergies: Coded Allergies: No Known Allergies (Unverified , 10/26/19) Subjective 10/28: icu, awake, no acute events, levo drip, h/h stable 10/29: no major changes, dw rn, labs noted, no bleeding 10/31:awake and alert, transferred from [facility],, hep/hiv negative, ceftriaxone 11/01: no f/c, no bleeding, cytopenias still noted, has been off chemo med Objective Objective Current Medications Medications (Trade) Dose Ordered Sig/Poonam Route PRN Reason Start Time Stop Time Status Last Admin Dose Admin Acetaminophen (Tylenol) 650 mg Q6H PRN ORAL Mild Pain/Temp > 100.5 10/31/19 02:30 11/25/19 02:29 Acetaminophen/ Hydrocodone Bitart ([place] 5/325) 1 tab Q6H PRN ORAL Moderate Pain (Pain Scale 4-6) 10/31/19 02:30 11/02/19 02:29 Ceftriaxone Sodium 1 gm/ Dextrose 55 ml @ 110 mls/hr Q24H IVPB 10/31/19 16:00 11/05/19 15:59 10/31/19 16:30 Dextrose (Dextrose 50%) 25 ml Q30M PRN IV Hypoglycemia 10/31/19 02:30 11/25/19 17:59 Dextrose (Dextrose 50%) 50 ml Q30M PRN IV Hypoglycemia 10/31/19 02:30 11/25/19 17:59 Diphenhydramine HCl (Benadryl) 25 mg Q6H PRN IVP Itching 10/31/19 02:30 11/25/19 02:29 Hydromorphone HCl (Dilaudid) 0.5 mg Q3H PRN IVP Severe Pain (Pain Scale 7-10) 10/31/19 02:30 11/02/19 02:29 Insulin Aspart (NovoLOG) BEFORE MEALS AND HS SUBQ 10/31/19 06:30 11/25/19 20:59 Magnesium Oxide (Mag-Ox 400mg) 400 mg THREE TIMES A DAY ORAL 10/31/19 13:00 11/30/19 12:59 10/31/19 17:28 Ondansetron HCl (Zofran) 4 mg Q6H PRN IVP Nausea & Vomiting 10/31/19 02:30 11/25/19 02:29 Pantoprazole (Protonix) 40 mg EVERY 12 HOURS ORAL 10/31/19 09:00 11/27/19 20:59 10/31/19 22:33 Potassium Chloride (K-Dur) 40 meq TWICE A DAY ORAL 10/31/19 18:00 11/30/19 17:59 10/31/19 17:28 Last 24 Hour Vital Signs Date Time Temp Pulse Resp B/P (MAP) Pulse Ox O2 Delivery O2 Flow Rate FiO2 11/01/19 04:00 74 11/01/19 04:00 99.1 79 18 139/61 (87) 96 11/01/19 00:00 99.0 80 18 137/69 (91) 96 11/01/19 00:00 78 10/31/19 21:00 Room Air 10/31/19 20:00 86 10/31/19 20:00 99.0 82 18 135/72 (93) 96 10/31/19 16:00 95 10/31/19 16:00 98.4 75 18 136/71 (92) 97 10/31/19 12:00 71 10/31/19 12:00 97.9 77 18 133/82 (99) 97 10/31/19 09:00 Room Air 10/31/19 08:00 98.0 83 18 144/78 (100) 98 10/31/19 08:00 85 10/31/19 04:00 87 10/31/19 04:00 99.1 77 20 128/69 (88) 98 2/2/20 00:00 86 10/31/19 00:00 Room Air 10/31/19 00:00 100.0 82 20 132/65 (87) 98 10/30/19 20:00 86 10/30/19 20:00 99.7 82 20 140/73 (95) 96 10/30/19 20:00 Room Air 10/30/19 17:21 81 10/30/19 16:00 99.1 81 20 142/61 (88) 99 10/30/19 16:00 Room Air 10/30/19 12:00 99.1 70 19 121/62 (81) 99 10/30/19 12:00 Room Air 10/30/19 12:00 63 Intake and Output 10/31/19 11/01/19 19:00 07:00 Intake Total 980 ml 140 ml Balance 980 ml 140 ml Intake Oral 980 ml 140 ml # Voids 4 # Bowel Movements 1 1 Labs Test 10/29/19 12:00 10/30/19 04:30 10/31/19 08:25 Stool Occult Blood Negative (NEGATIVE) White Blood Count 2.2 K/UL (4.8-10.8) 2.3 K/UL (4.8-10.8) Red Blood Count 2.42 M/UL (4.20-5.40) 2.46 M/UL (4.20-5.40) Hemoglobin 7.8 G/DL (12.0-16.0) 8.1 G/DL (12.0-16.0) Hematocrit 21.8 % (37.0-47.0) 22.1 % (37.0-47.0) Mean Corpuscular Volume 90 FL (80-99) 90 FL (80-99) Mean Corpuscular Hemoglobin 32.3 PG (27.0-31.0) 33.1 PG (27.0-31.0) Mean Corpuscular Hemoglobin Concent 35.9 G/DL (32.0-36.0) 36.8 G/DL (32.0-36.0) Red Cell Distribution Width 14.9 % (11.6-14.8) 14.8 % (11.6-14.8) Platelet Count 43 K/UL (150-450) 38 K/UL (150-450) Mean Platelet Volume 6.2 FL (6.5-10.1) 8.6 FL (6.5-10.1) Neutrophils (%) (Auto) % (45.0-75.0) % (45.0-75.0) Lymphocytes (%) (Auto) % (20.0-45.0) % (20.0-45.0) Monocytes (%) (Auto) % (1.0-10.0) % (1.0-10.0) Eosinophils (%) (Auto) % (0.0-3.0) % (0.0-3.0) Basophils (%) (Auto) % (0.0-2.0) % (0.0-2.0) Differential Total Cells Counted 100 100 Neutrophils % (Manual) 57 % (45-75) 55 % (45-75) Lymphocytes % (Manual) 37 % (20-45) 36 % (20-45) Monocytes % (Manual) 5 % (1-10) 6 % (1-10) Eosinophils % (Manual) 1 % (0-3) 3 % (0-3) Basophils % (Manual) 0 % (0-2) 0 % (0-2) Band Neutrophils 0 % (0-8) 0 % (0-8) Platelet Estimate Decreased Decreased Platelet Morphology Normal Normal Hypochromasia 3+ Anisocytosis 1+ 1+ Sodium Level 142 MMOL/L (136-145) 143 MMOL/L (136-145) Potassium Level 3.5 MMOL/L (3.5-5.1) 3.1 MMOL/L (3.5-5.1) Chloride Level 110 MMOL/L (98-107) 108 MMOL/L (98-107) Carbon Dioxide Level 25 MMOL/L (21-32) 27 MMOL/L (21-32) Anion Gap 7 mmol/L (5-15) 8 mmol/L (5-15) Blood Urea Nitrogen 8 mg/dL (7-18) 9 mg/dL (7-18) Creatinine 0.8 MG/DL (0.55-1.30) 1.0 MG/DL (0.55-1.30) Estimat Glomerular Filtration Rate > 60 mL/min (>60) 55.7 mL/min (>60) Glucose Level 88 MG/DL (74-106) 122 MG/DL (74-106) Calcium Level 7.6 MG/DL (8.5-10.1) 7.8 MG/DL (8.5-10.1) Phosphorus Level 3.0 MG/DL (2.5-4.9) 2.8 MG/DL (2.5-4.9) Magnesium Level 1.4 MG/DL (1.8-2.4) 1.6 MG/DL (1.8-2.4) Total Bilirubin 0.5 MG/DL (0.2-1.0) 0.3 MG/DL (0.2-1.0) Aspartate Amino Transf (AST/SGOT) 25 U/L (15-37) 28 U/L (15-37) Alanine Aminotransferase (ALT/SGPT) 21 U/L (12-78) 37 U/L (12-78) Alkaline Phosphatase 117 U/L (46-116) 136 U/L (46-116) C-Reactive Protein, Quantitative 9.9 mg/dL (0.00-0.90) Pro-B-Type Natriuretic Peptide 5420 pg/mL (0-125) Total Protein 5.6 G/DL (6.4-8.2) 6.2 G/DL (6.4-8.2) Albumin 1.8 G/DL (3.4-5.0) 2.1 G/DL (3.4-5.0) Globulin 3.8 g/dL 4.1 g/dL Albumin/Globulin Ratio 0.5 (1.0-2.7) 0.5 (1.0-2.7) Height (Feet): 5 Height (Inches): 1.00 Weight (Pounds): 134 Objective Physical Exam: Vitals: reviewed General Appearance: NAD HEENT: normocephalic, atraumatic Neck: non-tender, normal alignment Respiratory/Chest: normal breath sounds bilaterally Cardiovascular/Chest: normal peripheral pulses, normal rate Abdomen: normal bowel sounds, soft, nontender Extremities: normal range of motion David Venegas MD Nov 01, 2019 08:52
[2019-11-01] MEDS: Magnesium Oxide 400mg tab ORAL SCH ×3 (09:10→17:31)
--- NOTE | 2019-11-01 10:52 | Nephrology Progress Note ---
Assessment/Plan Problem List: (1) Renal failure (ARF), acute on chronic Assessment: resolved (2) Hypotension (3) Sepsis (4) Symptomatic anemia Assessment Renal failure resolving Hypotension resolving Sepsis ? UTI Symptomatic anemia Plan PO Mag and KCl Anemia whalen- Transfused antibiotics avoid nephrotoxics urine studies JOSEPH kidney No [place] 2D echo Noted Subjective ROS Limited/Unobtainable: No Constitutional: Reports: malaise Objective Objective Last 24 Hour Vital Signs Date Time Temp Pulse Resp B/P (MAP) Pulse Ox O2 Delivery O2 Flow Rate FiO2 11/01/19 08:00 98.1 72 18 127/73 (91) 94 11/01/19 04:00 74 11/01/19 04:00 99.1 79 18 139/61 (87) 96 11/01/19 00:00 99.0 80 18 137/69 (91) 96 11/01/19 00:00 78 10/31/19 21:00 Room Air 10/31/19 20:00 86 10/31/19 20:00 99.0 82 18 135/72 (93) 96 10/31/19 16:00 95 10/31/19 16:00 98.4 75 18 136/71 (92) 97 10/31/19 12:00 71 10/31/19 12:00 97.9 77 18 133/82 (99) 97 Intake and Output 10/31/19 11/01/19 19:00 07:00 Intake Total 980 ml 140 ml Balance 980 ml 140 ml Intake Oral 980 ml 140 ml # Voids 4 # Bowel Movements 1 1 Height (Feet): 5 Height (Inches): 1.00 Weight (Pounds): 134 General Appearance: no apparent distress Objective no change Alverto Bird MD Nov 01, 2019 10:52
[2019-11-01 12:00] VITALS: BP 130/74
--- NOTE | 2019-11-01 12:18 | Infectious Diseases Prog Note ---
Assessment/Plan Assessment/Plan A; E. coli sepsis E. coli UTI Pancytopenia Stomach cancer Acute renal failure, resolved P; Continue Rocephin in hospital Subjective ROS Limited/Unobtainable: Yes Constitutional: Reports: no symptoms Respiratory: Reports: no symptoms Cardiovascular: Reports: no symptoms Gastrointestinal/Abdominal: Reports: no symptoms Genitourinary: Reports: no symptoms Allergies: Coded Allergies: No Known Allergies (Unverified , 10/26/19) Objective Vital Signs Last 24 Hour Vital Signs Date Time Temp Pulse Resp B/P (MAP) Pulse Ox O2 Delivery O2 Flow Rate FiO2 11/01/19 08:00 98.1 72 18 127/73 (91) 94 11/01/19 04:00 74 11/01/19 04:00 99.1 79 18 139/61 (87) 96 11/01/19 00:00 99.0 80 18 137/69 (91) 96 11/01/19 00:00 78 10/31/19 21:00 Room Air 10/31/19 20:00 86 10/31/19 20:00 99.0 82 18 135/72 (93) 96 10/31/19 16:00 95 10/31/19 16:00 98.4 75 18 136/71 (92) 97 Height (Feet): 5 Height (Inches): 1.00 Weight (Pounds): 134 General Appearance: no acute distress HEENT: mucous membranes moist Respiratory/Chest: lungs clear Cardiovascular: normal rate Abdomen: soft, non tender Extremities: no edema Neurologic/Psychiatric: alert, oriented x 3, responsive Current Medications Medications (Trade) Dose Ordered Sig/Poonam Route PRN Reason Start Time Stop Time Status Last Admin Dose Admin Acetaminophen (Tylenol) 650 mg Q6H PRN ORAL Mild Pain/Temp > 100.5 10/31/19 02:30 11/25/19 02:29 Acetaminophen/ Hydrocodone Bitart ([place] 5/325) 1 tab Q6H PRN ORAL Moderate Pain (Pain Scale 4-6) 10/31/19 02:30 11/02/19 02:29 Ceftriaxone Sodium 1 gm/ Dextrose 55 ml @ 110 mls/hr Q24H IVPB 10/31/19 16:00 11/05/19 15:59 10/31/19 16:30 Dextrose (Dextrose 50%) 25 ml Q30M PRN IV Hypoglycemia 10/31/19 02:30 11/25/19 17:59 Dextrose (Dextrose 50%) 50 ml Q30M PRN IV Hypoglycemia 10/31/19 02:30 11/25/19 17:59 Diphenhydramine HCl (Benadryl) 25 mg Q6H PRN IVP Itching 10/31/19 02:30 11/25/19 02:29 Hydromorphone HCl (Dilaudid) 0.5 mg Q3H PRN IVP Severe Pain (Pain Scale 7-10) 10/31/19 02:30 11/02/19 02:29 Insulin Aspart (NovoLOG) BEFORE MEALS AND HS SUBQ 10/31/19 06:30 11/25/19 20:59 Magnesium Oxide (Mag-Ox 400mg) 400 mg THREE TIMES A DAY ORAL 10/31/19 13:00 11/30/19 12:59 11/01/19 09:10 Ondansetron HCl (Zofran) 4 mg Q6H PRN IVP Nausea & Vomiting 10/31/19 02:30 11/25/19 02:29 Pantoprazole (Protonix) 40 mg EVERY 12 HOURS ORAL 10/31/19 09:00 11/27/19 20:59 11/01/19 09:10 Potassium Chloride (K-Dur) 40 meq TWICE A DAY ORAL 10/31/19 18:00 11/30/19 17:59 11/01/19 09:10 Evelio Hill MD Nov 01, 2019 12:18
--- NOTE | 2019-11-01 13:52 | NUR ---
CASE MANAGEMENT: REVIEW 10/30/2019 SI:SEPSIS E.COLI . UTI . PANCYTOPENIA . ACUTE RENAL FAILURE HX: STOMACH CA 99.7 82 20 140/73 96% ON RA WBC 2.2 H/H 7.8/21.8 PLT 43 CL-110 CA+ 7.6 MG 1.4 BNP 5420 C-REC PROT. 9.9 IS:IV ROCEPHIN Q24HR K-DUR PO BID MAG-OX PO TID PROTONIX PO BID \: TRANSFER TO TELE UNIT CASE MANAGEMENT: REVIEW 10/31/2019 SI:SEPSIS E.COLI . UTI . PANCYTOPENIA . ACUTE RENAL FAILURE HX: STOMACH CA 100.0 82 20 132/65 98% ON RA H/H 8.1/22.1 WBC 2.3 K+ 3.1 CL-108 BG 122 CA+7.8 MG 1.6 ALK-PHOS 136 IS:IV ROCEPHIN Q24HR K-DUR PO BID MAG-OX PO TID PROTONIX PO BID \: 2E TELE UNIT PLAN: CONTROL FEVER CASE MANAGEMENT: REVIEW 11/01/2019 SI:SEPSIS E.COLI . UTI . PANCYTOPENIA . ACUTE RENAL FAILURE HX: STOMACH CA 99.1 79 18 139/61 96% ON RA IS:IV ROCEPHIN Q24HR K-DUR PO BID MAG-OX PO TID PROTONIX PO BID \: 2E TELE UNIT
--- NOTE | 2019-11-01 15:09 | Pulmonolgy Critical Care Note ---
Critical Care - Asmt/Plan Assessment/Plan: Pulmonary Progress Note HPI Patient is a 64-year-old female with past medical history of Stomach cancer, Ovarian Cancer, Hypertension, history of recent chemotherapy ,admitted with with fever/chills for one day, weakness, noted to have severe anemia, hypotension, evidence of urinary tract infection, clear CXR on admission GNR on match Urine Ecoli Feels improved, off pressors, now on floor - Tele, no new complaints LE Dupplex negative for DVT CT Abdomen no hydronephrosis Allergies: No Known Allergies Past Medical History: Stomach cancer, hypertension All Other Systems: negative except mentioned in HPI Physical Exam Vital Signs Noted General Appearance: well appearing, no apparent distress, alert, pale Head: normocephalic, atraumatic Eyes: bilateral eye PERRL, bilateral eye EOMI ENT: uvula midline, dry mucus membranes Neck: supple, thyroid normal, supple/symm/no masses Respiratory: lungs clear, no respiratory distress, no retraction, no accessory muscle use Cardiovascular: normal peripheral pulses, regular rate, rhythm, HS1, HS2 normal , no gallop, no murmur Gastrointestinal: non tender, soft, no guarding, no rebound Musculoskeletal: normal inspection Neurologic: alert, oriented x3, no focal signs, no seizures Psychiatric: mood/affect normal Skin: no rash, warm/dry, no edema EKG: NSR, rate 66, QTc 436, no acute ST elevations, normal axis CXR: No acute changes LE Dupplex negative UA: S/o infection CBC: Severe anemia Impression: Stomach Cancer/Ovarian Cancer s/p recent Chemotherapy Urosepsis, Ecoli on BC Severe Anemia s/p Transfusion Thrombocytopenia Hypokalemia H/o Hypertension Dehydration Hyponatremia Azotemia Elevated BNP Hyperglycemia Plan: - IV Antibiotics per ID - Transfuse PRN - IV Protonix - R/o DVT, SCD's - Monitor labs - IS ARCHITECT 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 RX --------- --- AMPICILLIN >=32 R CEFAZOLIN <=4 S CEFTRIAXONE <=1 S CIPROFLOXACIN <=0.25 S ERTAPENEM <=0.5 S GENTAMICIN 8 I LEVOFLOXACIN 1 S IMIPENEM <=0.25 S NITROFURANTOIN <=16 S TRIMETHOPRIM/SULFA >=320 R AMIKACIN <=2 S PIPERACILLIN/TAZOBACTAM 8 S Critical Care - Objective Last 24 Hour Vital Signs Date Time Temp Pulse Resp B/P (MAP) Pulse Ox O2 Delivery O2 Flow Rate FiO2 11/01/19 12:00 96.7 80 19 130/74 (92) 97 11/01/19 12:00 77 11/01/19 09:00 Room Air 11/01/19 08:00 86 11/01/19 08:00 98.1 72 18 127/73 (91) 94 11/01/19 04:00 74 11/01/19 04:00 99.1 79 18 139/61 (87) 96 11/01/19 00:00 99.0 80 18 137/69 (91) 96 11/01/19 00:00 78 10/31/19 21:00 Room Air 10/31/19 20:00 86 10/31/19 20:00 99.0 82 18 135/72 (93) 96 10/31/19 16:00 95 10/31/19 16:00 98.4 75 18 136/71 (92) 97 Accucheck: 104 Critical Care - Subjective ROS Limited/Unobtainable: No I&O: Intake and Output 10/31/19 11/01/19 19:00 07:00 Intake Total 980 ml 140 ml Balance 980 ml 140 ml Intake Oral 980 ml 140 ml # Voids 4 # Bowel Movements 1 1 Ajit Land MD Nov 01, 2019 15:09
[2019-11-01 16:00] VITALS: BP 134/82
[2019-11-01] MEDS: cefTRIAXone 1 GM in D5W 55 ML IVPB SCH (16:44)
--- NOTE | 2019-11-01 19:30 | NUR ---
NURSE NOTES: Received pt and report from RAMOS Harris. Observed pt resting in bed with both eyes open and watching television. Pt is A/Ox4. site monitor is in place, IV site intact, asymptomatic, and patent. Bed is in the lowest position and locked. Call light and bedside table is within reach. No signs/symptoms of acute distress noted at this time. Will continue plan of care. Addendum: 11/01/19 at 2048 by Eden Sarmiento Mai, RN Received pt and report from RAMOS Latham
--- NOTE | 2019-11-01 19:41 | NUR ---
HAND-OFF: Report given to Donnie Kenney. Plan of care endorsed.
[2019-11-01 20:00] VITALS: BP 139/79
--- NOTE | 2019-11-01 21:20 | General Progress Note ---
Assessment/Plan Status: progressing Assessment/Plan: Assessment - gastric CA, s/p resection - Anemia - OB (-) stools - pancytopenia Recommendations - po diet - monitor labs - check OB - neg - Heme/Onc f/u - transfuse PRN Subjective Allergies: Coded Allergies: No Known Allergies (Unverified , 10/26/19) Subjective Feels better no vomiting tolerating PO Objective Last 24 Hour Vital Signs Date Time Temp Pulse Resp B/P (MAP) Pulse Ox O2 Delivery O2 Flow Rate FiO2 11/01/19 16:00 79 11/01/19 16:00 98.2 97 20 134/82 (99) 97 11/01/19 12:00 96.7 80 19 130/74 (92) 97 11/01/19 12:00 77 11/01/19 09:00 Room Air 11/01/19 08:00 86 11/01/19 08:00 98.1 72 18 127/73 (91) 94 11/01/19 04:00 74 11/01/19 04:00 99.1 79 18 139/61 (87) 96 11/01/19 00:00 99.0 80 18 137/69 (91) 96 11/01/19 00:00 78 Intake and Output 10/31/19 11/01/19 19:00 07:00 Intake Total 980 ml 140 ml Balance 980 ml 140 ml Intake Oral 980 ml 140 ml # Voids 4 # Bowel Movements 1 1 Height (Feet): 5 Height (Inches): 1.00 Weight (Pounds): 134 Objective WDWN NCAT supple CTA RR abd soft nt ND no edema Kristine Alexander MD Nov 01, 2019 21:20
--- NOTE | 2019-11-01 21:56 | General Progress Note ---
Assessment/Plan Problem List: (1) Symptomatic anemia ICD Codes: D64.9 - Anemia, unspecified SNOMED: 623123029 (2) Sepsis ICD Codes: A41.9 - Sepsis, unspecified organism SNOMED: 23156519 Qualifiers: Qualified Codes: A41.9 - Sepsis, unspecified organism; R65.21 - Severe sepsis with septic shock; N17.9 - Acute kidney failure, unspecified (3) Hypotension ICD Codes: I95.9 - Hypotension, unspecified SNOMED: 00945684 Qualifiers: Qualified Codes: I95.9 - Hypotension, unspecified (4) Renal failure (ARF), acute on chronic ICD Codes: N17.9 - Acute kidney failure, unspecified; N18.9 - Chronic kidney disease, unspecified SNOMED: 294548765 Status: progressing Assessment/Plan: sepsis is imrpovng pna h/o chemo afebrile immunecompromised low k improved pancytopenia afebrile Subjective ROS Limited/Unobtainable: Yes Allergies: Coded Allergies: No Known Allergies (Unverified , 10/26/19) Objective Last 24 Hour Vital Signs Date Time Temp Pulse Resp B/P (MAP) Pulse Ox O2 Delivery O2 Flow Rate FiO2 11/01/19 16:00 79 11/01/19 16:00 98.2 97 20 134/82 (99) 97 11/01/19 12:00 96.7 80 19 130/74 (92) 97 11/01/19 12:00 77 11/01/19 09:00 Room Air 11/01/19 08:00 86 11/01/19 08:00 98.1 72 18 127/73 (91) 94 11/01/19 04:00 74 11/01/19 04:00 99.1 79 18 139/61 (87) 96 11/01/19 00:00 99.0 80 18 137/69 (91) 96 11/01/19 00:00 78 Intake and Output 10/31/19 11/01/19 18:59 06:59 Intake Total 980 ml Balance 980 ml Intake Oral 980 ml # Voids 4 # Bowel Movements 1 1 Height (Feet): 5 Height (Inches): 1.00 Weight (Pounds): 134 Cardiovascular: normal rate Respiratory/Chest: lungs clear Abdomen: soft Alea Melendez MD Nov 01, 2019 21:56
[2019-11-02] VITALS: BP 132/75
--- NOTE | 2019-11-02 02:25 | NUR ---
NURSE NOTES: Observed pt asleep in bed. No signs/symptoms of acute distress noted at this time. Will continue plan of care.
[2019-11-02 04:00] VITALS: BP 132/68
[2019-11-02] MEDS: NovoLOG Insulin Flexpen SUBQ SCH ×2 (06:18→11:30)
--- NOTE | 2019-11-02 07:05 | Hematology/Onc Progress Note ---
Assessment/Plan Assessment/Plan Assessment and Recs: # Stomach cancer with a history of ovarian resection in 2019 recently --> sees Dr. Alicea at [facility] --> hold off lynparza at this time that is fda approved for BRCA-mutated tumors (has been off since Friday10/26/19) --> may be a cause of anemia as well --> recover from anemia 1st before restarting chemo --> CBC reordered # Anemia due to myelosuppression from chemo --> Anemia workup has been ordered, rule out gi bleed --> No evidence of hemolysis is noted, peripheral smear has been reviewed. --> Hgb goal >7. Transfuse prn. --> Epogen or iron at this time is not particularly indicated --> Medications have been reviewed --> low threshold for gi evaluation in case has occult + --> hgb trend 5.7-->9.4-->8.2-->8.1 # Thrombocytopenia - potential causes multifactorial, in this case due to sepsis , s/p ABX and PRESSORS --> Hep panel and HIVboth negative --> US abd to evaluate for cirrhosis and hsm ordered --> Peripheral smear ordered to evaluate for blasts /schistocytes --> abx and other meds have been reviewed --> ok for ppx if plt >50k w/ either heparin or lovenox --> Transfuse if Plt < 20k and fever, or if Plt < 10k without fever --> plt trend 101-->84-->62-->38 # Septic shock with Hypotension --> pressors and abx --> as per id # Critically ill in the icu --> out of icu on 10/31 Appreciate consultation and kevin Rn Subjective Constitutional: Denies: no symptoms, chills, fever, malaise, weakness, other HEENT: Denies: no symptoms, eye pain, blurred vision, tearing, double vision, ear pain, ear discharge, nose pain, nose congestion, throat pain, throat swelling, mouth pain, mouth swelling, other Cardiovascular: Denies: no symptoms, chest pain, edema, irregular heart rate, lightheadedness, palpitations, syncope, other Gastrointestinal/Abdominal: Denies: no symptoms, abdomen distended, abdominal pain, black stools, tarry stools, blood in stool, constipated, diarrhea, difficulty swallowing, nausea, poor appetite, poor fluid intake, rectal bleeding , vomiting, other Genitourinary: Denies: no symptoms, burning, discharge, frequency, flank pain, hematuria, incontinence, pain, urgency, other Neurologic/Psychiatric: Denies: no symptoms, anxiety, depressed, emotional problems, headache, numbness, paresthesia, pre-existing deficit, seizure, tingling, tremors, weakness, other Endocrine: Denies: no symptoms, excessive sweating, flushing, intolerance to cold, intolerance to heat, increased hunger, increased thirst, increased urine, unexplained weight gain, unexplained weight loss, other Allergies: Coded Allergies: No Known Allergies (Unverified , 10/26/19) Subjective 10/28: icu, awake, no acute events, levo drip, h/h stable 10/29: no major changes, dw rn, labs noted, no bleeding 10/31:awake and alert, transferred from [facility],, hep/hiv negative, ceftriaxone 11/01: no f/c, no bleeding, cytopenias still noted, has been off chemo med 11/02: is asleep, no fevers or labs, no bleeding reported, potential dc if labs return Objective Objective Current Medications Medications (Trade) Dose Ordered Sig/Poonam Route PRN Reason Start Time Stop Time Status Last Admin Dose Admin Acetaminophen (Tylenol) 650 mg Q6H PRN ORAL Mild Pain/Temp > 100.5 10/31/19 02:30 11/25/19 02:29 Ceftriaxone Sodium 1 gm/ Dextrose 55 ml @ 110 mls/hr Q24H IVPB 10/31/19 16:00 11/05/19 15:59 11/01/19 16:44 Dextrose (Dextrose 50%) 25 ml Q30M PRN IV Hypoglycemia 10/31/19 02:30 11/25/19 17:59 Dextrose (Dextrose 50%) 50 ml Q30M PRN IV Hypoglycemia 10/31/19 02:30 11/25/19 17:59 Diphenhydramine HCl (Benadryl) 25 mg Q6H PRN IVP Itching 10/31/19 02:30 11/25/19 02:29 Insulin Aspart (NovoLOG) BEFORE MEALS AND HS SUBQ 10/31/19 06:30 11/25/19 20:59 Magnesium Oxide (Mag-Ox 400mg) 400 mg THREE TIMES A DAY ORAL 10/31/19 13:00 11/30/19 12:59 11/01/19 17:31 Ondansetron HCl (Zofran) 4 mg Q6H PRN IVP Nausea & Vomiting 10/31/19 02:30 11/25/19 02:29 Pantoprazole (Protonix) 40 mg EVERY 12 HOURS ORAL 10/31/19 09:00 11/27/19 20:59 11/01/19 21:50 Potassium Chloride (K-Dur) 40 meq TWICE A DAY ORAL 10/31/19 18:00 11/30/19 17:59 11/01/19 17:31 Last 24 Hour Vital Signs Date Time Temp Pulse Resp B/P (MAP) Pulse Ox O2 Delivery O2 Flow Rate FiO2 11/02/19 04:00 81 11/02/19 04:00 98.2 81 20 132/68 (89) 96 11/02/19 00:00 98.4 82 19 132/75 (94) 96 11/02/19 00:00 82 11/01/19 21:00 Room Air 11/01/19 20:00 88 11/01/19 20:00 98.8 88 20 139/79 (99) 96 11/01/19 16:00 79 11/01/19 16:00 98.2 97 20 134/82 (99) 97 11/01/19 12:00 96.7 80 19 130/74 (92) 97 11/01/19 12:00 77 11/01/19 09:00 Room Air 11/01/19 08:00 86 11/01/19 08:00 98.1 72 18 127/73 (91) 94 11/01/19 04:00 74 11/01/19 04:00 99.1 79 18 139/61 (87) 96 11/01/19 00:00 99.0 80 18 137/69 (91) 96 11/01/19 00:00 78 10/31/19 21:00 Room Air 10/31/19 20:00 86 10/31/19 20:00 99.0 82 18 135/72 (93) 96 10/31/19 16:00 95 10/31/19 16:00 98.4 75 18 136/71 (92) 97 10/31/19 12:00 71 10/31/19 12:00 97.9 77 18 133/82 (99) 97 10/31/19 09:00 Room Air 10/31/19 08:00 98.0 83 18 144/78 (100) 98 10/31/19 08:00 85 Intake and Output 11/01/19 11/02/19 19:00 07:00 Intake Total 400 ml 250 ml Output Total 1400 ml Balance -1000 ml 250 ml Intake Oral 280 ml 250 ml Other 120 ml Output Urine Total 1400 ml # Voids 5 2 Labs Test 10/31/19 08:25 White Blood Count 2.3 K/UL (4.8-10.8) Red Blood Count 2.46 M/UL (4.20-5.40) Hemoglobin 8.1 G/DL (12.0-16.0) Hematocrit 22.1 % (37.0-47.0) Mean Corpuscular Volume 90 FL (80-99) Mean Corpuscular Hemoglobin 33.1 PG (27.0-31.0) Mean Corpuscular Hemoglobin Concent 36.8 G/DL (32.0-36.0) Red Cell Distribution Width 14.8 % (11.6-14.8) Platelet Count 38 K/UL (150-450) Mean Platelet Volume 8.6 FL (6.5-10.1) Neutrophils (%) (Auto) % (45.0-75.0) Lymphocytes (%) (Auto) % (20.0-45.0) Monocytes (%) (Auto) % (1.0-10.0) Eosinophils (%) (Auto) % (0.0-3.0) Basophils (%) (Auto) % (0.0-2.0) Differential Total Cells Counted 100 Neutrophils % (Manual) 55 % (45-75) Lymphocytes % (Manual) 36 % (20-45) Monocytes % (Manual) 6 % (1-10) Eosinophils % (Manual) 3 % (0-3) Basophils % (Manual) 0 % (0-2) Band Neutrophils 0 % (0-8) Platelet Estimate Decreased Platelet Morphology Normal Anisocytosis 1+ Sodium Level 143 MMOL/L (136-145) Potassium Level 3.1 MMOL/L (3.5-5.1) Chloride Level 108 MMOL/L (98-107) Carbon Dioxide Level 27 MMOL/L (21-32) Anion Gap 8 mmol/L (5-15) Blood Urea Nitrogen 9 mg/dL (7-18) Creatinine 1.0 MG/DL (0.55-1.30) Estimat Glomerular Filtration Rate 55.7 mL/min (>60) Glucose Level 122 MG/DL (74-106) Calcium Level 7.8 MG/DL (8.5-10.1) Phosphorus Level 2.8 MG/DL (2.5-4.9) Magnesium Level 1.6 MG/DL (1.8-2.4) Total Bilirubin 0.3 MG/DL (0.2-1.0) Aspartate Amino Transf (AST/SGOT) 28 U/L (15-37) Alanine Aminotransferase (ALT/SGPT) 37 U/L (12-78) Alkaline Phosphatase 136 U/L (46-116) Total Protein 6.2 G/DL (6.4-8.2) Albumin 2.1 G/DL (3.4-5.0) Globulin 4.1 g/dL Albumin/Globulin Ratio 0.5 (1.0-2.7) Height (Feet): 5 Height (Inches): 1.00 Weight (Pounds): 134 Objective Physical Exam: Vitals: reviewed General Appearance: NAD HEENT: normocephalic, atraumatic Neck: non-tender, normal alignment Respiratory/Chest: normal breath sounds bilaterally Cardiovascular/Chest: normal peripheral pulses, normal rate Abdomen: normal bowel sounds, soft, nontender Extremities: normal range of motion David Venegas MD Nov 02, 2019 07:05
--- NOTE | 2019-11-02 07:42 | NUR ---
HAND-OFF: Report given to RAMOS Latham. Plan of care endorsed.
--- NOTE | 2019-11-02 07:46 | NUR ---
NURSE NOTES: Received patient from Donnie Kenney. Patient is awake and alert lying comfortably in bed. No complain of pain or discomfort at this time. Fall precautions in place. call rojas within patients reach. will follow.
[2019-11-02 08:00] VITALS: BP 128/67
[2019-11-02 08:38] LABS: HEMATOCRIT 21.8 % (37.0-47.0); HEMOGLOBIN 8.1 G/DL (12.0-16.0); MEAN CORPUSCULAR VOLUME 89 FL (80-99); PLATELET COUNT 44 K/UL (150-450); RED BLOOD COUNT 2.45 M/UL (4.20-5.40); RED CELL DISTRIBUTION WIDTH 14.7 % (11.6-14.8)
[2019-11-02 08:39] LABS: WHITE BLOOD COUNT 2.1 K/UL (4.8-10.8)
--- NOTE | 2019-11-02 08:44 | Cardiac Electrophysiology PN ---
Assessment/Plan Assessment/Plan 1. S/P septic shock. Still on broad-spectrum IV antibiotic. Her echocardiogram showed ejection fraction of 60% to 65%. No evidence of pericardial effusion. 2. Stomach cancer and history of ovarian resection in 2019. He is usually followed up at [facility]. 3. Pancytopenia. 4. Renal failure. Further evaluation by Dr. iBrd. ALISON RN Subjective Subjective Alert in NAD. In SR. DC plan in progress Objective Last 24 Hour Vital Signs Date Time Temp Pulse Resp B/P (MAP) Pulse Ox O2 Delivery O2 Flow Rate FiO2 11/02/19 04:00 81 11/02/19 04:00 98.2 81 20 132/68 (89) 96 11/02/19 00:00 98.4 82 19 132/75 (94) 96 11/02/19 00:00 82 11/01/19 21:00 Room Air 11/01/19 20:00 88 11/01/19 20:00 98.8 88 20 139/79 (99) 96 11/01/19 16:00 79 11/01/19 16:00 98.2 97 20 134/82 (99) 97 11/01/19 12:00 96.7 80 19 130/74 (92) 97 11/01/19 12:00 77 11/01/19 09:00 Room Air Intake and Output 11/01/19 11/02/19 19:00 07:00 Intake Total 400 ml 250 ml Output Total 1400 ml Balance -1000 ml 250 ml Intake Oral 280 ml 250 ml Other 120 ml Output Urine Total 1400 ml # Voids 5 2 Laboratory Tests Test 11/02/19 07:05 White Blood Count 2.1 K/UL (4.8-10.8) *L Red Blood Count 2.45 M/UL (4.20-5.40) L Hemoglobin 8.1 G/DL (12.0-16.0) L Hematocrit 21.8 % (37.0-47.0) L Mean Corpuscular Volume 89 FL (80-99) Mean Corpuscular Hemoglobin 33.0 PG (27.0-31.0) H Mean Corpuscular Hemoglobin Concent 37.2 G/DL (32.0-36.0) H Red Cell Distribution Width 14.7 % (11.6-14.8) Platelet Count 44 K/UL (150-450) L Mean Platelet Volume 8.4 FL (6.5-10.1) Neutrophils (%) (Auto) % (45.0-75.0) Lymphocytes (%) (Auto) % (20.0-45.0) Monocytes (%) (Auto) % (1.0-10.0) Eosinophils (%) (Auto) % (0.0-3.0) Basophils (%) (Auto) % (0.0-2.0) Neutrophils % (Manual) Pending Lymphocytes % (Manual) Pending Platelet Estimate Pending Platelet Morphology Pending Sodium Level Pending Potassium Level Pending Chloride Level Pending Carbon Dioxide Level Pending Blood Urea Nitrogen Pending Creatinine Pending Estimat Glomerular Filtration Rate Pending Glucose Level Pending Uric Acid Pending Calcium Level Pending Phosphorus Level Pending Magnesium Level Pending Total Bilirubin Pending Aspartate Amino Transf (AST/SGOT) Pending Alanine Aminotransferase (ALT/SGPT) Pending Alkaline Phosphatase Pending Total Protein Pending Albumin Pending Globulin Pending Objective HEAD AND NECK: No JVD. LUNGS: Clear. CARDIOVASCULAR: Regular S1 and S2 with no gallop or murmur. ABDOMEN: Soft. EXTREMITIES: No pitting edema. Benigno Rivera MD Nov 02, 2019 08:44
[2019-11-02] MEDS: Magnesium Oxide 400mg tab ORAL SCH ×3 (08:55→17:20)
[2019-11-02 09:08] LABS: ALANINE AMINOTRANSFERASE 30 U/L (12-78); ALBUMIN 2.4 G/DL (3.4-5.0); ALBUMIN/GLOBULIN RATIO 0.6 (1.0-2.7); ALKALINE PHOSPHATASE 117 U/L (46-116); ANION GAP 8 mmol/L (5-15); ASPARTATE AMINO TRANSFERASE 22 U/L (15-37); BILIRUBIN,TOTAL 0.3 MG/DL (0.2-1.0); BLOOD UREA NITROGEN 10 mg/dL (7-18); CALCIUM 8.8 MG/DL (8.5-10.1); CARBON DIOXIDE 27 MMOL/L (21-32); CHLORIDE 106 MMOL/L (98-107); CREATININE 0.9 MG/DL (0.55-1.30); PHOSPHORUS 3.9 MG/DL (2.5-4.9); POTASSIUM 4.4 MMOL/L (3.5-5.1); SODIUM 141 MMOL/L (136-145)
--- NOTE | 2019-11-02 09:41 | NUR ---
NURSE NOTES: Dr. Venegas made aware of WBC level 2.1. N new orders received.
--- NOTE | 2019-11-02 10:31 | Infectious Diseases Prog Note ---
Assessment/Plan Assessment/Plan A; E. coli sepsis E. coli UTI Pancytopenia Stomach cancer Acute renal failure, resolved P; Change Rocephin to Cipro Subjective ROS Limited/Unobtainable: Yes Constitutional: Denies: fever Allergies: Coded Allergies: No Known Allergies (Unverified , 10/26/19) Objective Vital Signs Last 24 Hour Vital Signs Date Time Temp Pulse Resp B/P (MAP) Pulse Ox O2 Delivery O2 Flow Rate FiO2 11/02/19 08:00 98.1 86 20 128/67 (87) 95 11/02/19 04:00 81 11/02/19 04:00 98.2 81 20 132/68 (89) 96 11/02/19 00:00 98.4 82 19 132/75 (94) 96 11/02/19 00:00 82 11/01/19 21:00 Room Air 11/01/19 20:00 88 11/01/19 20:00 98.8 88 20 139/79 (99) 96 11/01/19 16:00 79 11/01/19 16:00 98.2 97 20 134/82 (99) 97 11/01/19 12:00 96.7 80 19 130/74 (92) 97 11/01/19 12:00 77 Height (Feet): 5 Height (Inches): 1.00 Weight (Pounds): 134 General Appearance: no acute distress HEENT: mucous membranes moist Respiratory/Chest: lungs clear Cardiovascular: normal rate Abdomen: soft, non tender Extremities: no edema Neurologic/Psychiatric: other - slee[ping Laboratory Tests Test 11/02/19 07:05 White Blood Count 2.1 K/UL (4.8-10.8) *L Red Blood Count 2.45 M/UL (4.20-5.40) L Hemoglobin 8.1 G/DL (12.0-16.0) L Hematocrit 21.8 % (37.0-47.0) L Mean Corpuscular Volume 89 FL (80-99) Mean Corpuscular Hemoglobin 33.0 PG (27.0-31.0) H Mean Corpuscular Hemoglobin Concent 37.2 G/DL (32.0-36.0) H Red Cell Distribution Width 14.7 % (11.6-14.8) Platelet Count 44 K/UL (150-450) L Mean Platelet Volume 8.4 FL (6.5-10.1) Neutrophils (%) (Auto) % (45.0-75.0) Lymphocytes (%) (Auto) % (20.0-45.0) Monocytes (%) (Auto) % (1.0-10.0) Eosinophils (%) (Auto) % (0.0-3.0) Basophils (%) (Auto) % (0.0-2.0) Neutrophils % (Manual) Pending Lymphocytes % (Manual) Pending Platelet Estimate Pending Platelet Morphology Pending Sodium Level 141 MMOL/L (136-145) Potassium Level 4.4 MMOL/L (3.5-5.1) Chloride Level 106 MMOL/L (98-107) Carbon Dioxide Level 27 MMOL/L (21-32) Anion Gap 8 mmol/L (5-15) Blood Urea Nitrogen 10 mg/dL (7-18) Creatinine 0.9 MG/DL (0.55-1.30) Estimat Glomerular Filtration Rate > 60 mL/min (>60) Glucose Level 94 MG/DL (74-106) Uric Acid 3.3 MG/DL (2.6-7.2) Calcium Level 8.8 MG/DL (8.5-10.1) Phosphorus Level 3.9 MG/DL (2.5-4.9) Magnesium Level 1.7 MG/DL (1.8-2.4) L Total Bilirubin 0.3 MG/DL (0.2-1.0) Aspartate Amino Transf (AST/SGOT) 22 U/L (15-37) Alanine Aminotransferase (ALT/SGPT) 30 U/L (12-78) Alkaline Phosphatase 117 U/L (46-116) H Total Protein 6.6 G/DL (6.4-8.2) Albumin 2.4 G/DL (3.4-5.0) L Globulin 4.2 g/dL Albumin/Globulin Ratio 0.6 (1.0-2.7) L Current Medications Medications (Trade) Dose Ordered Sig/Poonam Route PRN Reason Start Time Stop Time Status Last Admin Dose Admin Acetaminophen (Tylenol) 650 mg Q6H PRN ORAL Mild Pain/Temp > 100.5 10/31/19 02:30 11/25/19 02:29 Ceftriaxone Sodium 1 gm/ Dextrose 55 ml @ 110 mls/hr Q24H IVPB 10/31/19 16:00 11/05/19 15:59 11/01/19 16:44 Dextrose (Dextrose 50%) 25 ml Q30M PRN IV Hypoglycemia 10/31/19 02:30 11/25/19 17:59 Dextrose (Dextrose 50%) 50 ml Q30M PRN IV Hypoglycemia 10/31/19 02:30 11/25/19 17:59 Diphenhydramine HCl (Benadryl) 25 mg Q6H PRN IVP Itching 10/31/19 02:30 11/25/19 02:29 Insulin Aspart (NovoLOG) BEFORE MEALS AND HS SUBQ 10/31/19 06:30 11/25/19 20:59 Magnesium Oxide (Mag-Ox 400mg) 400 mg THREE TIMES A DAY ORAL 10/31/19 13:00 11/30/19 12:59 11/02/19 08:55 Ondansetron HCl (Zofran) 4 mg Q6H PRN IVP Nausea & Vomiting 10/31/19 02:30 11/25/19 02:29 Pantoprazole (Protonix) 40 mg EVERY 12 HOURS ORAL 10/31/19 09:00 11/27/19 20:59 11/02/19 08:55 Potassium Chloride (K-Dur) 40 meq TWICE A DAY ORAL 10/31/19 18:00 11/30/19 17:59 11/02/19 08:55 Evelio Hill MD Nov 02, 2019 10:31
[2019-11-02 12:00] VITALS: BP 125/70
--- NOTE | 2019-11-02 12:37 | NUR ---
CASE MANAGEMENT: REVIEW 11/02/2019 SI:SEPTIC SHOCK . SEPSIS E.COLI . UTI . PANCYTOPENIA . ACUTE RENAL FAILURE HX: STOMACH CA 98.1 86 20 128/67 95% ON RA WBC 2.1 H/H 8.1/21.8 PLT 44 MG 1.7 IS:IV CIPRO Q24HR K-DUR PO BID MAG-OX PO TID PROTONIX PO BID \: 2E TELE UNIT PLAN: CHANGE ABX: IV ROCEPHIN TO IV CIPRO
--- NOTE | 2019-11-02 12:58 | NUR ---
NURSE NOTES: Dr. Bird made aware of Magnesium level of 1.7. No new orders.
--- NOTE | 2019-11-02 13:26 | Nephrology Progress Note ---
Assessment/Plan Problem List: (1) Renal failure (ARF), acute on chronic Assessment: resolved (2) Hypotension (3) Sepsis (4) Symptomatic anemia Assessment Renal failure resolving Hypotension resolving Sepsis ? UTI Symptomatic anemia Plan PO Mag and KCl Anemia whalen- Transfused antibiotics avoid nephrotoxics urine studies JOSEPH kidney No Mitchell 2D echo Noted Subjective ROS Limited/Unobtainable: No Constitutional: Reports: malaise Objective Objective Last 24 Hour Vital Signs Date Time Temp Pulse Resp B/P (MAP) Pulse Ox O2 Delivery O2 Flow Rate FiO2 11/02/19 12:00 98.1 80 19 125/70 (88) 96 11/02/19 09:00 Room Air 11/02/19 08:00 88 11/02/19 08:00 98.1 86 20 128/67 (87) 95 11/02/19 04:00 81 11/02/19 04:00 98.2 81 20 132/68 (89) 96 11/02/19 00:00 98.4 82 19 132/75 (94) 96 11/02/19 00:00 82 11/01/19 21:00 Room Air 11/01/19 20:00 88 11/01/19 20:00 98.8 88 20 139/79 (99) 96 11/01/19 16:00 79 11/01/19 16:00 98.2 97 20 134/82 (99) 97 Intake and Output 11/01/19 11/02/19 19:00 07:00 Intake Total 400 ml 250 ml Output Total 1400 ml Balance -1000 ml 250 ml Intake Oral 280 ml 250 ml Other 120 ml Output Urine Total 1400 ml # Voids 5 2 Current Medications Medications (Trade) Dose Ordered Sig/Poonam Route PRN Reason Start Time Stop Time Status Last Admin Dose Admin Acetaminophen (Tylenol) 650 mg Q6H PRN ORAL Mild Pain/Temp > 100.5 10/31/19 02:30 11/25/19 02:29 Ciprofloxacin (Cipro 500mg tab) 500 mg EVERY 12 HOURS ORAL 11/02/19 21:00 11/09/19 20:59 Dextrose (Dextrose 50%) 25 ml Q30M PRN IV Hypoglycemia 10/31/19 02:30 11/25/19 17:59 Dextrose (Dextrose 50%) 50 ml Q30M PRN IV Hypoglycemia 10/31/19 02:30 11/25/19 17:59 Diphenhydramine HCl (Benadryl) 25 mg Q6H PRN IVP Itching 10/31/19 02:30 11/25/19 02:29 Insulin Aspart (NovoLOG) BEFORE MEALS AND HS SUBQ 10/31/19 06:30 11/25/19 20:59 Magnesium Oxide (Mag-Ox 400mg) 400 mg THREE TIMES A DAY ORAL 10/31/19 13:00 11/30/19 12:59 11/02/19 13:10 Ondansetron HCl (Zofran) 4 mg Q6H PRN IVP Nausea & Vomiting 10/31/19 02:30 11/25/19 02:29 Pantoprazole (Protonix) 40 mg EVERY 12 HOURS ORAL 10/31/19 09:00 11/27/19 20:59 11/02/19 08:55 Potassium Chloride (K-Dur) 40 meq TWICE A DAY ORAL 10/31/19 18:00 11/30/19 17:59 11/02/19 08:55 Laboratory Tests 11/02/19 07:05: White Blood Count 2.1*L, Red Blood Count 2.45L, Hemoglobin 8.1L, Hematocrit 21.8L, Mean Corpuscular Volume 89, Mean Corpuscular Hemoglobin 33.0H, Mean Corpuscular Hemoglobin Concent 37.2H, Red Cell Distribution Width 14.7, Platelet Count 44L, Mean Platelet Volume 8.4, Neutrophils (%) (Auto) , Lymphocytes (%) (Auto) , Monocytes (%) (Auto) , Eosinophils (%) (Auto) , Basophils (%) (Auto) , Differential Total Cells Counted 100, Neutrophils % ( Manual) 53, Lymphocytes % (Manual) 34, Monocytes % (Manual) 11H, Eosinophils % ( Manual) 2, Basophils % (Manual) 0, Band Neutrophils 0, Platelet Estimate DecreasedL, Platelet Morphology Normal, Hypochromasia 2+, Anisocytosis 1+, Spherocytes 3+, Sodium Level 141, Potassium Level 4.4, Chloride Level 106, Carbon Dioxide Level 27, Anion Gap 8, Blood Urea Nitrogen 10, Creatinine 0.9, Estimat Glomerular Filtration Rate > 60, Glucose Level 94, Uric Acid 3.3, Calcium Level 8.8, Phosphorus Level 3.9, Magnesium Level 1.7L, Total Bilirubin 0.3, Aspartate Amino Transf (AST/SGOT) 22, Alanine Aminotransferase (ALT/SGPT) 30, Alkaline Phosphatase 117H, Total Protein 6.6, Albumin 2.4L, Globulin 4.2, Albumin/Globulin Ratio 0.6L Height (Feet): 5 Height (Inches): 1.00 Weight (Pounds): 134 General Appearance: no apparent distress, lethargic Respiratory/Chest: decreased breath sounds Abdomen: soft Objective no change Alverto Bird MD Nov 02, 2019 13:26
--- NOTE | 2019-11-02 14:25 | NUR ---
RD ASSESSMENT & RECOMMENDATIONS SEE CARE ACTIVITY FOR COMPLETE ASSESSMENT DAILY ESTIMATED NEEDS: Needs based on CA/ 51kg abw 25-30 kcals/kg 9249-7703 total kcals 1-1.5 g protein/kg 51-77 g total protein 25-30 mL/kg 8771-5609 total fluid mLs NUTRITION DIAGNOSIS: Increased kcal/prot needs R/T catabolic dx as evidenced by h/o stomach and ovarian CA, s/p recent chemotherapy. CURRENT DIET:REGULAR PO DIET RECOMMENDATIONS: Regular, neutropenic precaution ADDITIONAL RECOMMENDATIONS: * Standing wt for accurate CBW * Monitor for continued good PO intake and tolerance * Rec neutropenic precaution: wbc 2.1 * Monitor BGs closely, need for carb controlled diet * Monitor lytes, replete as needed (low mag) * Snacks in b/w meals
[2019-11-02 16:00] VITALS: BP 130/88
--- NOTE | 2019-11-02 17:25 | General Progress Note ---
Assessment/Plan Status: progressing Assessment/Plan: Assessment - gastric CA, s/p resection - Anemia - OB (-) stools - pancytopenia Recommendations - po diet - monitor labs - check OB - neg - Heme/Onc f/u - transfuse PRN Subjective Allergies: Coded Allergies: No Known Allergies (Unverified , 10/26/19) Subjective Feels better no vomiting tolerating PO Objective Last 24 Hour Vital Signs Date Time Temp Pulse Resp B/P (MAP) Pulse Ox O2 Delivery O2 Flow Rate FiO2 11/02/19 12:00 98.1 80 19 125/70 (88) 96 11/02/19 12:00 72 11/02/19 09:00 Room Air 11/02/19 08:00 88 11/02/19 08:00 98.1 86 20 128/67 (87) 95 11/02/19 04:00 81 11/02/19 04:00 98.2 81 20 132/68 (89) 96 11/02/19 00:00 98.4 82 19 132/75 (94) 96 11/02/19 00:00 82 11/01/19 21:00 Room Air 11/01/19 20:00 88 11/01/19 20:00 98.8 88 20 139/79 (99) 96 Intake and Output 11/01/19 11/02/19 19:00 07:00 Intake Total 400 ml 250 ml Output Total 1400 ml Balance -1000 ml 250 ml Intake Oral 280 ml 250 ml Other 120 ml Output Urine Total 1400 ml # Voids 5 2 Laboratory Tests 11/02/19 07:05: White Blood Count 2.1*L, Red Blood Count 2.45L, Hemoglobin 8.1L, Hematocrit 21.8L, Mean Corpuscular Volume 89, Mean Corpuscular Hemoglobin 33.0H, Mean Corpuscular Hemoglobin Concent 37.2H, Red Cell Distribution Width 14.7, Platelet Count 44L, Mean Platelet Volume 8.4, Neutrophils (%) (Auto) , Lymphocytes (%) (Auto) , Monocytes (%) (Auto) , Eosinophils (%) (Auto) , Basophils (%) (Auto) , Differential Total Cells Counted 100, Neutrophils % ( Manual) 53, Lymphocytes % (Manual) 34, Monocytes % (Manual) 11H, Eosinophils % ( Manual) 2, Basophils % (Manual) 0, Band Neutrophils 0, Platelet Estimate DecreasedL, Platelet Morphology Normal, Hypochromasia 2+, Anisocytosis 1+, Spherocytes 3+, Sodium Level 141, Potassium Level 4.4, Chloride Level 106, Carbon Dioxide Level 27, Anion Gap 8, Blood Urea Nitrogen 10, Creatinine 0.9, Estimat Glomerular Filtration Rate > 60, Glucose Level 94, Uric Acid 3.3, Calcium Level 8.8, Phosphorus Level 3.9, Magnesium Level 1.7L, Total Bilirubin 0.3, Aspartate Amino Transf (AST/SGOT) 22, Alanine Aminotransferase (ALT/SGPT) 30, Alkaline Phosphatase 117H, Total Protein 6.6, Albumin 2.4L, Globulin 4.2, Albumin/Globulin Ratio 0.6L Height (Feet): 5 Height (Inches): 1.00 Weight (Pounds): 134 Objective WDWN NCAT supple CTA RR abd soft nt ND no edema Kristine Alexander MD Nov 02, 2019 17:25
--- NOTE | 2019-11-02 19:37 | NUR ---
HAND-OFF: Report given to Donnie Kenney. Plan of care endorsed.
--- NOTE | 2019-11-02 19:42 | NUR ---
NURSE NOTES: Received pt and report from RAMOS Latham. Observed pt resting in bed with both eyes open and watching television. Pt is A/Ox4. x ray equipment tester is in place; pt is NSR. IV site intact, asymptomatic, and patent. Bed is in the lowest position and locked. Call light and bedside table is within reach. No signs/symptoms of acute distress noted at this time. Will continue plan of care.
[2019-11-02 20:00] VITALS: BP 133/71
[2019-11-02] MEDS: Ciprofloxacin 500mg tab ORAL SCH (21:18)
--- NOTE | 2019-11-02 21:30 | General Progress Note ---
Assessment/Plan Problem List: (1) Symptomatic anemia ICD Codes: D64.9 - Anemia, unspecified SNOMED: 675797293 (2) Sepsis ICD Codes: A41.9 - Sepsis, unspecified organism SNOMED: 90077139 Qualifiers: Qualified Codes: A41.9 - Sepsis, unspecified organism; R65.21 - Severe sepsis with septic shock; N17.9 - Acute kidney failure, unspecified (3) Hypotension ICD Codes: I95.9 - Hypotension, unspecified SNOMED: 93930027 Qualifiers: Qualified Codes: I95.9 - Hypotension, unspecified (4) Renal failure (ARF), acute on chronic ICD Codes: N17.9 - Acute kidney failure, unspecified; N18.9 - Chronic kidney disease, unspecified SNOMED: 980595005 Status: progressing Assessment/Plan: check lytes and h/h no acute events check cbc no bleeding immunecompromised low k improved pancytopenia afebrile Subjective ROS Limited/Unobtainable: Yes Allergies: Coded Allergies: No Known Allergies (Unverified , 10/26/19) Objective Last 24 Hour Vital Signs Date Time Temp Pulse Resp B/P (MAP) Pulse Ox O2 Delivery O2 Flow Rate FiO2 11/02/19 16:00 98.2 85 18 130/88 (102) 97 11/02/19 16:00 83 11/02/19 12:00 98.1 80 19 125/70 (88) 96 11/02/19 12:00 72 11/02/19 09:00 Room Air 11/02/19 08:00 88 11/02/19 08:00 98.1 86 20 128/67 (87) 95 11/02/19 04:00 81 11/02/19 04:00 98.2 81 20 132/68 (89) 96 11/02/19 00:00 98.4 82 19 132/75 (94) 96 11/02/19 00:00 82 Intake and Output 11/01/19 11/02/19 18:59 06:59 Intake Total 540 ml 250 ml Output Total 1400 ml Balance -860 ml 250 ml Intake Oral 420 ml 250 ml Other 120 ml Output Urine Total 1400 ml # Voids 5 2 Laboratory Tests 11/02/19 07:05: White Blood Count 2.1*L, Red Blood Count 2.45L, Hemoglobin 8.1L, Hematocrit 21.8L, Mean Corpuscular Volume 89, Mean Corpuscular Hemoglobin 33.0H, Mean Corpuscular Hemoglobin Concent 37.2H, Red Cell Distribution Width 14.7, Platelet Count 44L, Mean Platelet Volume 8.4, Neutrophils (%) (Auto) , Lymphocytes (%) (Auto) , Monocytes (%) (Auto) , Eosinophils (%) (Auto) , Basophils (%) (Auto) , Differential Total Cells Counted 100, Neutrophils % ( Manual) 53, Lymphocytes % (Manual) 34, Monocytes % (Manual) 11H, Eosinophils % ( Manual) 2, Basophils % (Manual) 0, Band Neutrophils 0, Platelet Estimate DecreasedL, Platelet Morphology Normal, Hypochromasia 2+, Anisocytosis 1+, Spherocytes 3+, Sodium Level 141, Potassium Level 4.4, Chloride Level 106, Carbon Dioxide Level 27, Anion Gap 8, Blood Urea Nitrogen 10, Creatinine 0.9, Estimat Glomerular Filtration Rate > 60, Glucose Level 94, Uric Acid 3.3, Calcium Level 8.8, Phosphorus Level 3.9, Magnesium Level 1.7L, Total Bilirubin 0.3, Aspartate Amino Transf (AST/SGOT) 22, Alanine Aminotransferase (ALT/SGPT) 30, Alkaline Phosphatase 117H, Total Protein 6.6, Albumin 2.4L, Globulin 4.2, Albumin/Globulin Ratio 0.6L Height (Feet): 5 Height (Inches): 1.00 Weight (Pounds): 134 Neck: supple Cardiovascular: normal rate Respiratory/Chest: lungs clear Alea Melendez MD Nov 02, 2019 21:29
--- NOTE | 2019-11-02 22:44 | Pulmonolgy Critical Care Note ---
Critical Care - Asmt/Plan Assessment/Plan: Pulmonary Progress Note HPI Patient is a 64-year-old female with past medical history of Stomach cancer, Ovarian Cancer, Hypertension, history of recent chemotherapy ,admitted with with fever/chills for one day, weakness, noted to have severe anemia, hypotension, evidence of urinary tract infection, clear CXR on admission GNR on match Urine Ecoli Feels improved, on floor - Tele, no new complaints LE Dupplex negative for DVT CT Abdomen no hydronephrosis Allergies: No Known Allergies Past Medical History: Stomach cancer, hypertension All Other Systems: negative except mentioned in HPI Physical Exam Vital Signs Noted General Appearance: well appearing, no apparent distress, alert, pale Head: normocephalic, atraumatic Eyes: bilateral eye PERRL, bilateral eye EOMI ENT: uvula midline, dry mucus membranes Neck: supple, thyroid normal, supple/symm/no masses Respiratory: lungs clear, no respiratory distress, no retraction, no accessory muscle use Cardiovascular: normal peripheral pulses, regular rate, rhythm, HS1, HS2 normal , no gallop, no murmur Gastrointestinal: non tender, soft, no guarding, no rebound Musculoskeletal: normal inspection Neurologic: alert, oriented x3, no focal signs, no seizures Psychiatric: mood/affect normal Skin: no rash, warm/dry, no edema EKG: NSR, rate 66, QTc 436, no acute ST elevations, normal axis CXR: No acute changes LE Dupplex negative UA: S/o infection CBC: Severe anemia Impression: Stomach Cancer/Ovarian Cancer s/p recent Chemotherapy Urosepsis, Ecoli on BC Severe Anemia s/p Transfusion Thrombocytopenia Hypokalemia H/o Hypertension Dehydration Hyponatremia Azotemia Elevated BNP Hyperglycemia Plan: - IV Antibiotics per ID - Transfuse PRN - IV Protonix - R/o DVT, SCD's - Monitor labs - DIGESTER 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 RX --------- --- AMPICILLIN >=32 R CEFAZOLIN <=4 S CEFTRIAXONE <=1 S CIPROFLOXACIN <=0.25 S ERTAPENEM <=0.5 S GENTAMICIN 8 I LEVOFLOXACIN 1 S IMIPENEM <=0.25 S NITROFURANTOIN <=16 S TRIMETHOPRIM/SULFA >=320 R AMIKACIN <=2 S PIPERACILLIN/TAZOBACTAM 8 S Critical Care - Objective Last 24 Hour Vital Signs Date Time Temp Pulse Resp B/P (MAP) Pulse Ox O2 Delivery O2 Flow Rate FiO2 11/02/19 21:00 Room Air 11/02/19 20:00 98.4 84 19 133/71 (91) 95 11/02/19 16:00 98.2 85 18 130/88 (102) 97 11/02/19 16:00 83 11/02/19 12:00 98.1 80 19 125/70 (88) 96 11/02/19 12:00 72 11/02/19 09:00 Room Air 11/02/19 08:00 88 11/02/19 08:00 98.1 86 20 128/67 (87) 95 11/02/19 04:00 81 11/02/19 04:00 98.2 81 20 132/68 (89) 96 11/02/19 00:00 98.4 82 19 132/75 (94) 96 11/02/19 00:00 82 Accucheck: 77 Critical Care - Subjective ROS Limited/Unobtainable: No I&O: Intake and Output 11/01/19 11/02/19 19:00 07:00 Intake Total 400 ml 250 ml Output Total 1400 ml Balance -1000 ml 250 ml Intake Oral 280 ml 250 ml Other 120 ml Output Urine Total 1400 ml # Voids 5 2 Ajit Land MD Nov 02, 2019 22:44
[2019-11-03] VITALS: BP 134/73
[2019-11-03 04:00] VITALS: BP 124/74
[2019-11-03 07:00] LABS: HEMOGLOBIN 8.9 G/DL (12.0-16.0); MEAN CORPUSCULAR VOLUME 89 FL (80-99); PLATELET COUNT 57 K/UL (150-450); RED BLOOD COUNT 2.69 M/UL (4.20-5.40); RED CELL DISTRIBUTION WIDTH 14.9 % (11.6-14.8)
--- NOTE | 2019-11-03 07:31 | NUR ---
HAND-OFF: Report given to RAMOS Goldberg. Plan of care endorsed.
[2019-11-03 08:00] VITALS: BP 137/68
[2019-11-03 08:02] LABS: WHITE BLOOD COUNT 2.1 K/UL (4.8-10.8)
[2019-11-03] MEDS: Magnesium Oxide 400mg tab ORAL SCH ×3 (09:08→18:19)
[2019-11-03] MEDS: Ciprofloxacin 500mg tab ORAL SCH ×2 (09:08→21:19)
--- NOTE | 2019-11-03 11:12 | Cardiac Electrophysiology PN ---
Assessment/Plan Assessment/Plan 1. S/P septic shock. Still on broad-spectrum IV antibiotic. Her echocardiogram showed ejection fraction of 60% to 65%. No evidence of pericardial effusion.On po Abx now 2. Stomach cancer and history of ovarian resection in 2019. He is usually followed up at [facility]. 3. Pancytopenia. PONCE [place]duff[place] 4. Renal failure. Further evaluation by Dr. Bird. ALISON RN Subjective Subjective Alert in NAD. In SR. No events Objective Last 24 Hour Vital Signs Date Time Temp Pulse Resp B/P (MAP) Pulse Ox O2 Delivery O2 Flow Rate FiO2 11/03/19 08:00 95 11/03/19 08:00 97.2 93 19 137/68 (91) 97 11/03/19 04:00 99.2 85 18 124/74 (91) 94 11/03/19 04:00 85 11/03/19 00:00 78 11/03/19 00:00 98.4 86 17 134/73 (93) 94 11/02/19 21:00 Room Air 11/02/19 20:00 83 11/02/19 20:00 98.4 84 19 133/71 (91) 95 11/02/19 16:00 98.2 85 18 130/88 (102) 97 11/02/19 16:00 83 11/02/19 12:00 98.1 80 19 125/70 (88) 96 11/02/19 12:00 72 Intake and Output 11/02/19 11/03/19 19:00 07:00 Intake Total 1200 ml 250 ml Balance 1200 ml 250 ml Intake Oral 1200 ml 250 ml # Voids 6 1 Laboratory Tests Test 11/03/19 06:37 White Blood Count 2.1 K/UL (4.8-10.8) *L Red Blood Count 2.69 M/UL (4.20-5.40) L Hemoglobin 8.9 G/DL (12.0-16.0) L Hematocrit 24.0 % (37.0-47.0) L Mean Corpuscular Volume 89 FL (80-99) Mean Corpuscular Hemoglobin 33.0 PG (27.0-31.0) H Mean Corpuscular Hemoglobin Concent 37.0 G/DL (32.0-36.0) H Red Cell Distribution Width 14.9 % (11.6-14.8) H Platelet Count 57 K/UL (150-450) L Mean Platelet Volume 6.5 FL (6.5-10.1) Neutrophils (%) (Auto) % (45.0-75.0) Lymphocytes (%) (Auto) % (20.0-45.0) Monocytes (%) (Auto) % (1.0-10.0) Eosinophils (%) (Auto) % (0.0-3.0) Basophils (%) (Auto) % (0.0-2.0) Differential Total Cells Counted 100 Neutrophils % (Manual) 46 % (45-75) Lymphocytes % (Manual) 44 % (20-45) Monocytes % (Manual) 8 % (1-10) Eosinophils % (Manual) 2 % (0-3) Basophils % (Manual) 0 % (0-2) Band Neutrophils 0 % (0-8) Nucleated Red Blood Cells 2 /100 WBC Reactive Lymphocytes 1+ Platelet Estimate Decreased L Platelet Morphology Normal Objective HEAD AND NECK: No JVD. LUNGS: Clear. CARDIOVASCULAR: Regular S1 and S2 with no gallop or murmur. ABDOMEN: Soft. EXTREMITIES: No pitting edema. Benigno Rivera MD Nov 03, 2019 11:12
[2019-11-03 12:00] VITALS: BP 142/81
--- NOTE | 2019-11-03 12:38 | Infectious Diseases Prog Note ---
Assessment/Plan Assessment/Plan A; E. coli sepsis E. coli UTI Pancytopenia Stomach cancer Acute renal failure, resolved P; Continue Cipro Subjective ROS Limited/Unobtainable: No Constitutional: Reports: no symptoms Respiratory: Reports: no symptoms Cardiovascular: Reports: no symptoms Allergies: Coded Allergies: No Known Allergies (Unverified , 10/26/19) Objective Vital Signs Last 24 Hour Vital Signs Date Time Temp Pulse Resp B/P (MAP) Pulse Ox O2 Delivery O2 Flow Rate FiO2 11/03/19 12:00 98.2 79 20 142/81 (101) 99 11/03/19 09:00 Room Air 11/03/19 08:00 95 11/03/19 08:00 97.2 93 19 137/68 (91) 97 11/03/19 04:00 99.2 85 18 124/74 (91) 94 11/03/19 04:00 85 11/03/19 00:00 78 11/03/19 00:00 98.4 86 17 134/73 (93) 94 11/02/19 21:00 Room Air 11/02/19 20:00 83 11/02/19 20:00 98.4 84 19 133/71 (91) 95 11/02/19 16:00 98.2 85 18 130/88 (102) 97 11/02/19 16:00 83 Height (Feet): 5 Height (Inches): 1.00 Weight (Pounds): 138 General Appearance: no acute distress HEENT: mucous membranes moist Respiratory/Chest: lungs clear Cardiovascular: normal rate Abdomen: soft, non tender Extremities: no edema Neurologic/Psychiatric: alert, oriented x 3, responsive Laboratory Tests Test 11/03/19 06:37 White Blood Count 2.1 K/UL (4.8-10.8) *L Red Blood Count 2.69 M/UL (4.20-5.40) L Hemoglobin 8.9 G/DL (12.0-16.0) L Hematocrit 24.0 % (37.0-47.0) L Mean Corpuscular Volume 89 FL (80-99) Mean Corpuscular Hemoglobin 33.0 PG (27.0-31.0) H Mean Corpuscular Hemoglobin Concent 37.0 G/DL (32.0-36.0) H Red Cell Distribution Width 14.9 % (11.6-14.8) H Platelet Count 57 K/UL (150-450) L Mean Platelet Volume 6.5 FL (6.5-10.1) Neutrophils (%) (Auto) % (45.0-75.0) Lymphocytes (%) (Auto) % (20.0-45.0) Monocytes (%) (Auto) % (1.0-10.0) Eosinophils (%) (Auto) % (0.0-3.0) Basophils (%) (Auto) % (0.0-2.0) Differential Total Cells Counted 100 Neutrophils % (Manual) 46 % (45-75) Lymphocytes % (Manual) 44 % (20-45) Monocytes % (Manual) 8 % (1-10) Eosinophils % (Manual) 2 % (0-3) Basophils % (Manual) 0 % (0-2) Band Neutrophils 0 % (0-8) Nucleated Red Blood Cells 2 /100 WBC Reactive Lymphocytes 1+ Platelet Estimate Decreased L Platelet Morphology Normal Current Medications Medications (Trade) Dose Ordered Sig/Poonam Route PRN Reason Start Time Stop Time Status Last Admin Dose Admin Acetaminophen (Tylenol) 650 mg Q6H PRN ORAL Mild Pain/Temp > 100.5 10/31/19 02:30 11/25/19 02:29 Ciprofloxacin (Cipro 500mg tab) 500 mg EVERY 12 HOURS ORAL 11/02/19 21:00 11/09/19 20:59 11/03/19 09:08 Dextrose (Dextrose 50%) 25 ml Q30M PRN IV Hypoglycemia 10/31/19 02:30 11/25/19 17:59 Dextrose (Dextrose 50%) 50 ml Q30M PRN IV Hypoglycemia 10/31/19 02:30 11/25/19 17:59 Diphenhydramine HCl (Benadryl) 25 mg Q6H PRN IVP Itching 10/31/19 02:30 11/25/19 02:29 Magnesium Oxide (Mag-Ox 400mg) 400 mg THREE TIMES A DAY ORAL 10/31/19 13:00 11/30/19 12:59 11/03/19 09:08 Ondansetron HCl (Zofran) 4 mg Q6H PRN IVP Nausea & Vomiting 10/31/19 02:30 11/25/19 02:29 Pantoprazole (Protonix) 40 mg EVERY 12 HOURS ORAL 10/31/19 09:00 11/27/19 20:59 11/03/19 09:08 Potassium Chloride (K-Dur) 40 meq TWICE A DAY ORAL 10/31/19 18:00 11/30/19 17:59 11/03/19 09:08 Evelio Hill MD Nov 03, 2019 12:38
--- NOTE | 2019-11-03 12:48 | Nephrology Progress Note ---
Assessment/Plan Problem List: (1) Renal failure (ARF), acute on chronic Assessment: resolved (2) Hypotension (3) Sepsis (4) Symptomatic anemia (5) Pancytopenia Assessment Renal failure resolving Hypotension resolving Sepsis ? UTI Symptomatic anemia Plan PO Mag and KCl Anemia whalen- Transfused antibiotics avoid nephrotoxics urine studies JOSEPH kidney No [place] 2D echo Noted Subjective ROS Limited/Unobtainable: No Constitutional: Reports: malaise Objective Objective Last 24 Hour Vital Signs Date Time Temp Pulse Resp B/P (MAP) Pulse Ox O2 Delivery O2 Flow Rate FiO2 11/03/19 12:00 98.2 79 20 142/81 (101) 99 11/03/19 09:00 Room Air 11/03/19 08:00 95 11/03/19 08:00 97.2 93 19 137/68 (91) 97 11/03/19 04:00 99.2 85 18 124/74 (91) 94 11/03/19 04:00 85 11/03/19 00:00 78 11/03/19 00:00 98.4 86 17 134/73 (93) 94 11/02/19 21:00 Room Air 11/02/19 20:00 83 11/02/19 20:00 98.4 84 19 133/71 (91) 95 11/02/19 16:00 98.2 85 18 130/88 (102) 97 11/02/19 16:00 83 Intake and Output 11/02/19 11/03/19 19:00 07:00 Intake Total 1200 ml 250 ml Balance 1200 ml 250 ml Intake Oral 1200 ml 250 ml # Voids 6 1 Laboratory Tests 11/03/19 06:37: White Blood Count 2.1*L, Red Blood Count 2.69L, Hemoglobin 8.9L, Hematocrit 24.0L, Mean Corpuscular Volume 89, Mean Corpuscular Hemoglobin 33.0H, Mean Corpuscular Hemoglobin Concent 37.0H, Red Cell Distribution Width 14.9H, Platelet Count 57L, Mean Platelet Volume 6.5, Neutrophils (%) (Auto) , Lymphocytes (%) (Auto) , Monocytes (%) (Auto) , Eosinophils (%) (Auto) , Basophils (%) (Auto) , Differential Total Cells Counted 100, Neutrophils % ( Manual) 46, Lymphocytes % (Manual) 44, Monocytes % (Manual) 8, Eosinophils % ( Manual) 2, Basophils % (Manual) 0, Band Neutrophils 0, Nucleated Red Blood Cells 2, Reactive Lymphocytes 1+, Platelet Estimate DecreasedL, Platelet Morphology Normal Height (Feet): 5 Height (Inches): 1.00 Weight (Pounds): 138 General Appearance: no apparent distress Cardiovascular: normal rate Respiratory/Chest: lungs clear Abdomen: soft Objective no change Alverto Bird MD Nov 03, 2019 12:48
--- NOTE | 2019-11-03 14:04 | NUR ---
CASE MANAGEMENT: REVIEW 11/03/2019 SI:SEPTIC SHOCK . SEPSIS E.COLI . UTI . PANCYTOPENIA . ACUTE RENAL FAILURE . SYMPTOMATIC ANEMIA HX: STOMACH CA 98.2 79 20 142/81 99% ON RA WBC 2.1 H/H 8.9/24.0 PLT 57 IS:IV CIPRO Q24HR K-DUR PO BID MAG-OX PO TID PROTONIX PO BID NOVOLOG SQ AC&HS \: 2E TELE UNIT PLAN: TRANSFER TO MED SURG UNIT CONT IV ABX -CIPRO IV MAGNESIUM SULFATE X4 BAGS- STILL RUNNING (11/02/19)
--- NOTE | 2019-11-03 14:23 | Hematology/Onc Progress Note ---
Assessment/Plan Assessment/Plan Assessment and Recs: # Stomach cancer with a history of ovarian resection in 2019 recently --> sees Dr. Alicea at [facility] --> hold off lynparza at this time that is fda approved for BRCA-mutated tumors (has been off since Friday10/26/19) --> may be a cause of anemia as well --> recover from anemia 1st before restarting chemo --> CBC reordered # Anemia due to myelosuppression from chemo --> Anemia workup has been ordered, rule out gi bleed --> No evidence of hemolysis is noted, peripheral smear has been reviewed. --> Hgb goal >7. Transfuse prn. --> Epogen or iron at this time is not particularly indicated --> Medications have been reviewed --> low threshold for gi evaluation in case has occult + --> hgb trend 5.7-->9.4-->8.2-->8.1 -->9 # Thrombocytopenia - potential causes multifactorial, in this case due to sepsis , s/p ABX and PRESSORS --> Hep panel and HIVboth negative --> US abd to evaluate for cirrhosis and hsm ordered --> Peripheral smear ordered to evaluate for blasts /schistocytes --> abx and other meds have been reviewed --> ok for ppx if plt >50k w/ either heparin or lovenox --> Transfuse if Plt < 20k and fever, or if Plt < 10k without fever --> plt trend 101-->84-->62-->38 -->57k # Septic shock with Hypotension --> pressors and abx --> as per id # Critically ill in the icu --> out of icu on 10/31 Appreciate consultation and kevin Rn Subjective Constitutional: Denies: no symptoms, chills, fever, malaise, weakness, other HEENT: Denies: no symptoms, eye pain, blurred vision, tearing, double vision, ear pain, ear discharge, nose pain, nose congestion, throat pain, throat swelling, mouth pain, mouth swelling, other Cardiovascular: Denies: no symptoms, chest pain, edema, irregular heart rate, lightheadedness, palpitations, syncope, other Respiratory: Denies: no symptoms, cough, shortness of breath, SOB with excertion, SOB at rest, sputum, wheezing, other Gastrointestinal/Abdominal: Denies: no symptoms, abdomen distended, abdominal pain, black stools, tarry stools, blood in stool, constipated, diarrhea, difficulty swallowing, nausea, poor appetite, poor fluid intake, rectal bleeding , vomiting, other Genitourinary: Denies: no symptoms, burning, discharge, frequency, flank pain, hematuria, incontinence, pain, urgency, other Neurologic/Psychiatric: Denies: no symptoms, anxiety, depressed, emotional problems, headache, numbness, paresthesia, pre-existing deficit, seizure, tingling, tremors, weakness, other Endocrine: Denies: no symptoms, excessive sweating, flushing, intolerance to cold, intolerance to heat, increased hunger, increased thirst, increased urine, unexplained weight gain, unexplained weight loss, other Allergies: Coded Allergies: No Known Allergies (Unverified , 10/26/19) Subjective 10/28: icu, awake, no acute events, levo drip, h/h stable 10/29: no major changes, dw rn, labs noted, no bleeding 10/31:awake and alert, transferred from [facility],, hep/hiv negative, ceftriaxone 11/01: no f/c, no bleeding, cytopenias still noted, has been off chemo med 11/02: is asleep, no fevers or labs, no bleeding reported, potential dc if labs return 11/03: no bleeding or chills, no night sweats, no major changes Objective Objective Current Medications Medications (Trade) Dose Ordered Sig/Poonam Route PRN Reason Start Time Stop Time Status Last Admin Dose Admin Acetaminophen (Tylenol) 650 mg Q6H PRN ORAL Mild Pain/Temp > 100.5 10/31/19 02:30 11/25/19 02:29 Ciprofloxacin (Cipro 500mg tab) 500 mg EVERY 12 HOURS ORAL 11/02/19 21:00 11/09/19 20:59 11/03/19 09:08 Dextrose (Dextrose 50%) 25 ml Q30M PRN IV Hypoglycemia 10/31/19 02:30 11/25/19 17:59 Dextrose (Dextrose 50%) 50 ml Q30M PRN IV Hypoglycemia 10/31/19 02:30 11/25/19 17:59 Diphenhydramine HCl (Benadryl) 25 mg Q6H PRN IVP Itching 10/31/19 02:30 11/25/19 02:29 Magnesium Oxide (Mag-Ox 400mg) 400 mg THREE TIMES A DAY ORAL 10/31/19 13:00 11/30/19 12:59 11/03/19 12:59 Ondansetron HCl (Zofran) 4 mg Q6H PRN IVP Nausea & Vomiting 10/31/19 02:30 11/25/19 02:29 Pantoprazole (Protonix) 40 mg EVERY 12 HOURS ORAL 10/31/19 09:00 11/27/19 20:59 11/03/19 09:08 Potassium Chloride (K-Dur) 40 meq TWICE A DAY ORAL 10/31/19 18:00 11/30/19 17:59 11/03/19 09:08 Last 24 Hour Vital Signs Date Time Temp Pulse Resp B/P (MAP) Pulse Ox O2 Delivery O2 Flow Rate FiO2 11/03/19 12:00 98.2 79 20 142/81 (101) 99 11/03/19 12:00 80 11/03/19 09:00 Room Air 11/03/19 08:00 95 11/03/19 08:00 97.2 93 19 137/68 (91) 97 11/03/19 04:00 99.2 85 18 124/74 (91) 94 11/03/19 04:00 85 11/03/19 00:00 78 11/03/19 00:00 98.4 86 17 134/73 (93) 94 11/02/19 21:00 Room Air 11/02/19 20:00 83 11/02/19 20:00 98.4 84 19 133/71 (91) 95 11/02/19 16:00 98.2 85 18 130/88 (102) 97 11/02/19 16:00 83 11/02/19 12:00 98.1 80 19 125/70 (88) 96 11/02/19 12:00 72 11/02/19 09:00 Room Air 11/02/19 08:00 88 11/02/19 08:00 98.1 86 20 128/67 (87) 95 11/02/19 04:00 81 11/02/19 04:00 98.2 81 20 132/68 (89) 96 11/02/19 00:00 98.4 82 19 132/75 (94) 96 11/02/19 00:00 82 11/01/19 21:00 Room Air 11/01/19 20:00 88 11/01/19 20:00 98.8 88 20 139/79 (99) 96 11/01/19 16:00 79 11/01/19 16:00 98.2 97 20 134/82 (99) 97 Intake and Output 11/02/19 11/03/19 19:00 07:00 Intake Total 1200 ml 250 ml Balance 1200 ml 250 ml Intake Oral 1200 ml 250 ml # Voids 6 1 Labs Test 11/02/19 07:05 11/03/19 06:37 White Blood Count 2.1 K/UL (4.8-10.8) 2.1 K/UL (4.8-10.8) Red Blood Count 2.45 M/UL (4.20-5.40) 2.69 M/UL (4.20-5.40) Hemoglobin 8.1 G/DL (12.0-16.0) 8.9 G/DL (12.0-16.0) Hematocrit 21.8 % (37.0-47.0) 24.0 % (37.0-47.0) Mean Corpuscular Volume 89 FL (80-99) 89 FL (80-99) Mean Corpuscular Hemoglobin 33.0 PG (27.0-31.0) 33.0 PG (27.0-31.0) Mean Corpuscular Hemoglobin Concent 37.2 G/DL (32.0-36.0) 37.0 G/DL (32.0-36.0) Red Cell Distribution Width 14.7 % (11.6-14.8) 14.9 % (11.6-14.8) Platelet Count 44 K/UL (150-450) 57 K/UL (150-450) Mean Platelet Volume 8.4 FL (6.5-10.1) 6.5 FL (6.5-10.1) Neutrophils (%) (Auto) % (45.0-75.0) % (45.0-75.0) Lymphocytes (%) (Auto) % (20.0-45.0) % (20.0-45.0) Monocytes (%) (Auto) % (1.0-10.0) % (1.0-10.0) Eosinophils (%) (Auto) % (0.0-3.0) % (0.0-3.0) Basophils (%) (Auto) % (0.0-2.0) % (0.0-2.0) Differential Total Cells Counted 100 100 Neutrophils % (Manual) 53 % (45-75) 46 % (45-75) Lymphocytes % (Manual) 34 % (20-45) 44 % (20-45) Monocytes % (Manual) 11 % (1-10) 8 % (1-10) Eosinophils % (Manual) 2 % (0-3) 2 % (0-3) Basophils % (Manual) 0 % (0-2) 0 % (0-2) Band Neutrophils 0 % (0-8) 0 % (0-8) Platelet Estimate Decreased Decreased Platelet Morphology Normal Normal Hypochromasia 2+ Anisocytosis 1+ Spherocytes 3+ Sodium Level 141 MMOL/L (136-145) Potassium Level 4.4 MMOL/L (3.5-5.1) Chloride Level 106 MMOL/L (98-107) Carbon Dioxide Level 27 MMOL/L (21-32) Anion Gap 8 mmol/L (5-15) Blood Urea Nitrogen 10 mg/dL (7-18) Creatinine 0.9 MG/DL (0.55-1.30) Estimat Glomerular Filtration Rate > 60 mL/min (>60) Glucose Level 94 MG/DL (74-106) Uric Acid 3.3 MG/DL (2.6-7.2) Calcium Level 8.8 MG/DL (8.5-10.1) Phosphorus Level 3.9 MG/DL (2.5-4.9) Magnesium Level 1.7 MG/DL (1.8-2.4) Total Bilirubin 0.3 MG/DL (0.2-1.0) Aspartate Amino Transf (AST/SGOT) 22 U/L (15-37) Alanine Aminotransferase (ALT/SGPT) 30 U/L (12-78) Alkaline Phosphatase 117 U/L (46-116) Total Protein 6.6 G/DL (6.4-8.2) Albumin 2.4 G/DL (3.4-5.0) Globulin 4.2 g/dL Albumin/Globulin Ratio 0.6 (1.0-2.7) Nucleated Red Blood Cells 2 /100 WBC Reactive Lymphocytes 1+ Height (Feet): 5 Height (Inches): 1.00 Weight (Pounds): 138 Objective Physical Exam: Vitals: reviewed General Appearance: NAD HEENT: normocephalic, atraumatic Neck: non-tender, normal alignment Respiratory/Chest: normal breath sounds bilaterally Cardiovascular/Chest: normal peripheral pulses, normal rate Abdomen: normal bowel sounds, soft, nontender Extremities: normal range of motion David Venegas MD Nov 03, 2019 14:23
[2019-11-03 16:00] VITALS: BP 126/75
--- NOTE | 2019-11-03 18:08 | Pulmonolgy Critical Care Note ---
Critical Care - Asmt/Plan Assessment/Plan: Pulmonary Progress Note HPI Patient is a 64-year-old female with past medical history of Stomach cancer, Ovarian Cancer, Hypertension, history of recent chemotherapy ,admitted with with fever/chills for one day, weakness, noted to have severe anemia, hypotension, evidence of urinary tract infection, clear CXR on admission GNR on match Urine Ecoli Feels improved, on floor - Tele, no new complaints LE Dupplex negative for DVT CT Abdomen no hydronephrosis Allergies: No Known Allergies Past Medical History: Stomach cancer, hypertension All Other Systems: negative except mentioned in HPI Physical Exam Vital Signs Noted General Appearance: well appearing, no apparent distress, alert, pale Head: normocephalic, atraumatic Eyes: bilateral eye PERRL, bilateral eye EOMI ENT: uvula midline, dry mucus membranes Neck: supple, thyroid normal, supple/symm/no masses Respiratory: lungs clear, no respiratory distress, no retraction, no accessory muscle use Cardiovascular: normal peripheral pulses, regular rate, rhythm, HS1, HS2 normal , no gallop, no murmur Gastrointestinal: non tender, soft, no guarding, no rebound Musculoskeletal: normal inspection Neurologic: alert, oriented x3, no focal signs, no seizures Psychiatric: mood/affect normal Skin: no rash, warm/dry, no edema EKG: NSR, rate 66, QTc 436, no acute ST elevations, normal axis CXR: No acute changes LE Dupplex negative UA: S/o infection CBC: Severe anemia Impression: Stomach Cancer/Ovarian Cancer s/p recent Chemotherapy Urosepsis, Ecoli on BC Severe Anemia s/p Transfusion Thrombocytopenia Hypokalemia H/o Hypertension Dehydration Hyponatremia Azotemia Elevated BNP Hyperglycemia Plan: - IV Antibiotics per ID - Transfuse PRN - IV Protonix - R/o DVT, SCD's - Monitor labs - [employer]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 RX --------- --- AMPICILLIN >=32 R CEFAZOLIN <=4 S CEFTRIAXONE <=1 S CIPROFLOXACIN <=0.25 S ERTAPENEM <=0.5 S GENTAMICIN 8 I LEVOFLOXACIN 1 S IMIPENEM <=0.25 S NITROFURANTOIN <=16 S TRIMETHOPRIM/SULFA >=320 R AMIKACIN <=2 S PIPERACILLIN/TAZOBACTAM 8 S Critical Care - Objective Last 24 Hour Vital Signs Date Time Temp Pulse Resp B/P (MAP) Pulse Ox O2 Delivery O2 Flow Rate FiO2 11/03/19 12:00 98.2 79 20 142/81 (101) 99 11/03/19 12:00 80 11/03/19 09:00 Room Air 11/03/19 08:00 95 11/03/19 08:00 97.2 93 19 137/68 (91) 97 11/03/19 04:00 99.2 85 18 124/74 (91) 94 11/03/19 04:00 85 11/03/19 00:00 78 11/03/19 00:00 98.4 86 17 134/73 (93) 94 11/02/19 21:00 Room Air 11/02/19 20:00 83 11/02/19 20:00 98.4 84 19 133/71 (91) 95 Accucheck: 77 Critical Care - Subjective ROS Limited/Unobtainable: No Condition: improving I&O: Intake and Output 11/02/19 11/03/19 18:59 06:59 Intake Total 1200 ml 250 ml Balance 1200 ml 250 ml Intake Oral 1200 ml 250 ml # Voids 6 1 Ajit Land MD Nov 03, 2019 18:08
[2019-11-03 20:00] VITALS: BP 125/76
--- NOTE | 2019-11-03 20:01 | General Progress Note ---
Assessment/Plan Status: progressing Assessment/Plan: Assessment - gastric CA, s/p resection - Anemia - OB (-) stools - pancytopenia Recommendations - po diet - monitor labs - check OB - neg - Heme/Onc f/u - transfuse PRN Subjective Allergies: Coded Allergies: No Known Allergies (Unverified , 10/26/19) Subjective Feels better no vomiting tolerating PO Objective Last 24 Hour Vital Signs Date Time Temp Pulse Resp B/P (MAP) Pulse Ox O2 Delivery O2 Flow Rate FiO2 11/03/19 12:00 98.2 79 20 142/81 (101) 99 11/03/19 12:00 80 11/03/19 09:00 Room Air 11/03/19 08:00 95 11/03/19 08:00 97.2 93 19 137/68 (91) 97 11/03/19 04:00 99.2 85 18 124/74 (91) 94 11/03/19 04:00 85 11/03/19 00:00 78 11/03/19 00:00 98.4 86 17 134/73 (93) 94 11/02/19 21:00 Room Air Intake and Output 11/02/19 11/03/19 18:59 06:59 Intake Total 1200 ml 250 ml Balance 1200 ml 250 ml Intake Oral 1200 ml 250 ml # Voids 6 1 Laboratory Tests 11/03/19 06:37: White Blood Count 2.1*L, Red Blood Count 2.69L, Hemoglobin 8.9L, Hematocrit 24.0L, Mean Corpuscular Volume 89, Mean Corpuscular Hemoglobin 33.0H, Mean Corpuscular Hemoglobin Concent 37.0H, Red Cell Distribution Width 14.9H, Platelet Count 57L, Mean Platelet Volume 6.5, Neutrophils (%) (Auto) , Lymphocytes (%) (Auto) , Monocytes (%) (Auto) , Eosinophils (%) (Auto) , Basophils (%) (Auto) , Differential Total Cells Counted 100, Neutrophils % ( Manual) 46, Lymphocytes % (Manual) 44, Monocytes % (Manual) 8, Eosinophils % ( Manual) 2, Basophils % (Manual) 0, Band Neutrophils 0, Nucleated Red Blood Cells 2, Reactive Lymphocytes 1+, Platelet Estimate DecreasedL, Platelet Morphology Normal Height (Feet): 5 Height (Inches): 1.00 Weight (Pounds): 138 Objective WDWN NCAT supple CTA RR abd soft nt ND no edema Kristine Alexander MD Nov 03, 2019 20:01
--- NOTE | 2019-11-03 20:20 | NUR ---
HAND-OFF: Report given to Tony/RN, pt in stable condition, order to transfer to [facility].:
--- NOTE | 2019-11-03 20:21 | NUR ---
NURSE NOTES: Got report from Ashlyn BEASLEY. Pt in stable condition. Denies any pain. No s/s of distress or discomfort noted. Pt resting in bed comfortably. Bed in low and locked position, call light within reach, bedside table within reach. Continue to monitor.
--- NOTE | 2019-11-03 20:43 | General Progress Note ---
Assessment/Plan Problem List: (1) Symptomatic anemia ICD Codes: D64.9 - Anemia, unspecified SNOMED: 946499032 (2) Sepsis ICD Codes: A41.9 - Sepsis, unspecified organism SNOMED: 37435873 Qualifiers: Qualified Codes: A41.9 - Sepsis, unspecified organism; R65.21 - Severe sepsis with septic shock; N17.9 - Acute kidney failure, unspecified (3) Hypotension ICD Codes: I95.9 - Hypotension, unspecified SNOMED: 22335135 Qualifiers: Qualified Codes: I95.9 - Hypotension, unspecified (4) Renal failure (ARF), acute on chronic ICD Codes: N17.9 - Acute kidney failure, unspecified; N18.9 - Chronic kidney disease, unspecified SNOMED: 949524592 Status: progressing Assessment/Plan: sepsis no acute event moniter for bleeding reviewed chart immunecompromised low k improved pancytopenia afebrile Subjective ROS Limited/Unobtainable: Yes Allergies: Coded Allergies: No Known Allergies (Unverified , 10/26/19) Objective Last 24 Hour Vital Signs Date Time Temp Pulse Resp B/P (MAP) Pulse Ox O2 Delivery O2 Flow Rate FiO2 11/03/19 16:00 98.4 84 18 126/75 (92) 96 11/03/19 16:00 82 11/03/19 12:00 98.2 79 20 142/81 (101) 99 11/03/19 12:00 80 11/03/19 09:00 Room Air 11/03/19 08:00 95 11/03/19 08:00 97.2 93 19 137/68 (91) 97 11/03/19 04:00 99.2 85 18 124/74 (91) 94 11/03/19 04:00 85 11/03/19 00:00 78 11/03/19 00:00 98.4 86 17 134/73 (93) 94 11/02/19 21:00 Room Air Intake and Output 11/02/19 11/03/19 19:00 07:00 Intake Total 1200 ml 250 ml Balance 1200 ml 250 ml Intake Oral 1200 ml 250 ml # Voids 6 1 Laboratory Tests 11/03/19 06:37: White Blood Count 2.1*L, Red Blood Count 2.69L, Hemoglobin 8.9L, Hematocrit 24.0L, Mean Corpuscular Volume 89, Mean Corpuscular Hemoglobin 33.0H, Mean Corpuscular Hemoglobin Concent 37.0H, Red Cell Distribution Width 14.9H, Platelet Count 57L, Mean Platelet Volume 6.5, Neutrophils (%) (Auto) , Lymphocytes (%) (Auto) , Monocytes (%) (Auto) , Eosinophils (%) (Auto) , Basophils (%) (Auto) , Differential Total Cells Counted 100, Neutrophils % ( Manual) 46, Lymphocytes % (Manual) 44, Monocytes % (Manual) 8, Eosinophils % ( Manual) 2, Basophils % (Manual) 0, Band Neutrophils 0, Nucleated Red Blood Cells 2, Reactive Lymphocytes 1+, Platelet Estimate DecreasedL, Platelet Morphology Normal Height (Feet): 5 Height (Inches): 1.00 Weight (Pounds): 138 Neck: supple Cardiovascular: normal rate Respiratory/Chest: lungs clear Abdomen: soft Alea Melendez MD Nov 03, 2019 20:43
--- NOTE | 2019-11-03 21:00 | NUR ---
NURSE NOTES: PATIENT WAS SAFELY TRANSFERRED TO UNIT VIA HOSPITAL BED. REPORT RECEIVED FROM RAMOS ALCALA. BELONGING LIST REVIEWED AND SIGNED WITH PATIENT. PATIENT IS AWAKE, AAOX4, ON ROOM AIR, NO ACUTE DISTRESS NOTED. SKIN IS INTACT. IV IS INTACT AND PATENT. BED IS LOCKED AND LOW, BED ALARMS ACTIVE, SIDE RAILS UP X2 AND CALL LIGHT IS WITHIN REACH . WILL CONTINUE TO MONITOR.
--- NOTE | 2019-11-03 22:40 | NUR ---
HAND-OFF: Pt transferred to [facility]. Pt in stable condition. Report given to Glory BEASLEY.
[2019-11-04] VITALS: BP 127/79
[2019-11-04] MEDS ORDERED: DiphenhydrAMINE 50mg/ml Inj IVP PRN (02:30)
[2019-11-04 04:00] VITALS: BP 124/76
--- NOTE | 2019-11-04 07:40 | NUR ---
HAND-OFF: Report given to RAMOS Anderson.
--- NOTE | 2019-11-04 07:50 | NUR ---
NURSE NOTES: Patient awake, alert x4; on room air, no sing of distress and shortness of breath; no sing of chest pain; IV Right For-Arm 22G flushes well; according to the report from PM nurse, Glory, patient's WBC 2.1 MD Thomas is aware, will follow up with that; side rails up x2, breaks engaged, bed at lowest position; call light within reach; will keep monitoring.
[2019-11-04 08:00] VITALS: BP 133/69
[2019-11-04 08:39] LABS: HEMATOCRIT 26.4 % (37.0-47.0); HEMOGLOBIN 9.4 G/DL (12.0-16.0); MEAN CORPUSCULAR VOLUME 91 FL (80-99); PLATELET COUNT 79 K/UL (150-450); RED BLOOD COUNT 2.89 M/UL (4.20-5.40); RED CELL DISTRIBUTION WIDTH 15.7 % (11.6-14.8)
[2019-11-04 08:43] LABS: WHITE BLOOD COUNT 2.1 K/UL (4.8-10.8)
[2019-11-04 08:53] LABS: ALANINE AMINOTRANSFERASE 30 U/L (12-78); ALBUMIN/GLOBULIN RATIO 0.6 (1.0-2.7); ALKALINE PHOSPHATASE 134 U/L (46-116); ANION GAP 7 mmol/L (5-15); ASPARTATE AMINO TRANSFERASE 20 U/L (15-37); BILIRUBIN,TOTAL 0.4 MG/DL (0.2-1.0); BLOOD UREA NITROGEN 19 mg/dL (7-18); CALCIUM 9.4 MG/DL (8.5-10.1); CARBON DIOXIDE 28 MMOL/L (21-32); CHLORIDE 104 MMOL/L (98-107); CREATININE 1.1 MG/DL (0.55-1.30); PHOSPHORUS 4.5 MG/DL (2.5-4.9); POTASSIUM 4.8 MMOL/L (3.5-5.1); SODIUM 139 MMOL/L (136-145)
[2019-11-04] MEDS: Magnesium Oxide 400mg tab ORAL SCH ×3 (08:59→17:19)
[2019-11-04] MEDS: Ciprofloxacin 500mg tab ORAL SCH ×2 (08:59→21:45)
--- NOTE | 2019-11-04 10:11 | Nephrology Progress Note ---
Assessment/Plan Problem List: (1) Renal failure (ARF), acute on chronic Assessment: resolved (2) Hypotension (3) Sepsis (4) Symptomatic anemia (5) Pancytopenia Assessment Renal failure resolving Hypotension resolving Sepsis ? UTI Symptomatic anemia Plan PO Mag and KCl Anemia whalen- Transfused antibiotics avoid nephrotoxics urine studies JOSEPH kidney No [place] 2D echo Noted Subjective ROS Limited/Unobtainable: No Constitutional: Reports: malaise Objective Objective Last 24 Hour Vital Signs Date Time Temp Pulse Resp B/P (MAP) Pulse Ox O2 Delivery O2 Flow Rate FiO2 11/04/19 09:00 Room Air 11/04/19 08:00 98.5 95 18 133/69 (90) 98 11/04/19 04:00 98.0 90 16 124/76 (92) 98 11/04/19 00:00 97.8 95 16 127/79 (95) 96 11/03/19 21:00 Room Air 11/03/19 20:00 95 11/03/19 20:00 98.6 97 18 125/76 (92) 95 11/03/19 16:00 98.4 84 18 126/75 (92) 96 11/03/19 16:00 82 11/03/19 12:00 98.2 79 20 142/81 (101) 99 11/03/19 12:00 80 Intake and Output 11/03/19 11/04/19 19:00 07:00 Intake Total 1440 ml Balance 1440 ml Intake Oral 1440 ml # Voids 3 3 Laboratory Tests 11/04/19 07:30: White Blood Count 2.1*L, Red Blood Count 2.89L, Hemoglobin 9.4L, Hematocrit 26.4L, Mean Corpuscular Volume 91, Mean Corpuscular Hemoglobin 32.5H, Mean Corpuscular Hemoglobin Concent 35.5, Red Cell Distribution Width 15.7H, Platelet Count 79L, Mean Platelet Volume 6.5, Neutrophils (%) (Auto) , Lymphocytes (%) (Auto) , Monocytes (%) (Auto) , Eosinophils (%) (Auto) , Basophils (%) (Auto) , Neutrophils % (Manual) [Pending], Lymphocytes % (Manual) [Pending], Platelet Estimate [Pending], Platelet Morphology [Pending], Sodium Level 139, Potassium Level 4.8, Chloride Level 104, Carbon Dioxide Level 28, Anion Gap 7, Blood Urea Nitrogen 19H, Creatinine 1.1, Estimat Glomerular Filtration Rate 49.9, Glucose Level 99, Calcium Level 9.4, Phosphorus Level 4.5 , Magnesium Level 1.8, Total Bilirubin 0.4, Aspartate Amino Transf (AST/SGOT) 20 , Alanine Aminotransferase (ALT/SGPT) 30, Alkaline Phosphatase 134H, Total Protein 7.9, Albumin 3.0L, Globulin 4.9, Albumin/Globulin Ratio 0.6L Height (Feet): 5 Height (Inches): 1.00 Weight (Pounds): 138 General Appearance: no apparent distress Objective no change Alverto Bird MD Nov 04, 2019 10:11
--- NOTE | 2019-11-04 10:44 | Cardiac Electrophysiology PN ---
Assessment/Plan Assessment/Plan 1. S/P septic shock. EF 60% to 65%. No evidence of pericardial effusion. On po Abx now 2. Stomach cancer and history of ovarian resection in 2019. He is usually followed up at [facility]. 3. Pancytopenia. PONCE Mcduffie 4. Renal failure. Further evaluation by Dr. Bird. ALISON RN Subjective Subjective No events. Transferred to [facility] Objective Last 24 Hour Vital Signs Date Time Temp Pulse Resp B/P (MAP) Pulse Ox O2 Delivery O2 Flow Rate FiO2 11/04/19 09:00 Room Air 11/04/19 08:00 98.5 95 18 133/69 (90) 98 11/04/19 04:00 98.0 90 16 124/76 (92) 98 11/04/19 00:00 97.8 95 16 127/79 (95) 96 11/03/19 21:00 Room Air 11/03/19 20:00 95 11/03/19 20:00 98.6 97 18 125/76 (92) 95 11/03/19 16:00 98.4 84 18 126/75 (92) 96 11/03/19 16:00 82 11/03/19 12:00 98.2 79 20 142/81 (101) 99 11/03/19 12:00 80 Intake and Output 11/03/19 11/04/19 19:00 07:00 Intake Total 1440 ml Balance 1440 ml Intake Oral 1440 ml # Voids 3 3 Laboratory Tests Test 11/04/19 07:30 White Blood Count 2.1 K/UL (4.8-10.8) *L Red Blood Count 2.89 M/UL (4.20-5.40) L Hemoglobin 9.4 G/DL (12.0-16.0) L Hematocrit 26.4 % (37.0-47.0) L Mean Corpuscular Volume 91 FL (80-99) Mean Corpuscular Hemoglobin 32.5 PG (27.0-31.0) H Mean Corpuscular Hemoglobin Concent 35.5 G/DL (32.0-36.0) Red Cell Distribution Width 15.7 % (11.6-14.8) H Platelet Count 79 K/UL (150-450) L Mean Platelet Volume 6.5 FL (6.5-10.1) Neutrophils (%) (Auto) % (45.0-75.0) Lymphocytes (%) (Auto) % (20.0-45.0) Monocytes (%) (Auto) % (1.0-10.0) Eosinophils (%) (Auto) % (0.0-3.0) Basophils (%) (Auto) % (0.0-2.0) Neutrophils % (Manual) Pending Lymphocytes % (Manual) Pending Platelet Estimate Pending Platelet Morphology Pending Sodium Level 139 MMOL/L (136-145) Potassium Level 4.8 MMOL/L (3.5-5.1) Chloride Level 104 MMOL/L (98-107) Carbon Dioxide Level 28 MMOL/L (21-32) Anion Gap 7 mmol/L (5-15) Blood Urea Nitrogen 19 mg/dL (7-18) H Creatinine 1.1 MG/DL (0.55-1.30) Estimat Glomerular Filtration Rate 49.9 mL/min (>60) Glucose Level 99 MG/DL (74-106) Calcium Level 9.4 MG/DL (8.5-10.1) Phosphorus Level 4.5 MG/DL (2.5-4.9) Magnesium Level 1.8 MG/DL (1.8-2.4) Total Bilirubin 0.4 MG/DL (0.2-1.0) Aspartate Amino Transf (AST/SGOT) 20 U/L (15-37) Alanine Aminotransferase (ALT/SGPT) 30 U/L (12-78) Alkaline Phosphatase 134 U/L (46-116) H Total Protein 7.9 G/DL (6.4-8.2) Albumin 3.0 G/DL (3.4-5.0) L Globulin 4.9 g/dL Albumin/Globulin Ratio 0.6 (1.0-2.7) L Objective HEAD AND NECK: No JVD. LUNGS: Clear. CARDIOVASCULAR: Regular S1 and S2 with no gallop or murmur. ABDOMEN: Soft. EXTREMITIES: No pitting edema. Benigno Rivera MD Nov 04, 2019 10:44
[2019-11-04 12:00] VITALS: BP 140/70
--- NOTE | 2019-11-04 12:19 | Hematology/Onc Progress Note ---
Assessment/Plan Assessment/Plan Assessment and Recs: # Stomach cancer with a history of ovarian resection in 2019 recently --> sees Dr. Alicea at [facility] --> hold off lynparza at this time that is fda approved for BRCA-mutated tumors (has been off since Friday10/26/19) --> may be a cause of anemia as well --> recover from anemia 1st before restarting chemo --> CBC reordered # Pancytopenia - potential causes multifactorial, in this case due to sepsis, s/ p ABX and PRESSORS --> Hep panel and HIVboth negative --> US abd to evaluate for cirrhosis and hsm ordered --> Peripheral smear ordered to evaluate for blasts /schistocytes --> abx and other meds have been reviewed --> ok for ppx if plt >50k w/ either heparin or lovenox --> Transfuse if Plt < 20k and fever, or if Plt < 10k without fever --> wbc 2.1-->2.1-->2.1 --> plt trend 101-->84-->62-->38 -->57k->79 # Anemia due to myelosuppression from chemo --> Anemia workup has been ordered, rule out gi bleed --> No evidence of hemolysis is noted, peripheral smear has been reviewed. --> Hgb goal >7. Transfuse prn. --> Epogen or iron at this time is not particularly indicated --> Medications have been reviewed --> low threshold for gi evaluation in case has occult + --> hgb trend 5.7-->9.4-->8.2-->8.1 -->9 # Septic shock with Hypotension --> pressors and abx --> as per id # Critically ill in the icu --> out of icu on 10/31 Appreciate consultation and kevin Rn Subjective Constitutional: Denies: no symptoms, chills, fever, malaise, weakness, other HEENT: Denies: no symptoms, eye pain, blurred vision, tearing, double vision, ear pain, ear discharge, nose pain, nose congestion, throat pain, throat swelling, mouth pain, mouth swelling, other Cardiovascular: Denies: no symptoms, chest pain, edema, irregular heart rate, lightheadedness, palpitations, syncope, other Respiratory: Denies: no symptoms, cough, shortness of breath, SOB with excertion, SOB at rest, sputum, wheezing, other Gastrointestinal/Abdominal: Denies: no symptoms, abdomen distended, abdominal pain, black stools, tarry stools, blood in stool, constipated, diarrhea, difficulty swallowing, nausea, poor appetite, poor fluid intake, rectal bleeding , vomiting, other Neurologic/Psychiatric: Denies: no symptoms, anxiety, depressed, emotional problems, headache, numbness, paresthesia, pre-existing deficit, seizure, tingling, tremors, weakness, other Endocrine: Denies: no symptoms, excessive sweating, flushing, intolerance to cold, intolerance to heat, increased hunger, increased thirst, increased urine, unexplained weight gain, unexplained weight loss, other Allergies: Coded Allergies: No Known Allergies (Unverified , 10/26/19) Subjective 10/28: icu, awake, no acute events, levo drip, h/h stable 10/29: no major changes, dw rn, labs noted, no bleeding 10/31:awake and alert, transferred from [place],, hep/hiv negative, ceftriaxone 11/01: no f/c, no bleeding, cytopenias still noted, has been off chemo med 11/02: is asleep, no fevers or labs, no bleeding reported, potential dc if labs return 11/03: no bleeding or chills, no night sweats, no major changes 11/04: no events, no bleding noted, no night sweats Objective Objective Current Medications Medications (Trade) Dose Ordered Sig/Poonam Route PRN Reason Start Time Stop Time Status Last Admin Dose Admin Acetaminophen (Tylenol) 650 mg Q6H PRN ORAL Mild Pain/Temp > 100.5 11/04/19 02:30 11/25/19 02:29 Ciprofloxacin (Cipro 500mg tab) 500 mg EVERY 12 HOURS ORAL 11/04/19 09:00 11/09/19 20:59 11/04/19 08:59 Dextrose (Dextrose 50%) 25 ml Q30M PRN IV Hypoglycemia 11/03/19 23:00 11/25/19 17:59 Dextrose (Dextrose 50%) 50 ml Q30M PRN IV Hypoglycemia 11/03/19 23:00 11/25/19 17:59 Diphenhydramine HCl (Benadryl) 25 mg Q6H PRN IVP Itching 11/04/19 02:30 11/25/19 02:29 Magnesium Oxide (Mag-Ox 400mg) 400 mg THREE TIMES A DAY ORAL 11/04/19 09:00 11/30/19 12:59 11/04/19 08:59 Ondansetron HCl (Zofran) 4 mg Q6H PRN IVP Nausea & Vomiting 11/04/19 02:30 11/25/19 02:29 Pantoprazole (Protonix) 40 mg PRE BFAST AND DINNER ORAL 11/04/19 06:30 12/04/19 06:29 11/04/19 06:39 Potassium Chloride (K-Dur) 40 meq BIDPC ORAL 11/04/19 09:00 12/04/19 08:59 11/04/19 08:59 Last 24 Hour Vital Signs Date Time Temp Pulse Resp B/P (MAP) Pulse Ox O2 Delivery O2 Flow Rate FiO2 11/04/19 09:00 Room Air 11/04/19 08:00 98.5 95 18 133/69 (90) 98 11/04/19 04:00 98.0 90 16 124/76 (92) 98 11/04/19 00:00 97.8 95 16 127/79 (95) 96 11/03/19 21:00 Room Air 11/03/19 20:00 95 11/03/19 20:00 98.6 97 18 125/76 (92) 95 11/03/19 16:00 98.4 84 18 126/75 (92) 96 11/03/19 16:00 82 11/03/19 12:00 98.2 79 20 142/81 (101) 99 11/03/19 12:00 80 11/03/19 09:00 Room Air 11/03/19 08:00 95 11/03/19 08:00 97.2 93 19 137/68 (91) 97 11/03/19 04:00 99.2 85 18 124/74 (91) 94 11/03/19 04:00 85 11/03/19 00:00 78 11/03/19 00:00 98.4 86 17 134/73 (93) 94 11/02/19 21:00 Room Air 11/02/19 20:00 83 11/02/19 20:00 98.4 84 19 133/71 (91) 95 11/02/19 16:00 98.2 85 18 130/88 (102) 97 11/02/19 16:00 83 Intake and Output 11/03/19 11/04/19 19:00 07:00 Intake Total 1440 ml Balance 1440 ml Intake Oral 1440 ml # Voids 3 3 Labs Test 11/02/19 07:05 11/03/19 06:37 11/04/19 07:30 White Blood Count 2.1 K/UL (4.8-10.8) 2.1 K/UL (4.8-10.8) 2.1 K/UL (4.8-10.8) Red Blood Count 2.45 M/UL (4.20-5.40) 2.69 M/UL (4.20-5.40) 2.89 M/UL (4.20-5.40) Hemoglobin 8.1 G/DL (12.0-16.0) 8.9 G/DL (12.0-16.0) 9.4 G/DL (12.0-16.0) Hematocrit 21.8 % (37.0-47.0) 24.0 % (37.0-47.0) 26.4 % (37.0-47.0) Mean Corpuscular Volume 89 FL (80-99) 89 FL (80-99) 91 FL (80-99) Mean Corpuscular Hemoglobin 33.0 PG (27.0-31.0) 33.0 PG (27.0-31.0) 32.5 PG (27.0-31.0) Mean Corpuscular Hemoglobin Concent 37.2 G/DL (32.0-36.0) 37.0 G/DL (32.0-36.0) 35.5 G/DL (32.0-36.0) Red Cell Distribution Width 14.7 % (11.6-14.8) 14.9 % (11.6-14.8) 15.7 % (11.6-14.8) Platelet Count 44 K/UL (150-450) 57 K/UL (150-450) 79 K/UL (150-450) Mean Platelet Volume 8.4 FL (6.5-10.1) 6.5 FL (6.5-10.1) 6.5 FL (6.5-10.1) Neutrophils (%) (Auto) % (45.0-75.0) % (45.0-75.0) % (45.0-75.0) Lymphocytes (%) (Auto) % (20.0-45.0) % (20.0-45.0) % (20.0-45.0) Monocytes (%) (Auto) % (1.0-10.0) % (1.0-10.0) % (1.0-10.0) Eosinophils (%) (Auto) % (0.0-3.0) % (0.0-3.0) % (0.0-3.0) Basophils (%) (Auto) % (0.0-2.0) % (0.0-2.0) % (0.0-2.0) Differential Total Cells Counted 100 100 100 Neutrophils % (Manual) 53 % (45-75) 46 % (45-75) 44 % (45-75) Lymphocytes % (Manual) 34 % (20-45) 44 % (20-45) 41 % (20-45) Monocytes % (Manual) 11 % (1-10) 8 % (1-10) 13 % (1-10) Eosinophils % (Manual) 2 % (0-3) 2 % (0-3) 2 % (0-3) Basophils % (Manual) 0 % (0-2) 0 % (0-2) 0 % (0-2) Band Neutrophils 0 % (0-8) 0 % (0-8) 0 % (0-8) Platelet Estimate Decreased Decreased Decreased Platelet Morphology Normal Normal Normal Hypochromasia 2+ 2+ Anisocytosis 1+ 1+ Spherocytes 3+ Sodium Level 141 MMOL/L (136-145) 139 MMOL/L (136-145) Potassium Level 4.4 MMOL/L (3.5-5.1) 4.8 MMOL/L (3.5-5.1) Chloride Level 106 MMOL/L (98-107) 104 MMOL/L (98-107) Carbon Dioxide Level 27 MMOL/L (21-32) 28 MMOL/L (21-32) Anion Gap 8 mmol/L (5-15) 7 mmol/L (5-15) Blood Urea Nitrogen 10 mg/dL (7-18) 19 mg/dL (7-18) Creatinine 0.9 MG/DL (0.55-1.30) 1.1 MG/DL (0.55-1.30) Estimat Glomerular Filtration Rate > 60 mL/min (>60) 49.9 mL/min (>60) Glucose Level 94 MG/DL (74-106) 99 MG/DL (74-106) Uric Acid 3.3 MG/DL (2.6-7.2) Calcium Level 8.8 MG/DL (8.5-10.1) 9.4 MG/DL (8.5-10.1) Phosphorus Level 3.9 MG/DL (2.5-4.9) 4.5 MG/DL (2.5-4.9) Magnesium Level 1.7 MG/DL (1.8-2.4) 1.8 MG/DL (1.8-2.4) Total Bilirubin 0.3 MG/DL (0.2-1.0) 0.4 MG/DL (0.2-1.0) Aspartate Amino Transf (AST/SGOT) 22 U/L (15-37) 20 U/L (15-37) Alanine Aminotransferase (ALT/SGPT) 30 U/L (12-78) 30 U/L (12-78) Alkaline Phosphatase 117 U/L (46-116) 134 U/L (46-116) Total Protein 6.6 G/DL (6.4-8.2) 7.9 G/DL (6.4-8.2) Albumin 2.4 G/DL (3.4-5.0) 3.0 G/DL (3.4-5.0) Globulin 4.2 g/dL 4.9 g/dL Albumin/Globulin Ratio 0.6 (1.0-2.7) 0.6 (1.0-2.7) Nucleated Red Blood Cells 2 /100 WBC Reactive Lymphocytes 1+ Height (Feet): 5 Height (Inches): 1.00 Weight (Pounds): 138 Objective Physical Exam: Vitals: reviewed General Appearance: NAD HEENT: normocephalic, atraumatic Neck: non-tender, normal alignment Respiratory/Chest: normal breath sounds bilaterally Cardiovascular/Chest: normal peripheral pulses, normal rate Abdomen: normal bowel sounds, soft, nontender Extremities: normal range of motion David Venegas MD Nov 04, 2019 12:19
--- NOTE | 2019-11-04 13:35 | Infectious Diseases Prog Note ---
Assessment/Plan Assessment/Plan A; E. coli sepsis E. coli UTI Pancytopenia Stomach cancer Acute renal failure, resolved P; Continue Cipro Subjective ROS Limited/Unobtainable: No Constitutional: Reports: no symptoms Respiratory: Reports: no symptoms Cardiovascular: Reports: no symptoms Gastrointestinal/Abdominal: Reports: no symptoms Allergies: Coded Allergies: No Known Allergies (Unverified , 10/26/19) Objective Vital Signs Last 24 Hour Vital Signs Date Time Temp Pulse Resp B/P (MAP) Pulse Ox O2 Delivery O2 Flow Rate FiO2 11/04/19 12:00 98.7 90 17 140/70 (93) 99 11/04/19 09:00 Room Air 11/04/19 08:00 98.5 95 18 133/69 (90) 98 11/04/19 04:00 98.0 90 16 124/76 (92) 98 11/04/19 00:00 97.8 95 16 127/79 (95) 96 11/03/19 21:00 Room Air 11/03/19 20:00 95 11/03/19 20:00 98.6 97 18 125/76 (92) 95 11/03/19 16:00 98.4 84 18 126/75 (92) 96 11/03/19 16:00 82 Height (Feet): 5 Height (Inches): 1.00 Weight (Pounds): 138 HEENT: mucous membranes moist Respiratory/Chest: lungs clear Cardiovascular: normal rate Abdomen: soft, non tender Extremities: no edema Neurologic/Psychiatric: alert, oriented x 3, responsive Laboratory Tests Test 11/04/19 07:30 White Blood Count 2.1 K/UL (4.8-10.8) *L Red Blood Count 2.89 M/UL (4.20-5.40) L Hemoglobin 9.4 G/DL (12.0-16.0) L Hematocrit 26.4 % (37.0-47.0) L Mean Corpuscular Volume 91 FL (80-99) Mean Corpuscular Hemoglobin 32.5 PG (27.0-31.0) H Mean Corpuscular Hemoglobin Concent 35.5 G/DL (32.0-36.0) Red Cell Distribution Width 15.7 % (11.6-14.8) H Platelet Count 79 K/UL (150-450) L Mean Platelet Volume 6.5 FL (6.5-10.1) Neutrophils (%) (Auto) % (45.0-75.0) Lymphocytes (%) (Auto) % (20.0-45.0) Monocytes (%) (Auto) % (1.0-10.0) Eosinophils (%) (Auto) % (0.0-3.0) Basophils (%) (Auto) % (0.0-2.0) Differential Total Cells Counted 100 Neutrophils % (Manual) 44 % (45-75) L Lymphocytes % (Manual) 41 % (20-45) Monocytes % (Manual) 13 % (1-10) H Eosinophils % (Manual) 2 % (0-3) Basophils % (Manual) 0 % (0-2) Band Neutrophils 0 % (0-8) Platelet Estimate Decreased L Platelet Morphology Normal Hypochromasia 2+ Anisocytosis 1+ Sodium Level 139 MMOL/L (136-145) Potassium Level 4.8 MMOL/L (3.5-5.1) Chloride Level 104 MMOL/L (98-107) Carbon Dioxide Level 28 MMOL/L (21-32) Anion Gap 7 mmol/L (5-15) Blood Urea Nitrogen 19 mg/dL (7-18) H Creatinine 1.1 MG/DL (0.55-1.30) Estimat Glomerular Filtration Rate 49.9 mL/min (>60) Glucose Level 99 MG/DL (74-106) Calcium Level 9.4 MG/DL (8.5-10.1) Phosphorus Level 4.5 MG/DL (2.5-4.9) Magnesium Level 1.8 MG/DL (1.8-2.4) Total Bilirubin 0.4 MG/DL (0.2-1.0) Aspartate Amino Transf (AST/SGOT) 20 U/L (15-37) Alanine Aminotransferase (ALT/SGPT) 30 U/L (12-78) Alkaline Phosphatase 134 U/L (46-116) H Total Protein 7.9 G/DL (6.4-8.2) Albumin 3.0 G/DL (3.4-5.0) L Globulin 4.9 g/dL Albumin/Globulin Ratio 0.6 (1.0-2.7) L Current Medications Medications (Trade) Dose Ordered Sig/Poonam Route PRN Reason Start Time Stop Time Status Last Admin Dose Admin Acetaminophen (Tylenol) 650 mg Q6H PRN ORAL Mild Pain/Temp > 100.5 11/04/19 02:30 11/25/19 02:29 Ciprofloxacin (Cipro 500mg tab) 500 mg EVERY 12 HOURS ORAL 11/04/19 09:00 11/09/19 20:59 11/04/19 08:59 Dextrose (Dextrose 50%) 25 ml Q30M PRN IV Hypoglycemia 11/03/19 23:00 11/25/19 17:59 Dextrose (Dextrose 50%) 50 ml Q30M PRN IV Hypoglycemia 11/03/19 23:00 11/25/19 17:59 Diphenhydramine HCl (Benadryl) 25 mg Q6H PRN IVP Itching 11/04/19 02:30 11/25/19 02:29 Magnesium Oxide (Mag-Ox 400mg) 400 mg THREE TIMES A DAY ORAL 11/04/19 09:00 11/30/19 12:59 11/04/19 13:01 Ondansetron HCl (Zofran) 4 mg Q6H PRN IVP Nausea & Vomiting 11/04/19 02:30 11/25/19 02:29 Pantoprazole (Protonix) 40 mg PRE BFAST AND DINNER ORAL 11/04/19 06:30 12/04/19 06:29 11/04/19 06:39 Potassium Chloride (K-Dur) 40 meq BIDPC ORAL 11/04/19 09:00 12/04/19 08:59 11/04/19 08:59 Evelio iHll MD Nov 04, 2019 13:35
--- NOTE | 2019-11-04 14:07 | NUR ---
CASE MANAGEMENT:REVIEW SI;E. COLI SEPSIS. PANCYTOPENIA. STOMACH CANCER. 98.7 95 18 140/70 96% ON RA WBC 2.1 RBC 2.89 PLT 79 H/H 9.4/26.4 IS;CIPRO PO Q12 HRRS MAG OX PO TID K-DUR PO BID MED SURG STATUS DCP;FROM HOME
[2019-11-04 16:00] VITALS: BP 107/69
--- NOTE | 2019-11-04 19:15 | NUR ---
HAND-OFF: Report given to RAMOS Daniels.
--- NOTE | 2019-11-04 19:41 | NUR ---
NURSE NOTES: Patient is in bed, awake and alert x4. On room air. No signs of distress or SOB. IV intact and patent. Bed locked and in lowest position. Call light in reach. Will continue to monitor the patient.
[2019-11-04 20:00] VITALS: BP 125/79
--- NOTE | 2019-11-04 20:00 | General Progress Note ---
Assessment/Plan Status: progressing Assessment/Plan: Assessment - gastric CA, s/p resection - Anemia - OB (-) stools - pancytopenia Recommendations - po diet - monitor labs - check OB - neg - Heme/Onc f/u - transfuse PRN Subjective Allergies: Coded Allergies: No Known Allergies (Unverified , 10/26/19) Subjective Feels better no vomiting tolerating PO Objective Last 24 Hour Vital Signs Date Time Temp Pulse Resp B/P (MAP) Pulse Ox O2 Delivery O2 Flow Rate FiO2 11/04/19 16:00 98.6 98 18 107/69 (82) 98 11/04/19 12:00 98.7 90 17 140/70 (93) 99 11/04/19 09:00 Room Air 11/04/19 08:00 98.5 95 18 133/69 (90) 98 11/04/19 04:00 98.0 90 16 124/76 (92) 98 11/04/19 00:00 97.8 95 16 127/79 (95) 96 11/03/19 21:00 Room Air 11/03/19 20:00 95 11/03/19 20:00 98.6 97 18 125/76 (92) 95 Intake and Output 11/03/19 11/04/19 19:00 07:00 Intake Total 1440 ml Balance 1440 ml Intake Oral 1440 ml # Voids 3 3 Laboratory Tests 11/04/19 07:30: White Blood Count 2.1*L, Red Blood Count 2.89L, Hemoglobin 9.4L, Hematocrit 26.4L, Mean Corpuscular Volume 91, Mean Corpuscular Hemoglobin 32.5H, Mean Corpuscular Hemoglobin Concent 35.5, Red Cell Distribution Width 15.7H, Platelet Count 79L, Mean Platelet Volume 6.5, Neutrophils (%) (Auto) , Lymphocytes (%) (Auto) , Monocytes (%) (Auto) , Eosinophils (%) (Auto) , Basophils (%) (Auto) , Differential Total Cells Counted 100, Neutrophils % ( Manual) 44L, Lymphocytes % (Manual) 41, Monocytes % (Manual) 13H, Eosinophils % (Manual) 2, Basophils % (Manual) 0, Band Neutrophils 0, Platelet Estimate DecreasedL, Platelet Morphology Normal, Hypochromasia 2+, Anisocytosis 1+, Sodium Level 139, Potassium Level 4.8, Chloride Level 104, Carbon Dioxide Level 28, Anion Gap 7, Blood Urea Nitrogen 19H, Creatinine 1.1, Estimat Glomerular Filtration Rate 49.9, Glucose Level 99, Calcium Level 9.4, Phosphorus Level 4.5 , Magnesium Level 1.8, Total Bilirubin 0.4, Aspartate Amino Transf (AST/SGOT) 20 , Alanine Aminotransferase (ALT/SGPT) 30, Alkaline Phosphatase 134H, Total Protein 7.9, Albumin 3.0L, Globulin 4.9, Albumin/Globulin Ratio 0.6L Height (Feet): 5 Height (Inches): 1.00 Weight (Pounds): 138 Objective WDWN NCAT supple CTA RR abd soft nt ND no edema Kristine Alexander MD Nov 04, 2019 20:00
--- NOTE | 2019-11-04 21:31 | Pulmonolgy Critical Care Note ---
Critical Care - Asmt/Plan Assessment/Plan: Pulmonary Progress Note HPI Patient is a 64-year-old female with past medical history of Stomach cancer, Ovarian Cancer, Hypertension, history of recent chemotherapy ,admitted with with fever/chills for one day, weakness, noted to have severe anemia, hypotension, evidence of urinary tract infection, clear CXR on admission GNR on match Urine Ecoli Feels improved, on floor - Med Surg, no new complaints LE Dupplex negative for DVT CT Abdomen no hydronephrosis Allergies: No Known Allergies Past Medical History: Stomach cancer, hypertension All Other Systems: negative except mentioned in HPI Physical Exam Vital Signs Noted General Appearance: well appearing, no apparent distress, alert, pale Head: normocephalic, atraumatic Eyes: bilateral eye PERRL, bilateral eye EOMI ENT: uvula midline, dry mucus membranes Neck: supple, thyroid normal, supple/symm/no masses Respiratory: lungs clear, no respiratory distress, no retraction, no accessory muscle use Cardiovascular: normal peripheral pulses, regular rate, rhythm, HS1, HS2 normal , no gallop, no murmur Gastrointestinal: non tender, soft, no guarding, no rebound Musculoskeletal: normal inspection Neurologic: alert, oriented x3, no focal signs, no seizures Psychiatric: mood/affect normal Skin: no rash, warm/dry, no edema EKG: NSR, rate 66, QTc 436, no acute ST elevations, normal axis CXR: No acute changes LE Dupplex negative UA: S/o infection CBC: Severe anemia Impression: Stomach Cancer/Ovarian Cancer s/p recent Chemotherapy Urosepsis, Ecoli on BC Severe Anemia s/p Transfusion Thrombocytopenia Hypokalemia H/o Hypertension Dehydration Hyponatremia Azotemia improved DM Plan: - Antibiotics per ID - Transfuse PRN - IV Protonix - PPX - Monitor labs - VINYL CUTTER Medications - O2 PRN - ISS - TF Med Surg URINE CULTURE Final Organism 1 ESCHERICHIA COLI COLONY COUNT: >100,000 CFU/ML ESC COLI M.I.C. RX --------- --- AMPICILLIN >=32 R CEFAZOLIN <=4 S CEFTRIAXONE <=1 S CIPROFLOXACIN <=0.25 S ERTAPENEM <=0.5 S GENTAMICIN 8 I LEVOFLOXACIN 1 S IMIPENEM <=0.25 S NITROFURANTOIN <=16 S TRIMETHOPRIM/SULFA >=320 R AMIKACIN <=2 S PIPERACILLIN/TAZOBACTAM 8 S Critical Care - Objective Last 24 Hour Vital Signs Date Time Temp Pulse Resp B/P (MAP) Pulse Ox O2 Delivery O2 Flow Rate FiO2 11/04/19 21:00 Room Air 11/04/19 16:00 98.6 98 18 107/69 (82) 98 11/04/19 12:00 98.7 90 17 140/70 (93) 99 11/04/19 09:00 Room Air 11/04/19 08:00 98.5 95 18 133/69 (90) 98 11/04/19 04:00 98.0 90 16 124/76 (92) 98 11/04/19 00:00 97.8 95 16 127/79 (95) 96 Accucheck: 77 Critical Care - Subjective ROS Limited/Unobtainable: No Condition: improving I&O: Intake and Output 11/03/19 11/04/19 19:00 07:00 Intake Total 1440 ml Balance 1440 ml Intake Oral 1440 ml # Voids 3 3 Ajit Land MD Nov 04, 2019 21:31
--- NOTE | 2019-11-04 21:54 | General Progress Note ---
Assessment/Plan Problem List: (1) Symptomatic anemia ICD Codes: D64.9 - Anemia, unspecified SNOMED: 936041408 (2) Sepsis ICD Codes: A41.9 - Sepsis, unspecified organism SNOMED: 49865519 Qualifiers: Qualified Codes: A41.9 - Sepsis, unspecified organism; R65.21 - Severe sepsis with septic shock; N17.9 - Acute kidney failure, unspecified (3) Hypotension ICD Codes: I95.9 - Hypotension, unspecified SNOMED: 96297008 Qualifiers: Qualified Codes: I95.9 - Hypotension, unspecified (4) Renal failure (ARF), acute on chronic ICD Codes: N17.9 - Acute kidney failure, unspecified; N18.9 - Chronic kidney disease, unspecified SNOMED: 112714548 Status: progressing Assessment/Plan: sepsis no acute event moniter for bleeding low k improved pancytopenia is persistent no bleeding no fever Subjective ROS Limited/Unobtainable: Yes Allergies: Coded Allergies: No Known Allergies (Unverified , 10/26/19) Objective Last 24 Hour Vital Signs Date Time Temp Pulse Resp B/P (MAP) Pulse Ox O2 Delivery O2 Flow Rate FiO2 11/04/19 21:00 Room Air 11/04/19 16:00 98.6 98 18 107/69 (82) 98 11/04/19 12:00 98.7 90 17 140/70 (93) 99 11/04/19 09:00 Room Air 11/04/19 08:00 98.5 95 18 133/69 (90) 98 11/04/19 04:00 98.0 90 16 124/76 (92) 98 11/04/19 00:00 97.8 95 16 127/79 (95) 96 Intake and Output 11/03/19 11/04/19 19:00 07:00 Intake Total 1440 ml Balance 1440 ml Intake Oral 1440 ml # Voids 3 3 Laboratory Tests 11/04/19 07:30: White Blood Count 2.1*L, Red Blood Count 2.89L, Hemoglobin 9.4L, Hematocrit 26.4L, Mean Corpuscular Volume 91, Mean Corpuscular Hemoglobin 32.5H, Mean Corpuscular Hemoglobin Concent 35.5, Red Cell Distribution Width 15.7H, Platelet Count 79L, Mean Platelet Volume 6.5, Neutrophils (%) (Auto) , Lymphocytes (%) (Auto) , Monocytes (%) (Auto) , Eosinophils (%) (Auto) , Basophils (%) (Auto) , Differential Total Cells Counted 100, Neutrophils % ( Manual) 44L, Lymphocytes % (Manual) 41, Monocytes % (Manual) 13H, Eosinophils % (Manual) 2, Basophils % (Manual) 0, Band Neutrophils 0, Platelet Estimate DecreasedL, Platelet Morphology Normal, Hypochromasia 2+, Anisocytosis 1+, Sodium Level 139, Potassium Level 4.8, Chloride Level 104, Carbon Dioxide Level 28, Anion Gap 7, Blood Urea Nitrogen 19H, Creatinine 1.1, Estimat Glomerular Filtration Rate 49.9, Glucose Level 99, Calcium Level 9.4, Phosphorus Level 4.5 , Magnesium Level 1.8, Total Bilirubin 0.4, Aspartate Amino Transf (AST/SGOT) 20 , Alanine Aminotransferase (ALT/SGPT) 30, Alkaline Phosphatase 134H, Total Protein 7.9, Albumin 3.0L, Globulin 4.9, Albumin/Globulin Ratio 0.6L Height (Feet): 5 Height (Inches): 1.00 Weight (Pounds): 138 Cardiovascular: normal peripheral pulses Respiratory/Chest: lungs clear Alea Melendez MD Nov 04, 2019 21:54
[2019-11-05] VITALS: BP 104/61
[2019-11-05 04:00] VITALS: BP 129/73
--- NOTE | 2019-11-05 07:31 | NUR ---
HAND-OFF: Report given to RAMOS Anderson.
--- NOTE | 2019-11-05 07:49 | NUR ---
NURSE NOTES: Patient alert x4, Greenlandic speaking; on room air, no sing of distress and shortness of breath; no sing of chest pain; IV Right For-Arm 22G flushes well; side rails up x2, breaks engaged, bed at lowest position; call light within reach; will keep monitoring.
[2019-11-05 08:00] VITALS: BP 125/69
[2019-11-05] MEDS: Ciprofloxacin 500mg tab ORAL SCH (08:49)
[2019-11-05] MEDS: Magnesium Oxide 400mg tab ORAL SCH (08:49)
--- NOTE | 2019-11-05 12:04 | Infectious Diseases Prog Note ---
Assessment/Plan Assessment/Plan A; E. coli sepsis treated E. coli UTI treated Pancytopenia Stomach cancer Acute renal failure, resolved P; Discontinue Cipro Agree with discharge Subjective ROS Limited/Unobtainable: No Respiratory: Reports: no symptoms Cardiovascular: Reports: no symptoms Gastrointestinal/Abdominal: Reports: no symptoms Genitourinary: Reports: no symptoms Allergies: Coded Allergies: No Known Allergies (Unverified , 10/26/19) Objective Vital Signs Last 24 Hour Vital Signs Date Time Temp Pulse Resp B/P (MAP) Pulse Ox O2 Delivery O2 Flow Rate FiO2 11/05/19 08:00 97.9 94 20 125/69 (87) 96 11/05/19 06:30 Room Air 11/05/19 04:00 98.6 92 16 129/73 (91) 94 11/05/19 00:00 98.6 87 18 104/61 (75) 96 11/04/19 21:00 Room Air 11/04/19 20:00 98.6 85 17 125/79 (94) 98 11/04/19 16:00 98.6 98 18 107/69 (82) 98 Height (Feet): 5 Height (Inches): 1.00 Weight (Pounds): 138 General Appearance: no acute distress HEENT: mucous membranes moist Respiratory/Chest: lungs clear Cardiovascular: normal rate Abdomen: soft, non tender Extremities: no edema Neurologic/Psychiatric: alert, oriented x 3, responsive Current Medications Medications (Trade) Dose Ordered Sig/Poonam Route PRN Reason Start Time Stop Time Status Last Admin Dose Admin Acetaminophen (Tylenol) 650 mg Q6H PRN ORAL Mild Pain/Temp > 100.5 11/04/19 02:30 11/25/19 02:29 Ciprofloxacin (Cipro 500mg tab) 500 mg EVERY 12 HOURS ORAL 11/04/19 09:00 11/09/19 20:59 11/05/19 08:49 Dextrose (Dextrose 50%) 25 ml Q30M PRN IV Hypoglycemia 11/03/19 23:00 11/25/19 17:59 Dextrose (Dextrose 50%) 50 ml Q30M PRN IV Hypoglycemia 11/03/19 23:00 11/25/19 17:59 Diphenhydramine HCl (Benadryl) 25 mg Q6H PRN IVP Itching 11/04/19 02:30 11/25/19 02:29 Magnesium Oxide (Mag-Ox 400mg) 400 mg THREE TIMES A DAY ORAL 11/04/19 09:00 11/30/19 12:59 11/05/19 08:49 Ondansetron HCl (Zofran) 4 mg Q6H PRN IVP Nausea & Vomiting 11/04/19 02:30 11/25/19 02:29 Pantoprazole (Protonix) 40 mg PRE BFAST AND DINNER ORAL 11/04/19 06:30 12/04/19 06:29 11/05/19 06:38 Potassium Chloride (K-Dur) 40 meq BIDPC ORAL 11/04/19 09:00 12/04/19 08:59 11/05/19 08:49 Evelio Hill MD Nov 05, 2019 12:04
--- NOTE | 2019-11-05 12:16 | Cardiac Electrophysiology PN ---
Assessment/Plan Assessment/Plan 1. S/P septic shock. EF 60% to 65%. No evidence of pericardial effusion. On po Abx now 2. Stomach cancer and history of ovarian resection in 2019. He is usually followed up at [facility]. 3. Pancytopenia. PONCE [place]ff[place] 4. Renal failure. Further evaluation by Dr. Bird. ALISON RN DC today pending Subjective Subjective No events. DC planning today Objective Last 24 Hour Vital Signs Date Time Temp Pulse Resp B/P (MAP) Pulse Ox O2 Delivery O2 Flow Rate FiO2 11/05/19 08:00 97.9 94 20 125/69 (87) 96 11/05/19 06:30 Room Air 11/05/19 04:00 98.6 92 16 129/73 (91) 94 11/05/19 00:00 98.6 87 18 104/61 (75) 96 11/04/19 21:00 Room Air 11/04/19 20:00 98.6 85 17 125/79 (94) 98 11/04/19 16:00 98.6 98 18 107/69 (82) 98 Intake and Output 11/04/19 11/05/19 19:00 07:00 Intake Total 500 ml 480 ml Balance 500 ml 480 ml Intake Oral 500 ml 480 ml # Voids 3 2 Objective HEAD AND NECK: No JVD. LUNGS: Clear. CARDIOVASCULAR: Regular S1 and S2 with no gallop or murmur. ABDOMEN: Soft. EXTREMITIES: No pitting edema. Benigno Rivera MD Nov 05, 2019 12:16
--- NOTE | 2019-11-05 12:35 | Nephrology Progress Note ---
Assessment/Plan Problem List: (1) Renal failure (ARF), acute on chronic Assessment: resolved (2) Hypotension (3) Sepsis (4) Symptomatic anemia (5) Pancytopenia Assessment Renal failure resolving Hypotension resolving Sepsis ? UTI Symptomatic anemia Plan PO Mag and KCl Anemia whalen- Transfused antibiotics avoid nephrotoxics urine studies JOSEPH kidney No Gustine 2D echo Noted Subjective ROS Limited/Unobtainable: No Objective Objective Last 24 Hour Vital Signs Date Time Temp Pulse Resp B/P (MAP) Pulse Ox O2 Delivery O2 Flow Rate FiO2 11/05/19 08:00 97.9 94 20 125/69 (87) 96 11/05/19 06:30 Room Air 11/05/19 04:00 98.6 92 16 129/73 (91) 94 11/05/19 00:00 98.6 87 18 104/61 (75) 96 11/04/19 21:00 Room Air 11/04/19 20:00 98.6 85 17 125/79 (94) 98 11/04/19 16:00 98.6 98 18 107/69 (82) 98 Intake and Output 11/04/19 11/05/19 18:59 06:59 Intake Total 500 ml 480 ml Balance 500 ml 480 ml Intake Oral 500 ml 480 ml # Voids 3 2 Current Medications Medications (Trade) Dose Ordered Sig/Poonam Route PRN Reason Start Time Stop Time Status Last Admin Dose Admin Acetaminophen (Tylenol) 650 mg Q6H PRN ORAL Mild Pain/Temp > 100.5 11/04/19 02:30 11/25/19 02:29 Ciprofloxacin (Cipro 500mg tab) 500 mg EVERY 12 HOURS ORAL 11/04/19 09:00 11/09/19 20:59 11/05/19 08:49 Dextrose (Dextrose 50%) 25 ml Q30M PRN IV Hypoglycemia 11/03/19 23:00 11/25/19 17:59 Dextrose (Dextrose 50%) 50 ml Q30M PRN IV Hypoglycemia 11/03/19 23:00 11/25/19 17:59 Diphenhydramine HCl (Benadryl) 25 mg Q6H PRN IVP Itching 11/04/19 02:30 11/25/19 02:29 Magnesium Oxide (Mag-Ox 400mg) 400 mg THREE TIMES A DAY ORAL 11/04/19 09:00 11/30/19 12:59 11/05/19 08:49 Ondansetron HCl (Zofran) 4 mg Q6H PRN IVP Nausea & Vomiting 11/04/19 02:30 11/25/19 02:29 Pantoprazole (Protonix) 40 mg PRE BFAST AND DINNER ORAL 11/04/19 06:30 12/04/19 06:29 11/05/19 06:38 Potassium Chloride (K-Dur) 40 meq BIDPC ORAL 11/04/19 09:00 12/04/19 08:59 11/05/19 08:49 Height (Feet): 5 Height (Inches): 1.00 Weight (Pounds): 138 General Appearance: no apparent distress Cardiovascular: normal rate Respiratory/Chest: lungs clear Abdomen: soft Objective no change Alverto Bird MD Nov 05, 2019 12:34
--- NOTE | 2019-11-05 12:48 | NUR ---
NURSE NOTES: Patient discharged to Home and picked up by family members; left the floor ambulating; patient stable upon discharge; IV access and name tag removed upon discharge; patient teaching provided; belonging list singed by patient and primary nurse;
--- NOTE | 2019-11-05 14:54 | General Progress Note ---
Assessment/Plan Status: progressing Assessment/Plan: Assessment - gastric CA, s/p resection - Anemia - OB (-) stools - pancytopenia Recommendations - po diet - monitor labs - check OB - neg - Heme/Onc f/u - transfuse PRN Subjective Allergies: Coded Allergies: No Known Allergies (Unverified , 10/26/19) Subjective Feels better no vomiting tolerating PO Objective Last 24 Hour Vital Signs Date Time Temp Pulse Resp B/P (MAP) Pulse Ox O2 Delivery O2 Flow Rate FiO2 11/05/19 08:00 97.9 94 20 125/69 (87) 96 11/05/19 06:30 Room Air 11/05/19 04:00 98.6 92 16 129/73 (91) 94 11/05/19 00:00 98.6 87 18 104/61 (75) 96 11/04/19 21:00 Room Air 11/04/19 20:00 98.6 85 17 125/79 (94) 98 11/04/19 16:00 98.6 98 18 107/69 (82) 98 Intake and Output 11/04/19 11/05/19 19:00 07:00 Intake Total 500 ml 480 ml Balance 500 ml 480 ml Intake Oral 500 ml 480 ml # Voids 3 2 Height (Feet): 5 Height (Inches): 1.00 Weight (Pounds): 138 Objective WDWN NCAT supple CTA RR abd soft nt ND no edema Kristine Alexander MD Nov 05, 2019 14:54
--- NOTE | 2019-11-05 14:56 | Pulmonolgy Critical Care Note ---
Critical Care - Asmt/Plan Assessment/Plan: Pulmonary Progress Note HPI Patient is a 64-year-old female with past medical history of Stomach cancer, Ovarian Cancer, Hypertension, history of recent chemotherapy ,admitted with with fever/chills for one day, weakness, noted to have severe anemia, hypotension, evidence of urinary tract infection, clear CXR on admission GNR on match Urine Ecoli Feels improved, on floor - Med Surg, no new complaints LE Dupplex negative for DVT CT Abdomen no hydronephrosis Allergies: No Known Allergies Past Medical History: Stomach cancer, hypertension All Other Systems: negative except mentioned in HPI Physical Exam Vital Signs Noted General Appearance: well appearing, no apparent distress, alert, pale Head: normocephalic, atraumatic Eyes: bilateral eye PERRL, bilateral eye EOMI ENT: uvula midline, dry mucus membranes Neck: supple, thyroid normal, supple/symm/no masses Respiratory: lungs clear, no respiratory distress, no retraction, no accessory muscle use Cardiovascular: normal peripheral pulses, regular rate, rhythm, HS1, HS2 normal , no gallop, no murmur Gastrointestinal: non tender, soft, no guarding, no rebound Musculoskeletal: normal inspection Neurologic: alert, oriented x3, no focal signs, no seizures Psychiatric: mood/affect normal Skin: no rash, warm/dry, no edema EKG: NSR, rate 66, QTc 436, no acute ST elevations, normal axis CXR: No acute changes LE Dupplex negative UA: S/o infection CBC: Severe anemia Impression: Stomach Cancer/Ovarian Cancer s/p recent Chemotherapy Urosepsis, Ecoli on BC Severe Anemia s/p Transfusion Thrombocytopenia Hypokalemia H/o Hypertension Dehydration Hyponatremia Azotemia improved DM Plan: - Antibiotics per ID - Transfuse PRN - IV Protonix - PPX - Monitor labs - LINEMAN A CLASS Medications - O2 PRN - ISS - TF Med Surg URINE CULTURE Final Organism 1 ESCHERICHIA COLI COLONY COUNT: >100,000 CFU/ML ESC COLI M.I.C. RX --------- --- AMPICILLIN >=32 R CEFAZOLIN <=4 S CEFTRIAXONE <=1 S CIPROFLOXACIN <=0.25 S ERTAPENEM <=0.5 S GENTAMICIN 8 I LEVOFLOXACIN 1 S IMIPENEM <=0.25 S NITROFURANTOIN <=16 S TRIMETHOPRIM/SULFA >=320 R AMIKACIN <=2 S PIPERACILLIN/TAZOBACTAM 8 S Critical Care - Objective Last 24 Hour Vital Signs Date Time Temp Pulse Resp B/P (MAP) Pulse Ox O2 Delivery O2 Flow Rate FiO2 11/05/19 08:00 97.9 94 20 125/69 (87) 96 11/05/19 06:30 Room Air 11/05/19 04:00 98.6 92 16 129/73 (91) 94 11/05/19 00:00 98.6 87 18 104/61 (75) 96 11/04/19 21:00 Room Air 11/04/19 20:00 98.6 85 17 125/79 (94) 98 11/04/19 16:00 98.6 98 18 107/69 (82) 98 Accucheck: 77 Critical Care - Subjective ROS Limited/Unobtainable: No I&O: Intake and Output 11/04/19 11/05/19 19:00 07:00 Intake Total 500 ml 480 ml Balance 500 ml 480 ml Intake Oral 500 ml 480 ml # Voids 3 2 Ajit Land MD Nov 05, 2019 14:56
--- NOTE | 2019-11-05 16:48 | Hematology/Onc Progress Note ---
Assessment/Plan Assessment/Plan Assessment and Recs: # Stomach cancer with a history of ovarian resection in 2019 recently --> sees Dr. Alicea at [facility] --> hold off lynparza at this time that is fda approved for BRCA-mutated tumors (has been off since Friday10/26/19) --> may be a cause of anemia as well --> recover from anemia 1st before restarting chemo --> CBC reordered # Pancytopenia - potential causes multifactorial, in this case due to sepsis, s/ p ABX and PRESSORS --> Hep panel and HIVboth negative --> US abd to evaluate for cirrhosis and hsm ordered --> Peripheral smear ordered to evaluate for blasts /schistocytes --> abx and other meds have been reviewed --> ok for ppx if plt >50k w/ either heparin or lovenox --> Transfuse if Plt < 20k and fever, or if Plt < 10k without fever --> wbc 2.1-->2.1-->2.1 --> plt trend 101-->84-->62-->38 -->57k->79 # Anemia due to myelosuppression from chemo --> Anemia workup has been ordered, rule out gi bleed --> No evidence of hemolysis is noted, peripheral smear has been reviewed. --> Hgb goal >7. Transfuse prn. --> Epogen or iron at this time is not particularly indicated --> Medications have been reviewed --> low threshold for gi evaluation in case has occult + --> hgb trend 5.7-->9.4-->8.2-->8.1 -->9 # Septic shock with Hypotension --> pressors and abx --> as per id # Critically ill in the icu --> out of icu on 10/31 Appreciate consultation and kevin Rn Subjective Allergies: Coded Allergies: No Known Allergies (Unverified , 10/26/19) Subjective 10/28: icu, awake, no acute events, levo drip, h/h stable 10/29: no major changes, kevin rn, labs noted, no bleeding 10/31:awake and alert, transferred from [facility],, hep/hiv negative, ceftriaxone 11/01: no f/c, no bleeding, cytopenias still noted, has been off chemo med 11/02: is asleep, no fevers or labs, no bleeding reported, potential dc if labs return 11/03: no bleeding or chills, no night sweats, no major changes 11/04: no events, no bleding noted, no night sweats 11/05: awake and alert, no acute distress, stable for dc Objective Objective Last 24 Hour Vital Signs Date Time Temp Pulse Resp B/P (MAP) Pulse Ox O2 Delivery O2 Flow Rate FiO2 11/05/19 08:00 97.9 94 20 125/69 (87) 96 11/05/19 06:30 Room Air 11/05/19 04:00 98.6 92 16 129/73 (91) 94 11/05/19 00:00 98.6 87 18 104/61 (75) 96 11/04/19 21:00 Room Air 11/04/19 20:00 98.6 85 17 125/79 (94) 98 11/04/19 16:00 98.6 98 18 107/69 (82) 98 11/04/19 12:00 98.7 90 17 140/70 (93) 99 11/04/19 09:00 Room Air 11/04/19 08:00 98.5 95 18 133/69 (90) 98 11/04/19 04:00 98.0 90 16 124/76 (92) 98 11/04/19 00:00 97.8 95 16 127/79 (95) 96 11/03/19 21:00 Room Air 11/03/19 20:00 95 11/03/19 20:00 98.6 97 18 125/76 (92) 95 Intake and Output 11/04/19 11/05/19 18:59 06:59 Intake Total 500 ml 480 ml Balance 500 ml 480 ml Intake Oral 500 ml 480 ml # Voids 3 2 Labs Test 11/03/19 06:37 11/04/19 07:30 White Blood Count 2.1 K/UL (4.8-10.8) 2.1 K/UL (4.8-10.8) Red Blood Count 2.69 M/UL (4.20-5.40) 2.89 M/UL (4.20-5.40) Hemoglobin 8.9 G/DL (12.0-16.0) 9.4 G/DL (12.0-16.0) Hematocrit 24.0 % (37.0-47.0) 26.4 % (37.0-47.0) Mean Corpuscular Volume 89 FL (80-99) 91 FL (80-99) Mean Corpuscular Hemoglobin 33.0 PG (27.0-31.0) 32.5 PG (27.0-31.0) Mean Corpuscular Hemoglobin Concent 37.0 G/DL (32.0-36.0) 35.5 G/DL (32.0-36.0) Red Cell Distribution Width 14.9 % (11.6-14.8) 15.7 % (11.6-14.8) Platelet Count 57 K/UL (150-450) 79 K/UL (150-450) Mean Platelet Volume 6.5 FL (6.5-10.1) 6.5 FL (6.5-10.1) Neutrophils (%) (Auto) % (45.0-75.0) % (45.0-75.0) Lymphocytes (%) (Auto) % (20.0-45.0) % (20.0-45.0) Monocytes (%) (Auto) % (1.0-10.0) % (1.0-10.0) Eosinophils (%) (Auto) % (0.0-3.0) % (0.0-3.0) Basophils (%) (Auto) % (0.0-2.0) % (0.0-2.0) Differential Total Cells Counted 100 100 Neutrophils % (Manual) 46 % (45-75) 44 % (45-75) Lymphocytes % (Manual) 44 % (20-45) 41 % (20-45) Monocytes % (Manual) 8 % (1-10) 13 % (1-10) Eosinophils % (Manual) 2 % (0-3) 2 % (0-3) Basophils % (Manual) 0 % (0-2) 0 % (0-2) Band Neutrophils 0 % (0-8) 0 % (0-8) Nucleated Red Blood Cells 2 /100 WBC Reactive Lymphocytes 1+ Platelet Estimate Decreased Decreased Platelet Morphology Normal Normal Hypochromasia 2+ Anisocytosis 1+ Sodium Level 139 MMOL/L (136-145) Potassium Level 4.8 MMOL/L (3.5-5.1) Chloride Level 104 MMOL/L (98-107) Carbon Dioxide Level 28 MMOL/L (21-32) Anion Gap 7 mmol/L (5-15) Blood Urea Nitrogen 19 mg/dL (7-18) Creatinine 1.1 MG/DL (0.55-1.30) Estimat Glomerular Filtration Rate 49.9 mL/min (>60) Glucose Level 99 MG/DL (74-106) Calcium Level 9.4 MG/DL (8.5-10.1) Phosphorus Level 4.5 MG/DL (2.5-4.9) Magnesium Level 1.8 MG/DL (1.8-2.4) Total Bilirubin 0.4 MG/DL (0.2-1.0) Aspartate Amino Transf (AST/SGOT) 20 U/L (15-37) Alanine Aminotransferase (ALT/SGPT) 30 U/L (12-78) Alkaline Phosphatase 134 U/L (46-116) Total Protein 7.9 G/DL (6.4-8.2) Albumin 3.0 G/DL (3.4-5.0) Globulin 4.9 g/dL Albumin/Globulin Ratio 0.6 (1.0-2.7) Height (Feet): 5 Height (Inches): 1.00 Weight (Pounds): 138 Objective Physical Exam: Vitals: reviewed General Appearance: NAD HEENT: normocephalic, atraumatic Neck: non-tender, normal alignment Respiratory/Chest: normal breath sounds bilaterally Cardiovascular/Chest: normal peripheral pulses, normal rate Abdomen: normal bowel sounds, soft, nontender Extremities: normal range of motion David Venegas MD Nov 05, 2019 16:48
--- NOTE | 2019-11-07 18:56 | Discharge Summary ---
Discharge Summary Discharge Summary _ DATE OF ADMISSION: 10/26/2019 DATE OF DISCHARGE: 11/05/2019 DISCHARGED BY: Dr. Alea Batres CONSULTANTS: [] BRIEF HOSPITAL COURSE: Patient is a 64-year-old female with history of hypertension, gastric CA, on chemotherapy, presented with 1 day of fever, chills, and generalized weakness. Upon evaluation at ED, patient was hypotensive. Systolic BP was in 70s. A central line was inserted to the right femoral vein. She was given fluid resuscitation. Blood work showed severe anemia with hemoglobin level 5.7 and hematocrit 15. Platelet count 101. Sodium 131, potassium 3.7. BUN 31, creatinine 2.5. Lactic acid 2.8. Troponin was negative. proBNP 2449. Urinalysis with too numerous to count WBC, 2-4 RBC, 2+ leukocyte esterase. Chest x-ray was negative. She was started on norepinephrine. She was admitted to ICU for evaluation of sepsis, UTI, acute kidney injury. She was closely followed by heme/oncologist. Patient was being followed US. Hold off on Lynparza at this time. She was given blood transfusion. She received a total of 3 units packed RBC blood transfusion. Patient had thrombocytopenia, which could be secondary to sepsis, and medication. She was given Zosyn. She was given 1 dose of Levaquin. She was continued on Levophed drip. She was given blood transfusion. Venous duplex was negative for DVT. CT scan of the abdomen and pelvis showed probable cholelithiasis, no diverticulitis. Renal ultrasound showed no hydronephrosis. Kidney function improved. Patient had gram-negative sepsis. Blood culture and urine culture showed growth of E. coli. Zosyn was changed to Rocephin. On 10/29/2019. Levophed drip was discontinued. Echocardiogram showed ejection fraction of 60 to 65%. No evidence of pericardial effusion. Patient was eventually transferred to the floor. HIV and hepatitis panel were negative. Antibiotic was transitioned to p.o. ciprofloxacin. She was eventually discharged home. FINAL DIAGNOSES: Gram-negative sepsis with E. coli UTI Severe anemia requiring blood transfusion Gastric CA with history of ovarian resection Pancytopenia Anemia due to myelosuppression Septic shock with hypotension Hypokalemia Diabetes mellitus Acute renal failure DISPOSITION: Patient was discharged home. DISCHARGE MEDICATIONS: Refer to Discharge Medication List. DISCHARGE INSTRUCTIONS: Follow-up in a week. I have been assigned to complete a discharge summary on this account, I was not involved with the patient's management.--TARAH Stephenson Jacqueline Robles NP Nov 07, 2019 18:56
== END 2019-11-05 12:15 | disposition home or self-care (01) | DRG 720 ==
LOC: EDBD 12:29 → EMR 14:08 → ICU 14:25 → EDBEDREQSVC 14:29 → EDBEDREQ 14:58 → 2W 10-30 07:00 → 2E 10-31 01:46 → 4E 11-03 22:41
PROC: 06HM33Z Insertion of Infusion Device into Right Femoral Vein, Percutaneous Approach (ICD-10-PCS; principal; 2019-10-26)
PROC: 30233N1 Transfusion of Nonautologous Red Blood Cells into Peripheral Vein, Percutaneous Approach (ICD-10-PCS; 2019-10-26)
DX: A41.51 Sepsis due to Escherichia coli [E. coli] (principal); R65.21 Severe sepsis with septic shock; N17.9 Acute kidney failure, unspecified; D61.818 Other pancytopenia; N39.0 Urinary tract infection, site not specified; C16.9 Malignant neoplasm of stomach, unspecified; Z85.43 Personal history of malignant neoplasm of ovary; Z85.42 Personal history of malignant neoplasm of other parts of uterus; E87.6 Hypokalemia; K80.20 Calculus of gallbladder without cholecystitis without obstruction; K57.90 Diverticulosis of intestine, part unspecified, without perforation or abscess without bleeding; D64.81 Anemia due to antineoplastic chemotherapy; I12.9 Hypertensive chronic kidney disease with stage 1 through stage 4 chronic kidney disease, or unspecified chronic kidney disease; E11.22 Type 2 diabetes mellitus with diabetic chronic kidney disease; N18.4 Chronic kidney disease, stage 4 (severe); E46 Unspecified protein-calorie malnutrition; Z90.710 Acquired absence of both cervix and uterus; Z90.722 Acquired absence of ovaries, bilateral; Z90.49 Acquired absence of other specified parts of digestive tract
CPT/HCPCS: 36415; 70450; 71045; 74176; 76770; 80053; 80202; 80307; 81003; 82270; 82533; 82550; 82607; 82728; 82746; 82962; 82977; 83036; 83540; 83550; 83605; 83690; 83735; 83880; 83930; 84100; 84300; 84443; 84484; 84550; 85007; 85025; 85610; 85730; 86140; 86703; 86705; 86709; 86710; 86803; 86850; 86900; 86901; 86920; 87040; 87081; 87086; 87181; 87340; 89050; 93005; 93306; 93970; 96361; 96365; 96367; 96375; 99291; J1815; J7030; J8499